=== PATIENT | male | born 1955 | race Caucasian/White ===

== ENCOUNTER 2022-09-04 09:29 | Outpatient (OUT) | payer MEDICARE, SELFPAY ==
--- NOTE | 2022-09-04 09:42 | CT_ITS ---
[address] [address] Patient Name: CARMINA MASON MRN: [id number] date: 1955 Sex: M Assigned Patient Location: CT Current Patient Location: CT Accession/Order Number: [id number] Exam Date: 09/04/2022 09:43 Report Date: 09/05/2022 09:13 At the request of: KIT DUNN Procedure: CT abdomen pelvis wo con EXAMINATION: CT abdomen pelvis wo con HISTORY: FLANK PAIN COMPARISON: No relevant comparison available. TECHNIQUE: Axial, Coronal, and Sagittal images were created without IV contrast. Dose reduction techniques were achieved by using automated exposure control and/or adjustment of mA and/or kV according to patient size and/or use of iterative reconstruction technique. FINDINGS: LUNG BASES: No visible pulmonary or pleural disease. 8 mm left pleural effusion LIVER: Multiple hypodensities the largest is subcapsular inferior right hepatic lobe measuring 2 cm in diameter with a density of 25 Hounsfield units, these are indeterminate BILIARY: No dilatation or calcification. PANCREAS: No lesion, fluid collection, ductal dilatation, or atrophy. SPLEEN: No enlargement or focal lesion. ADRENALS: No mass or enlargement. KIDNEYS: Normal right. Nonobstructing left nephrolithiasis. Left parapelvic cyst measuring 3.4 cm in diameter. 2 focal hypodensities posterior left renal cortex axial image 40 and 48 BOWEL/MESENTERY: Colonic diverticulosis without evidence of acute diverticulitis. Some mild wall thickening of the proximal sigmoid colon best seen on axial image 111 possibly related to nondistention. Normal appendix AORTA/VASCULAR: No aortic aneurysm. Mild atherosclerosis RETROPERITONEUM: No mass or adenopathy. LYMPH NODES: No adenopathy. URINARY BLADDER: No visible focal wall thickening, lesion, or calculus. PELVIC ORGANS: Enlarged prostate gland measuring 6.4 cm in diameter ABDOMINAL WALL: No mass or hernia. BONES: Moderate degenerative changes OTHER: Negative. IMPRESSION: Scattered hepatic hypodensities measuring up to 2 cm, nonspecific. Consider multiphase CT or MRI to evaluate enhancement characteristics Two focal hypodensities left posterior renal cortex, indeterminate, consider pre and postcontrast CT exam for further characterization No obstructive uropathy Moderate enlargement of the prostate gland measuring 6.4 cm in diameter Moderate colonic diverticulosis Electronically authenticated by: VENKATESH CHAPMAN Date: 09/05/2022 09:13
== END 2022-09-04 09:30 ==
LOC: CT 09:30
PROVIDERS: Visit Provider Urology
DX: N20.0 Calculus of kidney (principal); R10.9 Unspecified abdominal pain; N40.0 Benign prostatic hyperplasia without lower urinary tract symptoms; K57.30 Diverticulosis of large intestine without perforation or abscess without bleeding
CPT/HCPCS: 74176

== ENCOUNTER 2022-09-14 13:40 | Outpatient (OUT) | payer MEDICARE, SELFPAY ==
--- NOTE | 2022-09-14 13:46 | ECG_ITS ---
The [facility] Test Date: 2022-09-14 Pat Name: Zheng Montesinos Department: Room: - Gender: Male [employer]: : 1955 Requested By: JAHAIRA SWEET Order Number: [id number] Reading MD: MINDY COLLAZO Measurements Intervals S[place]ent Rate: 64 P: 53 AR: 178 QRS: 16 QRSD: 106 T: 64 QT: 389 QTc: 402 Interpretive Statements SINUS RHYTHM NONSPECIFIC T-WAVE ABNORMALITY No previous ECG available for comparison Electronically Signed On 09-15-2022 6:53:19 EDT by MINDY COLLAZO
[2022-09-14 14:45] LABS: Basophils Percent Auto 1.1 % (0.2-2.0); Eosinophils Absolute Auto 0.3 10^3/uL (0.0-0.7); Eosinophils Percent Auto 6.8 % (0.9-7.0); Hematocrit 40.6 % (42.0-54.0); Hemoglobin 13.6 g/dL (14.0-18.0); Immature Granulocytes Abs Auto 0.02 10^3/uL (0.00-0.03); Immature Granulocytes Pct Auto 0.5 % (0.0-0.5); Lymphocytes Absolute Auto 0.8 10^3/uL (1.2-3.8); Lymphocytes Percent Auto 22.6 % (20.5-60.0); Mean Corpuscular HGB Conc 33.5 g/dL (29.9-35.2); Mean Corpuscular Hemoglobin 28.4 pg (25.9-34.0); Mean Corpuscular Volume 84.8 fL (80.0-94.0); Mean Platelet Volume 9.4 fL (9.5-13.5); Monocytes Absolute Auto 0.3 10^3/uL (0.3-0.8); Monocytes Percent Auto 8.7 % (1.7-12.0); Neutrophils Absolute Auto 2.2 10^3/uL (1.4-6.5); Neutrophils Percent Auto 60.3 % (43.0-75.0); Platelet Count 162 10^3/uL (150-450); Red Blood Count 4.79 10^6/uL (4.70-6.10); Red Cell Distribution Width 13.8 % (11.0-15.0); White Blood Count 3.7 10^3/uL (4.0-11.0)
[2022-09-14 14:58] LABS: Partial Thromboplastin Time 27.7 sec (22.3-36.2); Prothrombin Time 10.6 sec (9.0-11.6)
[2022-09-14 16:23] LABS: Calcium 9.2 mg/dL (8.5-10.1); Carbon Dioxide 24.9 mmol/L (21.0-32.0); Chloride 109 mmol/L (98-107); Estimated GFR (African America 60 (>=60); Estimated GFR (Non-African Ame 49 (>=60); Glucose 98 mg/dL (74-106); Potassium 3.9 mmol/L (3.5-5.1); Sodium 143 mmol/L (136-145)
== END 2022-09-14 13:41 ==
LOC: PST 13:41
PROVIDERS: Urology
DX: Z01.810 Encounter for preprocedural cardiovascular examination (principal); Z01.812 Encounter for preprocedural laboratory examination; R10.9 Unspecified abdominal pain; R31.9 Hematuria, unspecified; N20.0 Calculus of kidney; E29.1 Testicular hypofunction; E78.5 Hyperlipidemia, unspecified; C85.90 Non-Hodgkin lymphoma, unspecified, unspecified site; Z79.899 Other long term (current) drug therapy; I10 Essential (primary) hypertension
CPT/HCPCS: 36415; 80048; 85025; 85610; 85730; 93005

== ENCOUNTER 2022-09-16 10:21 | Day surgery (SDC) | payer MEDICARE, SELFPAY ==
[2022-09-14 14:08] VITALS: BP 116/69; PULSE 62; RESP 20; TEMP 36.4; O2SAT 97; BMI 42.4
[2022-09-16] VITALS (10 sets, daily range): BP systolic 125–159; BP diastolic 70–87; PULSE 53–74; RESP 12–20; TEMP 36–36.2; O2SAT 95–99; BMI 42.0
[2022-09-16] MEDS: LACTATED RINGER'S SOLUTION 1,000 ML 50 ML IV ×2 (11:09→14:43)
[2022-09-16] MEDS: CEFAZOLIN SODIUM/DEXTROSE,ISO 1 GM/50 ML IV.SOLN IV (12:08)
[2022-09-16] MEDS: IOHEXOL 240 MG/ML - 50 ML VIAL INJ (12:31)
--- NOTE | 2022-09-16 13:28 | P.URON_ITS ---
Urology Surgery Operative Note Operative Note Procedure Date: 09/16/22 Time Out Performed: yes Pre-op Diagnosis: gross hematuria and left flank pain Post-op Diagnosis: same plus left nephrolithiasis Procedures performed: #1. Cystoscopy. #2. Left retrograde pyelogram. #3. Left rigid ureteral dilation. #4. Left ureteroscopy. #5. Left pyeloscopy. #6. Holmium laser lithotripsy of left renal calculi. #7. Stone basket extraction. #8. Placement of 6 Argentine variable length left ureteral stent Anesthesia: other (Gen. by LMA) Primary Surgeon: Daniel Hood Complications: none Estimated blood loss (mL): 5 Findings: left distal ureteral J-hooking. Left nephrolithiasis greater than 1 cm Specimens: left renal calculi fragments Drains: non- Indications for Procedures: The patient was brought to the operating room and placed on the operating room table in the supine position. SCDs were placed on the lower extremities and turned on and functioning during the entire case. Timeout was done by all parties in the room. We all agreed upon the patient's identification and the planned procedures for this patient. Genn. anesthesia was then administered. The patient was then repositioned into the modified dorsal lithotomy position. All pressure points were satisfactorily padded. Genitalia were sterilely prepped and draped in usual fashion. I started by passing a 22 Argentine Olympus cystoscope per urethra and into the bladder. There was minimal oozing of blood from the exterior prostatic urethra. I then passed the scope into the bladder. Careful panendoscopy revealed no evidence of any tumors or stones. I then passed an 8 Argentine cone-tipped catheter and did a left retrograde pyelogram. This showed J hooking of the distal left ureter but no other filling defects. I then passed a Glidewire through the scope and cannulated the left ureter. I was able to get the wire up the ureter and into the kidney. I then used an 8 and 10 Argentine rigid dilator to dilate the distal left ureter. The scope was then removed. I then passed a 11/13 Argentine navigator ureteral access sheath over the wire and up to the L5 level. The wire and stylette were then removed. I then passed a flexible ureteroscope through the access sheath and into the ureter. I went up the ureter and then into the renal pelvis. I then scoped in the calyceal system. I found some stones in the mid pole calyx. One of the stones was greater than 1 cm. There were a couple other smaller stones in this calyx. I then passed a 272 ? holmium laser fiber through the scope and made contact with the stone. Laser lithotripsy was done on the dusting mode at 10 W continuously and then increased to 12 W. I dust did all of these stones. I did leave a few pieces. I then passed a 0 tip nitinol basket and engaged the pieces and these were extracted down and sent for stone analysis. The scope was then removed. I then passed a Glidewire through the access sheath and into the kidney and removed the access sheath. I then backloaded the cystoscope over the wire and passed it into the bladder. The urethral oozing had stopped. I then slid a 6 Argentine variable length ureteral stent over the wire up into the kidney. The wire was removed and there were good curls in the kidney and in the bladder. The bladder was drained of its contents and the scope was then removed. He was then transferred [facility] and wheeled to PACU in stable condition. He'll be discharged to home later today with a prescription for Keflex 500 mg daily for 2 weeks and Vesicare 10 mg daily #30.
--- NOTE | 2022-09-16 13:43 | PC.NURSE ---
has urinal in place; has not voided
--- NOTE | 2022-09-16 14:50 | PC.NURSE ---
Added 1 liter fluids as patient is unable to urinate post procedure. patient denies any pain.
--- NOTE | 2022-09-16 15:22 | PC.NURSE ---
patient ambulating to try and urinate.
[2022-09-22 20:24] LABS: Calcium Oxalate Dihydrate 60 % (.); Calcium Oxalate Monohydrate 10 % (.); Calcium phosphate (hydroxyl) 30 % (.)
== END 2022-09-16 15:41 | disposition home or self-care (01) ==
PROVIDERS: Visit Provider Urology
PROC: (CPT 52356; principal; 2022-09-16 11:00)
DX: N20.0 Calculus of kidney (principal); R31.9 Hematuria, unspecified; R10.9 Unspecified abdominal pain; I10 Essential (primary) hypertension; N52.9 Male erectile dysfunction, unspecified; R97.20 Elevated prostate specific antigen [PSA]; N40.1 Benign prostatic hyperplasia with lower urinary tract symptoms; R39.15 Urgency of urination; R35.1 Nocturia; Z87.442 Personal history of urinary calculi; C85.10 Unspecified B-cell lymphoma, unspecified site; Z79.899 Other long term (current) drug therapy
CPT/HCPCS: 52356; 74420; 82365; 99999; C1874; J2704; Q9966

== ENCOUNTER 2022-11-10 11:06 | Outpatient (OUT) | payer MEDICARE, SELFPAY ==
--- NOTE | 2022-11-10 11:35 | XR_ITS ---
The [address] [address] Patient Name: CARMINA MASON MRN: [id number] date: 1955 Sex: M Assigned Patient Location: LAB Current Patient Location: LAB Accession/Order Number: [id number] Exam Date: 11/10/2022 11:40 Report Date: 11/10/2022 12:53 At the request of: JAHAIRA SWEET Procedure: XR abdomen 1V EXAM: XR abdomen 1V HISTORY: Kidney Stones N20.0 COMPARISON: None. TECHNIQUE: AP view of the abdomen. FINDINGS: Nonobstructive bowel gas pattern is noted. There is no suspicious calcification. The osseous structures are intact. XR/XR abdomen 1V IMPRESSION: Nonobstructive bowel gas pattern. No suspicious renal calcification. Electronically authenticated by: IRIS VINCENT Date: 11/10/2022 12:53
[2022-11-10 12:52] LABS: Prostate Specific Antigen Dx 11.77 ng/mL (<=4.00)
[2022-11-11 08:13] LABS: Testosterone 597 ng/dL (264-916)
== END 2022-11-10 11:07 | disposition home or self-care (01) ==
LOC: LAB 11:07
PROVIDERS: Visit Provider Urology
DX: N20.0 Calculus of kidney (principal); E29.1 Testicular hypofunction; R97.20 Elevated prostate specific antigen [PSA]
CPT/HCPCS: 36415; 74018; 84153; 84403

== ENCOUNTER 2023-04-06 11:56 | Outpatient (OUT) | payer MEDICARE, SELFPAY ==
[2023-04-06 12:48] LABS: Prostate Specific Antigen Dx 14.96 ng/mL (<=4.00)
[2023-04-06 15:06] LABS: Calcium 8.8 mg/dL (8.5-10.1); Carbon Dioxide 25.1 mmol/L (21.0-32.0); Chloride 109 mmol/L (98-107); Estimated GFR (African America >60 (>=60); Estimated GFR (Non-African Ame 51 (>=60); Sodium 139 mmol/L (136-145); Uric Acid 5.1 mg/dL (3.5-7.2)
[2023-04-06 15:34] LABS: Total Volume 24 Hour Urine 2575 mL/24hr
[2023-04-06 15:37] LABS: Calcium 24 Hour Urine 391.4 mg/24hr (100.0-300.0); Calcium Urine Random 15.2 mg/dL (5.1-21.0); Sodium 24 Hour Urine 180 mmol/24h (40-220); Sodium Urine Random 70 mmol/L (30-90)
[2023-04-07 08:11] LABS: Testosterone 586 ng/dL (264-916)
[2023-04-07 09:12] LABS: Magnesium, U 4.9 mg/dL (Not Estab.); Magnesium,Urine 24hr 126.2 mg/24 hr (12.0-293.0); Phosphorus, Urine 72.3 mg/dL (Not Estab.); Phosphorus,Urine 24h 1862 mg/24 hr (390-1425); Uric Acid, Urine 46.7 mg/dL (Not Estab.)
[2023-04-07 12:10] LABS: PTH, Intact 19 pg/mL (15-65)
[2023-04-08 13:11] LABS: Citric Acid, U, 24hr 245 mg/24 hr (320-1240); Citric Acid, Urine 95 mg/L (Undefined)
[2023-04-19 16:09] LABS: Oxalates, Urine 4 mg/L (Undefined); Oxalates, Urine 24hr 10 mg/24 hr (7-44)
== END 2023-04-06 11:57 | disposition home or self-care (01) ==
LOC: LAB 11:56
PROVIDERS: Visit Provider Urology
DX: E29.1 Testicular hypofunction (principal); N20.0 Calculus of kidney
CPT/HCPCS: 36415; 82310; 82340; 82374; 82435; 82507; 82565; 82570; 83735; 83945; 83970; 84100; 84105; 84153; 84295; 84300; 84403; 84520; 84550; 84560

== ENCOUNTER 2023-07-20 15:42 | Outpatient (OUT) | payer MEDICARE, SELFPAY ==
--- NOTE | 2023-07-20 15:51 | XR_ITS ---
The [address] [address] Patient Name: CARMINA MASON MRN: [id number] date: 1955 Sex: M Assigned Patient Location: LAB Current Patient Location: Accession/Order Number: [id number] Exam Date: 07/20/2023 16:05 Report Date: 07/22/2023 04:43 At the request of: JAHAIRA SWEET Procedure: XR abdomen 1V EXAMINATION: XR abdomen 1V HISTORY: kidney stone N20.0 COMPARISON: XR abdomen 11/10/2022 FINDINGS: KIDNEY/URETER - RIGHT: No visible renal or ureteral calcifications. KIDNEY/URETER - LEFT: 5 mm calcification projecting over inferior pole of left kidney. PELVIS: No appreciable ureteral stones. Stable pelvic calcifications favoring phleboliths. BOWEL: No abnormal dilation or deviation. BONES: No acute abnormality. OTHER: Multiple surgical soft tissue anchors overlying the lower abdomen. XR/XR abdomen 1V IMPRESSION: 1. Suspect left nephrolithiasis. Electronically authenticated by: MIKE VILLEDA Date: 07/22/2023 04:43
--- OUTSIDE RECORDS SUMMARY | 2023-07-20 16:08 | XMS_ITS | CCD ---
Author Organization [facility] Care Team Providers Care Library Information Technician Name Role Phone SHELIA HARDY Unavailable Unavailable SUYAPA DELGADO Unavailable Unavailable DIETZ, VERNA Unavailable Unavailable DIETZ, VERNA Unavailable Unavailable DIETZ, VERNA Unavailable Unavailable DIETZ, VERNA Unavailable Unavailable SHELIA HARDY Unavailable Unavailable Kenny Yu Unavailable VARSHA HARDY Primary Care Physician MD Juan Carlos Morgan Primary Care Provider MD Abbi Mcbride Attending Provider DO Julien Wilkerson Emergency Provider Al MD Can Sethi Admit Provider MD Abbi Mcbride Other Provider MD Jeffery Arthur Attending Provider DO Fam Duncan Attending Provider RUSTY Duron Attending Provider RUSTY Duron Attending Provider Dr. Abbi Mcbride Attending Unavailable MD Juan Carlos Morgan Primary Care Provider RUSTY Duron Attending Provider RUSTY Duron Attending Provider MD Juan Carlos Morgan Primary Care Provider RUSTY Duron Attending Provider DR JAHAIRA SWEET Attending Unavailable DR JAHAIRA SWEET Admitting Unavailable SWEET, DR CAMPO Consulting Unavailable MISC, DR BALDERAS Primary Care Unavailable SWEET, DR CAMPO Attending Unavailable SWEET, DR CAMPO Admitting Unavailable MISC, DR BALDERAS Primary Care Unavailable SWEET, DR CAMPO Consulting Unavailable WEST, DR VENKATESH Duncan Consulting Unavailable SWEET, DR CAMPO Consulting Unavailable SWEET, DR CAMPO Attending Unavailable SWEET, DR CAMPO Admitting Unavailable MISC, DR BALDERAS Primary Care Unavailable ZIEBER, DR MIKE Ya Consulting Unavailable SWEET, DR CAMPO Attending Unavailable SWEET, DR CAMPO Admitting Unavailable MISC, DR BALDERAS Primary Care Unavailable MD Cathy [place] Primary Care Provider RUSTY Duron Attending Provider Unavailable Primary Care Provider Unavailabl e JAHAIRA SWEET Referring Unavailable MD Cathy [place] Primary Care Provider RUSTY Duron Attending Provider MD Hunter Forrest Attending Provider [phone] MD Cathy [place] Primary Care Provider MD uHnter Forrest Attending Provider [phone] RUSTY Duron Attending Provider MD Cathy [facility] Care Provider RUSTY Duron Attending Provider MD Jahaira Sweet Attending Provider SWEET, Jahaira R Attending Unavailable SWEET, Jahaira R Attending Unavailable SWEET, Jahaira R Attending Unavailable SWEET, Jahaira R Attending Unavailable SWEET, Jahaira R Admitting Unavailable SWEET, Jahaira R Referring Unavailable SWEET, Jahaira R Attending Unavailable SWEET, Jahaira R Attending Unavailable SWEET, Jahaira R Attending Unavailable HAYLEY MACHADO, SHELIA Whitaker Primary Care Unavailable HAYLEY MACHADO, SHELIA Whitaker Attending Unavailable HAYLEY MACHADO, SHELIA Whitaker Attending Unavailable HAYLEY MACHADO, SHELIA Whitaker Primary Care Unavailable HAYLEY MACHADO, SHELIA Whitaker Attending Unavailable HAYLEY MACHADO, SHELIA Whitaker Primary Care Unavailable HAYLEY MACHADO, SHELIA Whitaker Primary Care Unavailable HAYLEY MACHADO, SHELIA Whitaker Attending Unavailable HAYLEY MACHADO, SHELIA Whitaker Primary Care Unavailable HAYLEY MACHADO, SHELIA Whitaker Admitting Unavailable HAYLEY MACHADO, SHELIA Whitaekr Attending Unavailable SHELIA HARDY MD Primary Care Unavailable Jahaira Sweet Admitting Unavailable Jahaira Sweet Attending Unavailable Valentin Almaraz Admitting Unavailable Valentin Almaraz Attending Unavailable HAYLEY MACHADO, SHELIA Whitaker Primary Care Unavailable Jahaira Sweet Admitting Unavailable Jahaira Sweet Attending Unavailable Juan Carlos Morgan Primary Care Unavailable Hunter Forrest Admitting Unavailable Hunter Forrest Attending Unavailable Juan Carlos Morgan Primary Care Unavailable Jane Duron Attending Unavail able Juan Carlos Morgan Primary Care Unavailable Starla Gautam Consulting Unavailab Jane Brunson Admitting Unavail able Allergies Allergy Classification Reported Allergen(s) Allergy Type Date of Onset Reaction(s) Facility (2 sources) Amino Acids Drug Allergy [facility] Repository (1 source) No Known Medication Allergies; Translations: [No Known Medication Allergies] Propensity to adverse reactions (disorder) [facility] Repository Medications Current Medications Medication Drug Class(es) Dates Sig (Normalized) Sig (Original) allopurinol 300 mg oral tablet (20 sources) Xanthine Oxidase Inhibitor Start: 06-29-2023 End: 06-23-2024 take 1 tablet by mouth once daily allopurinol 300 mg Tab 300 mg = 1 tab(s), Oral, Daily, X 30 day(s), # 30 tab(s), Refills(s) 11, Pharmacy: [facility] #[id number], 175.2, cm, 06/29/23 8:10:00 EDT, Height/Length Dosing, 132.6, kg, 06/29/23 8:06:00 EDT, Weight Dosing Start Date: 06/29/23 Stop Date: 06/23/24 Status: Ordered Start: 04-08-2021 End: 04-03-2022 take 300 mg by mouth once daily Allopurinol Discontinued 300 MG PO Daily September 23, 2021 11:00pm September 27, 2021 3:26pm amLODIPine 5 mg oral tablet (20 sources) Dihydropyridine Calcium Channel Rea Start: 05-10-2022 amLODIPine 5 mg Tab Refills(s) 0 Start Date: 05/10/22 Status: Ordered Start: 09-24-2021 End: 10-28-2021 take 5 mg by mouth once daily Amlodipine Active 5 MG P O Daily October 27, 2021 11:00pm atorvastatin 20 mg oral tablet (20 sources) HMG-CoA Reductase Inhibitor Start: 05-10-2022 atorvastatin 20 mg T ab Refills(s) 0 Start Date: 05/10/22 Status: Ordered Start: 09-24-2021 End: 10-28-2021 take 20 mg by mouth once daily Atorvastatin Discontinu ed 20 MG PO Daily September 23, 2021 11:00pm October 28, 2021 8:19am citalopram 20 mg oral tablet (1 source) Serotonin Reuptake Inhibitor take 1 tablet by mouth every twenty-four hours Citalopram Hydrobromide 20 MG 1 tablet Orally Once a day Active folic acid 1 mg oral tablet (20 sources) Start: End: take 3 mg by mouth once daily Folic Acid Active 3 MG PO Daily April 29, 2023 2:48pm Start: 04-16-2022 End: 10-06-2022 folic acid 1 mg Tab Refills( s) 0 Start Date: 05/10/22 Status: Ordered hydroCHLOROthiazide 12.5 mg oral capsule (20 sources) Thiazide Diuretic Start: 06-29-2023 End: 06-23-2024 take 1 capsule by mouth once daily hydrochlorothiazide 12.5 mg Cap 12.5 mg = 1 cap(s), Oral, Daily, X 30 day(s), # 30 cap(s), Refills(s) 11, Pharmacy: [facility] #[id number], 175.2, cm, 06/29/23 8:10:00 EDT, Height/Length Dosing, 132.6, kg, 06/29/23 8:06:00 EDT, Weight Dosing Start Date: 06/29/23 Stop Date: 06/23/24 Status: Ordered Start: 10-28-2021 End: 11-18-2021 take 12.5 mg by mouth once daily Hydrochlorothiazide Discontinued 12.5 MG PO Daily October 27, 2021 11:00pm November 18, 2021 2:21pm Start: 04-08-2021 End: 09-26-2021 take 12.5 mg by mouth once daily Hydrochlorothiazide Discontinued 12.5 MG PO Daily September 23, 2021 11:00pm September 26, 2021 1:06am ketorolac tromethamine 10 mg oral tablet (1 source) Nonsteroidal Anti-inflammatory Drug, Cyclooxygenase Inhibitor Start: 09-23-2022 take 1 tablet by mouth twice daily as needed for pain ketorolac 10 mg Tab 10 mg = 1 tab(s), Oral, BID, PRN for pain, # 10 tab(s), Refills(s) 0, Pharmacy: [facility] #[id number], 175.2, cm, 05/10/22 10:47:00 EST, Height/Length Dosing, 148, kg, 05/10/22 10:47:00 EST, Weight Dosing Start Date: 09/23/22 Status: Ordered losartan potassium 50 mg oral tablet (8 sources) Angiotensin 2 Receptor Rea Start: 09-26-2020 take 1 mg by mouth once daily losartan 50 mg Tab mg tab(s), Oral, Daily, Refills(s) 0 Start Date: 09/26/20 Status: Ordered tamsulosin hydrochloride 0.4 mg oral capsule (1 source) alpha-Adrenergic Rea Start: 10-12-2022 End: 10-19-2022 take 1 capsule by mouth once daily Flomax 0.4 mg Cap 0.4 mg = 1 cap(s), Oral, Daily, X 7 day(s), # 7 cap(s), Refills(s) 0, Pharmacy: [facility] #[id number], 175.2, cm, 10/12/22 14:31:00 EDT, Height/Length Dosing, 148, kg, 10/12/22 14:31:00 EDT, Weight Dosing Start Date: 10/12/22 Stop Date: 10/19/22 Status: Ordered 60 actuat testosterone 20.25 mg/actuat topical gel (20 sources) Androgen Start: 06-29-2023 AndroGel Pump 20.25 mg/1.25 g (1.62%) transdermal gel = 1 pump, Topical, MonWedFri, Apply one pump to clean, dry, intact skin three times per week. TUE-TUE-TUE. Wash hands thoroughly after application., # 75 gm, Refills(s) 3, Pharmacy: [facility] #[id number], 175.2, cm, 06/29/23 8:10:00 EDT, Height/Length Dosing, 132.6, kg, 06/29/23 8:06:00 EDT, Weight Dosing Start Date: 06/29/23 Status: Ordered Start: 10-12-2022 AndroGel Pump 20.25 mg/1.25 g (1.62%) transdermal gel = 1 pump, Topical, MonWedFri, Apply one pump to clean, dry, intact skin three times per week. . Wash hands thoroughly after application., # 75 gm, Refills(s) 3, Pharmacy: [id number] #[id number], 175.2, cm, 10/12/22 14:31:00 EDT, Height/Length Dosing, 148, kg, 10/12/22 14:31:00 EDT, Weight Dosing Start Date: 10/12/22 Status: Ordered Start: 02-11-2022 AndroGel Pump 20.25 mg/1.25 g (1.62%) transdermal gel = 1 pump, Topical, As Directed, Apply one pump 3x/ week. apply to clean, dry, intact skin wash hands thoroughly after application, # 75 gm, Refills(s) 3, Pharmacy: [facility] #[id number], 175.2, cm, 11/02/21 11:21:00 EDT, Height/Length Dosing... Start Date: 02/11/22 Status: Ordered Start: 10-28-2021 Testosterone ( Androgel) 1 % (25 mg/2.5gram) Gel In Packet Active 1 PACKET TRANSDERML Daily October 27, 2021 11:00pm Start: 10-09-2021 End: 10-28-2021 Testosterone Discontinued 4 PUMP TOPICAL Q48H October 08, 2021 11:00pm October 28, 2021 8:21am Start: 09-24-2021 End: 09-26-2021 Testosterone (Androgel) 20.2 5 mg/1.25 gram (1.62 %) Gel In Metered-Dose Pump Discontinued 2 PUMP TOPICAL Daily September 23, 2021 11:00pm September 26, 2021 1:06am Start: 05-04-2021 AndroGel Pump 20.25 mg/1.25 g (1.62%) transdermal gel = 1 pump, Topical, As Directed, Apply one pump 4x/ week. , # 75 gm, Refills(s) 3, Pharmacy: [facility], 175.2, cm, 05/04/21 11:06:00 EST, Height/Length Dosing, 149.3, kg, 05/04/21 11:06:00 EST, Weight Dosing Start Date: 05/04/21 Status: Ordered Testim 50 MG/5GM (1%) 1 application to affected area in the morning Transdermal Once a day Active topiramate 100 mg oral tablet (20 sources) Start: 09-24-2021 take 100 mg by mouth once daily Topiramate Active 100 MG PO Daily September 23, 2021 11:00pm Start: 11-13-2018 take 1 tablet by nena th once daily topiramate 100 mg Tab 100 mg = 1 tab(s), Oral, Daily, Refills(s) 0 Start Date: 11/13/18 Status: Ordered traZODone hydrochloride 100 mg oral tablet (20 sources) Serotonin Reuptake Inhibitor Start: 09-26-2021 End: 10-28-2021 take 100 mg by mouth once daily at bedtime Trazodone Active 100 MG PO Daily at bedtime October 27, 2021 11:00pm Completed/Discontinued Medications Medication Drug Class(es) Dates Sig (Normalized) Sig (Original) cephalexin 500 mg oral tablet (4 sources) Cephalosporin Antibacterial Start: 07-09-2022 End: 10-06-2022 take 500 mg by mouth four times daily Cephalexin Discontinued 500 MG PO Four times daily 14 08July 08, 2022 11:00pm October 06, 2022 8:59am ciprofloxacin 500 mg oral tablet (1 source) Quinolone Antimicrobial Start: 10-05-2022 take 1 tablet by mouth once daily Cipro 500 mg Tab 500 mg = 1 tab(s), Oral, Daily, Take 1 tablet the day before the procedure and 1 tablet after the procedure, # 2 tab(s), Refills(s) 0, Pharmacy: [facility] #[id number], 175.2, cm, 05/10/22 10:47:00 EST, Height/Length Dosing, 148, kg, 05/10/22 10:47:00 EST, W... Start Date: 10/05/22 Status: Ordered doxazosin 8 mg oral tablet (20 sources) alpha-Adrenergic Rea Start: 04-08-2021 End: 03-04-2023 take 8 mg by mouth once daily Doxazosin Discontinued 8 MG PO Daily September 23, 2021 11:00pm September 26, 2021 1:13pm fluconazole 100 mg oral tablet (20 sources) Azole Antifungal Start: 12-09-2021 End: 01-08-2022 take 1 tablet by mouth once daily Fluconazole (Diflucan) 100 mg Tablet Discontinued 100 MG PO Daily December 23, 2021 11:57am January 08, 2022 9:38am ibuprofen 600 mg oral tablet (12 sources) Nonsteroidal Anti-inflammatory Drug Start: 11-05-2021 End: 11-18-2021 Ibuprofen Discontinued 600 MG PO EVERY 4-6 HOURS 15 November 04, 2021 11:00pm November 18, 2021 2:00pm do not exceed 4 doses in a 24 hour period Magic Mouthwash (12 sources) Start: 11-18-2021 End: 01-08-2022 take 1 [tsp_us] by mouth three times daily Magic Mouthwash Discontinued 1 - 2 TSP PO Three times daily November 17, 2021 11:00pm January 08, 2022 9:38am Start: 11-18-2021 End: 01-08-2022 take 1 [tsp_us] by mouth three times daily Magic Mouthwash Discontinued 1 - 2 TSP PO Three times daily November 18, 2021 12:00am January 08, 2022 10:38am Start: 11-18-2021 take 1 [tsp_us] by m outh three times daily Magic Mouthwash Active 1 - 2 TSP PO Three times daily November 18, 2021 12:00am melatonin 10 mg oral tablet (20 sources) Start: 09-24-2021 End: 01-08-2022 take 10 mg by mouth at bedtime Melatonin Discontinued 10 MG PO Bedtime October 27, 2021 11:00pm January 08, 2022 9:38am nystatin [id number] unt/ml oral suspension (20 sources) Polyene Antifungal Start: 11-18-2021 End: 01-08-2022 take 1 mL by mouth once daily Nystatin Discontinued 4 - 6 ML PO Daily 480 December 23, 2021 11:57am January 08, 2022 9:39am swish and swallow Start: 11-18-2021 take 1 mL by mouth once daily Nystatin Active 4 - 6 ML PO Daily 480 November 18, 2021 12:00am swish and swallow Start: 11-18-2021 take 1 mL by mouth once daily Nystatin Active 4 - 6 ML PO Daily 480 November 18, 2021 12:00am swish and swallow omeprazole 40 mg delayed release oral capsule (12 sources) Proton Pump Inhibitor Start: 09-26-2021 End: 10-28-2021 take 40 mg by mouth once daily at bedtime Omeprazole Discontinued 40 MG PO Daily at bedtime September 25, 2021 11:00pm October 28, 2021 8:20am potassium bicarbonate 25 meq effervescent oral tablet (8 sources) Start: 10-12-2022 End: 10-07-2023 take 1 tablet by mouth twice daily Klor-Con/EF 25 mEq oral tablet, effervescent 25 mEq = 1 tab(s), Oral, BID, X 90 day(s), # 180 tab(s), Refills(s) 3, Pharmacy: [facility] #[id number], 175.2, cm, 10/12/22 14:31:00 EDT, Height/Length Dosing, 148, kg, 10/12/22 14:31:00 EDT, Weight Dosing Start Date: 10/12/22 Stop Date: 10/07/23 Status: Ordered Start: 02-11-2022 take 1 tablet by [facility] twice daily Klor-Con/EF 25 mEq oral tablet, effervescent 25 mEq = 1 tab(s), Oral, BID, # 180 tab(s), Refills(s) 3, Pharmacy: [facility] #[id number], 175.2, cm, 11/02/21 11:21:00 EDT, Height/Length Dosing, 149.3, kg, 11/02/21 11:21:00 EDT, Weight Dosing Start Date: 02/11/22 Status: Ordered Start: 05-13-2021 take 1 tablet by nena twice daily Klor-Con/EF 25 mEq oral tablet, effervescent 25 mEq = 1 tab(s), Oral, BID, # 180 tab(s), Refills(s) 3, Pharmacy: [facility], 175.2, cm, 05/04/21 11:06:00 EST, Height/Length Dosing, 149.3, kg, 05/04/21 11:06:00 EST, Weight Dosing Start Date: 05/13/21 Status: Ordered Start: 04-08-2021 End: 04-03-2022 take 1 tablet by mouth twice daily Effer-K 20 mEq oral tablet, effervescent 20 mEq = 1 tab(s), Oral, BID, X 90 day(s), # 180 tab(s), Refills(s) 3, Pharmacy: [facility], 175.2, cm, 09/26/20 12:25:00 EDT, Height/Length Dosing, 155, kg, 09/26/20 12:25:00 EDT, Weight Dosing Start Date: 04/08/21 Stop Date: 04/03/22 Status: Ordered potassium chloride 25 meq oral tablet (20 sources) Start: 10-09-2021 End: 10-06-2022 take 25 mEq by mouth once daily Potassium Chloride Discontinued 25 MEQ PO Daily October 08, 2021 11:00pm October 06, 2022 9:01am Start: 09-24-2021 End: 09-26-2021 take 50 mEq by mouth once daily Potassium Chloride (Klor-Con) 20 mEq Packet Discontinued 50 MEQ PO Daily September 23, 2021 11:00pm September 26, 2021 1:07am predniSONE 20 mg oral tablet (20 sources) Start: 11-05-2021 End: 04-16-2022 take 5 tablets by mouth once daily, then take 1 tablet by mouth at mealtime Prednisone Discontinued 100 MG PO Daily November 05, 2021 10:25am April 16, 2022 2:55pm Administor 5 tabs po dailly days one through five of each chemo cycle administer with food or milk Start: 11-05-2021 take 5 tablets by mo uth once daily, then take 1 tablet by mouth at mealtime Prednisone Active 100 MG PO Daily November 05, 2021 11:25am Administor 5 tabs po dailly days one through five of each chemo cycle administer with food or milk Start: 09-30-2021 End: 11-05-2021 take 100 mg by mouth once daily at mealtime Prednisone Discontinued 100 MG PO Daily October 08, 2021 11:00pm November 05, 2021 10:25am administer with food or milk promethazine hydrochloride 25 mg oral tablet (12 sources) Phenothiazine Start: 09-26-2021 End: 10-28-2021 take 25 mg by mouth every six hours Promethazine Discontinued 25 MG PO Q6H September 25, 2021 11:00pm October 28, 2021 8:19am sildenafil 100 mg oral tablet (7 sources) Phosphodiesterase 5 Inhibitor Start: 10-12-2022 take 1 tablet by mouth every hour, then take 1 tablet by mouth every twenty-four hours sildenafil 100 mg Tab 100 mg = 1 tab(s), Oral, As Directed, Take 1 tab by mouth one hour prior to sexual activity. Do NOT exceed 100 mg (1 tab) in 24 hours., # 30 tab(s), Refills(s) 5, Pharmacy: [facility] #[id number], 175.2, cm, 10/12/22 14:31:00 EDT, Height/Length Dosing, 148, kg, 10/12/22 14:31:00 EDT, Weight Dosing Start Date: 10/12/22 Status: Ordered Start: 04-03-2021 sildenafil 100 mg Tab 100 mg = 1 tab(s), Oral, As Directed, 1 hour before sexual activity, # 30 tab(s), Refills(s) 5, Pharmacy: [id number], 175.2, cm, 09/26/20 12:25:00 EDT, Height/Length Dosing, 155, kg, 09/26/20 12:25:00 EDT, Weight Dosing Start Date: 04/03/21 Status: Ordered 24 hr tolterodine tartrate 4 mg extended release oral capsule (12 sources) Cholinergic Muscarinic Antagonist Start: 09-24-2021 End: 09-26-2021 take 1 capsule by mouth every twenty-four hours Tolterodine (Detrol La) 4 mg Capsule,Extended Release 24hr Discontinued 4 MG PO Q24H September 23, 2021 11:00pm September 26, 2021 1:06am Triamcinolone (1 source) Corticosteroid Start: 10-04-2016 Kenalog -40 mg Sep, 24 hr venlafaxine 150 mg extended release oral tablet (20 sources) Serotonin and Norepinephrine Reuptake Inhibitor Start: 10-09-2021 End: 07-09-2022 take 150 mg by mouth once daily Venlafaxine Discontinued 150 MG PO Daily October 08, 2021 11:00pm July 09, 2022 12:07pm Start: 09-26-2021 End: 10-09-2021 take 225 mg by mouth once daily at bedtime Venlafaxine Discontinued 225 MG PO Daily at bedtime September 25, 2021 11:00pm October 09, 2021 11:21am Start: 09-24-2021 End: 09-26-2021 take 450 mg by mouth once daily Venlafaxine Discontinu ed 450 MG PO Daily September 23, 2021 11:00pm September 26, 2021 1:04am Start: 12-17-2019 venlafaxine 75 mg Cap-ER Refills(s) 0 Start Date: 12/17/19 Status: Ordered Problems Active Problems Problem Classification Problem Date Documented Date Episodic/Chronic Abdominal pain (12 sources) Unspecified abdominal pain; Translations: [Left flank pain] Onset: 08-08-2017 05-04-2021 Episodic Acute and unspecified renal failure (20 sources) Acute kidney failure, unspecified; Translations: [Injury of kidney] Onset: 08-08-2017 10-09-2021 Episodic Administrative/social admission (16 sources) Patient encounter status; Translations: [Other specified counseling] 10-09-2021 Episodic Calculus of urinary tract (15 sources) Calculus of kidney; Translations: [Calculus of ureter] Onset: 08-08-2017 Episodic Essential hypertension (19 sources) Hypertensive disorder; Translations: [Essential (primary) hypertension] 11-13-2018 Chronic Genitourinary symptoms and ill-defined conditions (20 sources) Nocturia; Translations: [Urgent desire to urinate] Onset: 10-12-2022 11-13-2018 Episodic Hyperplasia of prostate (13 sources) Benign prostatic hypertrophy with outflow obstruction; Translations: [Benign prostatic hyperplasia with lower urinary tract symptoms] Onset: 10-30-2021 Chronic Maintenance chemotherapy; radiotherapy (20 sources) Patient encounter status; Translations: [Encounter for antineoplastic chemotherapy] 10-09-2021 Chronic Mood disorders (10 sources) Recurrent major depression; Translations: [Major depressive disorder, recurrent, unspecified] 04-10-2022 Chronic Mycoses (16 sources) Candidiasis of mouth; Translations: [Candidal stomatitis] 12-09-2021 Episodic Non-Hodgkin`s lymphoma (20 sources) High grade B-cell lymphoma; Translations: [Unspecified B-cell lymphoma, unspecified site] Onset: 06-08-2023 10-09-2021 Chronic Nutritional deficiencies (6 sources) Folic acid deficiency; Translations: [Deficiency of other specified B group vitamins] 10-06-2022 Episodic Osteoarthritis (2 sources) Primary gonarthrosis, bilateral; Translations: [Bilateral primary osteoarthritis of knee] Onset: 05-26-2021 Resolved: 05-26-2021 Chronic Other diseases of kidney and ureters (1 source) Urinary tract obstruction; Translations: [Other obstructive and reflux uropathy] Onset: 10-30-2021 Episodic Other diseases of kidney and ureters (3 sources) Acquired renal cyst without neoplastic change; Translations: [Cyst of kidney, acquired] Onset: 10-12-2022 Episodic Other diseases of kidney and ureters (5 sources) Cyst of kidney 10-12-2022 Episodic Other endocrine disorders (5 sources) Testicular hypofunction; Translations: [Testicular hypofunction] Onset: 10-30-2021 Chronic Other endocrine disorders (7 sources) Male hypogonadism 06-23-2020 Chronic Other endocrine disorders (5 sources) Testicular hypofunction; Translations: [TESTICULAR HYPOFUNCTION] Onset: 10-03-2021 Chronic Other injuries and conditions due to external causes (6 sources) Foreign body in bladder; Translations: [Foreign body in bladder, initial encounter] Onset: 10-12-2022 Episodic Other male genital disorders (13 sources) Male erectile dysfunction, unspecified; Translations: [Erectile dysfunction] Onset: 10-30-2021 Chronic Other male genital disorders (7 sources) History of prostatitis 11-13-2018 Episodic Other nervous system disorders (12 sources) Peripheral neuropathy due to and following chemotherapy; Translations: [Drug-induced polyneuropathy] 10-28-2021 Chronic Other nervous system disorders (12 sources) Drug-induced polyneuropathy; Translations: [Polyneuropathy due to other toxic agents] 11-18-2021 Chronic Other nutritional; endocrine; and metabolic disorders (12 sources) Morbid obesity; Translations: [Morbid (severe) obesity due to excess calories] 10-02-2021 Chronic Other nutritional; endocrine; and metabolic disorders (20 sources) Hypercalcemia; Translations: [Hypercalcemia] 10-28-2021 Chronic Other nutritional; endocrine; and metabolic disorders (20 sources) Hypercalcemia; Translations: [Hypercalcemia] 10-01-2021 Chronic Other nutritional; endocrine; and metabolic disorders (1 source) Hyperuricuria 06-29-2023 Chronic Other screening for suspected conditions (not mental disorders or infectious disease) (20 sources) Raised prostate specific antigen; Translations: [Elevated prostate specific antigen [PSA]] Onset: 10-15-2019 Episodic Unclassified (5 sources) Urine finding 10-12-2022 Past or Other Problems Problem Classification Problem Date Documented Date Episodic/Chronic Malaise and fatigue (7 sources) Fatigue; Translations: [Other fatigue] Onset: 11-17-2022 10-06-2022 Episodic Other connective tissue disease (1 source) Bursitis of right shoulder; Translations: [Bursitis of right shoulder] Episodic Other connective tissue disease (1 source) Disorder of rotator cuff; Translations: [Unspecified rotator cuff tear or rupture of right shoulder, not specified as traumatic] Episodic Other non-traumatic joint disorders (1 source) Pain in right knee Onset: 05-26-2021 Resolved: 05-26-2021 Episodic Other non-traumatic joint disorders (1 source) Pain in left knee Onset: 05-26-2021 Resolved: 05-26-2021 Episodic Residual codes; unclassified (1 source) Postprocedural state finding; Translations: [Other specified postprocedural states] Episodic Results Test Name Value Interpretation Reference Range Facility Pre-Certification Formon Pre-Certification Form [id number] [facility] Lab Reportson 07-01-2023 Lab Reports [id number] [facility] Screenson 06-30-2023 Screens [id number]#[id number] [facility] Ambulatory Visit Summaryon 0 06-29-2023 Ambulatory Visit Summary ZHENG MONTESINOS :1955 Visit Date:06/29/2023 Ambulatory Visit Instructions Your Diagnosis Kidney stone Elevated PSA Hypogonadism male BPH with urinary obstruction ED (erectile dysfunction) Renal cyst Hypocitraturia Hypercalciuria Hyperuricuria Tests Performed XR Abdomen 1 View -- Results Pending -- Please visit your patient portal for your results or contact your primary care physician. Your Care Team Attending Physician - Jahaira SWEET MD Primary Care Physician - VARSHA HARDY md This Is Your Medications List allopurinol (allopurinol 300 mg Tab) hydrochlorothiazide (hydrochlorothiazide 12.5 mg Cap) potassium bicarbonate (Klor-Con/EF 25 mEq oral tablet, effervescent) sildenafil (sildenafil 100 mg Tab) testosterone (AndroGel Pump 20.25 mg/1.25 g (1.62%) transdermal gel) Contact prescribing physician if questions or concerns amlodipine (amLODIPine 5 mg Tab) atorvastatin (atorvastatin 20 mg Tab) folic acid (folic acid 1 mg Tab) losartan (losartan 50 mg Tab) topiramate (topiramate 100 mg Tab) venlafaxine (venlafaxine 75 mg Cap-ER) Procedures Performed Transrectal needle biopsy of prostate (06/14/2023), Cystoscopic removal of ureteric stent (10/12/2022), Cystoscope (09/16/2022), ESWL of kidney (07/10/2020), ESWL of kidney (11/16/2018), TURP - Transurethral resection of prostate (07/18/2014), Cystoscopy (03/01/2014), Urodynamics (02/28/2014), Transrectal biopsy of prostate using ultrasound (US) guidance (10/15/2013), Transrectal biopsy of prostate using ultrasound (US) guidance (07/16/2013), Cystoscopy (06/26/2006), Carpal tunnel release, Complete repair of rotator cuff, hernia repair umbilical, skin graft on finger, stone extraction. Discharge Vitals Temperature (Temporal Artery) 36.2 ?C Blood Pressure 144/88 Height 175.2 cm Height 69 in Weight 132.6 kg Weight 291.72 lb BMI 43.2 What to do next Scheduled Follow-Up Appointments Tuesday 9:30 AM EDT With: Jahaira SWEET MD Where: [facility] Patient Educationon 04-03-20 24 Patient Education Nephrology Dietary Guidelines to Help Prevent Kidney Stones Kidney stones are deposits of minerals and salts that form inside your kidneys. Your risk of developing kidney stones may be greater depending on your diet, your lifestyle, the medicines you take, and whether you have certain medical conditions. Most people can lower their risks of developing kidney stones by following these dietary guidelines. Your dietitian may give you more specific instructions depending on your overall health and the type of kidney stones you tend to develop. What are tips for following this plan? Reading food labels ? Choose foods with no salt added or low-salt labels. Limit your salt (sodium) intake to less than 1,500 mg a day. ? Choose foods with calcium for each meal and snack. Try to eat about 300 mg of calcium at each meal. Foods that contain 200?500 mg of calcium a serving include: ? 8 oz (237 mL) of milk, koxglxl-anltvjwaijrw-gnbwb milk, and calcium-fortifiedfruit juice. Calcium-fortified means that calcium has been added to these drinks. ? 8 oz (237 mL) of kefir, yogurt, and soy yogurt. ? 4 oz (114 g) of tofu. ? 1 oz (28 g) of cheese. ? 1 cup (150 g) of dried figs. ? 1 cup (91 g) of cooked broccoli. ? One 3 oz (85 g) can of sardines or mackerel. Most people need 1,000?1,500 mg of calcium a day. Talk to your dietitian about how much calcium is recommended for you. Shopping ? Buy plenty of fresh fruits and vegetables. Most people do not need to avoid fruits and vegetables, even if these foods contain nutrients that may contribute to kidney stones. ? When shopping for convenience foods, choose: ? Whole pieces of fruit. ? Pre-made salads with dressing on the side. ? Low-fat fruit and yogurt smoothies. ? Avoid buying frozen meals or prepared deli foods. These can be high in sodium. ? Look for foods with live cultures, such as yogurt and kefir. ? Choose high-fiber grains, such as whole-wheat breads, oat bran, and wheat cereals. Cooking ? Do not add salt to food when cooking. Place a salt shaker on the table and allow each person to add their own salt to taste. ? Use vegetable protein, such as beans, textured vegetable protein (TVP), or tofu, instead of meat in pasta, casseroles, and soups. Meal planning ? Eat less salt, if told by your dietitian. To do this: ? Avoid eating processed or pre-made food. ? Avoid eating fast food. ? Eat less animal protein, including cheese, meat, poultry, or fish, if told by your dietitian. To do this: ? Limit the number of times you have meat, poultry, fish, or cheese each week. Eat a diet free of meat at least 2 days a week. ? Eat only one serving each day of meat, poultry, fish, or seafood. ? When you prepare animal proteins, cut pieces into small portion sizes. For most meat and fish, one serving is about the size of the palm of your hand. ? Eat at least five servings of fresh fruits and vegetables each day. To do this: ? Keep fruits and vegetables on hand for snacks. ? Eat one piece of fruit or a handful of berries with breakfast. ? Have a salad and fruit at lunch. ? Have two kinds of vegetables at dinner. ? You may be told to limit foods that are high in a substance called oxalate. These include: ? Spinach (cooked), rhubarb, beets, sweet potatoes, and Belgian chard. ? Peanuts. ? Potato chips, irish fries, and baked potatoes with skin on. ? Nuts and nut products. ? Chocolate. ? If you regularly take a diuretic medicine, make sure to eat at least 1 or 2 servings of fruits or vegetables that are high in potassium each day. These include: ? Avocado. ? Banana. ? [place], prune, carrot, or tomato juice. ? Baked potato. ? Cabbage. ? Beans and split peas. Lifestyle ? Drink enough fluid to keep your urine pale yellow. This is the most important thing you can do. Spread your fluid intake throughout the day. ? If you drink alcohol: ? Limit how much you have to: ? 0?1 drink a day for women who are not . ? 0?2 drinks a day for men. ? Know how much alcohol is in your drink. In the [place] one drink equals one 12 oz bottle of beer (355 mL), one 5 oz glass of wine (148 mL), or one 1? oz glass of hard liquor (44 mL). ? Lose weight if told by your health care provider. Work with your dietitian to find an eating plan and weight loss strategies that work best for you. General information ? Talk to your health care provider and dietitian about taking daily supplements. Depending on your health and the cause of your kidney stones, you may be told: ? Do not take high-dose supplements of vitamin C (1,000 mg a day or more). ? To take a calcium supplement. ? To take a daily probiotic supplement. ? To take other supplements such as magnesium, fish oil, or vitamin B6. ? Take fpoc-ohb-dikwnpt and prescription medicines only as told by your health care provider. These include supplements. What foods sh (more content not included)... Normal [facility] Urology Office/Clinic Noteon 06-29-2023 Urology Office/Clinic Note Chief Complaint F/U with metobolic work up HPI Staff Zheng is a 68 y.o. male here for 8 month follow up w/ metabolic w/u. Previous Dx: BPH w/ urinary obstruction, ED, foreign body in bladder, history of prostatitis, hypocitraturia, hypogonadism, kidney stone, left flank pain, nocturia, renal cyst, urinary urgency. S/P TRUS/bx 06/14/23, done on cysto/stent removal done on 10/12/22, cysto/RG done on 09/16/22. Dysuria: _denies Incomplete bladder emptying: _denies Hematuria: _denies visible blood Frequency: _every 4-5 hours Urgency: _denies Nocturia: _denies Stream: _denies hesitation, normal stream Leaking: _denies Post void dripping: _sometimes Wearing pads/ Depends: _denies Urge incontinence: _denies Stress incontinence: _denies Incontinence without Sensory Awareness: _denies Abdominal pain: _denies Flank pain: _denies Sexual complaints: _denies History of Present Illness Tests reviewed: reviewed UA I have reviewed the previous health record information and history for this patient from Dr. Sweet. I have reviewed and verified the staff HPI to be accurate for this encounter. There have been no associated fever, chills, flank pain, or blood in the urine. Denies any urinary infections since last encounter. Review of Systems PHQ Score Initial Depression Screen Score: 0 SCORE ROS - Provider Constitutional: denies weight loss, denies hot flashes. Eyes: denies eye problems. Gastrointestinal: denies nausea, denies vomiting. Cardiovascular: denies chest pain or angina. Integumentary: no dryness Musculoskeletal: denies musculoskeletal symptoms. ENMT: denies otolaryngeal symptoms. Respiratory: no shortness of breath. Heme/Lymph: denies easy bleeding tendency, denies easy bruising tendency. Psychiatric: no confusion, no anxiety. Genitourinary: See HPI. Physical Exam Vitals & Measurements T: 36.2 ?C(Temporal Artery) BP: 144/88 HT: 69 in HT: 175.2 cm WT: 132.6 kg WT: 291.72 lb BMI: 43.2 General Appearance: alert, no distress, well nourished, well developed male. Genitourinary: normal scrotum, normal testes, normal urethra, normal epididymis, normal vas deferens/spermatic cord. Flank Pain: none. Bladder: nonpalpable. Assessment/Plan 1. Kidney stone (N20.0: Calculus of kidney) KUB 10/03/21 - 5 mm left renal nephrolithiasis. KUB 08/14/22 - Three L renal stones up to 0.6 cm. Largest stone similar in size, other stones likely enlarged compared to prior CT. No R sided stones, ureteral, or bladder stones. CT AP wo con 09/04/22 - Nonobstructing L nephrolithiasis. Normal R side. Cysto, L RGP, L UD, L URS, L pyelo, Holmium laser L renal stone, basket extraction, L stent placement 09/16/22. S/p cysto, L stent removal 10/12/22. Stent was severely encrusted, patient cannot have stent placed for extended period time in the future. Stone analysis - 60% Ca Ox di, 30% Ca Phos Hydroxyl, 10% Ca Ox mono. KUB 11/10/22 neg for stones. Follow up 3 mos with KUB or sooner if needed. Pt understands and agrees with plan. 2. Elevated PSA (R97.20: Elevated prostate specific antigen [PSA]) PSA: 04/28/21 - 11.66 10/03/21 - 12.0 04/30/22 - 9.38 11/10/22 - 11.77 04/06/23 - 14.96 MRI fusion bx 05/2019 - Negative. MRI of prostate 07/31/22 [facility] - Stable 0.4 cm lesion R mid/apex posteromedial peripheral zone. Although the lesion meets PI-RADS 4 criteria, its location near the surgical capsule favors an ectopic BPH nodule. No new lesions suspicious for clinical significant prostate cancer. No pelvic lymphadenopathy or suspicious pelvic osseous lesions. Prostate volume 122 cc. MRI of prostate 05/11/23 - Focal area involving the posterior aspect of the R peripheral zone just below the mid gland region measuring 4 x 3 mm. No extracapsular extension is seen. Prostate volume 145 cc. S/p TRUS/bx 06/14/23 - HGPIN x 1 core (L apex). Prostate volume 113 cc. UA shows large blood, neg for infection. Expected after bx, will cont to monitor for resolution with time and healing. The pathology report was reviewed with the patient in detail today. There is no evidence of malignancy and no further evaluation of the tissue removed is planned. All questions were answered and the report discussed in terms that the patient could understand. Likely will never do another bx, his PSA is just chronically elevated. 3. Hypogonadism male (E29.1: Testicular hypofunction) Testosterone: 04/28/21 - 253 10/03/21 - 693 04/30/22 - 385 11/10/22 - 597 Using Androgel 1 pump 3x/week (rx listed also as prn for refill purposes). -T level in 1 month. 4. BPH with urinary obstruction (N40.1: Benign prostatic hyperplasia with lower urinary tract symptoms) MRI of prostate 07/31/22 [facility] - Prostate volume [address] AP wo con 09/04/22 - Moderate enlargement of prostate gland. IPSS 3. Taking Doxazosin 8 mg QD for BP. Not taking any BPH or bladder meds. 5. ED (erectile dysfunction) (N52.9: Male erectile dysfunction, unspecified) Sildenafil 100 mg GA (more content not included)... Normal [facility] Comment on above: Result Comment: Elec tronically Signed By: MICKI MACHADO, Jahaira Maloney.br\Date and Time Signed: 06/29/23 08:55 EDT\.br\Electronically Co-Signed By: Rosy Pfeiffer\.br\Date and Time Co-Signed: 06/29/23 08:50 EDT Prostate Histology ([facility]) on 06-22-2023 Prostate Histology Diagnosis Info Invalid Interpretation Code [facility] Comment on above: Order Comment: extra biopsy for right mid Result Comment: A:Pr ostate,Left Lateral Base:Needle Biopsy Interpretation - - Benign prostatic tissue (see comment). MicroScopic Description - B:Prostate,Left Lateral Mid:Needle Biopsy Interpretation - - Benign prostatic tissue. MicroScopic Description - C:Prostate,Left Lateral [place]:Needle Biopsy Interpretation - - Benign prostatic tissue. MicroScopic Description - D:Prostate,Left Base:Needle Biopsy Interpretation - - Benign prostatic tissue. MicroScopic Description - E:Prostate,Left Mid:Needle Biopsy Interpretation - - Benign prostatic tissue (see comment). MicroScopic Description - F:Prostate,Left [place]:Needle Biopsy Interpretation - - High-grade prostatic intraepithelial neoplasia (HGPIN) (see comment). MicroScopic Description - G:Prostate,Right Base:Needle Biopsy Interpretation - - Benign prostatic tissue. MicroScopic Description - H:Prostate,Right Mid:Needle Biopsy Interpretation - - Benign prostatic tissue (see comment). MicroScopic Description - I:Prostate,Right [place]:Needle Biopsy Interpretation - - Benign prostatic tissue. MicroScopic Description - J:Prostate,Right Lateral Base:Needle Biopsy Interpretation - - Benign prostatic tissue. MicroScopic Description - K:Prostate,Right Lateral Mid:Needle Biopsy Interpretation - - Benign prostatic tissue. MicroScopic Description - L:Prostate,Right Lateral [place]:Needle Biopsy Interpretation - - Benign prostatic tissue (see comment). MicroScopic Description - Gross Description Site ID:A color barnes-white fixative Formalin cores 1 units cm Site ID:B color barnes-white fixative Formalin cores 1 units cm Site ID:C color barnes-white fixative Formalin cores 2 units cm fragmented Site ID:D color barnes-white fixative Formalin cores 1 units cm Site ID:E color barnes-white fixative Formalin cores 1 units cm Site ID:F color barnes-white fixative Formalin cores 1 units cm Site ID:G color barnes-white fixative Formalin cores 1 units cm Site ID:H color barnes-white fixative Formalin cores 2 units cm Site ID:I color barnes-white fixative Formalin cores 1 units cm fragmented Site ID:J color barnes-white fixative Formalin cores 1 units cm Site ID:K color barnes-white fixative Formalin cores 2 units cm fragmented, stringy Site ID:L color barnes-white fixative Formalin cores 1 units cm A, E, F, H and L: Immunostain HMW cytokeratins /p63/ P504S (PIN4) reviewed, supporting the rendered diagnosis. CPT code: 66730 x 12 [phone] x 5 Electronically signed by : on: 06/22/2023 11:36:21 Performed By: #### 1 [id number] ####[facility] [id number] [place] [address] IntraOperative Documentson 0 06-16-2023 IntraOperative Documents [id number] Normal [facility] Consent for Procedure/Surger yon 06-14-2023 Consent for Procedure/Surgery [id number] Normal [facility] Consent for Treatmenton 05-26 Consent for Treatment [id number] Normal [facility] IntraOperative Documentson 0 06-14-2023 IntraOperative Documents [id number] [facility] Main OR Intraoperative Recor don 06-14-2023 Main OR Intraoperative Record IntraOp Document Type FTURO Summary Primary Physician: Jahaira SWEET MD Finalized Date/Time: 06/14/23 11:35:11 Pt. Name: ZHENG MONTESINOS/Sex: 1955 Male Med Rec #: [id number] Physician: Jahaira SWEET MD Financial #: [id number] Pt. Type: O Room/Bed: / Admit/Disch: 06/14/23 10:55:03 - Institution: Case Times FTURO Entry 1 Patient Times In Room 06/14/23 11:17:00 Out Room 06/14/23 11:39:00 Procedure Times Start 06/14/23 11:18:00 Stop 06/14/23 11:34:00 Anesthesia Times Last Modified By: ROBI Guzman RN, Ana 06/14/23 11:34:53 Case Attendance FTURO Entry 1 Entry 2 Entry 3 Case Attendee MICKI MACHADO, Jahaira Guzman RN, CNOR, Susan MONAE, Keke Perez Role Performed Surgeon - Primary Puffer Tender - Primary Scrub - Primary Time In 06/14/23 11:17:00 06/14/23 11:17:00 06/14/23 11:17:00 Time Out 06/14/23 11:39:00 06/14/23 11:39:00 06/14/23 11:39:00 Procedure PROSTATE TRANSRECTAL PROSTATE TRANSRECTAL PROSTATE TRANSRECTAL ULTRASOUND WITH BIO(.) ULTRASOUND WITH BIO(.) ULTRASOUND WITH BIO(.) Comments Last Modified By: Megan MUSTAFA, EVEROR, Megan MUSTAFA, ROBI, ROBI Guzman RN, Ana 06/14/23 Ana 06/14/23 Ana 06/14/23 11:34:54 11:34:54 11:34:54 Surgical Procedures FTURO Entry 1 Procedure Description Procedure PROSTATE TRANSRECTAL Modifiers . ULTRASOUND WITH BIOPSY Surgeon Description TRUS BIOPSY Primary Procedure Yes Primary Surgeon MICKI MACHADO, Jahaira Gilbert 06/14/23 11:18:00 Stop 06/14/23 11:34:00 Anesthesia Type Local Surgical Service Urology Wound Class 2 - Clean-Contaminated Last Modified By: ROBI Guzman RN, Ruthann 06/14/23 11:34:56 General Case Data FTURO Pre-Care Text: Classifies surgical wound, implements aseptic technique, initiates traffic control Entry 1 Case Information OR URO 1 FT Case Level None Wound Class 2 - Clean-Contaminated Specialty Urology Preop Diagnosis ELEVATED PSA, PROSTATE Postop Same As Preop No LESION Postop Diagnosis ELEVATED PSA, PROSTATE Outcomes Met? Yes LESION Last Modified By: ROBI Guzman RN, Ana 06/14/23 11:14:18 Post-Care Text: The patient is free from signs and symptoms of infection EU IntraOp - FTURO Pre-Care Text: Implements protective measures prior to operative or invasive procedure, confirms identity before the operative or invasive procedure, verifies operative procedure, surgical site, and laterality Entry 1 EU Perioperative Protocols Procedure(s) PROSTATE TRANSRECTAL Patient Identity Birthday, ID Band ULTRASOUND WITH BIO(.) Verified (select at Check, Patient least 2): Participation Consents / H and P HandP, Surgery/Procedure Operative Site N/A Verified Consent Marking Verified Surgical Site Yes Laterality Verified n/a Verified Procedure Verified Yes Correct Patient Yes Position Verified Availability Equipment, Medication Time Out Jahaira SWEET MD, Verified (If Participants Megan MUSTAFA, EVEROR, Applicable) Susan Perez CST, Keke Whitaker Time Out Complete 06/14/23 11:17:00 Allergies Reviewed? Yes Allergies Reviewed Self/Patient With Body Position Lateral, right side up Prep Area none Prep Agents None Skin. Condition Unable to Visualize Additional Tissue Specimens Collected Vitals - EU Blood Pressure Pulse Respirations SPO2 EBL 0 IandO - EU Total Intake 0 mL Total Output 0 mL Outcomes Met? Yes Last Modified By: ROBI Guzman RN, Ruthann 06/14/23 11:23:59 Post-Care Text: The patient is free from signs and symptoms of injury caused by extraneous objects Sign Out FTURO Entry 1 Before Patient Leaves OR Nurse verbally Yes Nurse verbally n/a confirms with the confirms with the team the name of team that the procedure(s) instrument, sponge, recorded and needle counts are correct (or N/A) Nurse verbally Yes Nurse verbally n/a confirms with the confirms with the team how the team whether there specimen is labeled are any equipment (including patient problems to be name), if applicable addressed Sign Out Complete 06/14/23 11:38:00 Last Modified By: ROBI Guzman RN, Ruthann 06/14/23 11:35:09 Case Comments Finalized By: ROBI Guzman RN, Ruthann Document Signatures Signed By: ROBI Guzman RN, Ruthann 06/14/23 11:35 Normal [facility] Main OR Preoperative Recordo n 06-14-2023 Main OR Preoperative Record Holding Area Document Type FTURO Summary Primary Physician: Jahaira SWEET MD Finalized Date/Time: 06/14/23 11:17:47 Pt. Name: ZHENG MONTESINOS/Sex: 1955 Male Med Rec #: [id number] Physician: Jahaira SWEET MD Financial #: [id number] Pt. Type: O Room/Bed: / Admit/Disch: 06/14/23 10:55:03 - Institution: Case Times Holding FTURO Pre-Care Text: Verifies consent for planned procedure, identifies individual values and wishes concerning care, includes family members in perioperative teaching Secures patient's records' belongings, and valuables, maintains patient's dignity and privacy, and maintains patient confidentiality Entry 1 In Holding 06/14/23 11:07:00 Outcomes Met? Yes Last Modified By: Keke Stout RN 06/14/23 11:07:08 Post-Care Text: The patient participates in decisions affecting his or her perioperative plan of care The patient's right to privacy is maintained Surgery Checklist FTURO Entry 1 Patient Birthday, ID Band Procedure History and Physical, Identification: Check, Patient Verification: Surgical Consent, With Participation Patient NPO after Midnight: n/a Personal Items: Dentures, Glasses, Jewelry Personal Items UPPER DENTURES; WATCH X Limitations: UP AD DILSHAD Comment: 1; WEARS GLASSES Complaints of Pain: No Pain Comment: 0/10 Skin Integrity Dry, Warm Vitals - EU Blood Pressure 165/87 Pulse 65 bpm Respirations 16 br/min SPO2 93 % Additional None RN Reviewed Yes Specimens Collected Last Modified By: Keke Stout RN 06/14/23 11:09:43 Finalized By: Keke Stout RN Document Signatures Signed By: Keke Stout RN 06/14/23 11:12 Keke Stout RN 06/14/23 11:09 Keke Stout RN 06/14/23 11:17 Normal [facility] Operative Reporton Operative Report Patient: Mary MONTESINOS Age: 68 years Sex: Male : 1955 Associated Diagnoses: None Author: Jahaira SWEET MD Procedure Operative Information Details: Date/ Time: 06/14/2023 11:36:00. Pre-Op Dx: Elevated PSA - R97.20, PI-RADS 4 lesion by MRI. Post-Op Dx: Same. Anesthesia Type: Local, Periprostatic Nerve Block. Procedure: Transrectal Ultrasound and Transrectal Ultrasound-Guided Biopsy of the Prostate. Complications: None. Risks/Benefits/Informed Consent: Surgical risks, benefits, details of the procedure have been explained to the patient, Full informed consent has been obtained. Intraoperative Information Prepped: The patient was brought to the office suite, placed in the modified left lateral Simpson position, The patient was draped appropriately, 80 mg Gentamicin IM injection administered. Procedure: Then 2% Xylocaine jelly was used for intrarectal anesthesia, After waiting several minutes, a well lubricated ultrasound probe was introduced per rectum, The prostate was carefully evaluated in the AP and Sagittal views. Volume: 113 CC. Specimens Removed: A total of 12 biopsies were taken, 6 from each side, and sent to pathology, 2 extra biopsies were taken from the right mid aspect corresponding with the MRI PI-RADS 4 lesion. Devices Implanted: None. Postoperative Information Discharge: The patient tolerated the procedure well and was discharged home in satisfactory condition, The patient was instructed to (Finish antibiotics, Avoid strenuous activity, Go to the emergency room for gross bleeding, fever, or chills). Radiology Report Procedure: Transrectal Ultrasound of the Prostate, Transrectal US guided needle biopsy of the prostate. Narrative: Ultrasound probe is introduced and performed in the longitudinal and transverse plains, The gland measures (71 MM Length, 58 MM Width, 52 MM Depth, with a calculated volume of 113 CC), The prostatic capsule and seminal vesicles appear to be within normal limits, The peripheral zone demonstrates No abnormalities, Rest of the prostate demonstrates No abnormalities, Ultrasound guidance was then utilized to obtain 12 biopsies, These were sent to pathology for evaluation. Normal [facility] Comment on above: Result Comment: Elec tronically Signed By: MICKI MACHADO, Jahaira Maloney.indira\Date and Time Signed: 06/14/23 11:37 EDT Outpatient Surgery Discharge Instructionon 06-14-2023 Outpatient Surgery Discharge Instruction [id number] Normal [facility] Patient Educationon 06-14-19 Patient Education Custom Transrectal Ultrasound of the Prostate with US guided biopsy ? Even though there are no visible incisions, multiple prostate biopsies have been taken through the rectum and you need to follow some instructions to minimize the risks of bleeding. ? You may see some blood in your urine and stool for up to 1 week (and blood in the semen for several months) ? Diet -You may resume your normal diet, but you may want to avoid alcohol, carbonated drinks, caffeine, and spicy foods, which may increase the irritation from the surgery. -Drink plenty of water to keep the urine clear. ? Activity -You should limit any physical activity for about 48 hours -No heavy lifting or straining (10 pound limit) -No driving a car and limit long car rides for 2 days -No strenuous exercise -No sexual intercourse until this is discussed with your doctor ? Bowels -Try to keep your bowel movements soft to minimize straining to have a bowel movement. -You may use a stool softener or over the counter laxative if needed -Difficult bowel movement may lead to straining and bleeding from the prostate ? Medications -You may resume your home medications unless instructed otherwise -Hold aspirin, ibuprofen, Coumadin (warfarin) and other blood thinners for about two days or until there is no active bleeding unless otherwise instructed -Finish the antibiotic which you have already started ? Things to watch for which would require an Emergency Room visit or call 911: (this is not a complete list) -Persistent or heavy bleeding or blood clots from the rectum or in the urine -Inability to urinate -Fever over 101.5 degrees Fahrenheit, with or without chills -Severe drug reactions with itching, hives or rash -Tenderness or swelling of the calves, chest pain, or shortness of breath ? Please call the office to arrange for your post-operative appointment in 1-2 weeks [phone] or [phone] Normal [facility] Prostate Histology ([facility]) on 06-14-2023 PH Method of Extraction Needle Biopsy Normal [facility] Comment on above: Order Comment: extra biopsy for right mid Performed By: #### 1 [id number] ####[facility] [address] [place] [address] PH Number of Jars 2 Invalid Interpretation Code [facility] Comment on above: Order Comment: extra biopsy for right mid Performed By: #### 1 [id number] ####[facility] [address] [place] [address] PH Specimen 1 L Apx Prostate Normal [facility] Comment on above: Order Comment: extra biopsy for right mid Performed By: #### 1 [id number] ####[facility] [address] [place] [address] PH Specimen 10 R Lat Bse Prost Normal [facility] Comment on above: Order Comment: extra biopsy for right mid Performed By: #### 1 [id number] ####[facility] [address] [place] [address] PH Specimen 11 R Mid Prost 1 Normal [facility] Comment on above: Order Comment: extra biopsy for right mid Performed By: #### 1 [id number] ####[facility] [address] [place] [address] PH Specimen 12 R Lat Mid Pr 1 Normal [facility] Comment on above: Order Comment: extra biopsy for right mid Performed By: #### 1 [id number] ####[facility] [address] [place] [address] PH Specimen 2 L Base Prostate Normal [facility] Comment on above: Order Comment: extra biopsy for right mid Performed By: #### 1 [id number] ####[facility] [address] [place] [address] PH Specimen 3 L Lat Apx Prost Normal [facility] Comment on above: Order Comment: extra biopsy for right mid Performed By: #### 1 [id number] ####[facility] [address] [place] [address] PH Specimen 4 L Lat Bse Prost Normal [facility] Comment on above: Order Comment: extra biopsy for right mid Performed By: #### 1 [id number] ####[facility] [address] [place] [address] PH Specimen 5 L Lat Mid Pr 1 Normal [facility] Comment on above: Order Comment: extra biopsy for right mid Performed By: #### 1 [id number] ####[facility] [address] [place] [address] PH Specimen 6 L Mid Prost 1 Normal [facility] Comment on above: Order Comment: extra biopsy for right mid Performed By: #### 1 [id number] ####[facility] [address] [place] [address] PH Specimen 7 R Apx Prostate Normal [facility] Comment on above: Order Comment: extra biopsy for right mid Performed By: #### 1 [id number] ####[facility] [address] [place] [address] PH Specimen 8 R Base Prostate Normal [facility] Comment on above: Order Comment: extra biopsy for right mid Performed By: #### 1 [id number] ####[facility] [address] [place] [address] PH Specimen 9 R Lat Apx Prost Normal [facility] Comment on above: Order Comment: extra biopsy for right mid Performed By: #### 1 [id number] ####[facility] [address] [place] [address] PH Type of Service Technical Only Normal [facility] Comment on above: Order Comment: extra biopsy for right mid Performed By: #### 1 [id number] ####[facility] [address] [place] [address] CT abdomen pelvis w conon CT abdomen pelvis w con [facility] [place] [address] CT Scan Report Signed Patient: Zheng Montesinos MR#: [id number] : 1955 Acct:[id number] Age/Sex: 68 / M ADM Date: 05/30/23 [facility]: [facility]: [facility]: Jane Duron APRN Copies to: RUSTY Boggs APRN Ordering Provider: Starla Gautam APRN Date of Service: 05/30/23 CT/CT abdomen pelvis w 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 COMPARISON: CT chest 10/04/2022 TECHNIQUE: TECHNIQUE: Spiral images were obtained through the chest, abdomen and pelvis following the administration of IV contrast. This CT exam was performed using one or more following dose reduction techniques: Automated exposure control, adjustment of the mA and/or kV according to patient size, or use of iterative reconstruction technique. FINDINGS: CT chest: Mediastinum:Right-sided port is in place. Thoracic aorta appears normal in caliber. Pulmonary trunk appears nondilated. Calcified left hilar lymph nodes. No pathologically enlarged lymph nodes are seen. No pericardial effusion. The esophagus is grossly unremarkable. Small hiatal hernia. Lungs:Mild lung scarring. Mild left basilar atelectasis. No consolidation pneumothorax or pleural effusion. Calcified granuloma left upper lobe. Soft tissues/Bones: Soft tissues surrounding the chest wall demonstrate no acute findings. Osseous structures demonstrate degenerative change. CT abdomen and pelvis: Organs:Hypodense lesions involving the liver largest measuring 2.3 cm in greatest axial dimension within the right lobe of the liver. No enhancing liver lesion is seen. Gallbladder portal vein pancreas and adrenal glands appear unremarkable. Splenic granulomas without splenomegaly. Cystic changes involving the left kidney. Bilateral nephrolithiasis. Subcentimeter low attenuating lesion right kidney, too small for characterization. Abdominal aorta appears normal in caliber.[ GI: Distal stomach is grossly unremarkable. Small bowel appears nondilated. Appendix is normal. Left colon diverticulosis.[ Pelvis:[Prostatomegaly. Urinary bladder is minimally distended.] Peritoneum/Retroperitoneum: No free air or free fluid. No pathologically enlarged lymph nodes.[ Abd wall/Bones:Left-sided fat filled inguinal hernia. Central hernia repair changes. Osseous structures demonstrate degenerative change.[ CT/CT chest w con IMPRESSION: 1. No pathologically enlarged lymph nodes seen within the chest, abdomen or pelvis. 2. Hypodense liver lesions, largest measuring 2.3 cm involving the right lobe of the liver. Finding is nonspecific and lymphomatous involvement cannot BE excluded. CT follow-up is recommended to ensure resolution. 3. Bilateral nephrolithiasis. 4. Prostatomegaly. Impression dictated by: David Padilla Jr., D.O.05/30/2023 1:02 PM Dictation Location: [place] [address] Transcribed By: [facility] 05/30/23 1302 Dictated By: David Padilla Jr, DO 05/30/23 1255 Signed By: 05/30/23 1302 Normal [facility] Complete Blood Count Auto Di ffon 05-30-2023 Basophils (Bld) [#/Vol] 0.0 10*3/uL Normal 0.0-0.2 [facility] Comment on above: Result Comment: PERF ORMED BY: [address] [place] [address] PATHOLOGIST [employer] MECHANIC CLARA FARIAS M.D. Performed By: #### L DH, CBC, CMP ####[place] [id number] [facility] Basophils/100 WBC (Bld) 1.2 % Normal . [facility] Comment on above: Performed By: #### L DH, CBC, CMP ####[place] [id number] [facility] Eosinophils (Bld) [#/Vol] 0.2 10*3/uL Normal 0.0-0.45 [facility] Comment on above: Performed By: #### L DH, CBC, CMP ####[address] Eosinophils/100 WBC (Bld) 6.0 % Normal . [facility] Comment on above: Performed By: #### L DH, CBC, CMP ####[place] [id number] [facility] Erythrocyte distribution width (RBC) [Ratio] 13.4 % Normal 12.0-14.8 [facility] Comment on above: Performed By: #### L DH, CBC, CMP ####[place] [id number] [facility] Hematocrit (Bld) [Volume fraction] 44.3 % Normal 38.8-50.0 [facility] Comment on above: Performed By: #### L DH, CBC, CMP ####[place] [id number] [facility] Hemoglobin (Bld) [Mass/Vol] 15.1 g/dL Normal 13.0-17.0 [facility] Comment on above: Performed By: #### L DH, CBC, CMP ####[address] Lymphocytes (Bld) [#/Vol] 0.7 10*3/uL Low 1.00-4.8 [facility] Comment on above: Performed By: #### L DH, CBC, CMP ####[address] Lymphocytes/100 WBC (Bld) 19.9 % Normal . [facility] Comment on above: Performed By: #### L DH, CBC, CMP ####[address] MCH (RBC) [Entitic mass] 28.9 pg Normal 27.5-35.2 [facility] Comment on above: Performed By: #### L DH, CBC, CMP ####[address] MCV (RBC) [Entitic vol] 85.0 fL Normal 83.5-101 [facility] Comment on above: Performed By: #### L DH, CBC, CMP ####[address] Mean Corpuscular HGB Conc 34.0 g/dL Normal 32.5-35.6 [facility] Comment on above: Performed By: #### L DH, CBC, CMP ####[address] Monocytes (Bld) [#/Vol] 0.2 10*3/uL Normal 0.0-0.8 [facility] Comment on above: Performed By: #### L DH, CBC, CMP ####[address] Monocytes/100 WBC (Bld) 7.1 % Normal . [facility] Comment on above: Performed By: #### L DH, CBC, CMP ####[address] Neutrophils (Bld) [#/Vol] 2.2 10*3/uL Normal 1.8-7.7 [facility] Comment on above: Performed By: #### L DH, CBC, CMP ####[address] Neutrophils/100 WBC (Bld) 65.8 % Normal . [facility] Comment on above: Performed By: #### L DH, CBC, CMP ####[address] NRBC% 0.7 /100{WBC} High 0-0.5 [facility] Comment on above: Performed By: #### L DH, CBC, CMP ####[address] Platelet mean volume (Bld) [Entitic vol] 7.7 fL Normal 6.6-10.1 [facility] Comment on above: Performed By: #### L DH, CBC, CMP ####[address] Platelets (Bld) [#/Vol] 173 10*3/uL Normal 150-450 [facility] Comment on above: Performed By: #### L DH, CBC, CMP ####[address] RBC (Bld) [#/Vol] 5.22 10*6/uL Normal 3.90-5.60 [facility] Comment on above: Performed By: #### L DH, CBC, CMP ####[address] WBC (Bld) [#/Vol] 3.4 10*3/uL Low 4.1-10.5 [facility] Comment on above: Performed By: #### L DH, CBC, CMP ####[address] Comprehensive Metabolic Pane vish 05-30-2023 Albumin [Mass/Vol] 4.0 g/dL Normal 3.5-5.7 [facility] Comment on above: Performed By: #### L DH, CBC, CMP ####[place] [id number] [facility] Albumin/Globulin [Mass ratio] 1.8 {ratio} Normal [facility] Comment on above: Performed By: #### L GUSTABO, CBC, CMP ####[place] [id number] [facility] ALP [Catalytic activity/Vol] 77 U/L Normal 34-104 [facility] Comment on above: Performed By: #### L GUSTABO, CBC, CMP ####[place] [id number] [facility] ALT [Catalytic activity/Vol] 18 U/L Normal 7-52 [facility] Comment on above: Performed By: #### L GUSTABO, CBC, CMP ####[place] [id number] [facility] Anion gap [Moles/Vol] 8.0 mmol/L Normal 6.0-15.0 [facility] Comment on above: Performed By: #### L GUSTABO, CBC, CMP ####[place] [id number] [facility] AST [Catalytic activity/Vol] 15 U/L Normal 13-39 [facility] Comment on above: Performed By: #### L GUSTABO, CBC, CMP ####[place] [id number] [facility] Bilirubin [Mass/Vol] 0.6 mg/dL Normal 0.3-1.0 [facility] Comment on above: Performed By: #### L GUSTABO, CBC, CMP ####[place] [id number] [facility] Calcium [Mass/Vol] 9.1 mg/dL Normal 8.6-10.3 [facility] Comment on above: Performed By: #### L GUSTABO, CBC, CMP ####[place] [id number] [facility] Chloride [Moles/Vol] 112 mmol/L High 98-107 [facility] Comment on above: Performed By: #### L DH, CBC, CMP ####[place] [id number] [place] CO2 [Moles/Vol] 25.2 mmol/L Normal 21.0-31.0 [facility] Comment on above: Performed By: #### L GUSTABO CBC, CMP ####[address] Creatinine [Mass/Vol] 1.30 mg/dL Normal 0.70-1.30 [facility] Comment on above: Performed By: #### L GUSTABO, CBC, CMP ####[address] Creatinine Clr Calc Pharmacy 70.58 Normal [facility] Comment on above: Performed By: #### L GUSTABO CBC, CMP ####[address] GFR/1.73 sq M.predicted MDRD (S/P/Bld) [Vol rate/Area] 59.467 mL/min/{1.73_m2} Normal [facility] Comment on above: Performed By: #### L GUSTABO CBC, CMP ####[address] Globulin (S) [Mass/Vol] 2.2 g/dL Normal [facility] Comment on above: Performed By: #### L GUSTABO CBC, CMP ####[address] Glucose [Mass/Vol] 96 mg/dL Normal 70-100 [facility] Comment on above: Result Comment: [place] Glucose Reference Range is dependent on time and content of last meal. Glucose of more than 200 mg/dL in a nonstressed, ambulatory subject supports the diagnosis of Diabetes Mellitus. ADA recommended reference range Performed By: #### L GUSTABO, CBC, CMP ####[address] Potassium [Moles/Vol] 4.2 mmol/L Normal 3.5-5.1 [facility] Comment on above: Performed By: #### L GUSTABO, CBC, CMP ####[address] Protein [Mass/Vol] 6.2 g/dL Low 6.4-8.9 [facility] Comment on above: Performed By: #### L GUSTABO, CBC, CMP ####[place] [id number] [address] Sodium [Moles/Vol] 141 mmol/L Normal 136-145 [facility] Comment on above: Performed By: #### L DH, CBC, CMP ####[place] [address] [address] Urea nitrogen [Mass/Vol] 22 mg/dL Normal 7-25 [facility] Comment on above: Performed By: #### L GUSTABO, CBC, CMP ####[place] [address] [address] LDH Lactate Dehydrogenaseon 05-30-2023 LDH Lactate Dehydrogenase 156 U/L Normal 140-271 [facility] Comment on above: Result Comment: PERF ORMED BY: [place] [address] PATHOLOGIST COMPUTING SYSTEMS MECHANIC CLARA FARIAS M.D. Performed By: #### L GUSTABO, CBC, CMP ####[address] MR prostate wo/w conon 05-12 MR prostate wo/w con [facility] [place] [address] MRI Report Signed Patient: Zheng Montesinos MR#: [id number] : 1955 Acct:[id number] Age/Sex: 68 / M ADM Date: 05/11/23 Loc: MR Room: Type: [facility] Attending Dr: Jahaira Sweet MD Copies to: Jahaira Sweet MD Ordering Provider: Jahaira Sweet MD Date of Service: 05/11/23 MR/MR prostate wo/w con: ELEVATED PSA EXAMINATION: MR prostate wo/w con HISTORY: Elevated PSA COMPARISON: NONE TECHNIQUE: Multiparametric imaging of the prostate gland was performed with IV contrast. FINDINGS: Prostate Dimensions: 6.5 x 6.4 x 6.7 cm Prostate Volume: 145 mL Peripheral Zone: Heterogenous inT2 signal suggestive of prior prostatitis. Focal area of T2 hypointensity is seen involving the posterior aspect of the right peripheral zone just below the mid gland region measuring 4 x 3 mm with associated restricted diffusion and low ADC value. No gross extracapsular extension is seen. Please see series 4 image 13, series 650 image 13 and series 600 image 13. Central/Transitional Zone: BPH changes. Seminal Vesicles: Unremarkable Neurovascular bundles: Unremarkable. Lymphadenopathy: No evidence of lymphadenopathy. Bladder: Trabeculated without focal abnormality. Bowel: Diverticulosis. Peritoneal Cavity: No free fluid. Bones: No suspicious bony lesion. MR/MR prostate wo/w con IMPRESSION: Focal area of T2 hypointensity is seen involving the posterior aspect of the right peripheral zone just below the mid gland region measuring 4 x 3 mm with associated restricted diffusion and low ADC value. No gross extracapsular extension is seen. Please see series 4 image 13, series 650 image 13 and series 600 image 13. PI-RADS 4. Targeting of this area on biopsy is recommended. Impression dictated by: David Padilla Jr., D.O.05/12/2023 9:00 AM Dictation Location: [place] [address] Transcribed By: [facility] 05/12/23899 Dictated By: David Padilla Jr, DO 05/12/2352 Signed By: 05/12/23 09 Normal [facility] RAD - MRI Reporton RAD - MRI Report [id number] Normal [facility] Ambulatory Patient Summaryon 04-26-2023 Ambulatory Patient Summary [address], [address] - Visit Summary For ZHENG MONTESINOS Age: 68 years Sex: MALE : 1955 Address: [address] [place] [address], [id number] Home: Work: -- Primary Care Provider: SHELIA HARDY MD Race: White Ethnicity: Not or Language: Malian Health Plan: 1?MEDICARE ANTH Reason for Visit: four month check up for depression Prescription Information: If you have been given a prescription for narcotics, seek immediate medical attention if you have any difficulty breathing or any sudden status changes such as confusion and sleepiness. If you or anyone you know is experiencing suicidal thoughts, mental health, alcohol and/or drug addiction problems; contact the [facility] 18/10 Crisis Hotline -Text 4HOPE to 976828. Follow-Up Information With: Address: When: SHELIA HARDY MD [facility] [address] [place] [address]/[address] [place] [address] In 6 months Future Appointments [facility] Appt. Date: 10/25/2023 10:00 AM Scheduled Provider: Shelia Hardy MD [address] [place] [address] [place], [address] Future Orders No future orders Additional Goals and Instructions: Vitals and Measurements this Visit (last charted value for your 04/26/2023 visit) Vital Signs This Visit Peripheral Pulse Rate: 78 bpm Systolic Blood Pressure: 140 mmHg Diastolic Blood Pressure: 74 mmHg SpO2: 96 % Measurements This Visit Height/Length Measured: 176 cm Height/Length Measured (inches): 69.29 in Weight Measured: 130 kg Weight Measured (lbs): 286.601 lb Weight Dosin.000 kg Body Mass Index: 41.97 kg/m2 [place] Body Weight Calculated: 71.37 kg BSA Measured: 2.52 m2 Diagnoses This Visit Depression (F32.9) Laboratory or Other Results This Visit (last charted value for your 04/26/2023 visit) No Laboratory or Other Results This Visit Medications and Immunizations Administered During This Visit No medication administered during this visit All Known Current Prescriptions and Reported Medications New Prescriptions this Visit No new prescriptions for this visit Prescriptions amLODIPine 5 mg oral tablet (amLODIPine) Instructions: take 1 tablet by mouth once daily atorvastatin 20 mg oral tablet (atorvastatin) Take 1 tab(s)(20 Milligram) Oral (given by mouth) every day, 3 refills authorized meloxicam 15 mg oral tablet (meloxicam) Take 1 tab(s)(15 Milligram) Oral (given by mouth) every day, 3 refills authorized topiramate 100 mg oral tablet (topiramate) Instructions: take 1 tablet by mouth once daily venlafaxine 150 mg oral capsule, extended release (venlafaxine) Take 1 cap(s)(150 Milligram) Oral (given by mouth) every day, 3 refills authorized Home Medications AndroGel 40.5 mg (1.62%) transdermal gel (testosterone) Take 1 packet(s) Topical (on the skin) every other day doxazosin 8 mg oral tablet (doxazosin) Take 1 tab(s)(8 Milligram) Oral (given by mouth) every day folic acid 1 mg oral tablet (folic acid) Take 3 tab(s)(3 Milligram) Oral (given by mouth) every day Major Depressive Disorder, Adult Major depressive disorder (MDD) is a mental health condition. It may also be called clinical depression or unipolar depression. MDD causes symptoms of sadness, hopelessness, and loss of interest in things. These symptoms last most of the day, almost every day, for 2 weeks. MDD can also cause physical symptoms. It can interfere with relationships and with everyday activities, such as work, school, and activities that are usually pleasant. MDD may be mild, moderate, or severe. It may be single-episode MDD, which happens once, or recurrent MDD, which may occur multiple times. What are the causes? The exact cause of this condition is not known. MDD is most likely caused by a combination of things, which may include: ? Your personality traits. ? [place] or conditioned behaviors or thoughts or feelings that reinforce negativity. ? Any alcohol or substance misuse. ? Long-term (chronic) physical or mental health illness. ? Going through a traumatic experience or major life changes. What increases the risk? The following factors may make someone more likely to develop MDD: ? A family history of depression. ? Being a woman. ? Troubled family relationships. ? Abnormally low levels of certain brain chemicals. ? Traumatic or painful events in childhood, especially abuse or loss of a parent. ? A lot of stress from life experiences, such as poor living conditions or discrimination. ? Chronic physical illness or other mental health disorders. What are the signs or symptoms? The main symptoms of MDD usually include: ? Constant depressed or irritable mood. ? A loss of interest in (more content not included)... Normal [facility] Patient Handouton 04-26-2023 Patient Handout [facility] Major Depressive Disorder, Adult Major depressive disorder (MDD) is a mental health condition. It may also be called clinical depression or unipolar depression. MDD causes symptoms of sadness, hopelessness, and loss of interest in things. These symptoms last most of the day, almost every day, for 2 weeks. MDD can also cause physical symptoms. It can interfere with relationships and with everyday activities, such as work, school, and activities that are usually pleasant. MDD may be mild, moderate, or severe. It may be single-episode MDD, which happens once, or recurrent MDD, which may occur multiple times. What are the causes? The exact cause of this condition is not known. MDD is most likely caused by a combination of things, which may include: ? Your personality traits. ? [place] or conditioned behaviors or thoughts or feelings that reinforce negativity. ? Any alcohol or substance misuse. ? Long-term (chronic) physical or mental health illness. ? Going through a traumatic experience or major life changes. What increases the risk? The following factors may make someone more likely to develop MDD: ? A family history of depression. ? Being a woman. ? Troubled family relationships. ? Abnormally low levels of certain brain chemicals. ? Traumatic or painful events in childhood, especially abuse or loss of a parent. ? A lot of stress from life experiences, such as poor living conditions or discrimination. ? Chronic physical illness or other mental health disorders. What are the signs or symptoms? The main symptoms of MDD usually include: ? Constant depressed or irritable mood. ? A loss of interest in things and activities. Other symptoms include: ? Sleeping or eating too much or too little. ? Unexplained weight gain or weight loss. ? Tiredness or low energy. ? Being agitated, restless, or weak. ? Feeling hopeless, worthless, or guilty. ? Trouble thinking clearly or making decisions. ? Thoughts of suicide or thoughts of harming others. ? Isolating oneself or avoiding other people or activities. ? Trouble completing tasks, work, or any normal obligations. Severe symptoms of this condition may include: ? Psychotic depression.This may include false beliefs, or delusions. It may also include seeing, hearing, tasting, smelling, or feeling things that are not real (hallucinations). ? Chronic depression or persistent depressive disorder. This is low-level depression that lasts for at least 2 years. ? Melancholic depression, or feeling extremely sad and hopeless. ? Catatonic depression, which includes trouble speaking and trouble moving. How is this diagnosed? This condition may be diagnosed based on: ? Your symptoms. ? Your medical and mental health history. You may be asked questions about your lifestyle, including any drug and alcohol use. ? A physical exam. ? Blood tests to rule out other conditions. MDD is confirmed if you have the following symptoms most of the day, nearly every day, in a 2-week period: ? Either a depressed mood or loss of interest. ? At least four other MDD symptoms. How is this treated? This condition is usually treated by mental health professionals, such as psychologists, psychiatrists, and clinical social workers. You may need more than one type of treatment. Treatment may include: ? Psychotherapy, also called talk therapy or counseling. Types of psychotherapy include: ? Cognitive behavioral therapy (CBT). This teaches you to recognize unhealthy feelings, thoughts, and behaviors, and replace them with positive thoughts and actions. ? Interpersonal therapy (IPT). This helps you to improve the way you communicate with others or relate to them. ? Family therapy. This treatment includes members of your family. ? Medicines to treat anxiety and depression. These medicines help to balance the brain chemicals that affect your emotions. ? Lifestyle changes. You may be asked to: ? Limit alcohol use and avoid drug use. ? Get regular exercise. ? Get plenty of sleep. ? Make healthy eating choices. ? Spend more time outdoors. ? Brain stimulation. This may be done if symptoms are very severe and other treatments have not worked. Examples of this treatment are electroconvulsive therapy and transcranial magnetic stimulation. Follow these instructions at home: Activity ? Exercise regularly and spend time outdoors. ? Find activities that you enjoy doing, and make time to do them. ? Find healthy ways to manage stress, such as: ? Meditation or deep breathing. ? Spending time in nature. ? Journaling. ? Return to your normal activities as told by your health care provider. Ask your health care provider what activities are safe for you. Alcohol and drug use ? If you drink alcohol: ? Limit how much you use to: ? 0?1 drink a day for women who are not . ? 0?2 drinks a day for men. ? Be aware of how much alcohol is in your drink. In the (more content not included)... [facility] Pre-Certification Formon Pre-Certification Form [id number]#[id number] [facility] Physician Orderon 2023 Physician Order [id number]#[id number] [facility] Insurance Correspondenceon 0 04-21-2023 Insurance Correspondence [id number]#1.00TIFF [facility] Lab Reportson 04-20-2023 Lab Reports [id number]#1.00TIFF [facility] Lab Reportson 04-08-2023 Lab Reports [id number]#1.00TIFF [facility] Lab Reportson 04-07-2023 Lab Reports [id number]#1.00TIFF [facility] Lab Reports [id number]#[id number] [facility] Alanine aminotransferase [En zymatic activity/volume] in Serum or PlasmaOrdered By: Abbi Mcbride on 02-03-2023 ALT [Catalytic activity/Vol] 15 U/L 7-52 [facility] Albumin [Mass/volume] in Ser um or Plasma by Bromocresol green (BCG) dye binding methoOrdered By: Abbi Mcbride on 02-03-2023 Albumin BCG dye [Mass/Vol] 4.0 g/dL 3.5-5.7 [facility] Alkaline phosphatase [Enzyma tic activity/volume] in Serum or PlasmaOrdered By: Abbi Mcbride on 02-03-2023 ALP [Catalytic activity/Vol] 77 U/L 34-104 [facility] Aspartate aminotransferase [ Enzymatic activity/volume] in Serum or PlasmaOrdered By: Abbi Mcbride on 02-03-2023 AST [Catalytic activity/Vol] 15 U/L 13-39 [facility] Basophils Auto (Bld) [#/Vol] Ordered By: Abbi Mcbride on 02-03-2023 Basophils (Bld) [#/Vol] 0.0 10*3/uL 0.0-0.2 [facility] Basophils/100 WBC Auto (Bld) Ordered By: Abbi Mcbride on 02-03-2023 Basophils/100 WBC (Bld) 1.0 % . [facility] Bilirubin.total [Mass/volume ] in Serum or PlasmaOrdered By: Abbi Mcbride on 02-03-2023 Bilirubin [Mass/Vol] 0.7 mg/dL 0.3-1.0 [facility] Calcium [Mass/volume] in Ser um or PlasmaOrdered By: Abbi Mcbride on 02-03-2023 Calcium [Mass/Vol] 8.9 mg/dL 8.6-10.3 [facility] Carbon dioxide, total [Moles /volume] in Serum or PlasmaOrdered By: Abbi Mcbride on 02-03-2023 CO2 [Moles/Vol] 24.9 mmol/L 21.0-31.0 [facility] Chloride [Moles/volume] in S priyank or PlasmaOrdered By: Abbi Mcbride on 02-03-2023 Chloride [Moles/Vol] 112 mmol/L 98-107 [facility] Complete Blood Count Auto Di ffon 02-03-2023 Basophils (Bld) [#/Vol] 0.0 10*3/uL Normal 0.0-0.2 [facility] Comment on above: Result Comment: PERF ORMED BY: [facility] [address] [place] [id number] PATHOLOGIST [employer] MECHANIC CLARA FARIAS M.D. Performed By: #### C BC, LDH, CMP ####[place] [address] [place] [id number] [facility] Basophils/100 WBC (Bld) 1.0 % Normal . [facility] Comment on above: Performed By: #### C BC, LDH, CMP ####[place] [id number] [place] [address] Eosinophils (Bld) [#/Vol] 0.1 10*3/uL Normal 0.0-0.45 [facility] Comment on above: Performed By: #### C BC, LDH, CMP ####[address] Eosinophils/100 WBC (Bld) 4.2 % Normal . [facility] Comment on above: Performed By: #### C BC, LDH, CMP ####[address] Erythrocyte distribution width (RBC) [Ratio] 13.5 % Normal 12.0-14.8 [facility] Comment on above: Performed By: #### C BC, LDH, CMP ####[address] Hematocrit (Bld) [Volume fraction] 39.4 % Normal 38.8-50.0 [facility] Comment on above: Performed By: #### C BC, LDH, CMP ####[address] Hemoglobin (Bld) [Mass/Vol] 13.8 g/dL Normal 13.0-17.0 [facility] Comment on above: Performed By: #### C BC, LDH, CMP ####[address] Lymphocytes (Bld) [#/Vol] 0.6 10*3/uL Low 1.00-4.8 [facility] Comment on above: Performed By: #### C BC, LDH, CMP ####[address] Lymphocytes/100 WBC (Bld) 15.8 % Normal . [facility] Comment on above: Performed By: #### C BC, LDH, CMP ####[address] MCH (RBC) [Entitic mass] 29.2 pg Normal 27.5-35.2 [facility] Comment on above: Performed By: #### C BC, LDH, CMP ####[address] MCV (RBC) [Entitic vol] 83.5 fL Normal 83.5-101 [facility] Comment on above: Performed By: #### C BC, LDH, CMP ####[address] Mean Corpuscular HGB Conc 35.0 g/dL Normal 32.5-35.6 [facility] Comment on above: Performed By: #### C BC, LDH, CMP ####[address] Monocytes (Bld) [#/Vol] 0.3 10*3/uL Normal 0.0-0.8 [facility] Comment on above: Performed By: #### C BC, LDH, CMP ####[address] Monocytes/100 WBC (Bld) 8.4 % Normal . [facility] Comment on above: Performed By: #### C BC, LDH, CMP ####[address] Neutrophils (Bld) [#/Vol] 2.5 10*3/uL Normal 1.8-7.7 [facility] Comment on above: Performed By: #### C BC, LDH, CMP ####[address] Neutrophils/100 WBC (Bld) 70.6 % Normal . [facility] Comment on above: Performed By: #### C BC, LDH, CMP ####[address] NRBC% 0.2 /100{WBC} Normal 0-0.5 [facility] Comment on above: Performed By: #### C BC, LDH, CMP ####[address] Platelet mean volume (Bld) [Entitic vol] 7.8 fL Normal 6.6-10.1 [facility] Comment on above: Performed By: #### C BC, LDH, CMP ####[address] Platelets (Bld) [#/Vol] 140 10*3/uL Low 150-450 [facility] Comment on above: Performed By: #### C BC, LDH, CMP ####[address] RBC (Bld) [#/Vol] 4.71 10*6/uL Normal 3.90-5.60 [facility] Comment on above: Performed By: #### C BC, LDH, CMP ####[address] WBC (Bld) [#/Vol] 3.5 10*3/uL Low 4.1-10.5 [facility] Comment on above: Performed By: #### C BC, LDH, CMP ####[address] Comprehensive Metabolic Pane vish 02-03-2023 Albumin [Mass/Vol] 4.0 g/dL Normal 3.5-5.7 [facility] Comment on above: Performed By: #### C BC, LDH, CMP ####[address] Albumin/Globulin [Mass ratio] 1.9 {ratio} Normal [facility] Comment on above: Performed By: #### C BC, LDH, CMP ####[address] ALP [Catalytic activity/Vol] 77 U/L Normal 34-104 [facility] Comment on above: Performed By: #### C BC, LDH, CMP ####[address] ALT [Catalytic activity/Vol] 15 U/L Normal 7-52 [facility] Comment on above: Performed By: #### C BC, LDH, CMP ####[address] Anion gap [Moles/Vol] 7.4 mmol/L Normal 6.0-15.0 [facility] Comment on above: Performed By: #### C BC, LDH, CMP ####[address] AST [Catalytic activity/Vol] 15 U/L Normal 13-39 [facility] Comment on above: Performed By: #### C BC, LDH, CMP ####[address] Bilirubin [Mass/Vol] 0.7 mg/dL Normal 0.3-1.0 [facility] Comment on above: Performed By: #### C BC, LDH, CMP ####[address] Calcium [Mass/Vol] 8.9 mg/dL Normal 8.6-10.3 [facility] Comment on above: Performed By: #### C BC, LDH, CMP ####[address] Chloride [Moles/Vol] 112 mmol/L High 98-107 [facility] Comment on above: Performed By: #### C BC, LDH, CMP ####[address] CO2 [Moles/Vol] 24.9 mmol/L Normal 21.0-31.0 [facility] Comment on above: Performed By: #### C BC, LDH, CMP ####[address] Creatinine [Mass/Vol] 1.46 mg/dL High 0.70-1.30 [facility] Comment on above: Performed By: #### C BC, LDH, CMP ####[address] Creatinine Clr Calc Pharmacy 63.73 Normal [facility] Comment on above: Performed By: #### C BC, LDH, CMP ####[address] GFR/1.73 sq M.predicted MDRD (S/P/Bld) [Vol rate/Area] 52.059 mL/min/{1.73_m2} Normal [facility] Comment on above: Performed By: #### C BC, LDH, CMP ####[address] Globulin (S) [Mass/Vol] 2.1 g/dL Normal [facility] Comment on above: Performed By: #### C BC, LDH, CMP ####[address] Glucose [Mass/Vol] 79 mg/dL Normal 70-100 [facility] Comment on above: Result Comment: [facility] Glucose Reference Range is dependent on time and content of last meal. Glucose of more than 200 mg/dL in a nonstressed, ambulatory subject supports the diagnosis of Diabetes Mellitus. ADA recommended reference range Performed By: #### C BC, LDH, CMP ####[address] Potassium [Moles/Vol] 4.3 mmol/L Normal 3.5-5.1 [facility] Comment on above: Performed By: #### C BC, LDH, CMP ####[address] Protein [Mass/Vol] 6.1 g/dL Low 6.4-8.9 [facility] Comment on above: Performed By: #### C BC, LDH, CMP ####[address] Sodium [Moles/Vol] 140 mmol/L Normal 136-145 [facility] Comment on above: Performed By: #### C BC, LDH, CMP ####[place] [id number] [facility] Urea nitrogen [Mass/Vol] 19 mg/dL Normal 7-25 [facility] Comment on above: Performed By: #### C BC, LDH, CMP ####[address] Creatinine [Mass/volume] in Serum or PlasmaOrdered By: Abbi Mcbride on 02-03-2023 Creatinine [Mass/Vol] 1.46 mg/dL 0.70-1.30 [facility] Eosinophils Auto (Bld) [#/Vo l]Ordered By: Abbi Mcbride on 02-03-2023 Eosinophils (Bld) [#/Vol] 0.1 10*3/uL 0.0-0.45 [facility] Eosinophils/100 WBC Auto (Bl d)Ordered By: Abbi Mcbride on 02-03-2023 Eosinophils/100 WBC (Bld) 4.2 % . [facility] Erythrocyte distribution wid th Auto (RBC) [Ratio]Ordered By: Abbi Mcbride on 02-03-2023 Erythrocyte distribution width (RBC) [Ratio] 13.5 % 12.0-14.8 [facility] Globulin Calc (S) [Mass/Vol] Ordered By: Abbi Mcbride on 02-03-2023 Globulin (S) [Mass/Vol] 2.1 g/dL [facility] Glucose [Mass/volume] in Ser um or PlasmaOrdered By: Abbi Mcbride on 02-03-2023 Glucose [Mass/Vol] 79 mg/dL 70-100 [facility] Comment on above: ADA recommended refe rence rangeRandom Glucose Reference Range is dependent on time and content of last meal. Glucose of more than 200 mg/dL in a nonstressed, ambulatory subject supports the diagnosis of Diabetes Mellitus. Hematocrit Auto (Bld) [Volum e fraction]Ordered By: Abbi Mcbride on 02-03-2023 Hematocrit (Bld) [Volume fraction] 39.4 % 38.8-50.0 [facility] Hemoglobin [Mass/volume] in BloodOrdered By: Abbi Mcbride on 02-03-2023 Hemoglobin (Bld) [Mass/Vol] 13.8 g/dL 13.0-17.0 [facility] LDH Lactate Dehydrogenaseon 02-03-2023 LDH Lactate Dehydrogenase 173 U/L Normal 140-271 [facility] Comment on above: Result Comment: PERF ORMED BY: [facility] [address] [place] [address] PATHOLOGIST [employer] MECHANIC CLARA FARIAS M.D. Performed By: #### C BC, LDH, CMP ####[facility] [address] [place] [address] [facility] Lactate dehydrogenase [Enzym atic activity/volume] in Serum or Plasma by Lactate to pyOrdered By: Abbi Mcbride on 02-03-2023 LDH Lactate to pyruvate reaction [Catalytic activity/Vol] 173 U/L 140-271 [facility] Leukocytes [#/volume] correc jaguar for nucleated erythrocytes in Blood by Automated counOrdered By: Abbi Mcbride on 02-03-2023 WBC corrected for nucl RBC Auto (Bld) [#/Vol] 3.5 10*3/uL 4.1-10.5 [facility] Lymphocytes Auto (Bld) [#/Vo l]Ordered By: Abbi Mcbride on 02-03-2023 Lymphocytes (Bld) [#/Vol] 0.6 10*3/uL 1.00-4.8 [facility] Lymphocytes/100 WBC Auto (Bl d)Ordered By: Abbi Mcbride on 02-03-2023 Lymphocytes/100 WBC (Bld) 15.8 % . [facility] MCH Auto (RBC) [Entitic mass ]Ordered By: Abbi Mcbride on 02-03-2023 MCH (RBC) [Entitic mass] 29.2 pg 27.5-35.2 [facility] MCHC Auto (RBC) [Mass/Vol]Or dered By: Abbi Mcbride on 02-03-2023 MCHC (RBC) [Mass/Vol] 35.0 g/dL 32.5-35.6 [facility] MCV Auto (RBC) [Entitic vol] Ordered By: Abbi Mcbride on 02-03-2023 MCV (RBC) [Entitic vol] 83.5 fL 83.5-101 [facility] Monocytes Auto (Bld) [#/Vol] Ordered By: Abbi Mcbride on 02-03-2023 Monocytes (Bld) [#/Vol] 0.3 10*3/uL 0.0-0.8 [facility] Monocytes/100 WBC Auto (Bld) Ordered By: Abbi Mcbride on 02-03-2023 Monocytes/100 WBC (Bld) 8.4 % . [facility] Neutrophils Auto (Bld) [#/Vo l]Ordered By: Abbi Mcbride on 02-03-2023 Neutrophils (Bld) [#/Vol] 2.5 10*3/uL 1.8-7.7 [facility] Neutrophils/100 WBC Auto (Bl d)Ordered By: Abbi Mcbride on 02-03-2023 Neutrophils/100 WBC (Bld) 70.6 % . [facility] No Panel InformationOrdered By: Abbi Mcbride on 02-03-2023 Estimated GFR (CKD-EPI) 52.059 mL/Min [facility] Creatinine Clearance (Chem 63.73 [facility] Nucleated erythrocytes [Pres ence] in Blood by Automated countOrdered By: Abbi Mcbride on 02-03-2023 Nucleated RBC Auto Ql (Bld) 0.2 /100{WBC} 0-0.5 [facility] Platelet mean volume Auto (B ld) [Entitic vol]Ordered By: Abbi Mcbride on 02-03-2023 Platelet mean volume (Bld) [Entitic vol] 7.8 fL 6.6-10.1 [facility] Platelets Auto (Bld) [#/Vol] Ordered By: Abbi Mcbride on 02-03-2023 Platelets (Bld) [#/Vol] 140 10*3/uL 150-450 [facility] Potassium [Moles/volume] in Serum or PlasmaOrdered By: Abbi Mcbride on 02-03-2023 Potassium [Moles/Vol] 4.3 mmol/L 3.5-5.1 [facility] Protein [Mass/volume] in Ser um or PlasmaOrdered By: Abbi Mcbride on 02-03-2023 Protein [Mass/Vol] 6.1 g/dL 6.4-8.9 [facility] RBC Auto (Bld) [#/Vol]Ordere d By: Abbi Mcbride on 02-03-2023 RBC (Bld) [#/Vol] 4.71 10*6/uL 3.90-5.60 [facility] Serum or plasma albumin/glob ulin mass ratioOrdered By: Abbi Mcbride on 02-03-2023 Albumin/Globulin [Mass ratio] 1.9 {ratio} [facility] Serum or plasma anion gap de terminationOrdered By: Abbi Mcbride on 02-03-2023 Anion gap [Moles/Vol] 7.4 mmol/L 6.0-15.0 [facility] Sodium [Moles/volume] in Ser um or PlasmaOrdered By: Abbi Mcbride on 02-03-2023 Sodium [Moles/Vol] 140 mmol/L 136-145 [facility] Urea nitrogen [Mass/volume] in Serum or PlasmaOrdered By: Abbi Mcbride on 02-03-2023 Urea nitrogen [Mass/Vol] 19 mg/dL 10-19 [facility] WBC Auto (Bld) [#/Vol]Ordere d By: Abbi Reed on 02-03-2023 WBC (Bld) [#/Vol] 3.5 10*3/uL 4.1-10.5 [facility] Outside Recordson 01-19-2023 Outside Records [id number] Normal [facility] ED Clinical Summaryon 2022 ED Clinical Summary [facility] ? Urgent Care [address] [place] [address] Clinical Summary PERSON INFORMATION Name: ZHENG MONTESINOS Age: 67 Years Sex: MALE : 1955 MRN: Acct#: Visit Reason: Medical screening exam; DOT PHYSICAL Arrival: 01/18/2023 13:00:00 Discharge: 01/18/2023 14:57:00 LOS: 000 01:57 Check In: 01/18/2023 13:00:00 Checkout: 01/18/2023 14:57:00 Address: [address] [place], [place] [id number] PCP: HAYLEY MACHADO, SHELIA Whitaker PROVIDER INFORMATION Provider Role Assigned Unassigned Jessica Musa ED Nurse 01/18/2023 13:01:48 Valentin Almaraz PA-C ED PA 01/18/2023 13:07:10 VITALS INFORMATION Vital Sign Triage Latest Temperature Tympanic Temperature Temporal Artery Pulse Rate O2 Sat Respiratory Rate Blood Pressure /60 mmHg /60 mmHg MEDICAL INFORMATION Medications Given: Allergy Information: No known allergies PHYSICIAN DOCUMENTATION DISCHARGE INFORMATION: Discharge Disposition: Home Discharge Location: Home PATIENT EDUCATION INFORMATION Instructions: Follow-Up: DIAGNOSIS: Patient Understands: Yes - Patient/family/caregiver verbalizes understanding of instructions given Comment: Normal [facility] ED Patient Summaryon 023 ED Patient Summary [facility] ? Urgent Care [address] [place] [address] PATIENT DISCHARGE INSTRUCTIONS Patient Information Name: ZHENG MONTESINOS Age: 67 Years Date of : 1955 [facility]: [id number] Reason For Visit: Medical screening exam; DOT PHYSICAL Arrival Time: 01/18/2023 13:00:00 Primary Care Physician: SHELIA HARYD MD Attending Physician: Valentin Almaraz PA-C Comment: Patient Education Medication Information: The exam and treatment you received today in the [facility] Emergency Department were for an urgent problem and are not intended as complete care. It is important for you to follow up with a doctor, nurse practitioner, or physician?s family service assistant for ongoing care. If your symptoms become worse or you do not improve as expected and you are unable to reach your usual health care provider, you should return to the Emergency Department, we are available 24 hours a day. For those patients who have received Radiology results, the interpretation of your X-ray as given to you by our Emergency Department physician is only a preliminary report. The Radiologist will review your films and if there is a change in the diagnosis you will be notified by phone. Please make sure you have provided a working phone number so we can reach you if necessary. In the event that you had a lab culture while you were a patient in the Emergency Department, you will be notified by phone if there is a need to change your antibiotic. Please make sure you have provided a working phone number so we can reach you if necessary. [facility] Emergency Department has provided you with a complete list of medications post discharge. Please inform your director work/provider of your visit and for further instruction on these medications. Any specific questions regarding your chronic medications and dosages should be discussed with your primary care physician(s) and/or pharmacist. Medications to Continue That Have Not Changed Other Medications amLODIPine (amLODIPine 5 mg oral tablet) 1 tab(s) Oral every day. Refills: 3. atorvastatin (atorvastatin 20 mg oral tablet) 1 tab(s) Oral every day. Refills: 3. doxazosin (doxazosin 8 mg oral tablet) 1 tab(s) Oral every day. folic acid (folic acid 1 mg oral tablet) 3 tab(s) Oral every day. meloxicam (meloxicam 15 mg oral tablet) 1 tab(s) Oral every day. Refills: 3. testosterone (AndroGel 40.5 mg (1.62%) transdermal gel) 1 packet(s) Topical every other day. topiramate (topiramate 100 mg oral tablet) 1 tab(s) Oral every day. Refills: 3. venlafaxine (venlafaxine 150 mg oral capsule, extended release) 1 cap(s) Oral every day. Refills: 3. Visit Information Visit Diagnosis: Diagnoses This Visit Medical screening exam ([id number]) If you received any narcotics, sedation, or any other medication that causes drowsiness for the next 24 hours, unless otherwise directed: ? Do not drive a car. ? Do not operate machinery such as power tools, Zelgorn mowers, drills, sewing machines, or stoves ? Avoid alcoholic beverages and drugs for allergies, nerves, or sleep ? Do not make important personal or business decisions or sign any legal documents Reason for Visit: here for DOT physical Allergies: Substance Reaction Symptoms Type Comments No known allergies Drug Vital Signs: Vitals and Measurements this Visit (last charted value for your 01/18/2023 visit) Vital Signs This Visit Temperature Temporal: 36.9 DegC Peripheral Pulse Rate: 72 bpm Respiratory Rate: 16 br/min Systolic Blood Pressure: 110 mmHg Diastolic Blood Pressure: 60 mmHg Blood Pressure Method: Manual Measurements This Visit Height/Length Measured: 176 cm Weight Measured: 128.9 kg Body Mass Index: 41.61 kg/m2 BSA Measured: 2.51 m2 Problems List: Problem Onset Comments Depression Erectile dysfunction Hypertension Morbid obesity Major Tests and Procedures: The following procedures and tests were performed during your ED visit. Laboratory Urinalysis Standard Urine, Collected, RT collect, 01/18/23 13:27:00 EDT, by CHITO, Stop date 01/18/23 13:27:00 EDT, Lab Collect, Urine Radiology Cardiology Viruses or Bacteria What?s got you sick? Antibiotics only treat bacterial infections. Viral illnesses cannot be treated with antibiotics. When an antibiotic is not prescribed, ask your healthcare professional for tips on how to relieve symptoms and feel better. Usual Cause Illness Viruses Bacteria Antibiotic Needed Cold/Runny Nose NO Bronchitis/Chest Cold (in otherwise healthy children and adults) NO Whooping Cough Yes Flu NO Strep Throat Yes Sore Throat (except strep) NO Fluid in the middle ear (otitis media with effusion) NO Urinary Tract Infection Yes Antibiotics Aren?t Always the Answer www.cdc.gov/getsmart GET SMART Know When Antibiotics Work U.S. Department of Health and Human Services Centers for Disease Contro (more content not included)... Normal [facility] UA Standardon 01-18-2023 Breakpoint UA [facility] Comment on above: Performed By: #### 1 [id number] ####[facility] (DEFAULT)[address] [place] [address] [id number] Color (U) Yellow [facility] Comment on above: Performed By: #### 1 [id number] ####[facility] (DEFAULT)[address] [place] [address] 80042 Glucose (U) [Mass/Vol] Negative [facility] Comment on above: Performed By: #### 1 [id number] ####[facility] (DEFAULT)[address] [place] [address] 93347 Ketones Ql (U) Negative [facility] Comment on above: Performed By: #### 1 [id number] ####[facility] (DEFAULT)[address] [place] [address] 19698 UA Bilirubin Negative Normal [facility] Comment on above: Performed By: #### 1 [id number] ####[facility] (DEFAULT)[address] [place] [address] 85999 UA Blood TRACE Abnormal NEGATIVE [facility] Comment on above: Performed By: #### 1 [id number] ####[facility] (DEFAULT)[address] [place] [address] 37747 UA Clarity CLEAR Normal [facility] Comment on above: Performed By: #### 1 [id number] ####[facility] (DEFAULT)[address] [place] [address] 46844 UA Leuk Est Negative Normal NEGATIVE [facility] Comment on above: Performed By: #### 1 [id number] ####[facility] (DEFAULT)[address] [place] [address] 79775 UA Nitrite Negative Normal NEGATIVE [facility] Comment on above: Performed By: #### 1 [id number] ####[facility] (DEFAULT)[address] [place] [address] 03661 UA pH 6.5 Normal 5-8 [facility] Comment on above: Performed By: #### 1 [id number] ####[facility] (DEFAULT)[address] [place] [address] 47689 UA Protein TRACE Abnormal NEGATIVE [facility] Comment on above: Performed By: #### 1 [id number] ####[facility] (DEFAULT)[address] [place] [address] UA Spec Grav 1.020 Normal 1.001-1.[address] [place] [address] Comment on above: Performed By: #### 1 [id number] ####[facility] (DEFAULT)[address] [place] [address] 72272 UA Urobilinogen 1.0 mg/dL Normal 0.2-1.0 [facility] Comment on above: Performed By: #### 1 [id number] ####[facility] (DEFAULT)[address] [place] [address] Urine Source Clean Catch Normal [facility] Comment on above: Performed By: #### 1 [id number] ####[facility] (DEFAULT)[address] [place] [address] Urgent Care Note- Provideron 01-18-2023 Urgent Care Note- Provider Patient: ZHENG MONTESINOS Age: 67 years Sex: MALE : 1955 Associated Diagnoses: None Author: Valentin Almaraz PA-C Basic Information Additional information: Chief Complaint from Nursing Triage Note : Chief Complaint 01/18/2023 13:25 EDT Chief Complaint here for DOT physical . 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 He is evaluated and certified for 1 year. Please see scanned documents. STOP Bang score 4 which is moderate risk for LEILA, but with no snoring, daytime somnolence and mallampati score of 1, will hold on sleep study referral. Letter is provided RE: trace protein and blood in urine today. He is recovering from a 3 day GI bug, and will f/u with PCP RE: findings. Health Status Allergies: Allergic Reactions (Selected) No known allergies. Medications: (Selected) Prescriptions Prescribed amLODIPine 5 mg oral tablet: 5 mg = 1 tab(s), PO, Daily, 90 tab(s), 3 Refill(s) atorvastatin 20 mg oral tablet: 20 mg = 1 tab(s), PO, Daily, 90 tab(s), 3 Refill(s) meloxicam 15 mg oral tablet: 15 mg = 1 tab(s), PO, Daily, 30 tab(s), 3 Refill(s) topiramate 100 mg oral tablet: 100 mg = 1 tab(s), PO, Daily, 90 tab(s), 3 Refill(s) venlafaxine 150 mg oral capsule, extended release: 150 mg = 1 cap(s), PO, Daily, 90 cap(s), 3 Refill(s) Documented Medications Documented AndroGel 40.5 mg (1.62%) transdermal gel: 1 packet(s), TOP, Every other day, 0 Refill(s) doxazosin 8 mg oral tablet: 8 mg = 1 tab(s), PO, Daily, 0 Refill(s) folic acid 1 mg oral tablet: 3 mg = 3 tab(s), PO, Daily. Past Medical/ Family/ Social History Medical history: Resolved Disease caused by 2019 novel coronavirus ([id number]): Onset on 02/06/2021 at 65 years. Resolved. 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 Surgical history: Port ([id number]) on 10/26/2021 at 66 Years. Lymphoma ([id number]) on 08/26/2021 at 66 Years. Colonoscopy ([id number]) on 04/27/2021 at 66 Years. Rotator cuff repair ([id number]) in 2010 at 54 Years. Carpal tunnel release ([id number]) in 2003 at 48 Years. Comments: 10/24/2016 14:07 EDT - Sandra Huang Bilateral Tonsillectomy and adenoidectomy ([id number]). Vasectomy ([id number]). Skin grafting ([id number]). 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 TURP - Transurethral resection of prostate ([id number]). Lithotripsy ([id number]).. Family history: Diabetes mellitus type II Mother . 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 Problem list: Active Problems (4) Depression Erectile dysfunction Hypertension Morbid obesity . Physical Examination Vital Signs Vital Signs 01/18/2023 13:25 EDT Temperature Temporal 36.9 DegC Peripheral Pulse Rate 72 bpm Respiratory Rate 16 br/min Systolic Blood Pressure 110 mmHg Diastolic Blood Pressure 60 mmHg BP Method Manual . Measurements 01/18/2023 13:25 EDT Height 176 cm Weight 128.9 kg Body Mass Index Measured 41.61 kg/m2 BSA Measured 2.51 m2 . [Electronically Signed on: 01/18/2023 14:44 EDT] Valentin Almaraz PA-C [Verified on: 01/18/2023 14:44 EDT] Valentin Almaraz PA-C [facility] [address] 023 Urgent Care Record [facility] ? Urgent Care [address] [place] [address] PATIENT DISCHARGE INSTRUCTIONS Patient Information Name: ZHENG MONTESINOS Age: 67 Years Date of : 1955 Reason For Visit: Medical screening exam; DOT PHYSICAL Arrival Time: 01/18/2023 13:00:00 Primary Care Physician: SHELIA HARDY MD Attending Physician: Valentin Almaraz PA-C Comment: Visit Diagnosis: Diagnoses This Visit Medical screening exam ([id number]) If you received any narcotics, sedation, or any other medication that causes drowsiness for the next 24 hours, unless otherwise directed: ? Do not drive a car. ? Do not operate machinery such as power tools, lawn mowers, drills, sewing machines, or stoves ? Avoid alcoholic beverages and drugs for allergies, nerves, or sleep ? Do not make important personal or business decisions or sign any legal documents Medication Information: The exam and treatment you received today in the [facility] were for an urgent problem and are not intended as complete care. It is important for you to follow up with a doctor, nurse practitioner, or physician?s family service assistant for ongoing care. If your symptoms become worse or you do not improve as expected and you are unable to reach your usual health care provider, you should return to the Emergency Department, we are available 24 hours a day. For those patients who have received Radiology results, the interpretation of your X-ray as given to you by our Urgent Care physician is only a preliminary report. The Radiologist will review your films and if there is a change in the diagnosis you will be notified by phone. Please make sure you have provided a working phone number so we can reach you if necessary. In the event that you had a lab culture while you were a patient in the Urgent Care, you will be notified by phone if there is a need to change your antibiotic. Please make sure you have provided a working phone number so we can reach you if necessary. [facility] has provided you with a complete list of medications post discharge. Please inform your director work/provider of your visit and for further instruction on these medications. Any specific questions regarding your chronic medications and dosages should be discussed with your primary care physician(s) and/or pharmacist. Medications to Continue That Have Not Changed Other Medications amLODIPine (amLODIPine 5 mg oral tablet) 1 tab(s) Oral every day. Refills: 3. atorvastatin (atorvastatin 20 mg oral tablet) 1 tab(s) Oral every day. Refills: 3. doxazosin (doxazosin 8 mg oral tablet) 1 tab(s) Oral every day. folic acid (folic acid 1 mg oral tablet) 3 tab(s) Oral every day. meloxicam (meloxicam 15 mg oral tablet) 1 tab(s) Oral every day. Refills: 3. testosterone (AndroGel 40.5 mg (1.62%) transdermal gel) 1 packet(s) Topical every other day. topiramate (topiramate 100 mg oral tablet) 1 tab(s) Oral every day. Refills: 3. venlafaxine (venlafaxine 150 mg oral capsule, extended release) 1 cap(s) Oral every day. Refills: 3. Visit Information Allergies: Substance Reaction Symptoms Type Comments No known allergies Drug Vital Signs: Vitals and Measurements this Visit (last charted value for your 01/18/2023 visit) Vital Signs This Visit Temperature Temporal: 36.9 DegC Peripheral Pulse Rate: 72 bpm Respiratory Rate: 16 br/min Systolic Blood Pressure: 110 mmHg Diastolic Blood Pressure: 60 mmHg Blood Pressure Method: Manual Measurements This Visit Height/Length Measured: 176 cm Weight Measured: 128.9 kg Body Mass Index: 41.61 kg/m2 BSA Measured: 2.51 m2 Problems List: Problem Onset Comments Depression Erectile dysfunction Hypertension Morbid obesity Patient Education Viruses or Bacteria What?s got you sick? Antibiotics only treat bacterial infections. Viral illnesses cannot be treated with antibiotics. When an antibiotic is not prescribed, ask your healthcare professional for tips on how to relieve symptoms and feel better. Usual Cause Illness Viruses Bacteria Antibiotic Needed Cold/Runny Nose NO Bronchitis/Chest Cold (in otherwise healthy children and adults) NO Whooping Cough Yes Flu NO Strep Throat Yes Sore Throat (except strep) NO Fluid in the middle ear (otitis media with effusion) NO Urinary Tract Infection Yes Antibiotics Aren?t Always the Answer www.cdc.gov/getsmart GET SMART Know When Antibiotics Work U.S. Department of Health and Human Services Centers for Disease Control and Prevention November 2013 Normal [facility] Ambulatory Patient Summaryon 12-21-2022 Ambulatory Patient Summary [address], [address] - Visit Summary For ZHENG MONTESINOS Age: 67 years Sex: MALE : 1955 Address: [address] [place] [address], [address] Home: Work: -- Primary Care Provider: SHELIA HARDY MD Race: White Ethnicity: Not or Language: Malian Health Plan: 1?MEDICARE ANTH6fusion Reason for Visit: one month follow up for depression Prescription Information: If you have been given a prescription for narcotics, seek immediate medical attention if you have any difficulty breathing or any sudden status changes such as confusion and sleepiness. If you or anyone you know is experiencing suicidal thoughts, mental health, alcohol and/or drug addiction problems; contact the [facility] 18/10 Crisis Hotline -text 4hope to 741741. Follow-Up Information Future Appointments No Future Appointments Scheduled Future Orders No future orders Additional Goals and Instructions: Vitals and Measurements this Visit (last charted value for your 12/21/2022 visit) Vital Signs This Visit Peripheral Pulse Rate: 78 bpm Systolic Blood Pressure: 124 mmHg Diastolic Blood Pressure: 74 mmHg SpO2: 97 % Measurements This Visit Height/Length Measured: 172 cm Height/Length Measured (inches): 67.72 in Weight Measured: 131 kg Weight Measured (lbs): 288.805 lb BSA: 2.5 m2 Body Mass Index: 44.28 kg/m2 [place] Body Weight Calculated: 67.748 kg BSA Measured: 2.5 m2 Diagnoses This Visit Depression (F32.9) Laboratory or Other Results This Visit (last charted value for your 12/21/2022 visit) No Laboratory or Other Results This Visit Medications and Immunizations Administered During This Visit No medication administered during this visit All Known Current Prescriptions and Reported Medications New Prescriptions this Visit venlafaxine 150 mg oral capsule, extended release (venlafaxine) Take 1 cap(s)(150 Milligram) Oral every day, 3 refills authorized Prescriptions amLODIPine 5 mg oral tablet (amLODIPine) Take 1 tab(s)(5 Milligram) Oral every day, 3 refills authorized atorvastatin 20 mg oral tablet (atorvastatin) Take 1 tab(s)(20 Milligram) Oral every day, 3 refills authorized meloxicam 15 mg oral tablet (meloxicam) Take 1 tab(s)(15 Milligram) Oral every day, 3 refills authorized topiramate 100 mg oral tablet (topiramate) Take 1 tab(s)(100 Milligram) Oral every day, 3 refills authorized traZODone 150 mg oral tablet (traZODone) Take 1 tab(s)(150 Milligram) Oral once a day (at bedtime), 3 refills authorized Home Medications AndroGel 40.5 mg (1.62%) transdermal gel (testosterone) Take 1 packet(s) Topical every other day doxazosin 8 mg oral tablet (doxazosin) Take 1 tab(s)(8 Milligram) Oral every day folic acid 1 mg oral tablet (folic acid) Take 3 tab(s)(3 Milligram) Oral every day Normal [facility] Patient Handouton 12-21-2022 Patient Handout [facility] Major Depressive Disorder, Adult Major depressive disorder (MDD) is a mental health condition. It may also be called clinical depression or unipolar depression. MDD causes symptoms of sadness, hopelessness, and loss of interest in things. These symptoms last most of the day, almost every day, for 2 weeks. MDD can also cause physical symptoms. It can interfere with relationships and with everyday activities, such as work, school, and activities that are usually pleasant. MDD may be mild, moderate, or severe. It may be single-episode MDD, which happens once, or recurrent MDD, which may occur multiple times. What are the causes? The exact cause of this condition is not known. MDD is most likely caused by a combination of things, which may include: ? Your personality traits. ? [place] or conditioned behaviors or thoughts or feelings that reinforce negativity. ? Any alcohol or substance misuse. ? Long-term (chronic) physical or mental health illness. ? Going through a traumatic experience or major life changes. What increases the risk? The following factors may make someone more likely to develop MDD: ? A family history of depression. ? Being a woman. ? Troubled family relationships. ? Abnormally low levels of certain brain chemicals. ? Traumatic or painful events in childhood, especially abuse or loss of a parent. ? A lot of stress from life experiences, such as poor living conditions or discrimination. ? Chronic physical illness or other mental health disorders. What are the signs or symptoms? The main symptoms of MDD usually include: ? Constant depressed or irritable mood. ? A loss of interest in things and activities. Other symptoms include: ? Sleeping or eating too much or too little. ? Unexplained weight gain or weight loss. ? Tiredness or low energy. ? Being agitated, restless, or weak. ? Feeling hopeless, worthless, or guilty. ? Trouble thinking clearly or making decisions. ? Thoughts of suicide or thoughts of harming others. ? Isolating oneself or avoiding other people or activities. ? Trouble completing tasks, work, or any normal obligations. Severe symptoms of this condition may include: ? Psychotic depression.This may include false beliefs, or delusions. It may also include seeing, hearing, tasting, smelling, or feeling things that are not real (hallucinations). ? Chronic depression or persistent depressive disorder. This is low-level depression that lasts for at least 2 years. ? Melancholic depression, or feeling extremely sad and hopeless. ? Catatonic depression, which includes trouble speaking and trouble moving. How is this diagnosed? This condition may be diagnosed based on: ? Your symptoms. ? Your medical and mental health history. You may be asked questions about your lifestyle, including any drug and alcohol use. ? A physical exam. ? Blood tests to rule out other conditions. MDD is confirmed if you have the following symptoms most of the day, nearly every day, in a 2-week period: ? Either a depressed mood or loss of interest. ? At least four other MDD symptoms. How is this treated? This condition is usually treated by mental health professionals, such as psychologists, psychiatrists, and clinical social workers. You may need more than one type of treatment. Treatment may include: ? Psychotherapy, also called talk therapy or counseling. Types of psychotherapy include: ? Cognitive behavioral therapy (CBT). This teaches you to recognize unhealthy feelings, thoughts, and behaviors, and replace them with positive thoughts and actions. ? Interpersonal therapy (IPT). This helps you to improve the way you communicate with others or relate to them. ? Family therapy. This treatment includes members of your family. ? Medicines to treat anxiety and depression. These medicines help to balance the brain chemicals that affect your emotions. ? Lifestyle changes. You may be asked to: ? Limit alcohol use and avoid drug use. ? Get regular exercise. ? Get plenty of sleep. ? Make healthy eating choices. ? Spend more time outdoors. ? Brain stimulation. This may be done if symptoms are very severe and other treatments have not worked. Examples of this treatment are electroconvulsive therapy and transcranial magnetic stimulation. Follow these instructions at home: Activity ? Exercise regularly and spend time outdoors. ? Find activities that you enjoy doing, and make time to do them. ? Find healthy ways to manage stress, such as: ? Meditation or deep breathing. ? Spending time in nature. ? Journaling. ? Return to your normal activities as told by your health care provider. Ask your health care provider what activities are safe for you. Alcohol and drug use ? If you drink alcohol: ? Limit how much you use to: ? 0?1 drink a day for women who are not . ? 0?2 drinks a day for men. ? Be aware of how much alcohol is in your drink. In the (more content not included)... Normal [facility] 11-19-2022 [facility] [id number] Normal [facility] Cortisol, ACTH Stimulationon 11-17-2022 Cortisol, ACTH Stimulation Normal [facility] Comment on above: Result Comment: [employer] 6.8 Col: 11/17/22 0851 Phillip 30Min 23.4 Col: 11/17/22 0942 Phillip 60Min 25.8 Col: 11/17/22 1015 PERFORMED BY: [facility] [address] [place] [address] PATHOLOGIST [employer] MECHANIC CLARA FARIAS M.D. Performed By: #### C ORT STIMULAT ####[facility] [id number] [place] [address] [facility] No Panel InformationOrdered By: Hunter Forrest on 11-17-2022 Cortisol Response to Stimulation See comment [facility] Comment on above: [employer] 6.8 Col: 0 11/17/22 0851 Phillip 30Min 23.4 Col: 11/17/22 0942 Phillip 60Min 25.8 Col: 11/17/22 1015 Ambulatory Patient Summaryon 11-16-2022 Ambulatory Patient Summary [address], [address] - Visit Summary For ZHENG MONTESINOS Age: 67 years Sex: MALE : 1955 Address: [address] [place] [address], [address] Home: Work: -- Primary Care Provider: SHELIA HARDY MD Race: White Ethnicity: Not or Language: Malian Health Plan: 1?MEDICARE ANTHEM Reason for Visit: Patient is here to discuss medication for depression. He would also like his lower right leg looked at. Prescription Information: If you have been given a prescription for narcotics, seek immediate medical attention if you have any difficulty breathing or any sudden status changes such as confusion and sleepiness. If you or anyone you know is experiencing suicidal thoughts, mental health, alcohol and/or drug addiction problems; contact the [facility] 18/10 Crisis Hotline -Text 4HOPE to 468301. Follow-Up Information With: Address: When: SHELIA HARDY MD [facility] [address] [place] [address]/ [address] [place] [address] In 1 month Future Appointments [facility] Appt. Date: 12/21/2022 1:30 PM Scheduled Provider: Shelia Hardy MD [address] [place] [address] [place], [address] Future Orders No future orders Additional Goals and Instructions: Vitals and Measurements this Visit (last charted value for your 11/16/2022 visit) Vital Signs This Visit Peripheral Pulse Rate: 85 bpm Systolic Blood Pressure: 120 mmHg Diastolic Blood Pressure: 74 mmHg SpO2: 97 % Measurements This Visit Height/Length Measured: 172 cm Height/Length Measured (inches): 67.72 in Weight Measured: 132.22 kg Weight Measured (lbs): 291.495 lb Body Mass Index: 44.69 kg/m2 [place] Body Weight Calculated: 67.748 kg BSA Measured: 2.51 m2 Diagnoses This Visit Depression (F32.9) Laboratory or Other Results This Visit (last charted value for your 11/16/2022 visit) No Laboratory or Other Results This Visit Medications and Immunizations Administered During This Visit No medication administered during this visit All Known Current Prescriptions and Reported Medications New Prescriptions this Visit meloxicam 15 mg oral tablet (meloxicam) Take 1 tab(s)(15 Milligram) Oral every day, 3 refills authorized venlafaxine 75 mg oral capsule, extended release (venlafaxine) 1 refills authorized Instructions: Take one capsule once daily for two weeks, then increase to two capsules a day. Prescriptions amLODIPine 5 mg oral tablet (amLODIPine) Take 1 tab(s)(5 Milligram) Oral every day, 3 refills authorized atorvastatin 20 mg oral tablet (atorvastatin) Take 1 tab(s)(20 Milligram) Oral every day, 3 refills authorized topiramate 100 mg oral tablet (topiramate) Take 1 tab(s)(100 Milligram) Oral every day, 3 refills authorized traZODone 150 mg oral tablet (traZODone) Take 1 tab(s)(150 Milligram) Oral once a day (at bedtime), 3 refills authorized Home Medications AndroGel 40.5 mg (1.62%) transdermal gel (testosterone) Take 1 packet(s) Topical every other day doxazosin 8 mg oral tablet (doxazosin) Take 1 tab(s)(8 Milligram) Oral every day folic acid 1 mg oral tablet (folic acid) Take 3 tab(s)(3 Milligram) Oral every day [facility] Patient Handouton 11-16-2022 Patient Handout [facility] Ambulatory Visit Summaryon 0 11-12-2022 Ambulatory Visit Summary ZHENG MONTESINOS :1955 Visit Date:11/12/2022 Ambulatory Visit Instructions Your Diagnosis Kidney stone Elevated PSA Hypogonadism male BPH with urinary obstruction ED (erectile dysfunction) Renal cyst Hypocitraturia Tests Performed Urnls Dip Stick Auto w/o Microscopy POC [id number] Your Care Team Attending Physician - Jahaira SWEET MD Primary Care Physician - VARSHA HARDY md This Is Your Medications List doxazosin (doxazosin 8 mg oral tablet) potassium bicarbonate (Klor-Con/EF 25 mEq oral tablet, effervescent) sildenafil (sildenafil 100 mg Tab) testosterone (AndroGel Pump 20.25 mg/1.25 g (1.62%) transdermal gel) Contact prescribing physician if questions or concerns amlodipine (amLODIPine 5 mg Tab) atorvastatin (atorvastatin 20 mg Tab) folic acid (folic acid 1 mg Tab) losartan (losartan 50 mg Tab) topiramate (topiramate 100 mg Tab) venlafaxine (venlafaxine 75 mg Cap-ER) Procedures Performed Cystoscopic removal of ureteric stent (10/12/2022), Cystoscope (09/16/2022), ESWL of kidney (07/10/2020), ESWL of kidney (11/16/2018), TURP - Transurethral resection of prostate (07/18/2014), Cystoscopy (03/01/2014), Urodynamics (02/28/2014), Transrectal biopsy of prostate using ultrasound (US) guidance (10/15/2013), Transrectal biopsy of prostate using ultrasound (US) guidance (07/16/2013), Cystoscopy (06/26/2006), Carpal tunnel release, Complete repair of rotator cuff, hernia repair umbilical, skin graft on finger, stone extraction. Discharge Vitals Heart Rate (Peripheral) 79 Respiratory Rate 16 Blood Pressure 130/75 Height 175.2 cm Height 69 in Weight 148.3 kg Weight 326.26 lb BMI 48.31 What to do next Scheduled Follow-Up Appointments Tuesday 10:15 AM EST With: Jahaira SWEET MD Where: [facility] Patient Educationon 11-13-19 23 Patient Education Oncology Prostate Cancer Screening Prostate cancer screening is testing that is done to check for the presence of prostate cancer in men. The prostate gland is a walnut-sized gland that is located below the bladder and in front of the rectum in males. The function of the prostate is to add fluid to semen during ejaculation. Prostate cancer is one of the most common types of cancer in men. Who should have prostate cancer screening? Screening recommendations vary based on age and other risk factors, as well as between the professional organizations who make the recommendations. In general, screening is recommended if: ? You are age 50 to 70 and have an average risk for prostate cancer. You should talk with your health care provider about your need for screening and how often screening should be done. Because most prostate cancers are slow growing and will not cause , screening in this age group is generally reserved for men who have a 10- to 15-year life expectancy. ? You are younger than age 50, and you have these risk factors: ? Having a father, brother, or uncle who has been diagnosed with prostate cancer. The risk is higher if your family member's cancer occurred at an early age or if you have multiple family members with prostate cancer at an early age. ? Being a male who is Black or is of [place] or sub-Saharan descent. In general, screening is not recommended if: ? You are younger than age 40. ? You are between the ages of 40 and 49 and you have no risk factors. ? You are 70 years of age or older. At this age, the risks that screening can cause are greater than the benefits that it may provide. If you are at high risk for prostate cancer, your health care provider may recommend that you have screenings more often or that you start screening at a younger age. How is screening for prostate cancer done? The recommended prostate cancer screening test is a blood test called the prostate-specific antigen (PSA) test. PSA is a protein that is made in the prostate. As you age, your prostate naturally produces more PSA. Abnormally high PSA levels may be caused by: ? Prostate cancer. ? An enlarged prostate that is not caused by cancer (benign prostatic hyperplasia, or BPH). This condition is very common in older men. ? A prostate gland infection (prostatitis) or urinary tract infection. ? Certain medicines such as male hormones (like testosterone) or other medicines that raise testosterone levels. A rectal exam may be done as part of prostate cancer screening to help provide information about the size of your prostate gland. When a rectal exam is performed, it should be done after the PSA level is drawn to avoid any effect on the results. Depending on the PSA results, you may need more tests, such as: ? A physical exam to check the size of your prostate gland, if not done as part of screening. ? Blood and imaging tests. ? A procedure to remove tissue samples from your prostate gland for testing (biopsy). This is the only way to know for certain if you have prostate cancer. What are the benefits of prostate cancer screening? ? Screening can help to identify cancer at an early stage, before symptoms start and when the cancer can be treated more easily. ? There is a small chance that screening may lower your risk of dying from prostate cancer. The chance is small because prostate cancer is a slow-growing cancer, and most men with prostate cancer from a different cause. What are the risks of prostate cancer screening? The main risk of prostate cancer screening is diagnosing and treating prostate cancer that would never have caused any symptoms or problems. This is called overdiagnosisand overtreatment. PSA screening cannot tell you if your PSA is high due to cancer or a different cause. A prostate biopsy is the only procedure to diagnose prostate cancer. Even the results of a biopsy may not tell you if your cancer needs to be treated. Slow-growing prostate cancer may not need any treatment other than monitoring, so diagnosing and treating it may cause unnecessary stress or other side effects. Questions to ask your health care provider ? When should I start prostate cancer screening? ? What is my risk for prostate cancer? ? How often do I need screening? ? What type of screening tests do I need? ? How do I get my test results? ? What do my results mean? ? Do I need treatment? Where to find more information ? The [place] [employer]: www.cancer.org ? [place] [employer]: www.auanet.org Contact a health care provider if: ? You have difficulty urinating. ? You have pain when you urinate or ejaculate. ? You have blood in your urine or semen. ? You have pain in your back or in the area of your prostate. Summary ? Prostate cancer is a common type of cancer in men. The prostate gland is located below the bladder and in front of the rectum. This gland adds flu (more content not included)... Normal [facility] Urology Office/Clinic Noteon 11-12-2022 Urology Office/Clinic Note Chief Complaint f/u with PSA HPI Staff 6 month f/u with PSA. Previous dx of kidney stone, elevated PSA, hypogonadism, BPH with urinary obstruction, ED, renal cyst left and hypocitraturia. Current PSA done 11/10/22 is 11.77 and previous done 04/30/22 was 9.38. Uses Androgel 1 pump 3x weekly, Sildenafil 100mg PRN and Klor-Con/EF 25 mEq 1 tab BID. Dysuria: no Incomplete bladder emptying: no Hematuria: no Frequency: no Urgency: no Nocturia: does not get up Stream: good steady Leaking: no Post void dripping: no Wearing pads/ Depends: no Urge incontinence: no Stress incontinence: no Incontinence without Sensory Awareness: no Abdominal pain: pt states that every now and then he has a little discomfort on the left side but believes it is from his spleen Flank pain: no Sexual complaints: no History of Present Illness Tests reviewed: Reviewed UA, KUB, T level and PSA. I have reviewed the previous health record information and history for this patient from Dr. Sweet. I have reviewed and verified the staff HPI to be accurate for this encounter. There have been no associated fever, chills, flank pain, or blood in the urine. Denies any urinary infections since last encounter. Review of Systems PHQ Score Initial Depression Screen Score: 0 ROS - Provider Constitutional: denies weight loss, denies hot flashes. Eyes: denies eye problems. Gastrointestinal: denies nausea, denies vomiting. Cardiovascular: denies chest pain or angina. Integumentary: no dryness Musculoskeletal: denies musculoskeletal symptoms. ENMT: denies otolaryngeal symptoms. Respiratory: no shortness of breath. Heme/Lymph: denies easy bleeding tendency, denies easy bruising tendency. Psychiatric: no confusion, no anxiety. Genitourinary: denies dysuria, denies hematuria, denies discharge, denies urinary frequency, denies urinary hesitancy, denies nocturia, denies incontinence, denies genital sores, denies decreased libido, and denies erectile dysfunction. Physical Exam Vitals & Measurements HR: 79(Peripheral) RR: 16 BP: 130/75 HT: 69 in HT: 175.2 cm WT: 148.3 kg WT: 326.26 lb BMI: 48.31 General Appearance: alert, no distress, well nourished, well developed male. Genitourinary: normal scrotum, normal testes, normal urethra, normal epididymis, normal vas deferens/spermatic cord. Flank Pain: none. Bladder: nonpalpable. Assessment/Plan 1. Kidney stone (N20.0: Calculus of kidney) KUB 10/03/21 - 5 mm left renal nephrolithiasis. KUB 08/14/22 - Three L renal stones up to 0.6 cm. Largest stone similar in size, other stones likely enlarged compared to prior CT. No R sided stones, ureteral, or bladder stones. CT AP wo con 09/04/22 - Nonobstructing L nephrolithiasis. Normal R side. Cysto, L RGP, L UD, L URS, L pyelo, Holmium laser L renal stone, basket extraction, L stent placement 09/16/22. S/p cysto, L stent removal 10/12/22. Stent was severely encrusted, patient cannot have stent placed for extended period time in the future. Stone analysis - 60% Ca Ox di, 30% Ca Phos Hydroxyl, 10% Ca Ox mono. KUB 11/10/22 neg for stones. States he had a CT recently due to lymphoma, will retrieve [place] [facility] Latest metabolic workup done 08/2020, will repeat prior to 6 month appointment. -Follow up in 6 months w/ metabolic workup 2. Elevated PSA (R97.20: Elevated prostate specific antigen [PSA]) PSA: 04/28/21 - 11.66 10/03/21 - 12.0 04/30/22 - 9.38 11/10/22 - 11.77 MRI fusion bx 05/2019 - Negative. MRI of prostate 07/31/22 [facility] - Stable 0.4 cm lesion R mid/apex posteromedial peripheral zone. Although the lesion meets PI-RADS 4 criteria, its location near the surgical capsule favors an ectopic BPH nodule. No new lesions suspicious for clinical significant prostate cancer. No pelvic lymphadenopathy or suspicious pelvic osseous lesions. Prostate volume 122 cc. -PSA in 6 month 3. Hypogonadism male (E29.1: Testicular hypofunction) Testosterone: 04/28/21 - 253 10/03/21 - 693 04/30/22 - 385 11/10/22 - 597 Using Androgel 1 pump 3x/week, patient to continue. -T level in 6 months 4. BPH with urinary obstruction (N40.1: Benign prostatic hyperplasia with lower urinary tract symptoms) MRI of prostate 07/31/22 [facility] - Prostate volume [address] AP wo con 09/04/22 - Moderate enlargement of prostate gland. No urinary complaints at this time. Taking Doxazosin 8 mg QD for BP. 5. ED (erectile dysfunction) (N52.9: Male erectile dysfunction, unspecified) Sildenafil 100 mg PRN therapy. No dosage change indicated at this time. 6. Renal cyst (N28.1: Cyst of kidney, acquired) CT AP wo con 09/04/22 - L parapelvic cyst 3.4 cm. 2 focal hypodensities posterior L renal cortex, indeterminates, consider pre/post con CT. 7. 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 U24 uric acid 1023 H. U24 citric acid 264 L. Blood uric acid wnl. U24 Ca 246 wnl. Had not been taking Klor-Con for 7-8 mos, refill was sent 0 (more content not included)... Normal [facility] Comment on above: Result Comment: Elec tronically Signed By: Jahaira SWEET MD\.br\Date and Time Signed: 11/12/22 11:02 EDT\.br\Electronically Co-Signed By: Chloe Camara.br\Date and Time Co-Signed: 11/12/22 10:59 EDT Lab Reportson 11-11-2022 Lab Reports [id number]:127 [facility] Outside Recordson 10-28-2022 Outside Records [id number] [facility] Consent for Procedure/Surger yon 10-13-2022 Consent for Procedure/Surgery [id number]:127 [facility] Ambulatory Visit Summaryon 0 10-12-2022 Ambulatory Visit Summary ZHENG MONTESINOS :1955 Visit Date:10/12/2022 Ambulatory Visit Instructions Your Diagnosis Foreign body in bladder Kidney stone Elevated PSA Hypogonadism male BPH with urinary obstruction ED (erectile dysfunction) Renal cyst Hypocitraturia Tests Performed XR Abdomen 1 View -- Results Pending -- Please visit your patient portal for your results or contact your primary care physician. Your Care Team Attending Physician - Jahaira SWEET MD Primary Care Physician - VARSHA HARDY md This Is Your Medications List ciprofloxacin (Cipro 500 mg Tab) potassium bicarbonate (Klor-Con/EF 25 mEq oral tablet, effervescent) sildenafil (sildenafil 100 mg Tab) testosterone (AndroGel Pump 20.25 mg/1.25 g (1.62%) transdermal gel) Contact prescribing physician if questions or concerns amlodipine (amLODIPine 5 mg Tab) atorvastatin (atorvastatin 20 mg Tab) doxazosin (doxazosin 8 mg oral tablet) folic acid (folic acid 1 mg Tab) ketorolac (ketorolac 10 mg Tab) losartan (losartan 50 mg Tab) topiramate (topiramate 100 mg Tab) venlafaxine (venlafaxine 75 mg Cap-ER) Procedures Performed Cystoscopic removal of ureteric stent (10/12/2022), Cystoscope (09/16/2022), ESWL of kidney (07/10/2020), ESWL of kidney (11/16/2018), TURP - Transurethral resection of prostate (07/18/2014), Cystoscopy (03/01/2014), Urodynamics (02/28/2014), Transrectal biopsy of prostate using ultrasound (US) guidance (10/15/2013), Transrectal biopsy of prostate using ultrasound (US) guidance (07/16/2013), Cystoscopy (06/26/2006), Carpal tunnel release, Complete repair of rotator cuff, hernia repair umbilical, skin graft on finger, stone extraction. Discharge Vitals Height 175.2 cm Height 69 in Weight 148 kg Weight 325.6 lb BMI 48.22 What to do next Scheduled Follow-Up Appointments Tuesday 9:30 AM EDT With: Jahaira SWEET MD Where: [facility] Patient Educationon 10-13-19 23 Patient Education Nephrology Dietary Guidelines to Help Prevent Kidney Stones Kidney stones are deposits of minerals and salts that form inside your kidneys. Your risk of developing kidney stones may be greater depending on your diet, your lifestyle, the medicines you take, and whether you have certain medical conditions. Most people can lower their chances of developing kidney stones by following the instructions below. Your dietitian may give you more specific instructions depending on your overall health and the type of kidney stones you tend to develop. What are tips for following this plan? Reading food labels ? Choose foods with no salt added or low-salt labels. Limit your salt (sodium) intake to less than 1,500 mg a day. ? Choose foods with calcium for each meal and snack. Try to eat about 300 mg of calcium at each meal. Foods that contain 200?500 mg of calcium a serving include: ? 8 oz (237 mL) of milk, myoumfh-atcwzfovxkvl-uwotl milk, and calcium-fortifiedfruit juice. Calcium-fortified means that calcium has been added to these drinks. ? 8 oz (237 mL) of kefir, yogurt, and soy yogurt. ? 4 oz (114 g) of tofu. ? 1 oz (28 g) of cheese. ? 1 cup (150 g) of dried figs. ? 1 cup (91 g) of cooked broccoli. ? One 3 oz (85 g) can of sardines or mackerel. Most people need 1,000?1,500 mg of calcium a day. Talk to your dietitian about how much calcium is recommended for you. Shopping ? Buy plenty of fresh fruits and vegetables. Most people do not need to avoid fruits and vegetables, even if these foods contain nutrients that may contribute to kidney stones. ? When shopping for convenience foods, choose: ? Whole pieces of fruit. ? Pre-made salads with dressing on the side. ? Low-fat fruit and yogurt smoothies. ? Avoid buying frozen meals or prepared deli foods. These can be high in sodium. ? Look for foods with live cultures, such as yogurt and kefir. ? Choose high-fiber grains, such as whole-wheat breads, oat bran, and wheat cereals. Cooking ? Do not add salt to food when cooking. Place a salt shaker on the table and allow each person to add his or her own salt to taste. ? Use vegetable protein, such as beans, textured vegetable protein (TVP), or tofu, instead of meat in pasta, casseroles, and soups. Meal planning ? Eat less salt, if told by your dietitian. To do this: ? Avoid eating processed or pre-made food. ? Avoid eating fast food. ? Eat less animal protein, including cheese, meat, poultry, or fish, if told by your dietitian. To do this: ? Limit the number of times you have meat, poultry, fish, or cheese each week. Eat a diet free of meat at least 2 days a week. ? Eat only one serving each day of meat, poultry, fish, or seafood. ? When you prepare animal protein, cut pieces into small portion sizes. For most meat and fish, one serving is about the size of the palm of your hand. ? Eat at least five servings of fresh fruits and vegetables each day. To do this: ? Keep fruits and vegetables on hand for snacks. ? Eat one piece of fruit or a handful of berries with breakfast. ? Have a salad and fruit at lunch. ? Have two kinds of vegetables at dinner. ? Limit foods that are high in a substance called oxalate. These include: ? Spinach (cooked), rhubarb, beets, sweet potatoes, and Belgian chard. ? Peanuts. ? Potato chips, irish fries, and baked potatoes with skin on. ? Nuts and nut products. ? Chocolate. ? If you regularly take a diuretic medicine, make sure to eat at least 1 or 2 servings of fruits or vegetables that are high in potassium each day. These include: ? Avocado. ? Banana. ? [place], prune, carrot, or tomato juice. ? Baked potato. ? Cabbage. ? Beans and split peas. Lifestyle ? Drink enough fluid to keep your urine pale yellow. This is the most important thing you can do. Spread your fluid intake throughout the day. ? If you drink alcohol: ? Limit how much you use to: ? 0?1 drink a day for women who are not . ? 0?2 drinks a day for men. ? Be aware of how much alcohol is in your drink. In the [place] one drink equals one 12 oz bottle of beer (355 mL), one 5 oz glass of wine (148 mL), or one 1? oz glass of hard liquor (44 mL). ? Lose weight if told by your health care provider. Work with your dietitian to find an eating plan and weight loss strategies that work best for you. General information ? Talk to your health care provider and dietitian about taking daily supplements. You may be told the following depending on your health and the cause of your kidney stones: ? Not to take supplements with vitamin C. ? To take a calcium supplement. ? To take a daily probiotic supplement. ? To take other supplements such as magnesium, fish oil, or vitamin B6. ? Take gnzj-nfc-wtludgc and prescription medicines only as told by your health care provider. These include supplements. What foods should I limit? Limit your in (more content not included)... Normal [facility] Urology Office/Clinic Noteon 10-12-2022 Urology Office/Clinic Note Chief Complaint Cysto/stent removal HPI Staff This is a 67 year old male here for Cysto/Lt. stent removal. S/P Cysto/Lt. RG/Lt. rigid ureteral dilation/Lt. ureteroscopy/Lt. pyeloscopy/ holmium laser lithotripsy of Lt. renal calculi/stone basket extraction/Lt. stent placement done 09/16/22. History of Present Illness Tests reviewed: reviewed MRI, CT, op note, labs, stone analysis. I have reviewed the previous health record information and history for this patient from Dr. Sweet. I have reviewed and verified the staff HPI to be accurate for this encounter. There have been no associated fever, chills, flank pain, or blood in the urine. Denies any urinary infections since last encounter. Review of Systems PHQ Score Initial Depression Screen Score: 0 ROS - Provider Constitutional: denies weight loss, denies hot flashes. Eyes: denies eye problems. Gastrointestinal: denies nausea, denies vomiting. Cardiovascular: denies chest pain or angina. Integumentary: no dryness Musculoskeletal: denies musculoskeletal symptoms. ENMT: denies otolaryngeal symptoms. Respiratory: no shortness of breath. Heme/Lymph: denies easy bleeding tendency, denies easy bruising tendency. Psychiatric: no confusion, no anxiety. Genitourinary: See HPI. Physical Exam Vitals & Measurements HT: 69 in HT: 175.2 cm WT: 148 kg WT: 325.6 lb BMI: 48.22 General Appearance: alert, no distress, well nourished, well developed male. Genitourinary: normal scrotum, normal testes, normal urethra, normal epididymis, normal vas deferens/spermatic cord. Flank Pain: none. Bladder: nonpalpable. Procedure Operative Information Anesthesia Type: Local Procedure: Local Cystoscopy with Stent Removal Complications: None Surgical risks, benefits, details of the procedure have been explained to the patient. Full informed consent has been obtained. Intraoperative Information Prepped: Patient is placed in supine position. The patient was prepped with the Betadine solution. Anesthesia: 2% Xylocaine Jelly per urethra. Procedure: Cystoscopy and left stent removal. The flexible Cystoscope was passed in retrograde fashion into the bladder without difficulty. The bladder was viewed in entirety and found to be without tumors or stones. Mild inflammation was seen surrounding the orifice with the stent seen protruding from it. The stent was then grasped and removed in its entirety. Stent was severely encrusted and very difficult to remove. Specimens Removed: None Postoperative Information The patient tolerated the procedure well and was subsequently discharged home. Assessment/Plan 1. Foreign body in bladder (T19.1XXA: Foreign body in bladder, initial encounter) Pt had IO cysto/L stent removal today. Stent was severely encrusted and very difficult to remove. Pt already has 6 mos f/u scheduled for 11/12/22 with KUB, PSA, T level, or sooner if needed. Pt understands and agrees with plan. 2. Kidney stone (N20.0: Calculus of kidney) KUB 10/03/21 - 5 mm left renal nephrolith. KUB 08/14/22 - Three L renal stones up to 0.6 cm. Largest stone similar in size, other stones likely enlarged compared to prior CT. No R sided stones, ureteral, or bladder stones. CT AP wo con 09/04/22 - Nonobstructing L nephrolithiasis. Normal R side. Cysto, L RGP, L UD, L URS, L pyelo, Holmium laser L renal stone, basket extraction, L stent placement 09/16/22. Stone analysis - 60% Ca Ox di, 30% Ca Phos Hydroxyl, 10% Ca Ox mono. See #1. -Start Flomax 0.4 mg qd x 1 week. SEs discussed. Rx sent to [facility] . 3. Elevated PSA (R97.20: Elevated prostate specific antigen [PSA]) PSA: 04/28/21 - 11.66 10/03/21 - 12.0 04/30/22 - 9.38 MRI fusion bx 05/2019 - Negative. MRI of prostate 07/31/22 [facility] - Stable 0.4 cm lesion R mid/apex posteromedial peripheral zone. Although the lesion meets PI-RADS 4 criteria, its location near the surgical capsule favors an ectopic BPH nodule. No new lesions suspicious for clinical significant prostate cancer. No pelvic lymphadenopathy or suspicious pelvic osseous lesions. Prostate volume 122 cc. -PSA in 1 month. 4. Hypogonadism male (E29.1: Testicular hypofunction) Testosterone: 04/28/21 - 253 10/03/21 - 693 04/30/22 - 385 Using Androgel 1 pump 3x/week. Refill sent to [facility] . -T level in 1 month. 5. BPH with urinary obstruction (N40.1: Benign prostatic hyperplasia with lower urinary tract symptoms) MRI of prostate 07/31/22 [facility] - Prostate volume [address] AP wo con 09/04/22 - Moderate enlargement of prostate gland. Taking Doxazosin 8 mg QD for BP. 6. ED (erectile dysfunction) (N52.9: Male erectile dysfunction, unspecified) Sildenafil 100 mg PRN. Refill sent to [facility]. 7. Renal cyst (N28.1: Cyst of kidney, acquired) CT AP wo con 09/04/22 - L parapelvic cyst 3.4 cm. 2 focal hypodensities posterior L renal cortex, indeterminates, consider pre/post con CT. 8. 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 U24 u (more content not included)... Normal [facility] Comment on above: Result Comment: Elec tronically Signed By: Jahaira SWEET MD\.br\Date and Time Signed: 10/12/22 15:19 EDT\.br\Electronically Co-Signed By: Rosy Pfeiffer\.br\Date and Time Co-Signed: 10/12/22 15:07 EDT\.br\Electronically Co-Signed By: Rosy Pfeiffer\.br\Date and Time Co-Signed: 10/12/22 15:08 EDT Adrenocorticotropic Hormone PLon 10-06-[address] 14.4 pg/mL Normal 7.2-63.3 [facility] Comment on above: Result Comment: ACTH reference interval for samples collected between 7 and 10 AM. Performed at: [facility] via[address] [id number] Sales Director: Sampson Richmond PhD, Phone: [phone] PERFORMED BY: [place] [address] PATHOLOGIST COMPUTING SYSTEMS MECHANIC CLARA FARIAS M.D. Performed By: #### T 4F, PHILLIP, TSH3 #### [address] #### METH, HOMOCYS PL, ACTH #### [facility] , Cortisolon 10-06-2022 Cortisol 3.3 ug/dL Normal [facility] Comment on above: Result Comment: Refe rence range: AM 6 - 24 ug/dl PM <10 ug/dl PERFORMED BY: [place] [address] PATHOLOGIST COMPUTING SYSTEMS MECHANIC CLARA FARIAS M.D. Performed By: #### T 4F, PHILLIP, TSH3 #### [address] #### METH, HOMOCYS PL, ACTH #### [facility] , Homocysteine, Plasma/Serumon 10-06-2022 Homocysteine, Plasma/Serum 8.4 umol/L Normal 0.0-17.2 [facility] Comment on above: Result Comment: Perf ormed at: [address] [id number] Sales Director: Sampson Richmond PhD, Phone: [phone] PERFORMED BY: [place] [address] PATHOLOGIST COMPUTING SYSTEMS MECHANIC CLARA FARIAS M.D. Performed By: #### T 4F, PHILLIP, TSH3 #### [facility] [address] [place] [address] [place] #### METH, HOMOCYS PL, ACTH #### [facility] , Methylmalonic Acidon 023 Methylmalonic Acid 156 Normal 0-378 [facility] Comment on above: Result Comment: This test was developed and its performance characteristics determined by [facility]. It has not been cleared or approved by the Food and Drug Administration. Performed at: [address] [id number] Sales Director: Connie Reich MD, Phone: [phone] Performed By: #### T 4F, PHILLIP, TSH3 #### [place] [address] [place] #### METH, HOMOCYS PL, ACTH #### [facility] , No Panel InformationOrdered By: Abbi Mcbride on 10-06-2022 Adrenocorticotropic Hormone 14.4 pg/mL 7.2-63.3 [facility] Comment on above: ACTH reference inter gerald for samples collected between 7 and10 AM.Performed at: [address] [id number] Director: Sampson Richmond PhD, Phone: [phone] Random cortisol measurementO rdered By: Abbi Mcbride on 10-06-2022 Cortisol [Mass/Vol] 3.3 ug/dL [facility] Comment on above: Reference range: AM 6 - 24 ug/dl PM <10 ug/dl Serum or plasma homocysteine measurement (moles/volume)Ordered By: Abbi Mcbride on 10-06-2022 Homocysteine [Moles/Vol] 8.4 umol/L 0.0-17.2 [facility] Comment on above: Performed at: [facility] [address] [id number] Director: Sampson Richmond PhD, Phone: [phone] Serum or plasma methylmalona te measurement (moles/volume)Ordered By: Abbi Mcbride on 10-06-2022 Methylmalonate [Moles/Vol] 156 nmol/L 0-378 [facility] Comment on above: This test was develo ped and its performance characteristicsdetermined by [facility]. It has not been cleared orapproved by the Food and Drug Administration.Performed at: [address] [id number] Director: Connie Reich MD, Phone: [phone] Thyrotropin [Units/volume] i n Serum or PlasmaOrdered By: Abbi Mcbride on 10-06-2022 TSH Qn 2.56 m[IU]/L Normal 0.45-5.33 [facility] Comment on above: Performed By: #### T 4F, PHILLIP, TSH3 #### [facility] [address] #### METH, HOMOCYS [address], ACTH #### [facility] , Thyroxine (T4) free [Mass/vo lume] in Serum or PlasmaOrdered By: Abbi Mcbride on 10-06-2022 Free T4 [Mass/Vol] 0.72 ng/dL Normal 0.61-1.12 [facility] Comment on above: Performed By: #### T 4F, PHILLIP, TSH3 #### [facility] [address] #### METH, HOMOCYS [address], ACTH #### [facility] , Pre-Certification Formon Pre-Certification Form [id number]:127 Normal [facility] Alanine aminotransferase [En zymatic activity/volume] in Serum or PlasmaOrdered By: Jane Duron on 10-04-2022 ALT [Catalytic activity/Vol] 18 U/L 7-52 [facility] Albumin [Mass/volume] in Ser um or Plasma by Bromocresol green (BCG) dye binding methoOrdered By: Jane Duron on 10-04-2022 Albumin BCG dye [Mass/Vol] 3.9 g/dL 3.5-5.7 [facility] Alkaline phosphatase [Enzyma tic activity/volume] in Serum or PlasmaOrdered By: Jane Duron on 10-04-2022 ALP [Catalytic activity/Vol] 69 U/L 34-104 [facility] Aspartate aminotransferase [ Enzymatic activity/volume] in Serum or PlasmaOrdered By: Jane Duron on 10-04-2022 AST [Catalytic activity/Vol] 16 U/L 13-39 [facility] Basophils Auto (Bld) [#/Vol] Ordered By: Jane Duron on 10-04-2022 Basophils (Bld) [#/Vol] 0.0 10*3/uL 0.0-0.2 [facility] Basophils/100 WBC Auto (Bld) Ordered By: Jane Duron on 10-04-2022 Basophils/100 WBC (Bld) 1.1 % . [facility] Bilirubin.total [Mass/volume ] in Serum or PlasmaOrdered By: Jane Duron on 10-04-2022 Bilirubin [Mass/Vol] 0.6 mg/dL 0.3-1.[address] [facility] [address] chest w conon 10-04-2022 CT chest w con [facility] [place] [address] CT Scan Report Signed Patient: Zheng Montesinos MR#: [id number] : 1955 Acct:[id number] Age/Sex: 67 / M ADM Date: 10/04/22 Loc: Room: Type: [facility] Attending Dr: Jane Duron APRN Copies to: Jane Duron APRN Ordering Provider: Jane Duron APRN Date of Service: 10/04/22 CT/CT chest w con: surveillance CT Chest with contrast TECHNIQUE: Axial imaging with 2-D reconstruction. 90 cc of Isovue-300The CT exam was performed using one or more the following dose reduction techniques: Automated exposure control, adjustment of the MA and/or Kv according to patient size, or use of the iterative reconstruction technique. History: Restage B-cell lymphoma. COMPARISON: 09/19/2021 THYROID: Unremarkable TRACHEA AND BRONCHI: Patent ESOPHAGUS: Unremarkable. HEART: Within normal limits PERICARDIAL EFFUSION: None CORONARY ARTERY CALCIFICATION: None MEDIASTINUM: No adenopathy. No pneumoperitoneum. No mediastinal hematoma. Anterior mediastinal lymph node no longer seen. PULMONARY EARLE: No hilar mass or adenopathy is seen. THORACIC AORTA Unremarkable LUNG NODULE small left lung apex calcified granuloma redemonstrated. LUNGS: Lungs are clear PLEURAL EFFUSION: Trace pleural effusion seen bilaterally. Minor compressive atelectasis. PNEUMOTHORAX: No pneumothorax seen. CHEST WALL: No abnormality AXILLA:Unremarkable BONY STRUCTURES Intact UPPER ABDOMEN: Diminished hepatic lobe lesions identified. Diminished splenic lesions identified. Right Psehxq-[id number] present. CT/CT chest w con IMPRESSION: Anterior mediastinal lymph node no longer present. Trace pleural effusions redemonstrated. Interval decrease of size and number of hepatic and splenic lesions. Periportal region not imaged. Impression dictated by: Logan Ventura M.D.10/04/2022 3:31 PM Dictation Location: [facility]- Transcribed By: [facility] 10/04/22 1531 Dictated By: Logan Ventura DO 10/04/22 1522 Signed By: 10/04/22 1531 Normal [facility] Calcium [Mass/volume] in Ser um or PlasmaOrdered By: Jane Duron on 10-04-2022 Calcium [Mass/Vol] 9.1 mg/dL 8.6-10.3 [facility] Carbon dioxide, total [Moles /volume] in Serum or PlasmaOrdered By: Jane Duron on 10-04-2022 CO2 [Moles/Vol] 24.0 mmol/L 21.0-31.0 [facility] Chloride [Moles/volume] in S priyank or PlasmaOrdered By: Jane Duron on 10-04-2022 Chloride [Moles/Vol] 113 mmol/L 98-107 [facility] Complete Blood Count Auto Di ffon 10-04-2022 Basophils (Bld) [#/Vol] 0.0 10*3/uL Normal 0.0-0.2 [facility] Comment on above: Result Comment: PERF ORMED BY: [facility] [address] [place] [address] PATHOLOGIST COMPUTING [employer] MECHANIC CLARA FARIAS M.D. Performed By: #### C BC #### [place] [address] [place] Basophils/100 WBC (Bld) 1.1 % Normal . [facility] Comment on above: Performed By: #### C BC #### [address] Eosinophils (Bld) [#/Vol] 0.3 10*3/uL Normal 0.0-0.45 [facility] Comment on above: Performed By: #### C BC #### [address] Eosinophils/100 WBC (Bld) 8.2 % Normal . [facility] Comment on above: Performed By: #### C BC #### [address] Erythrocyte distribution width (RBC) [Ratio] 14.4 % Normal 12.0-14.8 [facility] Comment on above: Performed By: #### C BC #### [address] Hematocrit (Bld) [Volume fraction] 38.7 % Low 38.8-50.0 [facility] Comment on above: Performed By: #### C BC #### [address] Hemoglobin (Bld) [Mass/Vol] 13.4 g/dL Normal 13.0-17.0 [facility] Comment on above: Performed By: #### C BC #### [address] Lymphocytes (Bld) [#/Vol] 0.7 10*3/uL Low 1.00-4.8 [facility] Comment on above: Performed By: #### C BC #### [address] Lymphocytes/100 WBC (Bld) 22.5 % Normal . [facility] Comment on above: Performed By: #### C BC #### [address] MCH (RBC) [Entitic mass] 28.7 pg Normal 27.5-35.2 [facility] Comment on above: Performed By: #### C BC #### [address] MCV (RBC) [Entitic vol] 83.1 fL Low 83.5-101 [facility] Comment on above: Performed By: #### C BC #### [address] Mean Corpuscular HGB Conc 34.6 g/dL Normal 32.5-35.6 [facility] Comment on above: Performed By: #### C BC #### [address] Monocytes (Bld) [#/Vol] 0.3 10*3/uL Normal 0.0-0.8 [facility] Comment on above: Performed By: #### C BC #### [address] Monocytes/100 WBC (Bld) 8.6 % Normal . [facility] Comment on above: Performed By: #### C BC #### [address] Neutrophils (Bld) [#/Vol] 1.9 10*3/uL Normal 1.8-7.7 [facility] Comment on above: Performed By: #### C BC #### [address] Neutrophils/100 WBC (Bld) 59.6 % Normal . [facility] Comment on above: Performed By: #### C BC #### [address] NRBC% 0.1 /100{WBC} Normal 0-0.5 [facility] Comment on above: Performed By: #### C BC #### [address] Platelet mean volume (Bld) [Entitic vol] 7.4 fL Normal 6.6-10.1 [facility] Comment on above: Performed By: #### C BC #### [facility] [address] Platelets (Bld) [#/Vol] 161 10*3/uL Normal 150-450 [facility] Comment on above: Performed By: #### C BC #### [facility] [address] RBC (Bld) [#/Vol] 4.65 10*6/uL Normal 3.90-5.60 [facility] Comment on above: Performed By: #### C BC #### [facility] [address] WBC (Bld) [#/Vol] 3.1 10*3/uL Low 4.1-10.5 [facility] Comment on above: Performed By: #### C BC #### [facility] [address] Comprehensive Metabolic Pane vish 10-04-2022 Albumin [Mass/Vol] 3.9 g/dL Normal 3.5-5.7 [facility] Comment on above: Order Comment: STAT FOR CT Performed By: #### C MP, LDH ####[address] Albumin/Globulin [Mass ratio] 2.1 {ratio} Normal [facility] Comment on above: Order Comment: STAT FOR CT Performed By: #### C MP, LDH ####[address] ALP [Catalytic activity/Vol] 69 U/L Normal 34-104 [facility] Comment on above: Order Comment: STAT FOR CT Performed By: #### C MP, LDH ####[address] ALT [Catalytic activity/Vol] 18 U/L Normal 7-52 [facility] Comment on above: Order Comment: STAT FOR CT Performed By: #### C MP, LDH ####[address] Anion gap [Moles/Vol] 8.3 mmol/L Normal 6.0-15.0 [facility] Comment on above: Order Comment: STAT FOR CT Performed By: #### C MP, LDH ####[place] [id number] [facility] AST [Catalytic activity/Vol] 16 U/L Normal 13-39 [facility] Comment on above: Order Comment: STAT FOR CT Performed By: #### C MP, LDH ####[place] [id number] [facility] Bilirubin [Mass/Vol] 0.6 mg/dL Normal 0.3-1.0 [facility] Comment on above: Order Comment: STAT FOR CT Performed By: #### C MP, LDH ####[place] [id number] [facility] Calcium [Mass/Vol] 9.1 mg/dL Normal 8.6-10.3 [facility] Comment on above: Order Comment: STAT FOR CT Performed By: #### C MP, LDH ####[place] [id number] [facility] Chloride [Moles/Vol] 113 mmol/L High 98-107 [facility] Comment on above: Order Comment: STAT FOR CT Performed By: #### C MP, LDH ####[place] [id number] [facility] CO2 [Moles/Vol] 24.0 mmol/L Normal 21.0-31.0 [facility] Comment on above: Order Comment: STAT FOR CT Performed By: #### C MP, LDH ####[place] [id number] [facility] Creatinine [Mass/Vol] 1.34 mg/dL High 0.70-1.30 [facility] Comment on above: Order Comment: STAT FOR CT Performed By: #### C MP, LDH ####[place] [id number] [facility] Creatinine Clr Calc Pharmacy 71.11 Normal [facility] Comment on above: Order Comment: STAT FOR CT Performed By: #### C MP, LDH ####[place] [address] [place] [address] [facility] GFR/1.73 sq M.predicted MDRD (S/P/Bld) [Vol rate/Area] 57.702 mL/min/{1.73_m2} Normal [facility] Comment on above: Order Comment: STAT FOR CT Performed By: #### C MP, LDH ####[place] [id number] [facility] Globulin (S) [Mass/Vol] 1.9 g/dL Normal [facility] Comment on above: Order Comment: STAT FOR CT Performed By: #### C MP, LDH ####[place] [id number] [facility] Glucose [Mass/Vol] 97 mg/dL Normal 70-100 [facility] Comment on above: Order Comment: STAT FOR CT Result Comment: [place] Glucose Reference Range is dependent on time and content of last meal. Glucose of more than 200 mg/dL in a nonstressed, ambulatory subject supports the diagnosis of Diabetes Mellitus. ADA recommended reference range Performed By: #### C MP, LDH ####[address] [address] [facility] Potassium [Moles/Vol] 4.3 mmol/L Normal 3.5-5.1 [facility] Comment on above: Order Comment: STAT FOR CT Performed By: #### C MP, LDH ####[place] [id number] [facility] Protein [Mass/Vol] 5.8 g/dL Low 6.4-8.9 [facility] Comment on above: Order Comment: STAT FOR CT Performed By: #### C MP, LDH ####[place] [id number] [facility] Sodium [Moles/Vol] 141 mmol/L Normal 136-145 [facility] Comment on above: Order Comment: STAT FOR CT Performed By: #### C MP, LDH ####[place] [id number] [facility] Urea nitrogen [Mass/Vol] 20 mg/dL Normal 7-25 [facility] Comment on above: Order Comment: STAT FOR CT Performed By: #### C MP, LDH ####[facility] [id number] [place] [address] [facility] Creatinine [Mass/volume] in Serum or PlasmaOrdered By: Jane Duron on 10-04-2022 Creatinine [Mass/Vol] 1.34 mg/dL 0.70-1.30 [facility] Eosinophils Auto (Bld) [#/Vo l]Ordered By: Jane Duron on 10-04-2022 Eosinophils (Bld) [#/Vol] 0.3 10*3/uL 0.0-0.45 [facility] Eosinophils/100 WBC Auto (Bl d)Ordered By: Jane Duron on 10-04-2022 Eosinophils/100 WBC (Bld) 8.2 % . [facility] Erythrocyte distribution wid th Auto (RBC) [Ratio]Ordered By: Jane Duron on 10-04-2022 Erythrocyte distribution width (RBC) [Ratio] 14.4 % 12.0-14.8 [facility] Globulin Calc (S) [Mass/Vol] Ordered By: Jane Duron on 10-04-2022 Globulin (S) [Mass/Vol] 1.9 g/dL [facility] Glucose [Mass/volume] in Ser um or PlasmaOrdered By: Jane Duron on 10-04-2022 Glucose [Mass/Vol] 97 mg/dL 70-100 [facility] Comment on above: ADA recommended refe rence rangeRandom Glucose Reference Range is dependent on time and content of last meal. Glucose of more than 200 mg/dL in a nonstressed, ambulatory subject supports the diagnosis of Diabetes Mellitus. Hematocrit Auto (Bld) [Volum e fraction]Ordered By: Jane Duron on 10-04-2022 Hematocrit (Bld) [Volume fraction] 38.7 % 38.8-50.0 [facility] Hemoglobin [Mass/volume] in BloodOrdered By: Jane Duron on 10-04-2022 Hemoglobin (Bld) [Mass/Vol] 13.4 g/dL 13.0-17.0 [facility] LDH Lactate Dehydrogenaseon 10-04-2022 LDH Lactate Dehydrogenase 145 U/L Normal 140-271 [facility] Comment on above: Order Comment: STAT FOR CT Result Comment: PERF ORMED BY: [facility] [address] [place] [place] [id number] PATHOLOGIST COMPUT[employer] MECHANIC CLARA FARIAS M.D. Performed By: #### C MP, LDH ####[facility] [id number] [place] [address] [facility] Lactate dehydrogenase [Enzym atic activity/volume] in Serum or Plasma by Lactate to pyOrdered By: Jane Duron on 10-04-2022 LDH Lactate to pyruvate reaction [Catalytic activity/Vol] 145 U/L 140-271 [facility] Leukocytes [#/volume] correc jaguar for nucleated erythrocytes in Blood by Automated counOrdered By: Jane Duron on 10-04-2022 WBC corrected for nucl RBC Auto (Bld) [#/Vol] 3.1 10*3/uL 4.1-10.5 [facility] Lymphocytes Auto (Bld) [#/Vo l]Ordered By: Jane Duron on 10-04-2022 Lymphocytes (Bld) [#/Vol] 0.7 10*3/uL 1.00-4.8 [facility] Lymphocytes/100 WBC Auto (Bl d)Ordered By: Jane Duron on 10-04-2022 Lymphocytes/100 WBC (Bld) 22.5 % . [facility] MCH Auto (RBC) [Entitic mass ]Ordered By: Jane Duron on 10-04-2022 MCH (RBC) [Entitic mass] 28.7 pg 27.5-35.2 [facility] MCHC Auto (RBC) [Mass/Vol]Or dered By: Jane Duron on 10-04-2022 MCHC (RBC) [Mass/Vol] 34.6 g/dL 32.5-35.6 [facility] MCV Auto (RBC) [Entitic vol] Ordered By: Jane Duron on 10-04-2022 MCV (RBC) [Entitic vol] 83.1 fL 83.5-101 [facility] Monocytes Auto (Bld) [#/Vol] Ordered By: Jane Duron on 10-04-2022 Monocytes (Bld) [#/Vol] 0.3 10*3/uL 0.0-0.8 [facility] Monocytes/100 WBC Auto (Bld) Ordered By: Jane Duron on 10-04-2022 Monocytes/100 WBC (Bld) 8.6 % . [facility] Neutrophils Auto (Bld) [#/Vo l]Ordered By: Jane Duron on 10-04-2022 Neutrophils (Bld) [#/Vol] 1.9 10*3/uL 1.8-7.7 [facility] Neutrophils/100 WBC Auto (Bl d)Ordered By: Jane Duron on 10-04-2022 Neutrophils/100 WBC (Bld) 59.6 % . [facility] No Panel InformationOrdered By: Jane Duron on 10-04-2022 Estimated GFR (CKD-EPI) 57.702 mL/Min [facility] Creatinine Clearance (Chem 71.11 [facility] Nucleated erythrocytes [Pres ence] in Blood by Automated countOrdered By: Jane Duron on 10-04-2022 Nucleated RBC Auto Ql (Bld) 0.1 /100{WBC} 0-0.5 [facility] Platelet mean volume Auto (B ld) [Entitic vol]Ordered By: Jane Duron on 10-04-2022 Platelet mean volume (Bld) [Entitic vol] 7.4 fL 6.6-10.1 [facility] Platelets Auto (Bld) [#/Vol] Ordered By: Jane Duron on 10-04-2022 Platelets (Bld) [#/Vol] 161 10*3/uL 150-450 [facility] Potassium [Moles/volume] in Serum or PlasmaOrdered By: Jane Duron on 10-04-2022 Potassium [Moles/Vol] 4.3 mmol/L 3.5-5.1 [facility] Protein [Mass/volume] in Ser um or PlasmaOrdered By: Jane Duron on 10-04-2022 Protein [Mass/Vol] 5.8 g/dL 6.4-8.9 [facility] RBC Auto (Bld) [#/Vol]Ordere d By: Jane Duron on 10-04-2022 RBC (Bld) [#/Vol] 4.65 10*6/uL 3.90-5.60 [facility] Serum or plasma albumin/glob ulin mass ratioOrdered By: Jane Oliverio on 10-04-2022 Albumin/Globulin [Mass ratio] 2.1 {ratio} [facility] Serum or plasma anion gap de terminationOrdered By: Jane Oliverio on 10-04-2022 Anion gap [Moles/Vol] 8.3 mmol/L 6.0-15.0 [facility] Sodium [Moles/volume] in Ser um or PlasmaOrdered By: Jane Oliverio on 10-04-2022 Sodium [Moles/Vol] 141 mmol/L 136-145 [facility] Urea nitrogen [Mass/volume] in Serum or PlasmaOrdered By: Jane Oliverio on 10-04-2022 Urea nitrogen [Mass/Vol] 20 mg/dL 7-25 [facility] WBC Auto (Bld) [#/Vol]Ordere d By: Jane Oliverio on 10-04-2022 WBC (Bld) [#/Vol] 3.1 10*3/uL 4.1-10.5 [facility] Lab Reportson 09-23-2022 Lab Reports [id number]#[id number]:127 Normal [facility] ECG 12-Leadon 09-17-2022 ECG 12-Lead [id number]#[id number]:127 Normal [facility] Lab Reportson 09-17-2022 Lab Reports [id number]#1.00CD:127 Normal [facility] Lab Reports [id number]#[id number]:127 [facility] Operative Reporton Operative Report [id number]#1.00CD:127 Normal [facility] Consent for Procedure/Surger yon 09-13-2022 Consent for Procedure/Surgery [id number]#1.00CD:127 [facility] Pre-Certification Formon Pre-Certification Form [id number]#1.00CD:127 [facility] RAD - CT Reporton 09-07-[address] - CT Report [id number]#1.00CD:127 [facility] Pre-Certification Formon Pre-Certification Form [id number]#1.00CD:127 [facility] Coding Summaryon 08-21-2022 Coding Summary HTMLBase 64 ZyhcalnfTDp1eOk+PGhlYWQ+PE1 CYZTqT99jsFUfuJ1mN1VOKGkSUf ihKSHRPGfJXkWvxwOtQT6iqUPfR XJu IC8+VT0lFUIjSyvmxRHye4Y9kQN 6T94fwh5pUFcrgTX1UMTeVjSqty fwf1qmzNp4CMeePexqRbUo NOQyfH03JWU3qN81Gs10kQFngZB fy5xozIt5PlGyXABeZWY1xAxiQV abn1IeFQYvH43spTJds4K2 TSVmoGvfqTRxGbGrlTB4hB4sVSg ilsmbv6debssjRth1iw86bJJnu3 T7yEQ7F6HrlhY9KNHubQKt TerxsYJQsV1disiyi5mhcuwxYeL wQEDlJCa3EQr6FGGkmAtiIhOuRI 17KZH3WLParcSkK3KzGLHr hWyaRsY8k9K7Pr3DR5GTNkbxY4Q NTUFSWTwvdGQ+FG15oe68P6PjMm qtQdw2SPNhEPC8lJV5eA6c ZFBvEVsro2O8qAK2Q1XcxuYvte7 jh7ouHSUvNXliD46cpVHqp3W5SF DuuFK6HVBmuMtjLuIafJ04 Oyc+PRHoyZpzc9JpFnezd1how1e fsYt0BvctDVIxmvZnwRagHFO6l6 BlCt3rGQSbbQW5wBK4kI8o RrCnDlU2HJqwB658CuFhtSFjMdg iH65nN0HamYS+ULHpAjc4GMLabV clXE6iG3AyEABkjeiegNUr uJxsZZ7rLWEbtrarQMOerZ7wUVP jG0q8CgBbOiG4YTnuE3GuRBSiyk jhEb79vA7wMqUgIgD0FUku M5FbljE5PQDyuJSgCGlaTQC3N17 hq4S3RTMaXGRlZXZ5nOL3gN6tmX lnbjogbGVmdDsgdmVydGlj CEwlNAwoV746GDOrkPimExQyFFj uZyBEYXRlOiAgMDUvMjcvMjAyMz wvdGQ+UUXmAZX2fBjhWRWb aHRhEByqVx9fmVvccPudAS5kPCQ egfefRXVeaG2vDYQowGLprFugEG 6bFRQmmzbkz725QpAiZPC5 LWDtsXAeQ9OwgH7gKcUnXQXuBQN gJ8GowESiIHqkJ685YXwdSuV3BD UvzqYuO2KtJDVggJkcFxC0 v0D3Jm3Cp4VmisviM6KmoQDfZaN sSdvsFZj0T7BeTxxqbYS+PC90YW OvOQ43BKr6TBK9iYtyHOvg JWGsM7UokS3eYvVqKTVeJLTyFmv +PHRhYmxlIHdpZHRoPScxMDAlJy BaoDauCR9yKz6kYRHuKLDc vQyikADjTeExy8eaTZRkSUawGZ2 saKysZ3SthLR7MTRqf2m2Ox91X3 2rD5JmuJD+AYOvbMS3aTK8 aR1dMnJcTuY4WWglN353GcUvrSH pIyteq0vcq2pslNk6NmX6KMBmcw GpoTryVDC4s6LiRm69I79h IHdpZHRoPSIxNSUiIHZhbGlnbj0 ndP8sPr7+XJQfbXE1aGQ9lO0kLf KoQpQ9OSasP791HaGicEZp Dftmb8bun5nyuPt9YrFqGOOxacL oiRwnQEG8k9YiHa40Z2GizDvcu4 GyJfe0bu93sJBjt2P7uWF1 U5XxBYNplrvdaHIaxXxzSZ4cYET ahyclQUXonF3nADGzY2z8WuLlCi H2QYwzT0XzsyX5PRFvqEEk SKNffNHLbK5oenpoi0xoqyzwUsC aOSQkTTw5DMk6TKTmcPtjKcDqLS B1MdZ7CXN2fISwbJ7vdVlf vmhcbC1eZzt+JMH3bOTalFDOLH1 lOjwvdGQ+VEEmUOF2pDtmJNasAZ QwkH5tNGLnU3r5EsRbViC1 DGxgN5VtabP3UXPvnDPsXDHphMO CpE1iogjsj4bigmtkEwHbWOCpKH s6TQd2EROrbBhpLpWtWXD8 OgK6VUZ0jSHprV8txKnkdxmzlS0 wOyc+VzosuCpnKNB7ZDv2T6WsCp v4FRWogHwgCZ6gcEJiIUnw Gn4yoCcveYuhPW9rJLOfrozme23 4UfAra5usVYFodBKwBNwjHDG6Y2 9am9R9RYYcBWSnXAQ1eUY4 bT1cuBpcbhctiFJtuKzfezBnaIk yULbpRPnwY642TUPukDznCwKhDS i7V1VtZqs2OFNstGntWW4u bYJzIDzyYk4vmDtnvIccXM8cTDG hdnbmj327VqTgc9afJKKkgUYrBZ ptXQV7Q64oo7P0XFVeAOIn EEU6zRU8nG7zkPxoczacqZHegKi uvvBtfKcmAEshWIvsQ907YQDqaZ rqErXeyAj8Z7GsMvi4TLFw rHykEZ9vdOKmREviEg0zdQyqzZw nNT1gBCFyzgoqa712CnIyc4xsOC YdkXUfSTwqYSU0Y01kk3X8 LHQzOTQxVXV3bCA6oQ7ffYvwiei gbGVmdDsgdmVydGljYWwtYWxpZ2 46IHRvcDsnPlBhdGllbnQg ZOfwKRx0O3MuLclqiWD+VB31CSS xLV26kYFbrBLvs2cknKt0GkEcVJ NoGDV3wVzqYRfpg1BtHISh U02moBSme9G9YJZudYttwDTaDgT xhGM3nT6jNLnmkmzgm4aaaluvTv axc5umiq72iG38N61tUItu NKKcFKDnWIQpKWHjnHemkp2pcQ3 wIi8+DZXtxIY3nPS7xR9qCMAbXi P7KPtnI002ObFrhFCgKdup b7oqh5ltpUt1WwQ5QFPamtXczMh hCFZ7l1JqPh74L43uKCybWIKxTA QdHNUpILNcaSfnty1scB4t Ii8+KTFtxMJ4hMI9fF5wKzUtTmN 9QDwlK602HlIjnDYgDaxsE53iE3 JvdXA+VNFkOyp7PGAemTcv RJ4fgMDrUYaiPm8oNVP6GmKuLcV dJMfcK2FqEBBjregapjrysQU3NS QmUBRdpN72Wr5zrDfnTQRf sRUGvI1klywgt5uwbfbhAzIoRHI fHCc9RIc2RMMztChvHyPqJOU7Vj H1TVY5jAXjyG9bnOsqlzub vK2rU2AvAAYgwbrkRc90rT2rDpC yXwK4KOihIys+QUxCUkVDSFQsIF TAN1TITK23IC34hIHiv6X7 kXW6Z6YqZUWrcvptrdpxoFB0KAW qEGOshY45mOYtOXeiGn3ph8A8q1 55KDTqVWBvoU59Xa8unQjp UUDuqAJFiO0srlprr3unwucxEwJ mFYVeJJd6WJt5JXFfrVpnCbOrEU S1OxC9DFZ0sOAknW9twBso dptghR5tFws+EGUoLuXaOAz7UYh vdGQ+ICSbFDT0kEmmONzjCGNmhC 2yMKHtA0i1YdZhRoI0OUcu S0IpRPDiprqsDh01cK0fObCnXcJ 2NFbqG2BozoJ5PYHjbDEzXLaaVY Y5W76if7P0JTXqUVWgBKS5 vES4yQ8vuKuznwmssVPgaVoeirA qwTkiQAboXIxpK812JPPqrFpkFj Q6ICbyAUGlQQ95GB63iQTx a0C0oAG5V0QqUILnuxlmhrbigEZ 9UKMeWLLacI98lINeJAsyVr1sc4 A6g058SNAmIMYyrT23Ta0j nSedDDSiuNYWuS9tmjxel4dvaeb yYrSkTFAaENj9JSu0CZIreHrlSz VvHLK5YbD7ZUC2zBUxuC2i lZmfjtzldA7iCmg+TUFMRTwvdGQ +AIAmNKG3yLhcGPbgKULfmR3yRD DoW9n5JsDtTvN1VCzhU9Yr AQFuwhalWr30nE7pCwJgLyO0EIk kE1HbobN9KZIemPXxBZsiSMB3H5 4uc9O5CCOjQDOyEKO3kVJ0 pJ0uiVtnvxzoiEOpkBjfmnZqkFm pOGdjPCgpM158MJIakQbiVq6SEC 01TP63G5KjPfggjMCvxLW+ PHRhYmxlIHdpZHRoPScxMDAlJyB uzOboRZ2uJn7zZBYjBHQoiOzinD EpIxKuj0wbQWNmZMioBI3l wMjuZ8TveXH0ZKWxd6j2Py51Z07 aF5WsjUG+KVFiwZI7xOS8kI8mQf WrNqZ3NOarD003EfOchIYz Gqdvt4jvo3afiMk6PrLbQQLpbzC pvZhoQUR8d0LxUh80O70nZVzrXV KmAELdYZGtLXNtpFauqp0g cX4eQx6+TCWbzKQ4zXC1tD9yIpX jMrZ9LHykI810AsPijTLlSrcqK2 1kE8WirOX+MLIgMxh0GRVv yCdmOZ6fkVJpFEwtVi0jGKI8PsI zEcFcARwhF0EgRRFvqcqizjrkkV K2BOMvLDJdpD59Vz8zbVzd Rs6fMTUcBZF8YUUikKZoH9EqnU7 bJxPdWOFxSHHoI8PgtLFpQFhbT1 71PMjhVwY9ZANfbqPmQ8Nw GFXwdPkbTxX1f1K9Bx6EdPyagJD xSO4fGdLcVVx2L6XnJzg6ZJDscC msWN1zsDAzSKseXc3hsBrm cZlxOB0kWMHvpkymb993IhGqr5i eGTYafHKbQUpzYMM7L17tm5V1CB UbISIgBEO6hMD9uZ2kpDtr bjogbGVmdDsgdmVydGljYWwtYWx pD988CNJhkArtHoILJgb8B2CgFc m4OKXvzTnbSB1shVOtIJzc Ug6cmFaglYlzTW7gRHKljybdr99 3BjIro5ilCFYeqVVlYHwcZUY4F2 8bn3A2YGRaFMXsZNM0kVB4 tC4ctEqbqaxxaDZneRltxfElqJn cGMbsJMajO960VGJduYvjGb6ULg q6X1ZiSmw9DJXqvBhtQS2y pPZjYTdwOm9luSszxXmnOG4sJDV bstrhj097HpNiq7qsPATatYYfKJ ovZOE8O73as3O2VSQoXRBf XHH2hSF4zO6esNfiuvhalNVfwRe tsmMftOffSPrgAZckY296CVKvsP snPlBheWVyOjwvdGQ+PC90 zi98N4IkXdrhNvs7VBXbLLU6jDN 7eT8hORWnOJonm8V8tNG6M2Wbon Tvxb3nw4veFFWqHOklU10m bGF (more content not included)... [facility] XR Chest 2 Viewson 3 XR Chest 2 Views COMPARISON: [none] TECHNIQUE: [Upright PA and lateral views of the chest were obtained.] FINDINGS: There is a single-lumen chest port on the right. [Heart is normal in size.] [Lungs are clear and well expanded.] [No pleural effusion or pneumothorax.] [The bony thorax is unremarkable.] IMPRESSION: [NO ACUTE CARDIOPULMONARY ABNORMALITY.] Final Signed (Electronic Signature): Leonardo Haile MD 08/21/22 7:55 am Technologist: [facility] Coding Summaryon 08-17-2022 Coding Summary HTMLBase 64 SjekjgksNXk1vCn+PGhlYWQ+PE1 IBKQhV08egCTaiG2wG0GWYHmOAk qdGZEFKWcJFwJuouByLH9pdHRsN XJu IC8+NQ9mFNRtFtefhGIeq1A2yIX 2X29tkk6nYBcdqAF3NVJvVdQwwk rva8eipYo2MErlPixuGzJs TFQksZ94ZZO4bD87Ja66xIZhjSU oh1lwqLy6HlDqPTHcGKD8vTfoNE wge6FnKILiZ36vkMOop0W1 GHWyxFmejDZsYxIatQV5wO4qWYi amwrbx7ofdoyfRks0fl03wGKrp9 E1hHZ7P7QmxfO6VJHeqPZl SjnbfJRSfJ1kwdqtw6vejyryKrJ tXYFaEOh5RCn3LCQrtUuwPqIjAW 96HJU8IORrmoQkS9HsEXXg zOgvFoB9e2C9Vd2CE1DNXbhoD0S NTUFSWTwvdGQ+DD60tc59G8OrRj ovIsu4ZCHwLKM9qIT7xN9l WWDuBHqcb1V8bPC8U5BvarMnyr5 tv4swNEGyZBjaP77koKVid0S4BL SucGS5RPAyaPlfFjZarY26 Oyc+OIDmeXqmt8TnAomat7azt2n sgGo7GunqZWBwxtTbnAyyKEL8v8 LvVy1nBBVkxEH6xRG3kG8s BgOuRwK0QHliD115BnSzmIXtVuo aD63cD4RumKT+FCUrClu2SAIsfE ynOU5oB8SsJZQicccwlUSv bKcoJQ8rDKRqdpcaGVAjpD7lBPQ kN0u3ZgXvPeK3FJiuW1OiBPExuv cyFs12xG3mRbJkBdV2IYjp U8AbmgN2WMJzwQSnMBtaIZC2Z94 rk5G5SONxPUAmGGT8zLT9lP1exG lnbjogbGVmdDsgdmVydGlj JJvqNHvmV287GUHdeSywUcFtKKf uZyBEYXRlOiAgMDUvMjMvMjAyMz wvdGQ+NWEkDPA9fNjtKMFc iFHfFFfrSy2bjNtvwPksIF5eQTE mjwrbAMGndJ3zXHDcsQPmgSyqGO 1zUGWycyzzw499XgJdPFU5 BBVjcAFuJ4PknD2oXjVeSHWoGDS yH8TscCYkOPxlR973IFyxDzC9EW RfszXoP0AuPGEyaOdoFdB6 a4S9Zk9Tu9YmjudqG3QbrILyVcW rZrcqIQj3M3NtIsyixNQ+PC90YW McCB93HTx2DQD5hBxyBEox BXNiE3EebI4dZnQsAIUgHCKxJpy +PHRhYmxlIHdpZHRoPScxMDAlJy NcfQqxEJ5dRd8hUKGmTYKh kJympPRfNwNfy9ymEOWwEGmpXI5 ezEssJ4TfqKJ4BSJld6w5Ck72Q6 4eK6YfhTQ+MXGueNM6gVK0 qN8qVaTsNdS7OCbrC775RwLxkRW jWxmzn8rmm9nyfNe6IrM4FOVpuq RguGpeMIE7q0GiNm33Y93f IHdpZHRoPSIxNSUiIHZhbGlnbj0 lqK8iXm3+QXCyhZN6iBF4hA1mVz IhCtR7GKkgS121IuZrmAWf Urrwn3suh2vebPy2BgUqEUUtmeX ukQijKIL9l6WdPs15S5FqqOkze8 DaLoh3bf44iBGmy3F5xME6 T5SgBEClhrpbfCAryNfqCC8zXQU vgnurMWMjrQ2eDMFgD2p9IhBgQx F1COykX0WfrwT9XXLonALe UZOnzBSJfN7iqtcil1hwpjpeMhK kJYZkMBw2LJm2AQNhqDpeQmQmTP H1IlD9FVS3cOWjmV8htCfi xbyfbI8fJzu+GVI6oOJmwAGAMD9 lOjwvdGQ+DYNlLCT5bZfzHZpwZU AguO5mSQVrK8t8MyHfQjU1 MAaeM9HassL1WNNsdTQpEKHqnFH RqD2qqwpoa2jduuqpWaIdVPFhWH z2SZj8HXSvlCxaTqGlKBJ0 KeI2BWK0hDWjxD3imVhfrcfhiA7 wOyc+VyuwaJgxNAR1KTu0L1JnBk d8IZStsZxbPZ2qiNVwXOmk Kl1txUzcbMtcBZ2cQFRjurfsk76 3HvJur5qePWHsbWGbFDfdGCH4Y0 9nf4J2OBZgPFLwJAB4zJM6 nX9skQldpiarpCIcwJxzqmZneAl lXHmuBLuoH126BFOsbZfeFgNxQH i6P5MfAmg0AQOijWtfTH9w lNWpQLriFa2puOdbqWztFG5aTXM ydmmcv115QgEdl5wzRAZnrZIuOG peTKV1U11cl4X6NAJtCWRe BOP4cBP7hL5qmViajgoamKQhuDr lzkHqdKeuBTjjKVbwF631RTRhhX hgVpUviVp1Z6AaNfo3KDRv iDlxKG5syQWvYNgvPl7iuPmyvCn kQR3vXTCfciccn343JwXuh3lrUI JmfSAwMPfeFXG4P41ro2R6 KYHsLZJsCRZ0dHV8mP8wuJpqgmc gbGVmdDsgdmVydGljYWwtYWxpZ2 46IHRvcDsnPlBhdGllbnQg CZirLFa1A0ZwRsiykPS+PX84ULZ oJL53lQBbiCNgl8lhqKm4GoIkSF PnWQP0hUglAVign4UdYKMw S07xwOKyo5W0EHMbdGcckXKwKiA ecDP1kN5jYEjtyhvzd6zqxbieXu ycl2hmmj76aS26A31hIBuw HFVuISUaPJUfZOJyeUihcb5olN8 wIi8+HXCjrCJ6tYW5pL5gQYXyRh N4HDfnL913MaNzlYVzFwxq p6vmg5coxYr1OjM6GADlumTpeMn iLGM1y6VmVq97Q80hNCbdSIQoWZ WaGAMyIUTrfRyhaa8cwQ4g Ii8+LJXiqNY1fKU0cO2fPzEhHfW 7XHguE470OiWehZHvJpukB83pO1 JvdXA+FFDdLgv1IWLgbGkg XD8fiWKfBEfrTt1iNKP0CgMyPnJ uJTypD8VzIFNcvgdpxogfkWA1XX DvTDQskX63Ej1oqIqgOLTv pNINzF3lbzkpc1llupucEwGiAEC rTVi5VJb8OIAdpWmoKyOyGLO4Hf X8BQD9aLOkjQ5pfPbdumsj lO2tW5RzTRCmwwxiVu45vG0jFfN rEzP0DDyyGmt+QUxCUkVDSFQsIF KGR7RSRU39TB58eEVne4Y2 dCG3O4NiJQPaetziwifnyMT5BVA wNNBvuN56bHLgDWesBt2hu0N9p3 74VRVnNSRphB90Ae4osUxk KTOseKIRgI1dllrek1wwwgscQpI rNMNgESg4CLg0YWKhiFdkWsMfLE R3TxE3VTO4fLMieI0ryAkj jwsmhP6pOpj+DGCxBlAbFKg2EJg vdGQ+MAHyYJA3bOpjKLshUNBaaW 7yCIGwA5m6JfJmQcB1WZyt W0MgLCNkeuiiVa58eE1qMjYsImK 9EJleV7OwbbJ0VUGphNZmNVxcYI I4O14mr7A0CSLtCKDuQIZ7 eUP4jY0poXqxpvponJDiqDyrinL xhVnuGUxcYEzyR916SCMgkHrsSf O5DAheAPFqDO39TB88zRNo b3B8jIV8D2HtBEZgnvslvkwaiCK 1QUTkUFEzsA47eHFuLDteIc8yd8 F0l453SGBbZKKptU08Ge9r hMquMYNcxTPRjT9ynkxff6lyebm iUvTyNGWaSNe9JIc1FWYvfJutOt MsGPI3PuR4NBL9fGDrtL5e iLpprwmhpS2rClb+TUFMRTwvdGQ +CZAgZWU7pLezMQbdSSHlqT3iGC BvO1h0ZhReVgT2SWjnX7Xo BVNzgfmsLv18eL8zMcYqQmP7NEz wN0AtwwT3DHWvnYOhQNpfGGY9L6 5ez3H7GDXrTCFjYZG3qXR5 vF4gtLbekgrzsMXwgJbspdJfqLq aZOasSNlpG395IEVnsRxxIf7LXC 69WM64X4VoDniyzHVtxDX+ PHRhYmxlIHdpZHRoPScxMDAlJyB wqWxyYN0lLw7kLTHiHISdpTgnpA WpZzNmf8wbOPMhUMkwFF2g eDieZ6LldAD2AYKhi1t4Yx38K49 kU1AvqXI+THXjhZI3hPL9tM6hZv UxBkN2HRzqX297VkZbfYKc Henrb7ckl7xnnLt6VhAuGNOblfU snBkyBPC0b1ZjOy30J36lKEspOA LjRKFyYBTjYCYesTbocr4v lK9vQb7+LAFzaIR5xDN1aW8eLcI dCmM0CWbtK965BjCaeBEvAzzcW3 0hT1BfzUC+KFWiAau1BDId yHbhKG0ukNErUYzvXw5xQUA1NrM hUuJlFUswV0LdVGPgdelmekqyqS P0WGHsDCVkeV32Jp2wqZkc Sm6bDGIiXTV1CHRioINjA3HujU9 vEcVuYCQgSLYvU3MhnLMbZMpyH6 40POliEhW4KTDjjhSpV7Hu NESmdXmcJtG3x4T7Uk2WwVaprJK gNL8wWnIqVIn3R2YqSmv8PWJlyJ lvZD3udKCxCJydPk8bySuk jOkhWB9bNZXcbslpd684KjAhd6p oDVTowGJnZQbhXQX4P38dp8T1BN NlXHWuYST1tQN4gS0hvLmg bjogbGVmdDsgdmVydGljYWwtYWx oU778GZIbnYgaBgHAQhu3B7FvDu b0EAEouQraHD2xlGEyDFhx Vz7unAoomBmjCF9bCYIisrylm51 7XwKud1nmYNKgaSYjVFrzIKQ1U1 2fi5A1ROGfBPLmISU7tIJ7 jX5dfYgvjfsawQIceHpgbrAbwCh eFPdfGBtsV128RHGuoDciBk8HFr z2D2FbNhf9FZEldKdkKB8h dBDwWWfaEv8ecMhkhCfdLN8zAHP hnuxym959IpCko5ynAEQtnOUeMG oeONG0S53av5T5SMCyANJw WKS2eOL9hK7lzNwrtfbtwWUvmVf rhnCvvUjgTVxgITwjH988MCWmdD snPlBheWVyOjwvdGQ+PC90 fb21O7TzLvglQuj3UMKiVEL8cQM 5iU0zRJDtJMaze2M9rDR9H6Uoqe Kkmh2hl0ttGCHdBHaaA95f bGF (more content not included)... [facility] Provider Orderson 08-16-2022 Provider Orders [id number] [facility] RAD - MISCon 08-16-2022 RAD - MISC [id number]:127 [facility] XR Abdomen Single View (KUB) on 08-14-2022 XR Abdomen Single View (KUB) EXAM: XR Abdomen Single View (KUB) HISTORY: KIDNEY STONES, FLANK PAIN COMPARISON: CT abdomen study dated 09/20/2021, KUB study dated 10/03/2021. TECHNIQUE: Single AP view of the abdomen was obtained. FINDINGS: There are approximately 3 calcific densities overlying the left kidney measuring up to 0.6 cm compatible with left renal calculi. The largest calculus likely similar in size, other calculi are likely enlarged compared to the prior CT exam. No obvious calcified right renal calculus. Correlate clinically. No obvious opaque ureteral or bladder calculus. Calcification overlying the pelvis on the left similar to the prior KUB study likely representing phlebolith. Bowel gas pattern is grossly nonspecific. Postoperative clips are present. Tdnz-ov-lhctvsrf degenerative changes in the visualized lower dorsal spine and lumbar spine. Mild degenerative changes about the hip joints. IMPRESSION: Findings compatible with calcified left renal calculi as noted. No obvious ureteral or bladder calculus. Likely a phlebolith in the pelvis on the left as noted. Final Dictated by: Brian Grullon MD Dictated DT/TM: 08/14/22 11:05 Signed (Electronic Signature): Brian Grullon MD 08/14/22 11:54 a Technologist: MICK [facility] RAD - MRI Reporton RAD - MRI Report [id number]:127 [facility] RAD - MRI Report [id number]:127 [facility] MRI PROSTATE WO/W IVCONon MRI PROSTATE WO/W IVCON * * *Final Report* * * DATE OF EXAM: Jul 31 2022 3:40PM [facility] [id number] - MRI PROSTATE WO/W IVCON / PROCEDURE REASON: [id number] * * * * Physician Interpretation * * * * EXAMINATION: MRI PELVIS WITHOUT AND WITH IV CONTRAST (MULTIPARAMETRIC PROSTATE MRI) CLINICAL HISTORY: 67 years old being evaluated for prostate cancer with prior negative biopsy Previous biopsy: Negative, 06/15/2019 PSA: No recent PSA available. Prior therapy: None. TECHNIQUE: Multiparametric MRI of the prostate and pelvis performed on a 3T scanner utilizing phase pelvic coil. Sequences obtained: multiplanar T2-WI with small FOV; Axial DWI with multiple B-values and creation of ADC-maps; DCE T1-weighted images through the prostate obtained before, during and after the administration of intravenous gadolinium; prostate dimensions and volume were obtained using a semi-automated software ([employer]). CONTRAST: IV: 20 cc of Dotarem. COMPARISON: 05/14/2019 RESULT: Prostate: Dimensions: 6.2 x 6.1 x 6.8 cm corresponding to a volume of approximately 122.2 cc. Post biopsy hemorrhage: Absent Peripheral zone: Lesion #1: Location: right apex/mid posteromedial peripheral zone abutting the surgical capsule. Greatest dimension: 0.4-cm (series:4; image:18) T2-WI: Circumscribed, homogenous moderate hypointense focus/mass (score 4) DWI/ADC: Focal markedly hypointense on ADC and markedly hyperintense on high b-value DWI (score 4) DCE: Positive Extra-prostatic extension: Absent (no capsule contact) PI-RADS assessment category: 4 Transition zone: There is transition zone hypertrophy, without focal abnormalities suspicious for clinically significant disease (PI-RADS 1). There is a defect in the transition zone at the base suggestive of prior BPH treatment. Neurovascular bundle: Unremarkable. Seminal vesicles: Unremarkable. Adjacent Organ Involvement: Not applicable. Lymph nodes: No enlarged pelvic lymph nodes. Bladder: Unremarkable. Pelvic bones: No suspicious pelvic osseous lesions. Other Findings: None. IMPRESSION: Stable 0.4 cm lesion in the RIGHT mid/apex posteromedial peripheral zone. Although the lesion meets PI-RADS 4 criteria, its location near the surgical capsule favors an ectopic BPH nodule. No new lesions suspicious for clinical significant prostate cancer. No pelvic lymphadenopathy or suspicious pelvic osseous lesions. Number of targets created for MR/US fusion biopsy: Peripheral zone: 1 Transition zone: 0 If present, targets were numbered in order of level of suspicion for clinically significant prostate cancer (Hartford score 3 + 4 or higher). PI-RADS v2.1 Assessment Categories: PI-RADS 1: Clinically significant cancer is highly unlikely PI-RADS 2: Clinically significant cancer is unlikely PI-RADS 3: Clinically significant cancer is equivocal PI-RADS 4: Clinically significant cancer is likely PI-RADS 5: Clinically significant cancer is highly likely (V.) Animal Eviscerator: QUINN Transcribe Date/Time: Aug 01 2022 10:26A Dictated by : MARYJANE ALMANZA MD This examination was interpreted and the report reviewed and electronically signed by: MARYJANE ALMANZA MD on Aug 01 2022 10:44AM EST [id number] Normal [facility] Ambulatory Patient Summaryon 07-29-2022 Ambulatory Patient Summary [address], [address] - Visit Summary For ZHENG MONTESINOS Age: 67 years Sex: MALE : 1955 Address: [address] [place] [address], Formerly [facility] Home: Work: -- Primary Care Provider: SHELIA HARDY MD Race: White Ethnicity: Not or Language: Malian Health Plan: 1?MEDICARE ANTHEM Reason for Visit: post ED follow up, C/O a cough and edema in his right lower leg Prescription Information: If you have been given a prescription for narcotics, seek immediate medical attention if you have any difficulty breathing or any sudden status changes such as confusion and sleepiness. If you or anyone you know is experiencing suicidal thoughts, mental health, alcohol and/or drug addiction problems; contact the [facility] 18/10 Crisis Hotline -Text 4HOPE to 459161. Follow-Up Information Future Appointments No Future Appointments Scheduled Future Orders No future orders Additional Goals and Instructions: Vitals and Measurements this Visit (last charted value for your 07/29/2022 visit) Vital Signs This Visit Peripheral Pulse Rate: 78 bpm Pulse Site: Pulse Oximetry Systolic Blood Pressure: 136 mmHg Diastolic Blood Pressure: 70 mmHg Cuff Location: Left arm SpO2: 98 % Measurements This Visit Height/Length Measured: 172 cm Height/Length Measured (inches): 67.72 in Weight Measured: 134.8 kg Weight Measured (lbs): 297.183 lb BSA: 2.54 m2 Body Mass Index: 45.57 kg/m2 [place] Body Weight Calculated: 67.748 kg BSA Measured: 2.54 m2 Diagnoses This Visit Cellulitis, leg (L03.119) Laboratory or Other Results This Visit (last charted value for your 07/29/2022 visit) No Laboratory or Other Results This Visit Medications and Immunizations Administered During This Visit No medication administered during this visit All Known Current Prescriptions and Reported Medications New Prescriptions this Visit Bactrim DS 800 mg-160 mg oral tablet (sulfamethoxazole-trimethop rim) Take 1 tab(s) Oral 2 times a day for 10 Days, 0 refills authorized predniSONE 20 mg oral tablet (predniSONE) Take 1 tab(s)(20 Milligram) Oral 2 times a day for 7 Days, 0 refills authorized Instructions: with food or milk Prescriptions amLODIPine 5 mg oral tablet (amLODIPine) Take 1 tab(s)(5 Milligram) Oral every day, 3 refills authorized atorvastatin 20 mg oral tablet (atorvastatin) Take 1 tab(s)(20 Milligram) Oral every day, 3 refills authorized meloxicam 15 mg oral tablet (meloxicam) Take 1 tab(s)(15 Milligram) Oral every day, 3 refills authorized topiramate 100 mg oral tablet (topiramate) Take 1 tab(s)(100 Milligram) Oral every day, 3 refills authorized traZODone 150 mg oral tablet (traZODone) Take 1 tab(s)(150 Milligram) Oral once a day (at bedtime), 3 refills authorized Home Medications AndroGel 40.5 mg (1.62%) transdermal gel (testosterone) Take 1 packet(s) Topical every other day Detrol LA 4 mg oral capsule, extended release (tolterodine) Take 1 cap(s)(4 Milligram) Oral every day doxazosin 8 mg oral tablet (doxazosin) Take 1 tab(s)(8 Milligram) Oral every day Normal [facility] Patient Handouton 07-29-2022 Patient Handout ENT Cough, Adult Coughing is a reflex that clears your throat and your airways (respiratory system). Coughing helps to heal and protect your lungs. It is normal to cough occasionally, but a cough that happens with other symptoms or lasts a long time may be a sign of a condition that needs treatment. An acute cough may only last 2?3 weeks, while a chronic cough may last 8 or more weeks. Coughing is commonly caused by: ? Infection of the respiratory systemby viruses or bacteria. ? Breathing in substances that irritate your lungs. ? Allergies. ? Asthma. ? Mucus that runs down the back of your throat (postnasal drip). ? Smoking. ? Acid backing up from the stomach into the esophagus (gastroesophageal reflux). ? Certain medicines. ? Chronic lung problems. ? Other medical conditions such as heart failure or a blood clot in the lung (pulmonary embolism). Follow these instructions at home: Medicines ? Take nvvc-slx-gpltiai and prescription medicines only as told by your health care provider. ? Talk with your health care provider before you take a cough suppressant medicine. Lifestyle ? Avoid cigarette smoke. Do not use any products that contain nicotine or tobacco, such as cigarettes, e-cigarettes, and chewing tobacco. If you need help quitting, ask your health care provider. ? Drink enough fluid to keep your urine pale yellow. ? Avoid caffeine. ? Do not drink alcohol if your health care provider tells you not to drink. General instructions ? Pay close attention to changes in your cough. Tell your health care provider about them. ? Always cover your mouth when you cough. ? Avoid things that make you cough, such as perfume, candles, cleaning products, or campfire or tobacco smoke. ? If the air is dry, use a cool mist vaporizer or humidifier in your bedroom or your home to help loosen secretions. ? If your cough is worse at night, try to sleep in a semi-upright position. ? Rest as needed. ? Keep all follow-up visits as told by your health care provider. This is important. Contact a health care provider if you: ? Have new symptoms. ? Cough up pus. ? Have a cough that does not get better after 2?3 weeks or gets worse. ? Cannot control your cough with cough suppressant medicines and you are losing sleep. ? Have pain that gets worse or pain that is not helped with medicine. ? Have a fever. ? Have unexplained weight loss. ? Have night sweats. Get help right away if: ? You cough up blood. ? You have difficulty breathing. ? Your heartbeat is very fast. These symptoms may represent a serious problem that is an emergency. Do not wait to see if the symptoms will go away. Get medical help right away. Call your local emergency services (911 in the [place] Do not drive yourself to the hospital. Summary ? Coughing is a reflex that clears your throat and your airways. It is normal to cough occasionally, but a cough that happens with other symptoms or lasts a long time may be a sign of a condition that needs treatment. ? Take vpai-rwq-neknmqg and prescription medicines only as told by your health care provider. ? Always cover your mouth when you cough. ? Contact a health care provider if you have new symptoms or a cough that does not get better after 2?3 weeks or gets worse. This information is not intended to replace advice given to you by your health care provider. Make sure you discuss any questions you have with your health care provider. Document Revised: 04/02/2019 Document Reviewed: 04/02/2019 [employer] Patient Education ? 2021 [employer]. [facility] Pre-Certification Formon Pre-Certification Form [id number]:127 [facility] Coding Summaryon 07-16-2022 Coding Summary [facility] CagwvjvrPRd1cJd+PGhlYWQ+PE1 GHAOzI15orJUhuQ3KP7kOPH3HUN CCMQDNMH2UTP0idFC7RYicG6Orh iAv CqcxsTQmQM81UGl3MCC2lUcqLXx cyB3ovWFaF3a1RcQuYF90yG67EK kiLDZgQoW1CjFwucaraNRr P5fbAtUrhZOqYgn+PHRhYmxlIHd nFEFqOKaxLDHrTyYbiOnyQQ6cFf 9yZGVyLWNvbGxhcHNlOiBj o6tbEVCfAWlpKG7feVamL9GqpFS 7XGKsi4y1Dn42vOR+YMErSQY3gW rsBHqpf534RwTaj9eeJCE6 eSGlJXnvMGK8W47df7F2VNKeVBF wGNM2dUX1aE0rtQyfrboeT8ZknE RmIaX5TUF9uBMihC2xqJnz rxygbA8eVor+B82ANE6CIWMQDX0 THpi5U4VhPokchAH+WS06HMSrQO 52fOCizGAzv4artLh4LpTf INDxPQQ2bQedOAjkt1ThEFLgW62 gnWCqm2T3PYBpyHyscATeIiNmvS C1eY1nCSarlofrt9guayxf Expnt5faqu21aM85J10yCMplTGP zPDO9FPCkEQKlbCckno2owQ5zIc 8+KQakr9gop4ugcQw9MxTc VGVbsnJjwIetNWE8l6CnWw49K0I bgNzgc7GaKfg4qy82kBFma4M2cT Z0FQzvGXKhdB6rVGxbPfI9 KYMmEfBqhB16uPWqKDqgKd2koDx yyDvoTJ2gYFUpplwdSOErsU2bWW JipABzkYoqCJ7cGSHhsjbi s842LdSmLWB5XDDxwNLfD2WoqH9 vXkEhCSIpVOYuZ2JhpHDlIPgfJ9 53ILgfGdV4OJErfoNbP5Ji KWRzqCtoCwV9l3M0Rq1Sf6Cttix sBOO0ZEnuLZF0HbLfWmAoFsB9X0 JaUcl5MCHxpPjeOA9mW3Yy RRUegropkgwrmVJ9DYHiCRYkxZ6 9gIHmOWraKm7qj5T8y509CCKeGC SxjR12Zi2wfQjeLDWhgLJY vG1jbtxme2uuozbiZrIiCOZrSRl 0FRg2WCNkvKlvFcDyQVK3ZrK5AO B7iXUtnB5ndEpznbjgaN0y Oyc+P22pgI4pKWB2TXS8ngtuFVP bcwFpIE10FY97N4SlAekkjUWkuH U+CIGvvrDdzHamSA7kQmNe s1lmn2AiQLfgG9ZyUALxQPjpJdm 7HYKkYER4oSS1cQ2fKIUmOBvbb6 T0wPZ8S8OpbjWmnq6ja5na TEZrHLujQ08jqJEhw6J5TVQtyEV 9IABduZccDgLxxF46Ozd+PGNvbG rom6MmLrlby3mkp1cnlZi5 XtStCPYjxtXriNfzERR6o3AxYx8 3U04xHOeoYRFoXKWrFINrFGBzrD mwqv9cnU0iBw9+PGNvbCB3 fEC0zF8lLVIfWkL8UQvwC091VhY kkOJbSrleu9pbm5lxvXy2YiPzLR DuqbNamJqoOWF6u3YiDl89 X79kHQisJRBdIVAvYIBsIYGpsIz eqf7ufB8nMx2+QK2nv8wgng54uJ 48dHI+PNDmMEQ7lFbgHTsz TBIajG8dYHwzWaX0OBGnWbXdmC2 1eXLyWKyiNw7vfKpyuXrqAE0yJE Kxthxok979YkEgs7ioHEEu kQTrGZgcVHX9K54eq8O0LINqQSJ kPCH4rHL6fY6imGiolszhiKJzlR saaoNylBwrULjmNXqnE146 IHRvcDsnPlBhdGllbnQgTmFtZTo 3Z2MfIkn4UIKvqXbfSM4wpOOrSZ tqUw8zuZxvfRkkNX8fZKSo mxlay656UcCzc2xxXVOkmQOmQVr iPJW9T75oe0Y6XQGpMIMfREI3sZ Z6oO3afNvncwcujIQvjAjk iqWjnRfzJAwdRBczM123UUWxsHz jMlHldiXnETTisIL8SO25GL02kB Tfa6R0vBC2U6PxMEIdaczi ubmskLQ1QYEdIMRbfX37Tf3pnZd zRh6pOTWgBYQ2TXErhXIzT5BscG 5xXpSkLASpPPVkV2KrnEWq PAdhX625ATukZoA6BLWhzdVxL1J tBYIxdTzxGwK2n8D9Ib3SW3M8YS 15SP59aSCnv8B1dUZ9X6Cn GDGirhjbkhrpxTD2VXWxTUQdrC9 7Vp3yxLegHk6vAKKmXGR9INZqkY CaK0JtaA7vRhWzCZAaBYUq N6JwyCPnWUxaG933IEyoVdL6FRN tonChP1QbGWOjuZnnGmN4g2Z9Ks 4WBQv3WL98IG03zRYln4Z4 iMG5P9MkBEOrwsodsfqouGA5HDP tIIUaqG95Zf8gpOruDs7iSWXyTF U0HDXurCJgI2GuaD2dTnLx BXSnKJJjK2YtdBBbLRpsO199XZx wLxW9OKTamrHvV7VfYVUtuZenOp W3c7J7Te9VNWAcGS05FRJ1 yDJ5GI56JY91D3TmLkbyeEXzcGW +PHRhYmxlIHdpZHRoPScxMDAlJy OfwGmmLB5nXp8kLIGiFFLz tLxgaQIvFiTna8beJWDjRFloKB4 pyIdrM2MgkZV4STZtp4g6Mu93X7 8oU7WulAX+NEFuvIX7fGC1 oG6aBtDkUgH8OOwaM163JmSurBY qYgpxo5mqz9nnjVi7OwK8OOVcbd IxiIrgPNV7o8ReJn28F56s IHdpZHRoPSIxNSUiIHZhbGlnbj0 dhX8eRh7+GUWueSO8pPL1pF5pTx FmIgJ1IBcgQ005FxAfaQPq Amize9fqc6ieeAd0PxUcBPTtsxT hmRkwTCM5r4AeXa85D5RtlKazk1 NkEsr6mi94vHIrw8I3sLF9 D7ThZUDqnsscxWQywImyXY3gRWC jppinKUZlgM3vFXZuG3n9ReXbYd B3YRgyV2VdiqW7SWUfcGRz VRorDRD4R22xe2Q2DMOtTENrSTI 8sJL5dK0ilQegpnoamBPxmTeaof DdqNxoNVkaCNdhM493MIJj eNfdQKDxvN2bYENzbJLbsGcmIM0 fESPffwqsDcLJQmNQB3zDAMAZU4 9UVDwvdGQ+YOOjQZC0iMrp ONijOSCxxJ6kREKuK1r7EkKdBgU 1MVjaA5VfLPQgpogoHb22cK4sZf UwTiR5NKuwD6CcnaI3CISp wAHaLHqrCIX8S83en6M9ARKtGWL pKIQ3qFM0pW6tfGblntpctOIppS fgtdZyhXdmITeyZOdvJ284 SVFxfYonTnFcYhU2LxK9PDI6T1O uUhi3PSByrNjhRQ9toYCsKCbvPn 8yfVmfvMskFI1lOTXdrlnv XMRydD0nVOIkdXZgzErxML4eUGL kytzpr705YmDkCBR8WYIclXIyD8 AuwU7xWdHwPKIjXTIcN6Vn aVJfCUktP615HLquLeR0HPIuewE gG1StVVZhpLvrXhW0a9V6Ru97NG BZZWFyczwvdGQ+PHRkIHN0 nIcrVRtcJVUquJ7qFMYaZ2m0TcX rAmW0JRmaW0DdWRLdcitsSk66rI 7nRqZuGrO3OCfpB4FakhZ2 XRGbvAHkPSszMGG6H53xw1F6PFS zFYZiBQO6fWU4uS1ubLyqhikopD VmdDsgdmVydGljYWwtYWxp I527SRRhrAylJk8NFHX7N7BuGej 3NACptFhmMZ6txZCcAZijRb7gkL itbLzmDK4zWYRurvzkCAMm aO4uBWGcsBImhJomPJ4iLKXctfr js685EaBmLKJ4SRMuiIIoP2GfaX 6dLdSrPVFfPMHvS1ZfbASx RSclL705SCgmYpQ5WNFqbaFhA9C hXRYfvRqiWtI8z6I8Ld4DtEZiB8 EwK4c9R3VuJwozaCG+PC90 MGGfBE98rUIkeYQog3xfeVd6MxB sUORgMHF3yFstXMgjq5KjZMWcX4 5xvCLsu6I3MJNuxTrdwPHf QeMjqWH1jC9qIDxxqhyuo3tftxp vQhasy4rght61tK47M05iVFycBB GyPJGzGUOtIXKqsEdwns8k fE4pEe3+VOAphZV8eFG3nS2kRaR sOzT8GHwgN418YzFatPPaYadqj1 lre2zvxMx2FpNaJMNkunBt pHkoDMU4b3SnHv17A40uPKjuDBR zLNDvCRJzUAEkkSegvj0seJ6iZc 8+HA1oy6evlz25wN08fJO+ ASUdZBN2hVqkFEzwNBMyhJ1nJEh jYiV0NPMjOqSvyH49oXHfELuaGc 8vuTwmmQgxVM2wMWOxtfgz d953AhNro8ptBJNbnGZiSImtHLZ 2E34md7Y3FETxCDBhXCL2qCZ1tP 1hbGlnbjogbGVmdDsgdmVy wNkcOJtlKQgkN984AUDabTlyYjU qgBCaJ3lcncIRAI2jUnznvRS+PH YnTFG6lJryJXjjQSIkvJ9n HOWfV2a3NnEfBmT0KTkeE1VgauS 3KWPunHFzLJErxEZGoY8nbmhnw8 epjnnvJqIzEBUvVQs1HSr2 BKVmjQknQvGuYBS1WtH3RVF6qZI vsI0egUaoyhrbfB5wZlr+RklOOj wvdGQ+DQXwTJR0jDtjFGwj ETFjaC9vQQGiJ5k3CvTtVvC9DVt bR7LslsR4DDAnrMVjTMDjnOMAbI 5vgdafi2gwxedgJyXiRQLh OBd7EVx3IWVybAiyJlKsHUC2SyM 9HNR3rWMsyR0ekDcwvnlkmO6iHr c+TVJOOjwvdGQ+PHRkIHN0 wShhKOonMAEtuI2wCJTxX9o7CuB sXeQ6JSnxN9BjpvS3YLHbzSGqNS QkkNECoA6gyqwjg3lfesca GcDwVQCxZPi3CRz2RVYqlVrrSyH fNZD1YvG1PIE3yFNltR5ruBipmf onzQ9rFfw+VKQ6UMR9DO30 XD85N4NaQhtrkODxwPW+PHRhYmx lIHdpZHRoPScxMDAlJyBzdHlsZT 4sEv6yNRIsZHPcbWqknFWz OiB (more content not included)... Normal [facility] Alanine aminotransferase [En zymatic activity/volume] in Serum or PlasmaOrdered By: Abbi Mcbride on 07-08-2022 ALT [Catalytic activity/Vol] 18 U/L 7-52 [facility] Albumin [Mass/volume] in Ser um or Plasma by Bromocresol green (BCG) dye binding methoOrdered By: Abbi Mcbride on 07-08-2022 Albumin BCG dye [Mass/Vol] 3.8 g/dL 3.5-5.7 [facility] Alkaline phosphatase [Enzyma tic activity/volume] in Serum or PlasmaOrdered By: Abbi Mcbride on 07-08-2022 ALP [Catalytic activity/Vol] 62 U/L 34-104 [facility] Aspartate aminotransferase [ Enzymatic activity/volume] in Serum or PlasmaOrdered By: Abbi Mcbride on 07-08-2022 AST [Catalytic activity/Vol] 14 U/L 13-39 [facility] Basophils Auto (Bld) [#/Vol] Ordered By: Abbi Mcbride on 07-08-2022 Basophils (Bld) [#/Vol] 0.0 10*3/uL 0.0-0.2 [facility] Basophils/100 WBC Auto (Bld) Ordered By: Abbi Mcbride on 07-08-2022 Basophils/100 WBC (Bld) 0.3 % . [facility] Bilirubin.total [Mass/volume ] in Serum or PlasmaOrdered By: Abbi Mcbride on 07-08-2022 Bilirubin [Mass/Vol] 1.2 mg/dL 0.3-1.0 [facility] Calcium [Mass/volume] in Ser um or PlasmaOrdered By: Abbi Mcbride on 07-08-2022 Calcium [Mass/Vol] 8.3 mg/dL 8.6-10.3 [facility] Carbon dioxide, total [Moles /volume] in Serum or PlasmaOrdered By: Abbi Mcbride on 07-08-2022 CO2 [Moles/Vol] 22.8 mmol/L 21.0-31.0 [facility] Chloride [Moles/volume] in S priyank or PlasmaOrdered By: Abbi Mcbride on 07-08-2022 Chloride [Moles/Vol] 108 mmol/L 98-107 [facility] Creatinine [Mass/volume] in Serum or PlasmaOrdered By: Abbi Mcbride on 07-08-2022 Creatinine [Mass/Vol] 1.36 mg/dL 0.70-1.30 [facility] Eosinophils Auto (Bld) [#/Vo l]Ordered By: Abbi Mcbride on 07-08-2022 Eosinophils (Bld) [#/Vol] 0.0 10*3/uL 0.0-0.45 [facility] Eosinophils/100 WBC Auto (Bl d)Ordered By: Abbi Mcbride on 07-08-2022 Eosinophils/100 WBC (Bld) 0.9 % . [facility] Erythrocyte distribution wid th Auto (RBC) [Ratio]Ordered By: Abbi Mcbride on 07-08-2022 Erythrocyte distribution width (RBC) [Ratio] 14.9 % 12.0-14.8 [facility] Globulin Calc (S) [Mass/Vol] Ordered By: Abbi Mcbride on 07-08-2022 Globulin (S) [Mass/Vol] 2.1 g/dL [facility] Glucose [Mass/volume] in Ser um or PlasmaOrdered By: Abbi Mcbride on 07-08-2022 Glucose [Mass/Vol] 97 mg/dL 70-100 [facility] Comment on above: ADA recommended refe rence rangeRandom Glucose Reference Range is dependent on time and content of last meal. Glucose of more than 200 mg/dL in a nonstressed, ambulatory subject supports the diagnosis of Diabetes Mellitus. Hematocrit Auto (Bld) [Volum e fraction]Ordered By: Abbi Mcbride on 07-08-2022 Hematocrit (Bld) [Volume fraction] 36.8 % 38.8-50.0 [facility] Hemoglobin [Mass/volume] in BloodOrdered By: Abbi Mcbride on 07-08-2022 Hemoglobin (Bld) [Mass/Vol] 12.8 g/dL 13.0-17.0 [facility] Lactate dehydrogenase [Enzym atic activity/volume] in Serum or Plasma by Lactate to pyOrdered By: Abbi Mcbride on 07-08-2022 LDH Lactate to pyruvate reaction [Catalytic activity/Vol] 159 U/L 140-271 [facility] Leukocytes [#/volume] correc jaguar for nucleated erythrocytes in Blood by Automated counOrdered By: Abbi Mcbride on 07-08-2022 WBC corrected for nucl RBC Auto (Bld) [#/Vol] 4.5 10*3/uL 4.1-10.5 [facility] Lymphocytes Auto (Bld) [#/Vo l]Ordered By: Abbi Mcbride on 07-08-2022 Lymphocytes (Bld) [#/Vol] 0.4 10*3/uL 1.00-4.8 [facility] Lymphocytes/100 WBC Auto (Bl d)Ordered By: Abbi Mcbride on 07-08-2022 Lymphocytes/100 WBC (Bld) 7.7 % . [facility] MCH Auto (RBC) [Entitic mass ]Ordered By: Abbi Mcbride on 07-08-2022 MCH (RBC) [Entitic mass] 28.3 pg 27.5-35.2 [facility] MCHC Auto (RBC) [Mass/Vol]Or dered By: Abbi Mcbride on 07-08-2022 MCHC (RBC) [Mass/Vol] 34.9 g/dL 32.5-35.6 [facility] MCV Auto (RBC) [Entitic vol] Ordered By: Abbi Mcbride on 07-08-2022 MCV (RBC) [Entitic vol] 81.0 fL 83.5-101 [facility] Monocytes Auto (Bld) [#/Vol] Ordered By: Abbi Mcbride on 07-08-2022 Monocytes (Bld) [#/Vol] 0.4 10*3/uL 0.0-0.8 [facility] Monocytes/100 WBC Auto (Bld) Ordered By: Abbi Mcbride on 07-08-2022 Monocytes/100 WBC (Bld) 8.0 % . [facility] Neutrophils Auto (Bld) [#/Vo l]Ordered By: Abbi Mcbride on 07-08-2022 Neutrophils (Bld) [#/Vol] 3.8 10*3/uL 1.8-7.7 [facility] Neutrophils/100 WBC Auto (Bl d)Ordered By: Abbi Mcbride on 07-08-2022 Neutrophils/100 WBC (Bld) 83.1 % . [facility] No Panel InformationOrdered By: Abbi Mcbride on 07-08-2022 Estimated GFR (CKD-EPI) 56.685 mL/Min [facility] Creatinine Clearance (Chem 72.94 [facility] Nucleated erythrocytes [Pres ence] in Blood by Automated countOrdered By: Abbi Mcbride on 07-08-2022 Nucleated RBC Auto Ql (Bld) 0.0 /100{WBC} 0-0.5 [facility] Platelet mean volume Auto (B ld) [Entitic vol]Ordered By: Abbi Mcbride on 07-08-2022 Platelet mean volume (Bld) [Entitic vol] 7.5 fL 6.6-10.1 [facility] Platelets Auto (Bld) [#/Vol] Ordered By: Abbi Mcbride on 07-08-2022 Platelets (Bld) [#/Vol] 116 10*3/uL 150-450 [facility] Potassium [Moles/volume] in Serum or PlasmaOrdered By: Abbi Mcbride on 07-08-2022 Potassium [Moles/Vol] 3.8 mmol/L 3.5-5.1 [facility] Protein [Mass/volume] in Ser um or PlasmaOrdered By: Abbi Mcbride on 07-08-2022 Protein [Mass/Vol] 5.9 g/dL 6.4-8.9 [facility] RBC Auto (Bld) [#/Vol]Ordere d By: Abbi Mcbride on 07-08-2022 RBC (Bld) [#/Vol] 4.55 10*6/uL 3.90-5.60 [facility] Serum or plasma albumin/glob ulin mass ratioOrdered By: Abbi Mcbride on 07-08-2022 Albumin/Globulin [Mass ratio] 1.8 {ratio} [facility] Serum or plasma anion gap de terminationOrdered By: Abbi Mcbride on 07-08-2022 Anion gap [Moles/Vol] 9.0 mmol/L 6.0-15.0 [facility] Sodium [Moles/volume] in Ser um or PlasmaOrdered By: Abbi Mcbride on 07-08-2022 Sodium [Moles/Vol] 136 mmol/L 136-145 [facility] Urea nitrogen [Mass/volume] in Serum or PlasmaOrdered By: Abbi Mcbride on 07-08-2022 Urea nitrogen [Mass/Vol] 20 mg/dL 7-25 [facility] WBC Auto (Bld) [#/Vol]Ordere d By: Abbi Mcbride on 07-08-2022 WBC (Bld) [#/Vol] 4.5 10*3/uL 4.1-10.5 [facility] TESTOSTERONE, TOTALon 2022 Testosterone [Mass/Vol] 385 ng/dL Normal 264-916 [facility] Comment on above: Result Comment: Adul t male reference interval is based on a population of healthy nonobese males (BMI <30) between 19 and 39 years old. Mansoor et.al. JCEM 2017,102;0710-5079. PMID: [id number]. Performed By: #### T ESTTOT #### [facility] [address] biopsyOrdered By: Abbi Ohara se on 04-09-2022 Transferrin [Mass/Vol] 208 mg/dL 180-380 [facility] Ferritin [Mass/volume] in Se rum or PlasmaOrdered By: Abbi Mcbride on 04-09-2022 Ferritin [Mass/Vol] 143.7 ng/mL 23.9-336.2 [facility] Folate [Mass/volume] in Seru m or PlasmaOrdered By: Abbi Mcbride on 04-09-2022 Folate [Mass/Vol] 5.8 ng/mL >5.9 [facility] Comment on above: Folate reference ran ge: >5.9 ng/mlThe WHO technical consultation on folate and vitamin [id number] has determined that folate concentrations lessthan 4 ng/ml are considered deficient. Iron [Mass/volume] in Serum or PlasmaOrdered By: Abbi Mcbride on 04-09-2022 Iron [Mass/Vol] 51 ug/dL 40-160 [facility] Iron binding capacity [Mass/ volume] in Serum or PlasmaOrdered By: Abbi Mcbride on 04-09-2022 Iron binding capacity [Mass/Vol] 291 ug/dL 255-450 [facility] Iron saturation [Mass Fracti on] in Serum or PlasmaOrdered By: Abbi Mcbride on 04-09-2022 Iron saturation [Mass fraction] 17.5 % 20-50 [facility] - Chemistry and C hemistry - challengeOrdered By: Abbi Mcbride on 04-09-2022 Cobalamin (Vitamin B12) [Mass/Vol] 359 pg/mL 180-914 [facility] Albumin [Mass/volume] in Ser um or PlasmaOrdered By: Lillie Candelaria on 04-07-2022 Albumin [Mass/Vol] 3.7 g/dL 3.2-5.5 [facility] Basophils Auto (Bld) [#/Vol] Ordered By: Lillie Candelaria on 04-07-2022 Basophils (Bld) [#/Vol] 0.0 10*3/uL 0.0-0.2 [facility] Basophils/100 WBC Auto (Bld) Ordered By: Lillie Candelaria on 04-07-2022 Basophils/100 WBC (Bld) 1.2 % . [facility] Creatinine and Glomerular fi ltration rate.predicted panel (S/P/Bld)Ordered By: Lillie Candelaria on 04-07-2022 Creatinine [Mass/Vol] 1.19 mg/dL 0.64-1.27 [facility] Eosinophils Auto (Bld) [#/Vo l]Ordered By: Lillie Candelaria on 04-07-2022 Eosinophils (Bld) [#/Vol] 0.1 10*3/uL 0.0-0.45 [facility] Eosinophils/100 WBC Auto (Bl d)Ordered By: Lillie Candelaria on 04-07-2022 Eosinophils/100 WBC (Bld) 5.3 % . [facility] Erythrocyte distribution wid th Auto (RBC) [Ratio]Ordered By: Lillie Candelaria on 04-07-2022 Erythrocyte distribution width (RBC) [Ratio] 13.8 % 12.0-14.8 [facility] Erythrocyte sedimentation ra te by Photometric methodOrdered By: Lillie Candelaria on 04-07-2022 ESR Photometric method (Bld) [Velocity] 5 mm/hr 0-19 [facility] Estimated glomerular filtrat ion rate (GFR) non- AmericanOrdered By: Lillie Candelaria on 04-07-2022 GFR/1.73 sq M.predicted among non-blacks MDRD (S/P/Bld) [Vol rate/Area] > 60 mL/Min [facility] Globulin Calc (S) [Mass/Vol] Ordered By: Lillie Candelaria on 04-07-2022 Globulin (S) [Mass/Vol] 2.1 g/dL [facility] Glucose Glucometer (BldC) [M ass/Vol]Ordered By: Jane Oliverio on 04-07-2022 Glucose [Mass/Vol] 99 mg/dL [facility] Comment on above: Random Glucose Refer ence Range is dependent on time and content of last meal. Glucose of more than 200 mg/dL in a nonstressed, ambulatory subject supports the diagnosis of Diabetes Mellitus. Hematocrit Auto (Bld) [Volum e fraction]Ordered By: Lillie Candelaria on 04-07-2022 Hematocrit (Bld) [Volume fraction] 40.9 % 38.8-50.0 [facility] Hemoglobin [Mass/volume] in BloodOrdered By: Lillie Candelaria on 04-07-2022 Hemoglobin (Bld) [Mass/Vol] 13.7 g/dL 13.0-17.0 [facility] Lactate dehydrogenase measur ement (enzymatic activity/volume)Ordered By: Lillie Candelaria on 04-07-2022 LDH (Unsp spec) [Catalytic activity/Vol] 241 U/L 45-190 [facility] Leukocytes [#/volume] correc jaguar for nucleated erythrocytes in Blood by Automated counOrdered By: Lillie Candelaria on 04-07-2022 WBC corrected for nucl RBC Auto (Bld) [#/Vol] 2.6 10*3/uL 4.1-10.5 [facility] Lymphocytes Auto (Bld) [#/Vo l]Ordered By: Lillie Candelaria on 04-07-2022 Lymphocytes (Bld) [#/Vol] 0.7 10*3/uL 1.00-4.8 [facility] Lymphocytes/100 WBC Auto (Bl d)Ordered By: Lillie Candelaria on 04-07-2022 Lymphocytes/100 WBC (Bld) 25.5 % . [facility] MCH Auto (RBC) [Entitic mass ]Ordered By: Lillie Candelaria on 04-07-2022 MCH (RBC) [Entitic mass] 27.8 pg 27.5-35.2 [facility] MCHC Auto (RBC) [Mass/Vol]Or dered By: Lillie Candelaria on 04-07-2022 MCHC (RBC) [Mass/Vol] 33.6 g/dL 32.5-35.6 [facility] MCV Auto (RBC) [Entitic vol] Ordered By: Lillie Candelaria on 04-07-2022 MCV (RBC) [Entitic vol] 82.5 fL 83.5-101 [facility] Monocytes Auto (Bld) [#/Vol] Ordered By: Lillie Candelaria on 04-07-2022 Monocytes (Bld) [#/Vol] 0.2 10*3/uL 0.0-0.8 [facility] Monocytes/100 WBC Auto (Bld) Ordered By: Lillie Candelaria on 04-07-2022 Monocytes/100 WBC (Bld) 8.7 % . [facility] Neutrophils Auto (Bld) [#/Vo l]Ordered By: Lillie Candelaria on 04-07-2022 Neutrophils (Bld) [#/Vol] 1.5 10*3/uL 1.8-7.7 [facility] Neutrophils/100 WBC Auto (Bl d)Ordered By: Lillie Candelaria on 04-07-2022 Neutrophils/100 WBC (Bld) 59.3 % . [facility] No Panel InformationOrdered By: Lillie Candelaria on 04-07-2022 Estimated GFR () > 60 mL/Min [facility] Comment on above: GFR estimated refere nce range: According to KDOQI guidelines, <60 ml/min/1.73m2 is sufficient to diagnose a patient with chronic kidney disease. Pharmacy Creatinine Clearance (Chem 83.92 [facility] Nucleated erythrocytes [Pres ence] in Blood by Automated countOrdered By: Lillie Candelaria on 04-07-2022 Nucleated RBC Auto Ql (Bld) 0.2 /100{WBC} 0-0.5 [facility] Platelet mean volume Auto (B ld) [Entitic vol]Ordered By: Lillie Candelaria on 04-07-2022 Platelet mean volume (Bld) [Entitic vol] 7.2 fL 6.6-10.1 [facility] Platelets Auto (Bld) [#/Vol] Ordered By: Lillie Candelaria on 04-07-2022 Platelets (Bld) [#/Vol] 178 10*3/uL 150-450 [facility] Protein [Mass/volume] in Ser um or PlasmaOrdered By: Lillie Candelaria on 04-07-2022 Protein [Mass/Vol] 5.8 g/dL 6.1-7.9 [facility] RBC Auto (Bld) [#/Vol]Ordere d By: Lillie Candelaria on 04-07-2022 RBC (Bld) [#/Vol] 4.95 10*6/uL 3.90-5.60 [facility] Serum or plasma alanine hameed otransferase measurement without P-5'-P (enzymatic activiOrdered By: Lillie Candelaria on 04-07-2022 ALT No additional P-5'-P [Catalytic activity/Vol] 23 U/L 10-60 [facility] Serum or plasma albumin/glob ulin mass ratioOrdered By: Lillie Candelaria on 04-07-2022 Albumin/Globulin [Mass ratio] 1.8 {ratio} [facility] Serum or plasma alkaline mayela sphatase measurement (enzymatic activity/volume)Ordered By: Lillie Candelaria on 04-07-2022 ALP [Catalytic activity/Vol] 69 U/L 32-92 [facility] Serum or plasma anion gap de terminationOrdered By: Lillie Candelaria on 04-07-2022 Anion gap [Moles/Vol] 11.9 mmol/L 6.0-15.0 [facility] Serum or plasma aspartate am inotransferase measurement (enzymatic activity/volume)Ordered By: Lillie Candelaria on 04-07-2022 AST [Catalytic activity/Vol] 23 U/L 10-42 [facility] Serum or plasma calcium manish urement (mass/volume)Ordered By: Lillie Candelaria on 04-07-2022 Calcium [Mass/Vol] 8.9 mg/dL 8.2-10.2 [facility] Serum or plasma chloride gifty surement (moles/volume)Ordered By: Lillie Candelaria on 04-07-2022 Chloride [Moles/Vol] 108 mmol/L 95-114 [facility] Serum or plasma glucose manish urement (mass/volume)Ordered By: iLllie Candelaria on 04-07-2022 Glucose [Mass/Vol] 97 mg/dL 70-100 [facility] Comment on above: ADA recommended refe rence rangeRandom Glucose Reference Range is dependent on time and content of last meal. Glucose of more than 200 mg/dL in a nonstressed, ambulatory subject supports the diagnosis of Diabetes Mellitus. Serum or plasma potassium me asurement (moles/volume)Ordered By: Lillie Candelaria on 04-07-2022 Potassium [Moles/Vol] 4.6 mmol/L 3.5-5.1 [facility] Serum or plasma sodium measu rement (moles/volume)Ordered By: Lillie Candelaria on 04-07-2022 Sodium [Moles/Vol] 135 mmol/L 136-146 [facility] Serum or plasma total biliru bin measurement (mass/volume)Ordered By: Lillie Candelaria on 04-07-2022 Bilirubin [Mass/Vol] 1.1 mg/dL 0.3-1.2 [facility] Serum or plasma total carbon dioxide measurement (moles/volume)Ordered By: Lillie Candelaria on 04-07-2022 CO2 [Moles/Vol] 19.7 mmol/L 22.0-30.0 [facility] Serum or plasma urea nitroge n measurement (mass/volume)Ordered By: Lillie Candelaria on 04-07-2022 Urea nitrogen [Mass/Vol] 15 mg/dL 12-18 [facility] WBC Auto (Bld) [#/Vol]Ordere d By: Lillie Candelaria on 04-07-2022 WBC (Bld) [#/Vol] 2.6 10*3/uL 4.1-10.5 [facility] Anisocytosis LM Ql (Bld)Orde red By: Jane Duron on 01-20-2022 Anisocytosis Ql (Bld) Slight [facility] Laboratory - Hematology and Cell countsOrdered By: Jane Chaudharyboske on 01-20-2022 Nucleated RBC/100 WBC (Bld) [Ratio] 0.1 % 0-0.5 [facility] Ovalocyte detectionOrdered B y: Jane Chaudharysukumar on 01-20-2022 Ovalocytes LM Ql (Bld) Slight [facility] Platelet adequacy [Presence] in Blood by Light microscopyOrdered By: Jane Oliverio on 01-20-2022 Platelets LM Ql (Bld) Normal Normal [facility] Platelet morphology finding [Identifier] in BloodOrdered By: Jane Oliverio on 01-20-2022 Platelet morphology finding Nom (Bld) Normal Normal [facility] Poikilocytosis [Presence] in Blood by Light microscopyOrdered By: Jane Oliverio on 01-20-2022 Poikilocytosis LM Ql (Bld) Slight [facility] RBC morphologyOrdered By: Char Duron on 01-20-2022 RBC morphology finding Nom (Bld) N/A [facility] Teardrop cell detectionOrder ed By: Jane Oliverio on 01-20-2022 Dacrocytes LM Ql (Bld) Slight [facility] Albumin [Mass/volume] in Ser um or PlasmaOrdered By: Abbi Mcbride on 01-12-2022 Albumin [Mass/Vol] 3.5 g/dL 3.2-5.5 [facility] Anisocytosis LM Ql (Bld)Orde red By: Abbi Mcbride on 01-12-2022 Anisocytosis Ql (Bld) S [facility] Band form neutrophils/100 WB C Manual cnt (Bld)Ordered By: Abbi Mcrbide on 01-12-2022 Band form neutrophils/100 WBC (Bld) 11 % 0-5 [facility] Basophils Auto (Bld) [#/Vol] Ordered By: Abbi Mcbride on 01-12-2022 Basophils (Bld) [#/Vol] N/A [facility] Basophils/100 WBC Auto (Bld) Ordered By: Abbi Mcbride on 01-12-2022 Basophils/100 WBC (Bld) N/A [facility] Basophils/100 WBC Manual cnt (Bld)Ordered By: Abbi Mcbride on 01-12-2022 Basophils/100 WBC (Bld) 1 % 0-2 [facility] Creatinine and Glomerular fi ltration rate.predicted panel (S/P/Bld)Ordered By: Abbi Mcbride on 01-12-2022 Creatinine [Mass/Vol] 1.19 mg/dL 0.64-1.27 [facility] Eosinophils Auto (Bld) [#/Vo l]Ordered By: Abbi Mcbride on 01-12-2022 Eosinophils (Bld) [#/Vol] N/A [facility] Eosinophils/100 WBC Auto (Bl d)Ordered By: Abbi Mcbride on 01-12-2022 Eosinophils/100 WBC (Bld) N/A [facility] Eosinophils/100 WBC Manual c nt (Bld)Ordered By: Abbi Mcbride on 01-12-2022 Eosinophils/100 WBC (Bld) 2 % 1-3 [facility] Erythrocyte distribution wid th Auto (RBC) [Ratio]Ordered By: Abbi Mcbride on 01-12-2022 Erythrocyte distribution width (RBC) [Ratio] 16.5 % 12.0-14.8 [facility] Estimated glomerular filtrat ion rate (GFR) non- AmericanOrdered By: Abbi Mcbride on 01-12-2022 GFR/1.73 sq M.predicted among non-blacks MDRD (S/P/Bld) [Vol rate/Area] > 60 mL/Min [facility] Globulin Calc (S) [Mass/Vol] Ordered By: Abbi Mcbride on 01-12-2022 Globulin (S) [Mass/Vol] 2.2 g/dL [facility] Hematocrit Auto (Bld) [Volum e fraction]Ordered By: Abbi Mcbride on 01-12-2022 Hematocrit (Bld) [Volume fraction] 37.6 % 38.8-50.0 [facility] Hemoglobin [Mass/volume] in BloodOrdered By: Abbi Mcbride on 01-12-2022 Hemoglobin (Bld) [Mass/Vol] 12.6 g/dL 13.0-17.0 [facility] Laboratory - Hematology and Cell countsOrdered By: Abbi Mcbride on 01-12-2022 Nucleated RBC/100 WBC (Bld) [Ratio] 0.3 % 0-0.5 [facility] Leukocytes [#/volume] in Blo od by Automated countOrdered By: Abbi Mcbride on 01-12-2022 WBC (Bld) [#/Vol] 7.1 10*3/uL 4.5-11.0 [facility] Lymphocytes Auto (Bld) [#/Vo l]Ordered By: Abbi Mcbride on 01-12-2022 Lymphocytes (Bld) [#/Vol] N/A [facility] Lymphocytes/100 WBC Auto (Bl d)Ordered By: Abbi Mcbride on 01-12-2022 Lymphocytes/100 WBC (Bld) N/A [facility] Lymphocytes/100 WBC Manual c nt (Bld)Ordered By: Abbi Mcbride on 01-12-2022 Lymphocytes/100 WBC (Bld) 11 % 18-42 [facility] MCH Auto (RBC) [Entitic mass ]Ordered By: Abbi Mcbride on 01-12-2022 MCH (RBC) [Entitic mass] 29.5 pg 27.5-35.2 [facility] MCHC Auto (RBC) [Mass/Vol]Or dered By: Abbi Mcbride on 01-12-2022 MCHC (RBC) [Mass/Vol] 33.6 g/dL 32.5-35.6 [facility] MCV Auto (RBC) [Entitic vol] Ordered By: Abbi Mcbride on 01-12-2022 MCV (RBC) [Entitic vol] 87.8 fL 83.5-101 [facility] Monocytes Auto (Bld) [#/Vol] Ordered By: Abbi Mcbride on 01-12-2022 Monocytes (Bld) [#/Vol] N/A [facility] Monocytes/100 WBC Auto (Bld) Ordered By: Abbi Mcbride on 01-12-2022 Monocytes/100 WBC (Bld) N/A [facility] Monocytes/100 WBC Manual cnt (Bld)Ordered By: Abbi Mcbride on 01-12-2022 Monocytes/100 WBC (Bld) 3 % 2-11 [facility] Myelocytes/100 WBC Manual cn t (Bld)Ordered By: Abbi Mcbride on 01-12-2022 Myelocytes/100 WBC (Bld) 3 % 0-0 [facility] Neutrophils Auto (Bld) [#/Vo l]Ordered By: Abbi Mcbride on 01-12-2022 Neutrophils (Bld) [#/Vol] N/A [facility] Neutrophils/100 WBC Auto (Bl d)Ordered By: Abbi Mcbride on 01-12-2022 Neutrophils/100 WBC (Bld) N/A [facility] No Panel InformationOrdered By: Abbi Mcbride on 01-12-2022 Estimated GFR () > 60 mL/Min [facility] Comment on above: GFR estimated refere nce range: According to KDOQI guidelines, <60 ml/min/1.73m2 is sufficient to diagnose a patient with chronic kidney disease. Pharmacy Creatinine Clearance (Chem 83.66 [facility] Platelet adequacy [Presence] in Blood by Light microscopyOrdered By: Abbi Mcbride on 01-12-2022 Platelets LM Ql (Bld) Normal Normal [facility] Platelet mean volume Auto (B ld) [Entitic vol]Ordered By: Abbi Mcbride on 01-12-2022 Platelet mean volume (Bld) [Entitic vol] 7.2 fL 6.6-10.1 [facility] Platelet morphology finding [Identifier] in BloodOrdered By: Abbi Mcbride on 01-12-2022 Platelet morphology finding Nom (Bld) Normal Normal [facility] Platelets Auto (Bld) [#/Vol] Ordered By: Abbi Mcbride on 01-12-2022 Platelets (Bld) [#/Vol] 196 10*3/uL 150-450 [facility] Promyelocytes/100 WBC Manual cnt (Bld)Ordered By: Abbi Mcbride on 01-12-2022 Promyelocytes/100 WBC (Bld) 5 % 0-0 [facility] Protein [Mass/volume] in Ser um or PlasmaOrdered By: Abbi Mcbride on 01-12-2022 Protein [Mass/Vol] 5.7 g/dL 6.1-7.9 [facility] RBC Auto (Bld) [#/Vol]Ordere d By: Abbi Mcbride on 01-12-2022 RBC (Bld) [#/Vol] 4.28 10*6/uL 3.90-5.60 [facility] RBC morphologyOrdered By: Arron Mcbride on 01-12-2022 RBC morphology finding Nom (Bld) N/A [facility] Segmented neutrophils/100 WB C Manual cnt (Bld)Ordered By: Abbi Mcbride on 01-12-2022 Segmented neutrophils/100 WBC (Bld) 63 % 50-70 [facility] Serum or plasma alanine hameed otransferase measurement without P-5'-P (enzymatic activiOrdered By: Abbi Mcbride on 01-12-2022 ALT No additional P-5'-P [Catalytic activity/Vol] 25 U/L 10-60 [facility] Serum or plasma albumin/glob ulin mass ratioOrdered By: Abbi Mcbride on 01-12-2022 Albumin/Globulin [Mass ratio] 1.6 {ratio} [facility] Serum or plasma alkaline mayela sphatase measurement (enzymatic activity/volume)Ordered By: Abbi Mcbride on 01-12-2022 ALP [Catalytic activity/Vol] 68 U/L 32-92 [facility] Serum or plasma anion gap de terminationOrdered By: Abbi Mcbride on 01-12-2022 Anion gap [Moles/Vol] 9.9 mmol/L 6.0-15.0 [facility] Serum or plasma aspartate am inotransferase measurement (enzymatic activity/volume)Ordered By: Abbi Mcbride on 01-12-2022 AST [Catalytic activity/Vol] 19 U/L 10-42 [facility] Serum or plasma calcium manish urement (mass/volume)Ordered By: Abbi Mcbride on 01-12-2022 Calcium [Mass/Vol] 8.9 mg/dL 8.2-10.2 [facility] Serum or plasma chloride gifty surement (moles/volume)Ordered By: Abbi Mcbride on 01-12-2022 Chloride [Moles/Vol] 108 mmol/L 95-114 [facility] Serum or plasma glucose manish urement (mass/volume)Ordered By: Abbi Mcbride on 01-12-2022 Glucose [Mass/Vol] 79 mg/dL 70-100 [facility] Comment on above: ADA recommended refe rence rangeRandom Glucose Reference Range is dependent on time and content of last meal. Glucose of more than 200 mg/dL in a nonstressed, ambulatory subject supports the diagnosis of Diabetes Mellitus. Serum or plasma potassium me asurement (moles/volume)Ordered By: Abbi Mcbride on 01-12-2022 Potassium [Moles/Vol] 4.0 mmol/L 3.5-5.1 [facility] Serum or plasma sodium measu rement (moles/volume)Ordered By: Abbi Mcbride on 01-12-2022 Sodium [Moles/Vol] 138 mmol/L 136-146 [facility] Serum or plasma total biliru bin measurement (mass/volume)Ordered By: Abbi Mcbride on 01-12-2022 Bilirubin [Mass/Vol] 1.0 mg/dL 0.3-1.2 [facility] Serum or plasma total carbon dioxide measurement (moles/volume)Ordered By: Abbi Mcbride on 01-12-2022 CO2 [Moles/Vol] 24.1 mmol/L 22.0-30.0 [facility] Serum or plasma urea nitroge n measurement (mass/volume)Ordered By: Abbi Mcbride on 01-12-2022 Urea nitrogen [Mass/Vol] 18 mg/dL 9-23 [facility] Variant lymphocytes/100 WBC Manual cnt (Bld)Ordered By: Abbi Mcbride on 01-12-2022 Variant lymphocytes/100 WBC (Bld) 1 % 0-12 [facility] Glucose Glucometer (BldC) [M ass/Vol]Ordered By: Jane Duron on 01-01-2022 Glucose [Mass/Vol] 101 mg/dL [facility] Comment on above: Random Glucose Refer ence Range is dependent on time and content of last meal. Glucose of more than 200 mg/dL in a nonstressed, ambulatory subject supports the diagnosis of Diabetes Mellitus. CT biopsyOrdered By: Abbi Ohara se on 12-23-2021 Transferrin [Mass/Vol] 198 mg/dL 180-380 [facility] Ferritin [Mass/volume] in Se rum or PlasmaOrdered By: Abbi Mcbride on 12-23-2021 Ferritin [Mass/Vol] 260.0 ng/mL 23.9-336.2 [facility] Iron [Mass/volume] in Serum or PlasmaOrdered By: Abbi Mcbride on 12-23-2021 Iron [Mass/Vol] 50 ug/dL 40-160 [facility] Iron binding capacity [Mass/ volume] in Serum or PlasmaOrdered By: Abbi Mcbride on 12-23-2021 Iron binding capacity [Mass/Vol] 277 ug/dL 255-450 [facility] Iron saturation [Mass Fracti on] in Serum or PlasmaOrdered By: Abbi Mcbride on 12-23-2021 Iron saturation [Mass fraction] 18.0 % 20-50 [facility] Albumin [Mass/volume] in Ser um or PlasmaOrdered By: Abbi Mcbride on 12-22-2021 Albumin [Mass/Vol] 3.1 g/dL 3.2-5.5 [facility] Basophils Auto (Bld) [#/Vol] Ordered By: Abbi Mcbride on 12-22-2021 Basophils (Bld) [#/Vol] N/A [facility] Basophils/100 WBC Auto (Bld) Ordered By: Abbi Mcbride on 12-22-2021 Basophils/100 WBC (Bld) N/A [facility] Basophils/100 WBC (Bld) 1 % 0-2 [facility] Blood anisocytosis detection Ordered By: Abbi Mcbride on 12-22-2021 Anisocytosis Ql (Bld) Slight [facility] Creatinine and Glomerular fi ltration rate.predicted panel (S/P/Bld)Ordered By: Abbi Mcbride on 12-22-2021 Creatinine [Mass/Vol] 1.16 mg/dL 0.64-1.27 [facility] Eosinophils Auto (Bld) [#/Vo l]Ordered By: Abbi Mcbride on 12-22-2021 Eosinophils (Bld) [#/Vol] N/A [facility] Eosinophils/100 WBC Auto (Bl d)Ordered By: Abbi Mcbride on 12-22-2021 Eosinophils/100 WBC (Bld) N/A [facility] Erythrocyte distribution wid th Auto (RBC) [Ratio]Ordered By: Abbi Mcbride on 12-22-2021 Erythrocyte distribution width (RBC) [Ratio] 16.9 % 12.0-14.8 [facility] Estimated glomerular filtrat ion rate (GFR) non- AmericanOrdered By: Abbi Mcbride on 12-22-2021 GFR/1.73 sq M.predicted among non-blacks MDRD (S/P/Bld) [Vol rate/Area] > 60 mL/Min [facility] Globulin Calc (S) [Mass/Vol] Ordered By: Abbi Mcbride on 12-22-2021 Globulin (S) [Mass/Vol] 2.3 g/dL [facility] Hematocrit Auto (Bld) [Volum e fraction]Ordered By: Abbi Mcbride on 12-22-2021 Hematocrit (Bld) [Volume fraction] 36.9 % 38.8-50.0 [facility] Hemoglobin [Mass/volume] in BloodOrdered By: Abbi Mcbride on 12-22-2021 Hemoglobin (Bld) [Mass/Vol] 12.3 g/dL 13.0-17.0 [facility] Laboratory - Hematology and Cell countsOrdered By: Abbi Mcbride on 12-22-2021 Band form neutrophils/100 WBC (Bld) 8 % 0-5 [facility] Nucleated RBC/100 WBC (Bld) [Ratio] 0.2 % 0-0.5 [facility] Leukocytes [#/volume] in Blo od by Automated countOrdered By: Abbi Mcbride on 12-22-2021 WBC (Bld) [#/Vol] 9.9 10*3/uL 4.5-11.0 [facility] Lymphocytes Auto (Bld) [#/Vo l]Ordered By: Abbi Mcbride on 12-22-2021 Lymphocytes (Bld) [#/Vol] N/A [facility] Lymphocytes/100 WBC Auto (Bl d)Ordered By: Abbi Mcbride on 12-22-2021 Lymphocytes/100 WBC (Bld) N/A [facility] Lymphocytes/100 WBC (Bld) 5 % 18-42 [facility] Lymphocytes/100 WBC Manual c nt (Bld)Ordered By: Abbi Mcbride on 12-22-2021 Lymphocytes/100 WBC (Bld) 1 % 0-12 [facility] MCH Auto (RBC) [Entitic mass ]Ordered By: Abbi Mcbride on 12-22-2021 MCH (RBC) [Entitic mass] 29.4 pg 27.5-35.2 [facility] MCHC Auto (RBC) [Mass/Vol]Or dered By: Abbi Mcbride on 12-22-2021 MCHC (RBC) [Mass/Vol] 33.4 g/dL 32.5-35.6 [facility] MCV Auto (RBC) [Entitic vol] Ordered By: Abbi Mcbride on 12-22-2021 MCV (RBC) [Entitic vol] 88.1 fL 83.5-101 [facility] Metamyelocytes/100 WBC Manua l cnt (Bld)Ordered By: Abbi Mcbride on 12-22-2021 Metamyelocytes/100 WBC (Bld) 2 % 0-0 [facility] Monocyte %Ordered By: Abbi norwood on 12-22-2021 Monocytes/100 WBC (Bld) 1 % 1-3 [facility] Monocytes Auto (Bld) [#/Vol] Ordered By: Abbi Mcbride on 12-22-2021 Monocytes (Bld) [#/Vol] N/A [facility] Monocytes/100 WBC Auto (Bld) Ordered By: Abbi Mcbride on 12-22-2021 Monocytes/100 WBC (Bld) N/A [facility] Monocytes/100 WBC Manual cnt (Bld)Ordered By: Abbi Mcbride on 12-22-2021 Monocytes/100 WBC (Bld) 2 % 2-11 [facility] Myelocytes/100 WBC Manual cn t (Bld)Ordered By: Abbi Mcbride on 12-22-2021 Myelocytes/100 WBC (Bld) 5 % 0-0 [facility] Neutrophils Auto (Bld) [#/Vo l]Ordered By: Abbi Mcbride on 12-22-2021 Neutrophils (Bld) [#/Vol] N/A [facility] Neutrophils/100 WBC Auto (Bl d)Ordered By: Abbi Mcbride on 12-22-2021 Neutrophils/100 WBC (Bld) N/A [facility] No Panel InformationOrdered By: Abbi Mcbride on 12-22-2021 Estimated GFR () > 60 mL/Min [facility] Comment on above: GFR estimated refere nce range: According to KDOQI guidelines, <60 ml/min/1.73m2 is sufficient to diagnose a patient with chronic kidney disease. Large Platelets Slight [facility] Microcytosis Slight [facility] Pharmacy Creatinine Clearance (Chem 84.56 [facility] Platelet Estimate Normal Normal [facility] Platelet Morphology Comment N/A [facility] Platelet mean volume Auto (B ld) [Entitic vol]Ordered By: Abbi Mcbride on 12-22-2021 Platelet mean volume (Bld) [Entitic vol] 6.9 fL 6.6-10.1 [facility] Platelets Auto (Bld) [#/Vol] Ordered By: Abbi Mcbride on 12-22-2021 Platelets (Bld) [#/Vol] 187 10*3/uL 150-450 [facility] Promyelocytes/100 WBC Manual cnt (Bld)Ordered By: Abbi Mcbride on 12-22-2021 Promyelocytes/100 WBC (Bld) 1 % 0-0 [facility] Protein [Mass/volume] in Ser um or PlasmaOrdered By: Abbi Mcbride on 12-22-2021 Protein [Mass/Vol] 5.4 g/dL 6.1-7.9 [facility] RBC Auto (Bld) [#/Vol]Ordere d By: Abbi Mcbride on 12-22-2021 RBC (Bld) [#/Vol] 4.19 10*6/uL 3.90-5.60 [facility] RBC morphologyOrdered By: Arron Mcbride on 12-22-2021 RBC morphology finding Nom (Bld) N/A [facility] Segmented neutrophils/100 WB C Manual cnt (Bld)Ordered By: Abbi Mcbride on 12-22-2021 Segmented neutrophils/100 WBC (Bld) 74 % 50-70 [facility] Serum or plasma alanine hameed otransferase measurement without P-5'-P (enzymatic activiOrdered By: Abbi Mcbride on 12-22-2021 ALT No additional P-5'-P [Catalytic activity/Vol] 27 U/L 10-60 [facility] Serum or plasma albumin/glob ulin mass ratioOrdered By: Abbi Mcbride on 12-22-2021 Albumin/Globulin [Mass ratio] 1.3 {ratio} [facility] Serum or plasma alkaline mayela sphatase measurement (enzymatic activity/volume)Ordered By: Abbi Mcbride on 12-22-2021 ALP [Catalytic activity/Vol] 74 U/L 32-92 [facility] Serum or plasma anion gap de terminationOrdered By: Abbi Mcbride on 12-22-2021 Anion gap [Moles/Vol] 11.9 mmol/L 6.0-15.0 [facility] Serum or plasma aspartate am inotransferase measurement (enzymatic activity/volume)Ordered By: Abbi Mcbride on 12-22-2021 AST [Catalytic activity/Vol] 18 U/L 10-42 [facility] Serum or plasma calcium manish urement (mass/volume)Ordered By: Abbi Mcbride on 12-22-2021 Calcium [Mass/Vol] 8.8 mg/dL 8.2-10.2 [facility] Serum or plasma chloride gifty surement (moles/volume)Ordered By: Abbi Mcbride on 12-22-2021 Chloride [Moles/Vol] 107 mmol/L 95-114 [facility] Serum or plasma glucose manish urement (mass/volume)Ordered By: Abbi Mcbride on 12-22-2021 Glucose [Mass/Vol] 127 mg/dL 70-100 [facility] Comment on above: ADA recommended refe rence rangeRandom Glucose Reference Range is dependent on time and content of last meal. Glucose of more than 200 mg/dL in a nonstressed, ambulatory subject supports the diagnosis of Diabetes Mellitus. Serum or plasma potassium me asurement (moles/volume)Ordered By: Abbi Mcbride on 12-22-2021 Potassium [Moles/Vol] 3.9 mmol/L 3.5-5.1 [facility] Serum or plasma sodium measu rement (moles/volume)Ordered By: Abbi Mcbride on 12-22-2021 Sodium [Moles/Vol] 139 mmol/L 136-146 [facility] Serum or plasma total biliru bin measurement (mass/volume)Ordered By: Abbi Mcbride on 12-22-2021 Bilirubin [Mass/Vol] 0.7 mg/dL 0.3-1.2 [facility] Serum or plasma total carbon dioxide measurement (moles/volume)Ordered By: Abbi Mcbride on 12-22-2021 CO2 [Moles/Vol] 24.0 mmol/L 22.0-30.0 [facility] Serum or plasma urea nitroge n measurement (mass/volume)Ordered By: Abbi Mcbride on 12-22-2021 Urea nitrogen [Mass/Vol] 17 mg/dL 12-18 [facility] Albumin [Mass/volume] in Ser um or PlasmaOrdered By: Jane Oliverio on 12-08-2021 Albumin [Mass/Vol] 3.1 g/dL 3.2-5.5 [facility] Basophils Auto (Bld) [#/Vol] Ordered By: Jane Duron on 12-08-2021 Basophils (Bld) [#/Vol] 0.0 10*3/uL 0.0-0.2 [facility] Basophils/100 WBC Auto (Bld) Ordered By: Jane Duron on 12-08-2021 Basophils/100 WBC (Bld) 0.2 % . [facility] Blood anisocytosis detection Ordered By: Jane Duron on 12-08-2021 Anisocytosis Ql (Bld) Slight [facility] Blood hemoglobin measurement (mass/volume)Ordered By: Jane Duron on 12-08-2021 Hemoglobin (Bld) [Mass/Vol] 12.2 g/dL 13.0-17.0 [facility] Blood leukocytes automated c ount (number/volume)Ordered By: Jane Duron on 12-08-2021 WBC (Bld) [#/Vol] 12.9 10*3/uL 4.5-11.0 [facility] Creatinine and Glomerular fi ltration rate.predicted panel (S/P/Bld)Ordered By: Jane Duron on 12-08-2021 Creatinine [Mass/Vol] 1.00 mg/dL 0.64-1.27 [facility] Eosinophils Auto (Bld) [#/Vo l]Ordered By: Jane Duron on 12-08-2021 Eosinophils (Bld) [#/Vol] 0.1 10*3/uL 0.0-0.45 [facility] Eosinophils/100 WBC Auto (Bl d)Ordered By: Jane Duron on 12-08-2021 Eosinophils/100 WBC (Bld) 0.6 % . [facility] Erythrocyte distribution wid th Auto (RBC) [Ratio]Ordered By: Jane Duron on 12-08-2021 Erythrocyte distribution width (RBC) [Ratio] 17.2 % 12.0-14.8 [facility] Estimated glomerular filtrat ion rate (GFR) non- AmericanOrdered By: Jane Duron on 12-08-2021 GFR/1.73 sq M.predicted among non-blacks MDRD (S/P/Bld) [Vol rate/Area] > 60 mL/Min [facility] Globulin Calc (S) [Mass/Vol] Ordered By: Jane Duron on 12-08-2021 Globulin (S) [Mass/Vol] 2.4 g/dL [facility] Hematocrit Auto (Bld) [Volum e fraction]Ordered By: Jane Duron on 12-08-2021 Hematocrit (Bld) [Volume fraction] 37.0 % 38.8-50.0 [facility] Laboratory - Hematology and Cell countsOrdered By: Jane Duron on 12-08-2021 Nucleated RBC/100 WBC (Bld) [Ratio] 0.1 % 0-0.5 [facility] Lymphocytes Auto (Bld) [#/Vo l]Ordered By: Jane Duron on 12-08-2021 Lymphocytes (Bld) [#/Vol] 0.6 10*3/uL 1.00-4.8 [facility] Lymphocytes/100 WBC Auto (Bl d)Ordered By: Jane Duron on 12-08-2021 Lymphocytes/100 WBC (Bld) 4.7 % . [facility] MCH Auto (RBC) [Entitic mass ]Ordered By: Jane Duron on 12-08-2021 MCH (RBC) [Entitic mass] 28.9 pg 27.5-35.2 [facility] MCHC Auto (RBC) [Mass/Vol]Or dered By: Jane Duron on 12-08-2021 MCHC (RBC) [Mass/Vol] 33.1 g/dL 32.5-35.6 [facility] MCV Auto (RBC) [Entitic vol] Ordered By: Jane Duron on 12-08-2021 MCV (RBC) [Entitic vol] 87.3 fL 83.5-101 [facility] Monocytes Auto (Bld) [#/Vol] Ordered By: Jane Duron on 12-08-2021 Monocytes (Bld) [#/Vol] 0.3 10*3/uL 0.0-0.8 [facility] Monocytes/100 WBC Auto (Bld) Ordered By: Jane Duron on 12-08-2021 Monocytes/100 WBC (Bld) 2.2 % . [facility] Neutrophils Auto (Bld) [#/Vo l]Ordered By: Jane Duron on 12-08-2021 Neutrophils (Bld) [#/Vol] 11.9 10*3/uL 1.8-7.7 [facility] Neutrophils/100 WBC Auto (Bl d)Ordered By: Jane Duron on 12-08-2021 Neutrophils/100 WBC (Bld) 92.3 % . [facility] No Panel InformationOrdered By: Jane Duron on 12-08-2021 Dohle Bodies Slight [facility] Estimated GFR () > 60 mL/Min [facility] Comment on above: GFR estimated refere nce range: According to KDOQI guidelines, <60 ml/min/1.73m2 is sufficient to diagnose a patient with chronic kidney disease. Pharmacy Creatinine Clearance (Chem 98.18 [facility] Platelet Estimate Normal Normal [facility] Platelet Morphology Comment Normal Normal [facility] Platelet mean volume Auto (B ld) [Entitic vol]Ordered By: Jane Duron on 12-08-2021 Platelet mean volume (Bld) [Entitic vol] 7.0 fL 6.6-10.1 [facility] Platelets Auto (Bld) [#/Vol] Ordered By: Jane Duron on 12-08-2021 Platelets (Bld) [#/Vol] 191 10*3/uL 150-450 [facility] Protein [Mass/volume] in Ser um or PlasmaOrdered By: Jane Duron on 12-08-2021 Protein [Mass/Vol] 5.5 g/dL 6.1-7.9 [facility] RBC Auto (Bld) [#/Vol]Ordere d By: Jane Duron on 12-08-2021 RBC (Bld) [#/Vol] 4.23 10*6/uL 3.90-5.60 [facility] RBC morphologyOrdered By: Char bazzi Oliverio on 12-08-2021 RBC morphology finding Nom (Bld) N/A [facility] Serum or plasma alanine hameed otransferase measurement without P-5'-P (enzymatic activiOrdered By: Jane Oliverio on 12-08-2021 ALT No additional P-5'-P [Catalytic activity/Vol] 20 U/L 10-60 [facility] Serum or plasma albumin/glob ulin mass ratioOrdered By: Jane Duron on 12-08-2021 Albumin/Globulin [Mass ratio] 1.3 {ratio} [facility] Serum or plasma alkaline mayela sphatase measurement (enzymatic activity/volume)Ordered By: Jane Duron on 12-08-2021 ALP [Catalytic activity/Vol] 127 U/L 32-92 [facility] Serum or plasma anion gap de terminationOrdered By: Jane Duron on 12-08-2021 Anion gap [Moles/Vol] 11.8 mmol/L 6.0-15.0 [facility] Serum or plasma aspartate am inotransferase measurement (enzymatic activity/volume)Ordered By: Jane Duron on 12-08-2021 AST [Catalytic activity/Vol] 15 U/L 10-42 [facility] Serum or plasma calcium manish urement (mass/volume)Ordered By: Jane Duron on 12-08-2021 Calcium [Mass/Vol] 8.9 mg/dL 8.2-10.2 [facility] Serum or plasma chloride gifty surement (moles/volume)Ordered By: Jane Duron on 12-08-2021 Chloride [Moles/Vol] 106 mmol/L 95-114 [facility] Serum or plasma glucose manish urement (mass/volume)Ordered By: Jane Duron on 12-08-2021 Glucose [Mass/Vol] 118 mg/dL 70-100 [facility] Comment on above: ADA recommended refe rence range Random Glucose Reference Range is dependent on time and content of last meal. Glucose of more than 200 mg/dL in a nonstressed, ambulatory subject supports the diagnosis of Diabetes Mellitus. Serum or plasma potassium me asurement (moles/volume)Ordered By: Jane Duron on 12-08-2021 Potassium [Moles/Vol] 3.8 mmol/L 3.5-5.1 [facility] Serum or plasma sodium measu rement (moles/volume)Ordered By: Jane Duron on 12-08-2021 Sodium [Moles/Vol] 138 mmol/L 136-146 [facility] Serum or plasma total biliru bin measurement (mass/volume)Ordered By: Jane Duron on 12-08-2021 Bilirubin [Mass/Vol] 0.7 mg/dL 0.3-1.2 [facility] Serum or plasma total carbon dioxide measurement (moles/volume)Ordered By: Jane Duron on 12-08-2021 CO2 [Moles/Vol] 24.0 mmol/L 22.0-30.0 [facility] Serum or plasma urea nitroge n measurement (mass/volume)Ordered By: Jane Duron on 12-08-2021 Urea nitrogen [Mass/Vol] 17 mg/dL 12-18 [facility] Albumin [Mass/volume] in Ser um or PlasmaOrdered By: Abbi Mcbride on 11-17-2021 Albumin [Mass/Vol] 3.3 g/dL 3.2-5.5 [facility] Basophils Auto (Bld) [#/Vol] Ordered By: Abbi Mcbride on 11-17-2021 Basophils (Bld) [#/Vol] 0.1 10*3/uL 0.0-0.2 [facility] Basophils/100 WBC Auto (Bld) Ordered By: Abbi Mcbride on 11-17-2021 Basophils/100 WBC (Bld) 0.6 % . [facility] Blood anisocytosis detection Ordered By: Abbi Mcbride on 11-17-2021 Anisocytosis Ql (Bld) Slight [facility] Blood hemoglobin measurement (mass/volume)Ordered By: Abbi Mcbride on 11-17-2021 Hemoglobin (Bld) [Mass/Vol] 11.8 g/dL 13.0-17.0 [facility] Blood leukocytes automated c ount (number/volume)Ordered By: Abbi Mcbride on 11-17-2021 WBC (Bld) [#/Vol] 11.0 10*3/uL 4.5-11.0 [facility] Creatinine and Glomerular fi ltration rate.predicted panel (S/P/Bld)Ordered By: Abbi Mcbride on 11-17-2021 Creatinine [Mass/Vol] 1.01 mg/dL 0.64-1.27 [facility] Eosinophils Auto (Bld) [#/Vo l]Ordered By: Abbi Mcbride on 11-17-2021 Eosinophils (Bld) [#/Vol] 0.1 10*3/uL 0.0-0.45 [facility] Eosinophils/100 WBC Auto (Bl d)Ordered By: Abbi Mcbride on 11-17-2021 Eosinophils/100 WBC (Bld) 0.9 % . [facility] Erythrocyte distribution wid th Auto (RBC) [Ratio]Ordered By: Abbi Mcbride on 11-17-2021 Erythrocyte distribution width (RBC) [Ratio] 17.1 % 12.0-14.8 [facility] Estimated glomerular filtrat ion rate (GFR) non- AmericanOrdered By: Abbi Mcbride on 11-17-2021 GFR/1.73 sq M.predicted among non-blacks MDRD (S/P/Bld) [Vol rate/Area] > 60 mL/Min [facility] Globulin Calc (S) [Mass/Vol] Ordered By: Abbi Mcbride on 11-17-2021 Globulin (S) [Mass/Vol] 2.0 g/dL [facility] Hematocrit Auto (Bld) [Volum e fraction]Ordered By: Abbi Mcbride on 11-17-2021 Hematocrit (Bld) [Volume fraction] 35.6 % 38.8-50.0 [facility] Laboratory - Hematology and Cell countsOrdered By: Abbi Mcbride on 11-17-2021 Nucleated RBC/100 WBC (Bld) [Ratio] 0.1 % 0-0.5 [facility] Lymphocytes Auto (Bld) [#/Vo l]Ordered By: Abbi Mcbride on 11-17-2021 Lymphocytes (Bld) [#/Vol] 0.8 10*3/uL 1.00-4.8 [facility] Lymphocytes/100 WBC Auto (Bl d)Ordered By: Abbi Mcbride on 11-17-2021 Lymphocytes/100 WBC (Bld) 7.2 % . [facility] MCH Auto (RBC) [Entitic mass ]Ordered By: Abbi Mcbride on 11-17-2021 MCH (RBC) [Entitic mass] 28.3 pg 27.5-35.2 [facility] MCHC Auto (RBC) [Mass/Vol]Or dered By: Abbi Mcbride on 11-17-2021 MCHC (RBC) [Mass/Vol] 33.1 g/dL 32.5-35.6 [facility] MCV Auto (RBC) [Entitic vol] Ordered By: Abbi Mcbride on 11-17-2021 MCV (RBC) [Entitic vol] 85.6 fL 83.5-101 [facility] Monocytes Auto (Bld) [#/Vol] Ordered By: Abbi Mcbride on 11-17-2021 Monocytes (Bld) [#/Vol] 0.4 10*3/uL 0.0-0.8 [facility] Monocytes/100 WBC Auto (Bld) Ordered By: Abbi Mcbride on 11-17-2021 Monocytes/100 WBC (Bld) 3.2 % . [facility] Neutrophils Auto (Bld) [#/Vo l]Ordered By: Abbi Mcbride on 11-17-2021 Neutrophils (Bld) [#/Vol] 9.7 10*3/uL 1.8-7.7 [facility] Neutrophils/100 WBC Auto (Bl d)Ordered By: Abbi Mcbride on 11-17-2021 Neutrophils/100 WBC (Bld) 88.1 % . [facility] No Panel InformationOrdered By: Abbi Mcbride on 11-17-2021 Estimated GFR () > 60 mL/Min [facility] Comment on above: GFR estimated refere nce range: According to KDOQI guidelines, <60 ml/min/1.73m2 is sufficient to diagnose a patient with chronic kidney disease. Large Platelets Moderate [facility] Pharmacy Creatinine Clearance (Chem 97.04 [facility] Platelet Estimate Normal Normal [facility] Platelet Morphology Comment N/A [facility] Poikilocytosis Slight [facility] Platelet mean volume Auto (B ld) [Entitic vol]Ordered By: Abbi Mcbride on 11-17-2021 Platelet mean volume (Bld) [Entitic vol] 6.8 fL 6.6-10.1 [facility] Platelets Auto (Bld) [#/Vol] Ordered By: Abbi Mcbride on 11-17-2021 Platelets (Bld) [#/Vol] 245 10*3/uL 150-450 [facility] Protein [Mass/volume] in Ser um or PlasmaOrdered By: Abbi Mcbride on 11-17-2021 Protein [Mass/Vol] 5.3 g/dL 6.1-7.9 [facility] RBC Auto (Bld) [#/Vol]Ordere d By: Abbi Mcbride on 11-17-2021 RBC (Bld) [#/Vol] 4.16 10*6/uL 3.90-5.60 [facility] RBC morphologyOrdered By: Arron Mcbride on 11-17-2021 RBC morphology finding Nom (Bld) N/A [facility] Serum or plasma alanine hameed otransferase measurement without P-5'-P (enzymatic activiOrdered By: Abbi Mcbride on 11-17-2021 ALT No additional P-5'-P [Catalytic activity/Vol] 18 U/L 10-60 [facility] Serum or plasma albumin/glob ulin mass ratioOrdered By: Abbi Mcbride on 11-17-2021 Albumin/Globulin [Mass ratio] 1.7 {ratio} [facility] Serum or plasma alkaline mayela sphatase measurement (enzymatic activity/volume)Ordered By: Abbi Mcbride on 11-17-2021 ALP [Catalytic activity/Vol] 121 U/L 32-92 [facility] Serum or plasma aspartate am inotransferase measurement (enzymatic activity/volume)Ordered By: Abbi Mcbride on 11-17-2021 AST [Catalytic activity/Vol] 16 U/L 10-42 [facility] Serum or plasma calcium manish urement (mass/volume)Ordered By: Abbi Mcbride on 11-17-2021 Calcium [Mass/Vol] 8.6 mg/dL 8.2-10.2 [facility] Serum or plasma chloride gifty surement (moles/volume)Ordered By: Abbi Mcbride on 11-17-2021 Chloride [Moles/Vol] 108 mmol/L 95-114 [facility] Serum or plasma glucose manish urement (mass/volume)Ordered By: Abbi Mcbride on 11-17-2021 Glucose [Mass/Vol] 112 mg/dL 70-100 [facility] Comment on above: ADA recommended refe rence range Random Glucose Reference Range is dependent on time and content of last meal. Glucose of more than 200 mg/dL in a nonstressed, ambulatory subject supports the diagnosis of Diabetes Mellitus. Serum or plasma potassium me asurement (moles/volume)Ordered By: Abbi Mcbride on 11-17-2021 Potassium [Moles/Vol] 3.6 mmol/L 3.5-5.1 [facility] Serum or plasma sodium measu rement (moles/volume)Ordered By: Abbi Mcbride on 11-17-2021 Sodium [Moles/Vol] 139 mmol/L 136-146 [facility] Serum or plasma total biliru bin measurement (mass/volume)Ordered By: Abbi Mcbride on 11-17-2021 Bilirubin [Mass/Vol] 0.6 mg/dL 0.3-1.2 [facility] Serum or plasma total carbon dioxide measurement (moles/volume)Ordered By: Abbi Mcbride on 11-17-2021 CO2 [Moles/Vol] 25.6 mmol/L 22.0-30.0 [facility] Serum or plasma urea nitroge n measurement (mass/volume)Ordered By: Abbi Mcbride on 11-17-2021 Urea nitrogen [Mass/Vol] 14 mg/dL - [facility] Lymphocytes/100 WBC Auto (Bl d)Ordered By: Abbi Mcbride on 11-10-2021 Lymphocytes/100 WBC (Bld) 16 % 18-42 [facility] Metamyelocytes/100 WBC Manua l cnt (Bld)Ordered By: Abbi Mcbride on 11-10-2021 Metamyelocytes/100 WBC (Bld) 2 % 0-0 [facility] Monocytes/100 WBC Manual cnt (Bld)Ordered By: Abbi Mcbride on 11-10-2021 Monocytes/100 WBC (Bld) 4 % 2-11 [facility] Myelocytes/100 WBC Manual cn t (Bld)Ordered By: Abbi Reed on 11-10-2021 Myelocytes/100 WBC (Bld) 4 % 0-0 [facility] No Panel InformationOrdered By: Abbi Mcbride on 11-10-2021 Rouleau Slight [facility] Segmented neutrophils/100 WB C Manual cnt (Bld)Ordered By: Abbi Mcbride on 11-10-2021 Segmented neutrophils/100 WBC (Bld) 74 % 50-70 [facility] COVID-19 Positive/NegativeOr dered By: Fam Duncan on 11-03-2021 SARS-CoV-2 (COVID-19) N gene TETE+probe Ql (Resp) Negative Negative [facility] Comment on above: Testing for SARS-CoV -2 by RT-PCR This test was developed and its performance characteristics determined by [employer] and validated at the [facility]. This test has not been FDA cleared or approved. This test has been authorized by FDA under an Emergency Use Authorization (EUA). This test has been validated in accordance with the FDA's Guidance Document (Policy for Diagnostics Testing in Laboratories Certified to Perform High Complexity Testing under CLIA prior to Emergency Use Authorization for Coronavirus Disease-2019 during the Public Health Emergency) issued on June 28, 2019. This test is only authorized for the duration of time the declaration that circumstances exist justifying the authorization of the emergency use of in vitro diagnostic tests for detection of SARS-CoV-2 virus and/or diagnosis of COVID-19 infection under section 564(b)(1) of the Act, 21 U.S.C. 360bbb-3(b)(1), unless the authorization is terminated or revoked sooner. Testing for SARS-CoV -2 by RT-PCRThis test was developed and its performance characteristics determined by [employer] and validated at the [facility]. This test has not been FDA cleared or approved. This test has been authorized by FDA under an Emergency Use Authorization (EUA). This test has been validated in accordance with the FDA's Guidance Document (Policy for Diagnostics Testing in Laboratories Certified to Perform High Complexity Testing under CLIA prior to Emergency Use Authorization for Coronavirus Disease-2019 during the Public Health Emergency) issued on June 28, 2019. This test is only authorized for the duration of time the declaration that circumstances exist justifying the authorization of the emergency use of in vitro diagnostic tests for detection of SARS-CoV-2 virus and/or diagnosis of COVID-19 infection under section 564(b)(1) of the Act, 21 U.S.C. 360bbb-3(b)(1), unless the authorization is terminated or revoked sooner. Blood polychromasia detectio n by light microscopyOrdered By: Abbi Mcbride on 10-28-2021 Polychromasia LM Ql (Bld) Slight [facility] Toxic leukocyte granulation detectionOrdered By: bAbi Mcbride on 10-28-2021 Toxic granules LM Ql (Bld) Moderate [facility] Laboratory - Hematology and Cell countsOrdered By: Abbi Mcbride on 10-21-2021 Band form neutrophils/100 WBC (Bld) 5 % 0-5 [facility] Lymphocytes/100 WBC Manual c nt (Bld)Ordered By: Abbi Mcbride on 10-21-2021 Lymphocytes/100 WBC (Bld) 3 % 0-12 [facility] Glucose Glucometer (dC) [M ass/Vol]Ordered By: Jane Duron on 10-14-2021 Glucose [Mass/Vol] 78 mg/dL [facility] Comment on above: Random Glucose Refer ence Range is dependent on time and content of last meal. Glucose of more than 200 mg/dL in a nonstressed, ambulatory subject supports the diagnosis of Diabetes Mellitus. Lactate dehydrogenase measur ement (enzymatic activity/volume)Ordered By: Jane Duron on 10-09-2021 LDH (Unsp spec) [Catalytic activity/Vol] 547 U/L 45-190 [facility] Phosphate [Mass/volume] in S priyank or PlasmaOrdered By: Jane Duron on 10-09-2021 Phosphate [Mass/Vol] 3.0 mg/dL 2.5-4.6 [facility] Serum or plasma uric acid me asurement (mass/volume)Ordered By: Jane Duron on 10-09-2021 Urate [Mass/Vol] 3.9 mg/dL 2.6-7.2 [facility] TESTOSTERONE, TOTALon 2021 Testosterone [Mass/Vol] 693 ng/dL Normal 264-916 [facility] Comment on above: Result Comment: Adul t male reference interval is based on a population of healthy nonobese males (BMI <30) between 19 and 39 years old. Mansoor, et.al. JCEM 2017,102;2145-6047. PMID: [id number]. Performed By: #### T ESTTOT #### [facility] [address] [address] [address] Sylvia Antunez XR KUB 1 VIEWon 10-05-2021 XR KUB 1 VIEW EXAMINATION: XR KUB 1 VIEW HISTORY: Kidney stone COMPARISON: 09/17/2021 FINDINGS: KIDNEY/URETER - RIGHT: No visible renal or ureteral calcifications. KIDNEY/URETER - LEFT: 5 mm nephrolith PELVIS: No visible ureteral calcifications. Any visible calcifications favor phleboliths. BOWEL: No abnormal dilation or deviation. BONES: Mild spondylosis of the spine. Bilateral hip osteoarthropathy. OTHER: Surgical anchors from prior hernia repair IMPRESSION: Left nephrolith Electronically authenticated by: VENKATESH CHAPMAN Date: 2021-10-05 07:05 Normal [facility] Albumin [Mass/volume] in Ser um or PlasmaOrdered By: Jeffery Arthur on 10-01-2021 Albumin [Mass/Vol] 2.8 g/dL 3.2-5.5 [facility] Creatinine and Glomerular fi ltration rate.predicted panel (S/P/Bld)Ordered By: Jeffery Arthur on 10-01-2021 Creatinine [Mass/Vol] 1.07 mg/dL 0.64-1.27 [facility] Estimated glomerular filtrat ion rate (GFR) non- AmericanOrdered By: Jeffery Arthur on 10-01-2021 GFR/1.73 sq M.predicted among non-blacks MDRD (S/P/Bld) [Vol rate/Area] > 60 mL/Min [facility] Globulin Calc (S) [Mass/Vol] Ordered By: Jeffery Arthur on 10-01-2021 Globulin (S) [Mass/Vol] 2.9 g/dL [facility] Glucose Glucometer (BldC) [M ass/Vol]Ordered By: Jeffery Arthur on 10-01-2021 Glucose [Mass/Vol] 79 mg/dL [facility] Comment on above: Random Glucose Refer ence Range is dependent on time and content of last meal. Glucose of more than 200 mg/dL in a nonstressed, ambulatory subject supports the diagnosis of Diabetes Mellitus. Lactate dehydrogenase measur ement (enzymatic activity/volume)Ordered By: Jane Duron on 10-01-2021 LDH (Unsp spec) [Catalytic activity/Vol] 3672 U/L 45-190 [facility] No Panel InformationOrdered By: Jeffery Arthur on 10-01-2021 Estimated GFR () > 60 mL/Min [facility] Comment on above: GFR estimated refere nce range: According to KDOQI guidelines, <60 ml/min/1.73m2 is sufficient to diagnose a patient with chronic kidney disease. Pharmacy Creatinine Clearance (Chem 91.04 [facility] Phosphate [Mass/volume] in S priyank or PlasmaOrdered By: Jane Duron on 10-01-2021 Phosphate [Mass/Vol] 3.2 mg/dL 2.5-4.6 [facility] Protein [Mass/volume] in Ser um or PlasmaOrdered By: Jeffery Arthur on 10-01-2021 Protein [Mass/Vol] 5.7 g/dL 6.1-7.9 [facility] Serum or plasma alanine hameed otransferase measurement without P-5'-P (enzymatic activiOrdered By: Jeffery Arthur on 10-01-2021 ALT No additional P-5'-P [Catalytic activity/Vol] 62 U/L 10-60 [facility] Serum or plasma albumin/glob ulin mass ratioOrdered By: Jeffery Arthur on 10-01-2021 Albumin/Globulin [Mass ratio] 1.0 {ratio} [facility] Serum or plasma alkaline mayela sphatase measurement (enzymatic activity/volume)Ordered By: Jeffery Arthur on 10-01-2021 ALP [Catalytic activity/Vol] 229 U/L 32-92 [facility] Serum or plasma aspartate am inotransferase measurement (enzymatic activity/volume)Ordered By: Jeffery Arthur on 10-01-2021 AST [Catalytic activity/Vol] 56 U/L 10-42 [facility] Serum or plasma calcium manish urement (mass/volume)Ordered By: Jeffery Arthur on 10-01-2021 Calcium [Mass/Vol] 9.7 mg/dL 8.2-10.2 [facility] Serum or plasma chloride gifty surement (moles/volume)Ordered By: Jeffery Arthur on 10-01-2021 Chloride [Moles/Vol] 105 mmol/L 95-114 [facility] Serum or plasma glucose manish urement (mass/volume)Ordered By: Jeffery Arthur on 10-01-2021 Glucose [Mass/Vol] 86 mg/dL 70-100 [facility] Comment on above: ADA recommended refe rence range Random Glucose Reference Range is dependent on time and content of last meal. Glucose of more than 200 mg/dL in a nonstressed, ambulatory subject supports the diagnosis of Diabetes Mellitus. Serum or plasma potassium me asurement (moles/volume)Ordered By: Jeffery Arthur on 10-01-2021 Potassium [Moles/Vol] 4.2 mmol/L 3.5-5.1 [facility] Serum or plasma sodium measu rement (moles/volume)Ordered By: Jeffery Arthur 10-01-2021 Sodium [Moles/Vol] 137 mmol/L 136-146 [facility] Serum or plasma total biliru bin measurement (mass/volume)Ordered By: Jeffery Arthur 10-01-2021 Bilirubin [Mass/Vol] 0.8 mg/dL 0.3-1.2 [facility] Serum or plasma total carbon dioxide measurement (moles/volume)Ordered By: Jeffery Arthur 10-01-2021 CO2 [Moles/Vol] 23.7 mmol/L 22.0-30.0 [facility] Serum or plasma urea nitroge n measurement (mass/volume)Ordered By: Jeffery Arthur 10-01-2021 Urea nitrogen [Mass/Vol] 23 mg/dL 9-23 [facility] Serum or plasma uric acid me asurement (mass/volume)Ordered By: Jane Duron on 10-01-2021 Urate [Mass/Vol] 1.9 mg/dL 2.6-7.2 [facility] Basophils Auto (Bld) [#/Vol] Ordered By: Jane Duron on 09-30-2021 Basophils (Bld) [#/Vol] 0.0 10*3/uL 0.0-0.2 [facility] Basophils/100 WBC Auto (Bld) Ordered By: Jnae Duron on 09-30-2021 Basophils/100 WBC (Bld) 0.3 % . [facility] Blood hemoglobin measurement (mass/volume)Ordered By: Jane Duron on 09-30-2021 Hemoglobin (Bld) [Mass/Vol] 13.9 g/dL 13.0-17.0 [facility] Blood leukocytes automated c ount (number/volume)Ordered By: Jane Duron on 09-30-2021 WBC (Bld) [#/Vol] 9.0 10*3/uL 4.5-11.0 [facility] Eosinophils Auto (Bld) [#/Vo l]Ordered By: Jane Duron on 09-30-2021 Eosinophils (Bld) [#/Vol] 0.1 10*3/uL 0.0-0.45 [facility] Eosinophils/100 WBC Auto (Bl d)Ordered By: Jane Duron on 09-30-2021 Eosinophils/100 WBC (Bld) 0.8 % . [facility] Erythrocyte distribution wid th Auto (RBC) [Ratio]Ordered By: Jane Duron on 09-30-2021 Erythrocyte distribution width (RBC) [Ratio] 15.3 % 12.0-14.8 [facility] Hematocrit Auto (Bld) [Volum e fraction]Ordered By: Jane Duron on 09-30-2021 Hematocrit (Bld) [Volume fraction] 41.9 % 38.8-50.0 [facility] Laboratory - Hematology and Cell countsOrdered By: Jane Duron on 09-30-2021 Nucleated RBC/100 WBC (Bld) [Ratio] 0.2 % 0-0.5 [facility] Lymphocytes Auto (Bld) [#/Vo l]Ordered By: Jane Duron on 09-30-2021 Lymphocytes (Bld) [#/Vol] 0.6 10*3/uL 1.00-4.8 [facility] Lymphocytes/100 WBC Auto (Bl d)Ordered By: Jane Duron on 09-30-2021 Lymphocytes/100 WBC (Bld) 6.3 % . [facility] MCH Auto (RBC) [Entitic mass ]Ordered By: Jane Duron on 09-30-2021 MCH (RBC) [Entitic mass] 28.5 pg 27.5-35.2 [facility] MCHC Auto (RBC) [Mass/Vol]Or dered By: Jane Duron on 09-30-2021 MCHC (RBC) [Mass/Vol] 33.2 g/dL 32.5-35.6 [facility] MCV Auto (RBC) [Entitic vol] Ordered By: Jane Duron on 09-30-2021 MCV (RBC) [Entitic vol] 86.1 fL 83.5-101 [facility] Monocytes Auto (Bld) [#/Vol] Ordered By: Jane Duron on 09-30-2021 Monocytes (Bld) [#/Vol] 0.4 10*3/uL 0.0-0.8 [facility] Monocytes/100 WBC Auto (Bld) Ordered By: Jane Duron on 09-30-2021 Monocytes/100 WBC (Bld) 4.0 % . [facility] Neutrophils Auto (Bld) [#/Vo l]Ordered By: Jane Duron on 09-30-2021 Neutrophils (Bld) [#/Vol] 7.9 10*3/uL 1.8-7.7 [facility] Neutrophils/100 WBC Auto (Bl d)Ordered By: Jane Duron on 09-30-2021 Neutrophils/100 WBC (Bld) 88.6 % . [facility] No Panel InformationOrdered By: Jeffery Arthur on 09-30-2021 C-Peptide 10.2 ng/mL 1.1-4.4 [facility] Comment on above: C-Peptide reference interval is for fasting patients. Performed at: - [facility] [address] [id number] Sales Director: Sampson Richmond PhD, Phone: [phone] Proinsulin 13.9 pmol/L 0.0-10.0 [facility] Comment on above: Performed at: [facility] - [address] [id number] Sales Director: Connie Reich MD, Phone: [phone] Platelet mean volume Auto (B ld) [Entitic vol]Ordered By: Jane Duron on 09-30-2021 Platelet mean volume (Bld) [Entitic vol] 7.8 fL 6.6-10.1 [facility] Platelets Auto (Bld) [#/Vol] Ordered By: Jane Duron on 09-30-2021 Platelets (Bld) [#/Vol] 269 10*3/uL 150-450 [facility] RBC Auto (Bld) [#/Vol]Ordere d By: Jane Duron on 09-30-2021 RBC (Bld) [#/Vol] 4.87 10*6/uL 3.90-5.60 [facility] Activated partial thrombopla stin time (aPTT) in platelet poor plasma by coagulation aOrdered By: Basim Hammer on 09-26-2021 aPTT Coag (PPP) [Time] 28.5 s 25.1-36.5 [facility] COVID-19 Positive/NegativeOr dered By: Julien Wilkerson on 09-26-2021 SARS-CoV-2 (COVID-19) N gene TETE+probe Ql (Resp) Negative Negative [facility] Comment on above: Testing for SARS-CoV -2 by RT-PCR This test was developed and its performance characteristics determined by [employer] ([employer]) and validated at the [facility]. This test has not been FDA cleared or approved. This test has been authorized by FDA under an Emergency Use Authorization (EUA). This test has been validated in accordance with the FDA's Guidance Document (Policy for Diagnostics Testing in Laboratories Certified to Perform High Complexity Testing under CLIA prior to Emergency Use Authorization for Coronavirus Disease-2019 during the Public Health Emergency) issued on June 28, 2019. This test is only authorized for the duration of time the declaration that circumstances exist justifying the authorization of the emergency use of in vitro diagnostic tests for detection of SARS-CoV-2 virus and/or diagnosis of COVID-19 infection under section 564(b)(1) of the Act, 21 U.S.C. 360bbb-3(b)(1), unless the authorization is terminated or revoked sooner. COVID-19 SOFIAOrdered By: Renzo Wilkerson on 09-26-2021 SARS-CoV+SARS-CoV-2 (COVID-19) Ag IA.rapid Ql (Resp) Negative Negative [facility] Comment on above: This is a duplicate Missy SARS Antigen (ALISON) result to be used for statistical tracking purpose only. Laboratory - Chemistry and C hemistry - challengeOrdered By: Julien Wilkerson on 09-26-2021 Lactate [Moles/Vol] 3.5 mmol/L 0.5-2.2 [facility] Comment on above: Results called at 0708 on 09/26/21 Natriuretic peptide B (Bld) [Mass/Vol] 29.0 pg/mL 5-100 [facility] Laboratory - Chemistry and C hemistry - challengeOrdered By: Basim Hammer on 09-26-2021 Magnesium [Mass/Vol] 1.7 mg/dL 1.6-2.6 [facility] Laboratory - CoagulationOrde red By: Basim Hammer on 09-26-2021 PT Coag (PPP) [Time] 13.1 s 9.0-12.9 [facility] No Panel InformationOrdered By: Basim Hammer on 09-26-2021 25-Hydroxy Vitamin D Total 21.1 ng/mL 30-100 [facility] Comment on above: VITAMIN D STATUS 25( [place])VITAMIN D RANGE (ng/mL) Deficient <20 Insufficient 20 to <30 Sufficient 30 to 100 Reference: Yamilet ESPINAL,Brit LEBRON, Hazel SALAS, et al. Evaluation,treatment, and prevention of vitamin D deficiency; an Endocrine Society clinical practice guideline. JCEM. 2010; 96(7):1911-30. No Panel InformationOrdered By: Julien Wilkerson on 09-26-2021 SARS Antigen (LFIA) [facility] Platelet poor plasma interna tional normalized ratio (INR) by coagulation assay (relatOrdered By: Basim Hammer on 09-26-2021 INR Coag (PPP) [Relative time] 1.2 {INR} [facility] Comment on above: INR Therapeutic Rang e A) Pre- and Peroperative OAT started two weeks before surgery. NOT HIP SURGERY: 1.5 - 2.5 HIP SURGERY: 2 - 3 B) Primary and secondary prevention of venous THROMBOSIS: 2 - 3 C) Active venous thrombosis, pulmonary embolism and prevention of recurrent venous thrombosis: 2 - 3 D) Prevention of arterial thromboembolism including patients with mechanical heart valves: 3 - 4.5 Serum ionized calcium measur ement using ion specific electrode (mass/volume)Ordered By: Julien Wilkerson on 09-26-2021 Calcium.ionized ISE [Mass/Vol] 9.3 mg/dL 4.5-5.6 [facility] Comment on above: Verified by repeat analysis Performed at: [facility] [address] [id number] Sales Director: Sampson Richmond PhD, Phone: [phone] Serum or plasma calcitriol m easurement (mass/volume)Ordered By: Basim Hammer on 09-26-2021 1,25-dihydroxyvitamin D3 [Mass/Vol] 216.0 pg/mL 24.8-81.5 [facility] Comment on above: Results verified b y repeat testing Please note reference interval change Performed at: [facility] [address] [id number] Sales Director: Connie Reich MD, Phone: [phone] Serum or plasma intact parat hyroid hormone measurement (mass/volume)Ordered By: Julien Wilkerson on 09-26-2021 Parathyrin.intact [Mass/Vol] 6.7 pg/mL 12 [facility] Serum or plasma parathyroid hormone related peptide (PTHrP) measurement (moles/volumeOrdered By: Basim Hammer on 09-26-2021 Parathyrin related protein [Moles/Vol] 2.7 pmol/L . [facility] Comment on above: This test was develo ped and its performance characteristics determined by [employer]. It has not been cleared or approved by the Food and Drug Administration. Reference Range: All Ages: <2.0 The PTHrP assay should not be used to exclude cancer or screen tumor patients for humoral hypercalcemia of malignancy (HHM). The results should always be assessed in conjunction with the patient's medical history, clinical examination, and other findings. If test results are clinically discordant, please contact the laboratory. Performed at: [facility] [address] [place] [id number] Sales Director: Brian Meehan MD, Phone: [phone] TSH DL <= 0.005 mIU/L QnOrde red By: Julien Wilkerson on 09-26-2021 TSH Qn 4.58 m[IU]/L 0.45-5.33 [facility] Thyroxine (T4) free [Mass/vo lume] in Serum or PlasmaOrdered By: Julien Wilkerson on 09-26-2021 Free T4 [Mass/Vol] 0.75 ng/dL 0.61-1.12 [facility] Triiodothyronine (T3) Free [ Mass/volume] in Serum or PlasmaOrdered By: Julien Wilkerson on 09-26-2021 Free T3 [Mass/Vol] 3.27 pg/mL 2.50-3.90 [facility] Troponin I.cardiac [Mass/vol ume] in Serum or Plasma by High sensitivity methodOrdered By: Julien Wilkerson on 09-26-2021 Troponin I.cardiac High sensitivity method [Mass/Vol] 10 pg/mL 0-20 [facility] Automated epithelial cells c ount in urine sediment (number/area)Ordered By: PROVIDER TEMP on 09-25-2021 Epithelial cells Auto (Urine sed) [#/Area] None seen [HPF] 0-2 [facility] Automated erythrocytes count in urine sediment (number/area)Ordered By: PROVIDER TEMP on 09-25-2021 RBC Auto (Urine sed) [#/Area] None seen [HPF] 0-4 [facility] Automated leukocytes count i n urine sediment (number/area)Ordered By: PROVIDER TEMP on 09-25-2021 WBC Auto (Urine sed) [#/Area] None seen [HPF] 0-4 [facility] Automated urine hyaline cast s count (number/volume)Ordered By: PROVIDER TEMP on 09-25-2021 Hyaline casts Auto (U) [#/Vol] None seen [LPF] 0-1 [facility] Bilirubin Test strip Ql (U)O rdered By: PROVIDER TEMP on 09-25-2021 Bilirubin Ql (U) Negative Negative [facility] Color Auto (U)Ordered By: DEVORAH GREENER TEMP on 09-25-2021 Color (U) Yellow Yellow [facility] Direct bilirubin measurement Ordered By: PROVIDER TEMP on 09-25-2021 Bilirubin.direct [Mass/Vol] 0.5 mg/dL 0.0-0.4 [facility] Ketones Auto test strip (U) [Mass/Vol]Ordered By: PROVIDER TEMP on 09-25-2021 Ketones (U) [Mass/Vol] Negative Negative [facility] Nitrite Test strip Ql (U)Ord ered By: PROVIDER TEMP on 09-25-2021 Nitrite Ql (U) Negative Negative [facility] Protein Auto test strip (U) [Mass/Vol]Ordered By: PROVIDER TEMP on 09-25-2021 Protein (U) [Mass/Vol] Negative Negative [facility] Serum or plasma non-glucuron idated bilirubin measurement (mass/volume)Ordered By: PROVIDER TEMP on 09-25-2021 Bilirubin.indirect [Mass/Vol] 0.8 mg/dL [facility] Specific gravity Auto test s trip (U) [Rel density]Ordered By: PROVIDER TEMP on 09-25-2021 Specific gravity (U) [Rel density] 1.008 1.001-1.03 0 [facility] Urine bacteria detection by automated methodOrdered By: PROVIDER TEMP on 09-25-2021 Bacteria Auto Ql (U) None seen None Seen [facility] Urine clarity by refractomet ry automatedOrdered By: PROVIDER TEMP on 09-25-2021 Clarity Refractometry automated (U) Cloudy Clear [facility] Urine glucose measurement by automated test strip (mass/volume)Ordered By: PROVIDER TEMP on 09-25-2021 Glucose Auto test strip (U) [Mass/Vol] Normal mg/dL Normal [facility] Urine hemoglobin detection b y automated test stripOrdered By: PROVIDER TEMP on 09-25-2021 Hemoglobin Auto test strip Ql (U) Negative Negative [facility] Urine leukocyte esterase det ection by automated test stripOrdered By: PROVIDER TEMP on 09-25-2021 Leukocyte esterase Auto test strip Ql (U) Negative Negative [facility] Urobilinogen Auto test strip (U) [Mass/Vol]Ordered By: PROVIDER TEMP on 09-25-2021 Urobilinogen (U) [Mass/Vol] Normal mg/dL Normal [facility] pH Auto test strip (U)Ordere d By: PROVIDER TEMP on 09-25-2021 pH (U) 6.5 [pH] 5.0-9.0 [facility] BUNon 05-20-2021 Urea nitrogen [Mass/Vol] 19.0 mg/dL Normal 9.0-20.0 [facility] Comment on above: Performed By: #### B UN, CREA #### [facility] [address] [place] [address] Dr. Sylvia Antunez CREATININEon 05-20-2021 Creatinine [Mass/Vol] 1.18 mg/dL Normal 0.66-1.25 [facility] Comment on above: Performed By: #### B UN, CREA #### [facility] [address] [place] [address] Dr. Sylvia Antunez EGFR-AF GIBRALTARIAN >60 Normal >=60 [facility] Comment on above: Performed By: #### B UN, CREA #### [facility] [address] [place] [address] Dr. Sylvia Antunez EGFR-NON AF GIBRALTARIAN >60 Normal >=60 [facility] Comment on above: Performed By: #### B UN, CREA #### [facility] [address] [place] [address] ABD/PELV W CONon 05-20-19 CT ABD/PELV W CON EXAMINATION: CT ABD/ PELV W CON HISTORY: Left flank pain , chronic; history of kidney stones COMPARISON: CT abdomen pelvis 04/07/2019 TECHNIQUE: Axial, Coronal, and Sagittal images were created with IV contrast. Dose reduction techniques were achieved by using automated exposure control and/or adjustment of mA and/or kV according to patient size and/or use of iterative reconstruction technique. FINDINGS: LUNG BASES: Trace amount of discoid atelectasis within lung bases. Trace amount of left pleural fluid. LIVER: No enlargement, atrophy, abnormal density, or significant focal lesion. BILIARY: No dilatation or calcification. PANCREAS: No lesion, fluid collection, ductal dilatation, or atrophy. SPLEEN: Several hypodensities within spleen, largest is 2.6 cm, nonspecific but may represent hemangiomas. ADRENALS: No mass or enlargement. KIDNEYS: Chronic left parapelvic cyst and small nonobstructing stone. No mass, obstruction, or calcification. BOWEL/MESENTERY: Mild diverticulosis of sigmoid colon without acute inflammatory changes. No visible mass, obstruction, or bowel wall thickening. Normal appendix. AORTA/VASCULAR: No aneurysm or dissection. RETROPERITONEUM: No mass or adenopathy. LYMPH NODES: No adenopathy. URINARY BLADDER: No visible focal wall thickening, lesion, or calculus. PELVIC ORGANS: Prominent slightly heterogeneous prostate. ABDOMINAL WALL: Prior paraumbilical hernia repair. No current hernia. BONES: No bony lesion or fracture. OTHER: Negative. IMPRESSION: 1. Stable nonobstructing left nephrolithiasis. 2. Tiny left pleural effusion and trace amount of atelectasis; nonspecific. 3. Nonspecific splenic lesions, possibly representing hemangiomas. If there is clinical concern consider multiphase CT abdomen without and with IV contrast. Electronically authenticated by: MIKE VILLEDA Date: 2021-05-20 16:50 Normal [facility] History and Physicalon 08-25 HIM IP Note OR Leasing Manager Normal [facility] Op Noteon 08-25-2017 HIM IP Note OR Leasing Manager Normal [facility] Progress Noteon 08-25-2017 HIM IP Note OR Leasing Manager Normal [facility] XR ABDOMEN (KUB) (SINGLE AP VIEW)on 08-25-2017 XR ABDOMEN (KUB) (SINGLE AP VIEW) EXAMINATION:SUPINE VIEW(S) OF THE ABDOMEN08/25/2017 6:17 pmCOMPARISON:08/09/2017HIST ORY:ORDERING SYSTEM PROVIDED HISTORY: ureteroscopyTECHNOLOGIST PROVIDED HISTORY:Reason for exam:->ureteroscopyFINDINGS :For intraoperative C-arm images of the abdomen demonstrates placement of aleft ureteral stent. Cystoscope is noted in the pelvis/urinary bladder.IMPRESSION: Intraoperative C-arm images.Interpreted by:FREDIS Sawyerigned by:Annette Castellanos MD08/25/18Final result Normal [facility] Progress Noteon 08-19-2017 HIM IP Note OR Leasing Manager Normal [facility] Basic Metabolic Profon 08-10 (cont.) Normal [facility] Comment on above: Result Comment: Aver age GFR for 60-69 years old: 85 mL/min/1.73sq mChronic Kidney Disease: <60 mL/min/1.73sq mKidney failure: <15 mL/min/1.73sq meGFR calculated using average adult body mass. Additional eGFR calculator available at:http://www.[employer]/multiple_crcl_2012.htmProvidence Hospital [facility] [address] [place] [address] Performed By: #### C BC, BMP ####[facility] Compute SystemsOmsvzdhbbbpl[address] [place] [address] Anion gap 10 mmol/L Normal 9-17 [facility] Comment on above: Performed By: #### C BC, BMP ####[facility] Compute SystemsSqmvejrrrtyr[address] [place] [address] Calcium 7.9 mg/dL Low 8.6-10.4 [facility] Comment on above: Performed By: #### C BC, BMP ####[facility] [place] [address] Chloride 106 mmol/L Normal 98-107 [facility] Comment on above: Performed By: #### C BC, BMP ####[employer] [facility] [place] [address] CO2 19 mmol/L Low 20-31 [facility] Comment on above: Performed By: #### C BC, BMP ####[facility] [address]pf[address] [place] [address] Creatinine 1.89 mg/dL High 0.70-1.20 [facility] Comment on above: Performed By: #### C BC, BMP ####[facility] [address]zpe[address] [place] [address] eGFR (non-black) 44 mL/min/{1.73_m2} Low >60 [facility] Comment on above: Performed By: #### C BC, BMP ####[facility] H[address]rph[address] [place] [address] eGFR (non-black) 36 mL/min/{1.73_m2} Low >60 [facility] Comment on above: Performed By: #### C BC, BMP ####[facility] [address]ims[address] [place] [address] Glucose mass conc 114 mg/dL High 70-99 [facility] Comment on above: Performed By: #### C BC, BMP ####[facility] [address] [place] [address] Potassium molar conc 4.8 mmol/L Normal 3.7-5.3 [facility] Comment on above: Performed By: #### C BC, BMP ####[facility] [address]ntv[address] [place] [address] Sodium 135 mmol/L Normal 135-144 [facility] Comment on above: Performed By: #### C BC, BMP ####[facility] [address] [place] [address] Urea nitrogen 21 mg/dL Normal 8-23 [facility] Comment on above: Performed By: #### C BC, BMP ####[facility]2Zlog[facility] [address]ieiv[address] [place] [address] BUN/CRE Ratio NOT REPORTED Normal 9-20 [facility] Comment on above: Performed By: #### C BC, BMP ####[facility] [address]aln[address] [place] [address] Staging: NOT REPORTED Normal [facility] Comment on above: Performed By: #### C BC, BMP ####[facility] [address]if[address] [place] [address] CBCon 08-10-2017 Erythrocyte distribution width Auto Ratio (RBC) 13.7 % Normal 11.8-14.4 [facility] Comment on above: Performed By: #### C BC, BMP ####[facility] [address]row[address] [place] [address] Erythrocytes (RBC) 0.0 per 100 WBC Normal 0.0 [facility] Comment on above: Result Comment: [id number] [place] [address] Performed By: #### C BC, BMP ####[facility] [address]me[address] [place] [address] Erythrocytes (RBC) 4.23 10*6/uL Normal 4.21-5.77 [facility] Comment on above: Performed By: #### C BC, BMP ####[facility] LiuOljroxgyrkon42[address] [place] [address] Hematocrit (HCT) 38.6 % Low 40.7-50.3 [facility] Comment on above: Performed By: #### C BC, BMP ####[facility] LiuMcwtwgzzzoim[address] [place] [address] Hemoglobin mass conc (Bld) 12.1 g/dL Low 13.0-17.0 [facility] Comment on above: Performed By: #### C BC, BMP ####[facility] Gxlmmnfnmtjx[address] [place] [address] MCH 28.6 pg Normal 25.2-33.5 [facility] Comment on above: Performed By: #### C BC, BMP ####[facility] LiuYnvnkzawwiqi[address] [place] [address] MCHC mass conc (RBC) 31.3 g/dL Normal 28.4-34.8 [facility] Comment on above: Performed By: #### C BC, BMP ####[facility] LiuAtgeuehbwdpp[address] [place] [address] MCV 91.3 fL Normal 82.6-102.9 [facility] Comment on above: Performed By: #### C BC, BMP ####[facility] [place] [address] Platelet mean volume (PMV) 9.4 fL Normal 8.1-13.5 [facility] Comment on above: Performed By: #### C BC, BMP ####[address] [address] Platelets 164 10*3/uL Normal 138-453 [facility] Comment on above: Performed By: #### C BC, BMP ####[facility] [place] [address] WBC (Leukocytes) 4.4 10*3/uL Normal 3.5-11.3 [facility] Comment on above: Performed By: #### C BC, BMP ####[address] [address] Discharge Summaryon 08-11-19 18 HIM IP Note OR Leasing Manager Normal [facility] Plan of Careon 08-10-2017 HIM IP Note OR Leasing Manager Normal [facility] Progress Noteon 08-10-2017 HIM IP Note OR Leasing Manager Normal [facility] Basic Metab w/rfx MGon 08-09 (cont.) Normal [facility] Comment on above: Result Comment: Aver age GFR for 60-69 years old: 85 mL/min/1.73sq mChronic Kidney Disease: <60 mL/min/1.73sq mKidney failure: <15 mL/min/1.73sq meGFR calculated using average adult body mass. Additional eGFR calculator available at:http://www.[employer]/multiple_crcl_2012.htmRady Children'S Hospital [address] [place] [address] Performed By: #### C BC, BMPX ####[address] [address] Anion gap 12 mmol/L Normal 9-17 [facility] Comment on above: Performed By: #### C BC, BMPX ####[address] [address] Calcium 7.9 mg/dL Low 8.6-10.4 [facility] Comment on above: Performed By: #### Dustin BC, BMPX ####[address] [address] Chloride 109 mmol/L High 98-107 [facility] Comment on above: Performed By: #### C BC, BMPX ####[facility] [address] [place] [address] CO2 20 mmol/L Normal 20-31 [facility] Comment on above: Performed By: #### C BC, BMPX ####[address] [address] Creatinine 2.14 mg/dL High 0.70-1.20 [facility] Comment on above: Performed By: #### C BC, BMPX ####[address] [address] eGFR (non-black) 31 mL/min/{1.73_m2} Low >60 [facility] Comment on above: Performed By: #### C BC, BMPX ####[address] [address] eGFR (non-black) 38 mL/min/{1.73_m2} Low >60 [facility] Comment on above: Performed By: #### C BC, BMPX ####[facility] [address]Dowfplgaihoh[address] [place] [address] Glucose mass conc 88 mg/dL Normal 70-99 [facility] Comment on above: Performed By: #### C BC, BMPX ####[facility] LiuFhqbghpwygxt3835 [place] [address] Potassium molar conc 4.6 mmol/L Normal 3.7-5.3 [facility] Comment on above: Performed By: #### C NASRIN, BMPX ####[facility] [address]qum[address] [place] [address] Sodium 141 mmol/L Normal 135-144 [facility] Comment on above: Performed By: #### C NASRIN, BMPX ####[facility] LiuVnlkjnqmvuli3684 [place] [address] Urea nitrogen 24 mg/dL High 8-23 [facility] Comment on above: Performed By: #### C NASRIN, BMPX ####[facility] Zh[address]yktxaup[address] [place] [address] BUN/CRE Ratio NOT REPORTED Normal 9-20 [facility] Comment on above: Performed By: #### C BC, BMPX ####[facility] Bgxvbenkayxm[address] [place] [address] Staging: NOT REPORTED Normal [facility] Comment on above: Performed By: #### C BC, BMPX ####[facility] [address] [address] CBCon 08-09-2017 Erythrocyte distribution width Auto Ratio (RBC) 13.6 % Normal 11.8-14.4 [facility] Comment on above: Performed By: #### C BC, BMPX ####[address] [address] Erythrocytes (RBC) 0.0 per 100 WBC Normal 0.0 [facility] Comment on above: Result Comment: [id number] [place] [address] Performed By: #### C BC, BMPX ####[address] [address] Erythrocytes (RBC) 4.55 10*6/uL Normal 4.21-5.77 [facility] Comment on above: Performed By: #### C BC, BMPX ####[address] [address] Hematocrit (HCT) 40.1 % Low 40.7-50.3 [facility] Comment on above: Performed By: #### C BC, BMPX ####[address] [address] Hemoglobin mass conc (Bld) 12.7 g/dL Low 13.0-17.0 [facility] Comment on above: Performed By: #### C BC, BMPX ####[address] [address] MCH 27.9 pg Normal 25.2-33.5 [facility] Comment on above: Performed By: #### C BC, BMPX ####[address] [address] MCHC mass conc (RBC) 31.7 g/dL Normal 28.4-34.8 [facility] Comment on above: Performed By: #### C BC, BMPX ####[address] [address] MCV 88.1 fL Normal 82.6-102.9 [facility] Comment on above: Performed By: #### C BC, BMPX ####[facility] [address] [place] [address] Platelet mean volume (PMV) 9.6 fL Normal 8.1-13.5 [facility] Comment on above: Performed By: #### C BC, BMPX ####[facility] [address]fzju[address]xlshn[address] [place] [address] Platelets 160 10*3/uL Normal 138-453 [facility] Comment on above: Performed By: #### C BC, BMPX ####[facility] Gcqfjjjvvorl[address] [place] [address] WBC (Leukocytes) 4.0 10*3/uL Normal 3.5-11.3 [facility] Comment on above: Performed By: #### C BC, BMPX ####[facility] [place] [address] Cult,Urineon 08-09-2017 Cult,Urine Specimen Description .CLEAN CATCH URINE Special Requests NOT REPORTED Culture NO GROWTH Report Status FINAL 08/09/2017 Normal [facility] Comment on above: Performed By: #### U RC ####[facility] [place] [address] Op Noteon 08-09-2017 HIM IP Note OR Leasing Manager Normal [facility] Plan of Careon 08-09-2017 HIM IP Note OR Leasing Manager Normal [facility] HIM IP Note OR Leasing Manager Normal [facility] HIM IP Note OR Leasing Manager Normal [facility] Progress Noteon 08-09-2017 HIM IP Note OR Leasing Manager Normal [facility] XR ABDOMEN (KUB) (SINGLE AP VIEW)on 08-09-2017 XR ABDOMEN (KUB) (SINGLE AP VIEW) EXAMINATION:SUPINE VIEW(S) OF THE ABDOMEN08/09/2017 11:49 amCOMPARISON:None.HISTORY:O RDERING SYSTEM PROVIDED HISTORY: intra opTECHNOLOGIST PROVIDED HISTORY:Reason for exam:->intra opFINDINGS:28.2 seconds of fluoroscopy time utilized in surgery. D AP 903.8. 2 spotviews of the abdomen obtained in surgery show a left ureteral stent in place.There is a cystoscope in the bladder. Proximal loop of the stent isincompletely formed on this projection. There appears to be a calculusadjacent to the proximal portion of stent.Please correlate with intraoperative procedure report for additional details.IMPRESSION: Intraoperative fluoroscopy with left ureteral stent placement.Interpreted by:FREDIS Porterigned by:Abdi Love MD08/09/18Final result Normal [facility] Basic Metabolic Profon 08-08 (cont.) Normal [facility] Comment on above: Result Comment: Aver age GFR for 60-69 years old: 85 mL/min/1.73sq mChronic Kidney Disease: <60 mL/min/1.73sq mKidney failure: <15 mL/min/1.73sq meGFR calculated using average adult body mass. Additional eGFR calculator available at:http://www.Exo/multiple_crcl_2012.htmProvidence Hospital [facility] [address] [place] [address] Performed By: #### B MP ####[facility] [place] [address] Anion gap 9 mmol/L Normal 9-17 [facility] Comment on above: Performed By: #### B MP ####[facility] [place] [address] Calcium 8.1 mg/dL Low 8.6-10.4 [facility] Comment on above: Performed By: #### B MP ####[facility] [place] [address] Chloride 106 mmol/L Normal 98-107 [facility] Comment on above: Performed By: #### B MP ####[facility] [place] [address] CO2 22 mmol/L Normal 20-31 [facility] Comment on above: Performed By: #### B MP ####[facility] [address] [place] [address] Creatinine 2.37 mg/dL High 0.70-1.20 [facility] Comment on above: Performed By: #### B MP ####[facility] LiuHcklnkfzeiya[address] [place] [address] eGFR (non-black) 28 mL/min/{1.73_m2} Low >60 [facility] Comment on above: Performed By: #### B MP ####[facility] [address] [place] [address] eGFR (non-black) 34 mL/min/{1.73_m2} Low >60 [facility] Comment on above: Performed By: #### B MP ####[facility] [address]tid[address] [place] [address] Glucose mass conc 130 mg/dL High 70-99 [facility] Comment on above: Performed By: #### B MP ####[facility] [place] [address] Potassium molar conc 4.1 mmol/L Normal 3.7-5.3 [facility] Comment on above: Performed By: #### B MP ####[facility] [address] [place] [address] Sodium 137 mmol/L Normal 135-144 [facility] Comment on above: Performed By: #### B MP ####[facility] R[address] [place] [address] Urea nitrogen 27 mg/dL High 8-23 [facility] Comment on above: Performed By: #### B MP ####[facility] [address] [place] [address] BUN/CRE Ratio NOT REPORTED Normal 9-20 [facility] Comment on above: Performed By: #### B MP ####[address] [address] Staging: NOT REPORTED Normal [facility] Comment on above: Performed By: #### B MP ####[address] [address] CBC with Diffon 08-08-2017 Abs. Basophil 0.00 k/uL Normal 0.00-0.20 [facility] Comment on above: Performed By: #### C DP ####[address] [address] Abs.Neutrophil (Seg) 4.75 k/uL Normal 1.50-8.10 [facility] Comment on above: Performed By: #### C DP ####[address] [address] Basophils/100 WBC Auto (Bld) 0 % Normal 0-2 [facility] Comment on above: Performed By: #### C DP ####[address] [address] Blood morphology Normal Normal [facility] Comment on above: Result Comment: [address] [address] Performed By: #### C DP ####[address] [address] Eosinophils 0.06 10*3/uL Normal 0.00-0.44 [facility] Comment on above: Performed By: #### C DP ####[address] [address] Eosinophils/100 leukocytes 1 % Normal 1-4 [facility] Comment on above: Performed By: #### C DP ####[address] [address] Granulocytes/100 WBC (Bld) 0.06 k/uL Normal 0.00-0.30 [facility] Comment on above: Performed By: #### C DP ####[address] [address] [address] Immature granulocytes #/vol (Bld) 1 % High 0 [facility] Comment on above: Performed By: #### C DP ####[address] [address] Lymphocytes 0.64 10*3/uL Low 1.10-3.70 [facility] Comment on above: Performed By: #### C DP ####[address] [address] Lymphocytes/100 leukocytes 11 % Low 24-43 [facility] Comment on above: Performed By: #### C DP ####[address] [address] Monocytes 0.29 10*3/uL Normal 0.10-1.20 [facility] Comment on above: Performed By: #### C DP ####[address] [address] Monocytes/100 leukocytes 5 % Normal 3-12 [facility] Comment on above: Performed By: #### C DP ####[address] [address] Neutrophil (Seg) 82 % High 36-65 [facility] Comment on above: Performed By: #### C DP ####[facility] [place] [address] Erythrocyte distribution width Auto Ratio (RBC) 13.2 % Normal 11.8-14.4 [facility] Comment on above: Performed By: #### C DP ####[address] [address] Erythrocytes (RBC) 4.71 10*6/uL Normal 4.21-5.77 [facility] Comment on above: Performed By: #### C DP ####[address] [address] Erythrocytes (RBC) 0.0 per 100 WBC Normal 0.0 [facility] Comment on above: Performed By: #### C DP ####[address] [address] Hematocrit (HCT) 40.2 % Low 40.7-50.3 [facility] Comment on above: Performed By: #### C DP ####[address] [address] Hemoglobin mass conc (Bld) 13.2 g/dL Normal 13.0-17.0 [facility] Comment on above: Performed By: #### C DP ####[address] [address] MCH 28.0 pg Normal 25.2-33.5 [facility] Comment on above: Performed By: #### C DP ####[address] [address] MCHC mass conc (RBC) 32.8 g/dL Normal 28.4-34.8 [facility] Comment on above: Performed By: #### C DP ####[address] [address] MCV 85.4 fL Normal 82.6-102.9 [facility] Comment on above: Performed By: #### C DP ####[address] [address] Platelet mean volume (PMV) 9.6 fL Normal 8.1-13.5 [facility] Comment on above: Performed By: #### C DP ####[address] [place] [address] Platelets 165 10*3/uL Normal 138-453 [facility] Comment on above: Performed By: #### C DP ####[address] [address] WBC (Leukocytes) 5.8 10*3/uL Normal 3.5-11.3 [facility] Comment on above: Performed By: #### C DP ####[address] [address] Auto Diff Performed NOT REPORTED Normal [facility] Comment on above: Performed By: #### C DP ####[address] [address] Erythrocyte morphology NOT REPORTED Normal [facility] Comment on above: Performed By: #### C DP ####[address] [address] Platelets NOT REPORTED Normal [facility] Comment on above: Performed By: #### C DP ####[address] [address] WBC Morphology NOT REPORTED Normal [facility] Comment on above: Performed By: #### C DP ####[address] [address] ED Noteon 08-08-2017 HIM IP Note OR Leasing Manager Normal [facility] HIM IP Note OR Leasing Manager Normal [facility] HIM IP Note OR Leasing Manager Normal [facility] HIM IP Note OR Leasing Manager Normal [facility] HIM IP Note OR Leasing Manager Normal [facility] HIM IP Note OR Leasing Manager Normal [facility] HIM IP Note OR Leasing Manager Normal [facility] HIM IP Note OR Leasing Manager Normal [facility] HIM IP Note OR Leasing Manager Normal [facility] HIM IP Note OR Leasing Manager Normal [facility] ED Provider Noteon 8 HIM IP Note OR Leasing Manager Normal [facility] History and Physicalon 08-08 HIM IP Note OR Leasing Manager Normal [facility] Plan of Careon 08-08-2017 HIM IP Note OR Leasing Manager Normal [facility] Progress Noteon 08-08-2017 HIM IP Note OR Leasing Manager Normal [facility] Urinalysis w/ Microon 2017 ----- Normal [facility] Comment on above: Performed By: #### U AMIC ####[address] [address] Acetaminophen mass conc Negative Normal NEG [facility] Comment on above: Performed By: #### U AMIC ####[address] [address] Bilirubin (direct) Negative Normal NEG [facility] Comment on above: Performed By: #### U AMIC ####[address] [address] Hemoglobin mass conc (Bld) MODERATE Abnormal NEG [facility] Comment on above: Performed By: #### U AMIC ####[address] [address] Nitrite,Ur Negative Normal NEG [facility] Comment on above: Performed By: #### U AMIC ####[address] [address] Turbidity CLEAR Normal CLEAR [facility] Comment on above: Performed By: #### U AMIC ####[address] [address] Urine WBC's 2 TO 5 Normal 0-5 [facility] Comment on above: Performed By: #### U AMIC ####[address] [address] Urine, casts in sediment 0 TO 2 HYALINE Normal 0-8 [facility] Comment on above: Result Comment: Refe rence range defined for non-centrifuged specimen. Performed By: #### U AMIC ####[address] [address] Urine, color YELLOW Normal YEL [facility] Comment on above: Performed By: #### U AMIC ####[address] [address] Urine, epithelial cells in sediment 0 TO 2 Normal 0-5 [facility] Comment on above: Result Comment: [address] [address] Performed By: #### U AMIC ####[address] [address] Urine, erythrocytes 50 TO 100 Normal 0-4 [facility] Comment on above: Result Comment: Refe rence range defined for non-centrifuged specimen. Performed By: #### U AMIC ####[address] [address] Urine, glucose presence Negative Normal NEG [facility] Comment on above: Performed By: #### U AMIC ####[address] [address] Urine, leukocyte esterase presence Negative Normal NEG [facility] Comment on above: Performed By: #### U AMIC ####[address] [address] Urine, pH 5.0 [pH] Normal 5.0-8.0 [facility] Comment on above: Performed By: #### U AMIC ####[address] [address] Urine, protein presence TRACE Abnormal NEG [facility] Comment on above: Performed By: #### U AMIC ####[address] [place] [address] Urine, specific gravity 1.032 High 1.005-1.03 0 [facility] Comment on above: Performed By: #### U AMIC ####[address] [address] Urobilinogen,Ur Normal Normal NORM [facility] Comment on above: Performed By: #### U AMIC ####[address] [address] Epithelial, Renal NOT REPORTED Normal 0 [facility] Comment on above: Performed By: #### U AMIC ####[address] [address] Mucus Strands NOT REPORTED Normal NONE [facility] Comment on above: Performed By: #### U AMIC ####[address] [address] Other Observations NOT REPORTED Normal NREQ [facility] Comment on above: Performed By: #### U AMIC ####[address] [address] Trichomonas NOT REPORTED Normal NONE [facility] Comment on above: Performed By: #### U AMIC ####[address] [address] Urine, amorphous sediment presence in sediment NOT REPORTED Normal NONE [facility] Comment on above: Performed By: #### U AMIC ####[address] [address] Urine, bacteria in sediment NOT REPORTED Normal NONE [facility] Comment on above: Performed By: #### U AMIC ####[address] [address] Urine, crystals in sediment NOT REPORTED Normal NONE [facility] Comment on above: Performed By: #### U AMIC ####[facility] [id number] [place], [place] [id number] Urine, yeast presence in sediment NOT REPORTED Normal NONE [facility] Comment on above: Performed By: #### U AMIC ####[facility] [id number] [place], [place] [id number] Vital Signs Date Time Vital Sign Value Performing Clinician Facility 06-29-2023 08:01-0400 Blood Pressure Location Jahairayumiko SWEET [facility] 06-29-2023 08:01-0400 Body temperature 97.16 [degF] Jahaira SWEET [facility] 06-29-2023 08:01-0400 Diastolic blood pressure 88 mm[Hg] Jahaira SWEET [facility] 06-29-2023 08:01-0400 Systolic blood pressure 144 mm[Hg] Jahaira SWEET [facility] 06-27-2023 12:29-0400 Blood Pressure Location Jahaira SWEET [facility] 06-27-2023 12:29-0400 Body temperature 98.42 [degF] Jahaira SWEET [facility] 06-27-2023 12:29-0400 Diastolic blood pressure 86 mm[Hg] Jahaira SWEET [facility] 06-27-2023 12:29-0400 Heart rate 79 /min Jahaira SWEET [facility] 06-27-2023 12:29-0400 Respiratory rate 16 /min Jahaira SWEET [facility] 06-27-2023 12:29-0400 Systolic blood pressure 136 mm[Hg] Jahaira SWEET [facility] 05-11-2023 09:53-0500 Body height 172.72 cm MD Juan Carlos Morgan Work Phone: [facility] 05-11-2023 09:53-0500 Body weight 122.01 kg MD Juan Carlos Morgan Work Phone: [facility] 02-03-2023 11:00-0500 Body height 172.72 cm MD Juan Carlos Morgan Work Phone: [facility] 02-03-2023 11:00-0500 Body temperature 97.8 [degF] MD Juan Carlos Morgan Work Phone: [facility] 02-03-2023 11:00-0500 Body weight 129.99 kg MD Juan Carlos Morgan Work Phone: [facility] 02-03-2023 11:00-0500 Diastolic blood pressure 66 mm[Hg] MD Juan Carlos Morgan Work Phone: [facility] 02-03-2023 11:00-0500 Heart rate 79 /min MD Juan Carlos Morgan Work Phone: [facility] 02-03-2023 11:00-0500 Respiratory rate 20 /min MD Juan Carlos Morgan Work Phone: [facility] 02-03-2023 11:00-0500 SaO2% (BldA) [Mass fraction] 100 % MD Juan Carlos Morgan Work Phone: [facility] 02-03-2023 11:00-0500 Systolic blood pressure 124 mm[Hg] MD Juan Carlos Morgan Work Phone: [facility] 11-12-2022 09:58-0400 Blood Pressure Location Jahaira SWEET [facility] 11-12-2022 09:58-0400 Diastolic blood pressure 75 mm[Hg] Jahaira SWEET [facility] 11-12-2022 09:58-0400 Heart rate 79 /min Jahaira SWEET [facility] 11-12-2022 09:58-0400 Respiratory rate 16 /min Jahaira SWEET [facility] 11-12-2022 09:58-0400 Systolic blood pressure 130 mm[Hg] Jahaira SWEET [facility] 10-06-2022 10:03-0400 Body temperature 97.8 [degF] MD Juan Carlos Morgan Work Phone: [facility] 10-06-2022 10:03-0400 Body weight 134.26 kg MD Juan Carlos Morgan Work Phone: [facility] 10-06-2022 10:03-0400 Diastolic blood pressure 74 mm[Hg] MD Juan Carlos Morgan Work Phone: [facility] 10-06-2022 10:03-0400 Heart rate 56 /min MD Juan Carlos Morgan Work Phone: [facility] 10-06-2022 10:03-0400 Respiratory rate 16 /min MD Juan Carlos Morgan Work Phone: [facility] 10-06-2022 10:03-0400 SaO2% (BldA) [Mass fraction] 98 % MD Juan Carlos Morgan Work Phone: [facility] 10-06-2022 10:03-0400 Systolic blood pressure 115 mm[Hg] MD Juan Carlos Morgan Work Phone: [facility] 07-09-2022 13:07-0400 Body temperature 97.8 [degF] MD Juan Carlos Morgan Work Phone: [facility] 07-09-2022 13:07-0400 Body weight 135.62 kg MD Juan Carlos Morgan Work Phone: [facility] 07-09-2022 13:07-0400 Diastolic blood pressure 76 mm[Hg] MD Juan Carlos Morgan Work Phone: [facility] 07-09-2022 13:07-0400 Heart rate 78 /min MD Juan Carlos Morgan Work Phone: [facility] 07-09-2022 13:07-0400 Respiratory rate 16 /min MD Juan Carlos Morgan Work Phone: [facility] 07-09-2022 13:07-0400 SaO2% (BldA) [Mass fraction] 98 % MD Juan Carlos Morgan Work Phone: [facility] 07-09-2022 13:07-0400 Systolic blood pressure 127 mm[Hg] MD Juan Carlos Morgan Work Phone: [facility] 05-10-2022 10:34-0500 Blood Pressure Location Jahaira SWEET [facility] 05-10-2022 10:34-0500 Diastolic blood pressure 88 mm[Hg] Jahaira SWEET [facility] 05-10-2022 10:34-0500 Heart rate 80 /min Jahaira SWEET [facility] 05-10-2022 10:34-0500 Respiratory rate 16 /min Jahaira SWEET [facility] 05-10-2022 10:34-0500 Systolic blood pressure 137 mm[Hg] Jahaira SWEET [facility] 04-09-2022 11:09-0500 Body temperature 97.8 [degF] MD Jua nCarlos Morgan Work Phone: [facility] 04-09-2022 11:09-0500 Body weight 145.4 kg MD Juan Carlos Morgan Work Phone: [facility] 04-09-2022 11:09-0500 Diastolic blood pressure 65 mm[Hg] MD Juan Carlos Morgan Work Phone: [facility] 04-09-2022 11:09-0500 Heart rate 98 /min MD Juan Carlos Morgan Work Phone: [facility] 04-09-2022 11:09-0500 Respiratory rate 16 /min MD Juan Carlos Morgan Work Phone: [facility] 04-09-2022 11:09-0500 SaO2% (BldA) [Mass fraction] 98 % MD Juan Carlos Morgan Work Phone: [facility] 04-09-2022 11:09-0500 Systolic blood pressure 141 mm[Hg] MD Juan Carlos Morgan Work Phone: [facility] 01-13-2022 08:32-0400 Body temperature 98 [degF] MD Juan Carlos Morgan Work Phone: [facility] 01-13-2022 08:32-0400 Body weight 141.97 kg MD Juan Carlos Morgan Work Phone: [facility] 01-13-2022 08:32-0400 Diastolic blood pressure 69 mm[Hg] MD Juan Carlos Morgan Work Phone: [facility] 01-13-2022 08:32-0400 Heart rate 85 /min MD Juan Carlos Morgan Work Phone: [facility] 01-13-2022 08:32-0400 Respiratory rate 18 /min MD Juan Carlos Morgan Work Phone: [facility] 01-13-2022 08:32-0400 SaO2% (BldA) [Mass fraction] 96 % MD Juan Carlos Morgan Work Phone: [facility] 01-13-2022 08:32-0400 Systolic blood pressure 173 mm[Hg] MD Juan Carlos Morgan Work Phone: [facility] 01-08-2022 10:40-0400 Body temperature 97.5 [degF] MD Juan Carlos Morgan Work Phone: [facility] 01-08-2022 10:40-0400 Body weight 142.88 kg MD Juan Carlos Morgan Work Phone: [facility] 01-08-2022 10:40-0400 Diastolic blood pressure 71 mm[Hg] MD Juan Carlos Morgan Work Phone: [facility] 01-08-2022 10:40-0400 Heart rate 83 /min MD Juan Carlos Morgan Work Phone: [facility] 01-08-2022 10:40-0400 Respiratory rate 16 /min MD Juan Carlos Morgan Work Phone: [facility] 01-08-2022 10:40-0400 SaO2% (BldA) [Mass fraction] 93 % MD Juan Carlos Morgan Work Phone: [facility] 01-08-2022 10:40-0400 Systolic blood pressure 134 mm[Hg] MD Juan Carlos Morgan Work Phone: [facility] 12-09-2021 13:52-0400 Body temperature 97.9 [degF] MD Juan Carlos Morgan Work Phone: [facility] 12-09-2021 13:52-0400 Body weight 139.25 kg MD Juan Carlos Morgan Work Phone: [facility] 12-09-2021 13:52-0400 Diastolic blood pressure 75 mm[Hg] MD Juan Carlos Morgan Work Phone: [facility] 12-09-2021 13:52-0400 Heart rate 79 /min MD Juan Carlos Morgan Work Phone: [facility] 12-09-2021 13:52-0400 Respiratory rate 16 /min MD Juan Carlos Morgan Work Phone: [facility] 12-09-2021 13:52-0400 SaO2% (BldA) [Mass fraction] 98 % MD Juan Carlos Morgan Work Phone: [facility] 12-09-2021 13:52-0400 Systolic blood pressure 160 mm[Hg] MD Juan Carlos Morgan Work Phone: [facility] 11-18-2021 15:02-0400 Body temperature 97.9 [degF] MD Juan Carlos Morgan Work Phone: [facility] 11-18-2021 15:02-0400 Body weight 136.53 kg MD Juan Carlos Morgan Work Phone: [facility] 11-18-2021 15:02-0400 Diastolic blood pressure 71 mm[Hg] MD Juan Carlos Morgan Work Phone: [facility] 11-18-2021 15:02-0400 Heart rate 96 /min MD Juan Carlos Morgan Work Phone: [facility] 11-18-2021 15:02-0400 Respiratory rate 16 /min MD Juan Carlos Morgan Work Phone: [facility] 11-18-2021 15:02-0400 SaO2% (BldA) [Mass fraction] 96 % MD Juan Carlos Morgan Work Phone: [facility] 11-18-2021 15:02-0400 Systolic blood pressure 117 mm[Hg] MD Juan Carlos Morgan Work Phone: [facility] 11-05-2021 13:40-0400 Diastolic blood pressure 83 mm[Hg] MD Juan Carlos Morgan Work Phone: [facility] 11-05-2021 13:40-0400 Heart rate 73 /min MD Juan Carlos Morgan Work Phone: [facility] 11-05-2021 13:40-0400 Respiratory rate 20 /min MD Juan Carlos Morgan Work Phone: [facility] 11-05-2021 13:40-0400 SaO2% (BldA) [Mass fraction] 95 % MD Juan Carlos Morgan Work Phone: [facility] 11-05-2021 13:40-0400 Systolic blood pressure 146 mm[Hg] MD Juan Carlos Morgan Work Phone: [facility] 11-05-2021 12:06-0400 Body height 175.26 cm MD Juan Carlos Morgan Work Phone: [facility] 11-05-2021 12:06-0400 Body mass index (BMI) [Ratio] 42.5 kg/m2 MD Juan Carlos Morgan Work Phone: [facility] 11-05-2021 12:06-0400 Body weight 130.63 kg MD Juan Carlos Morgan Work Phone: [facility] 11-05-2021 11:53-0400 Body temperature 97.9 [degF] MD Juan Carlos Morgan Work Phone: [facility] 10-09-2021 11:08-0400 Body height 172.72 cm MD Juan Carlos Morgan Work Phone: [facility] 10-01-2021 12:20-0400 Diastolic blood pressure 84 mm[Hg] MD Juan Carlos Morgan Work Phone: [facility] 10-01-2021 12:20-0400 Heart rate 75 /min MD Juan Carlos Morgan Work Phone: [facility] 10-01-2021 12:20-0400 Respiratory rate 18 /min MD Juan Carlos Morgan Work Phone: [facility] 10-01-2021 12:20-0400 SaO2% (BldA) [Mass fraction] 96 % MD Juan Carlos Morgan Work Phone: [facility] 10-01-2021 12:20-0400 Systolic blood pressure 175 mm[Hg] MD Juan Carlos Morgan Work Phone: [facility] 10-01-2021 07:58-0400 Body temperature 97.4 [degF] MD Juan Carlos Morgan Work Phone: [facility] 10-01-2021 06:30-0400 Body weight 137.6 kg MD Juan Carlos Morgan Work Phone: [facility] 09-30-2021 12:17-0400 Body height 172.72 cm MD Juan Carlos Morgan Work Phone: [facility] 09-26-2021 03:47-0400 Body mass index (BMI) [Ratio] 43.5 kg/m2 MD Juan Carlos Morgan Work Phone: [facility] 09-24-2021 11:15-0400 Diastolic blood pressure 100 mm[Hg] MD Juan Carlos Morgan Work Phone: [facility] 09-24-2021 11:15-0400 Heart rate 80 /min MD Juan Carlos Morgan Work Phone: [facility] 09-24-2021 11:15-0400 Respiratory rate 16 /min MD Juan Carlos Morgan Work Phone: [facility] 09-24-2021 11:15-0400 SaO2% (BldA) [Mass fraction] 96 % MD Juan Carlos Morgan Work Phone: [facility] 09-24-2021 11:15-0400 Systolic blood pressure 192 mm[Hg] MD Juan Carlos Morgan Work Phone: [facility] 09-24-2021 09:12-0400 Body height 170.18 cm MD Juan Carlos Morgan Work Phone: [facility] 09-24-2021 09:12-0400 Body mass index (BMI) [Ratio] 44.9 kg/m2 MD Juan Carlos Morgan Work Phone: [facility] 09-24-2021 09:12-0400 Body weight 130.18 kg MD Juan Carlos Morgan Work Phone: [facility] 05-26-2021 11:30-0500 Body height 177.8 cm Kenny Aimee Other [employer] Other 05-26-2021 11:30-0500 Body mass index (BMI) [Ratio] 44.33 kg/m2 Kenny Olexa Other [employer] Other 05-26-2021 11:30-0500 Body weight 140.16 kg Kenny Olexa Other [employer] Other Encounters Encounter Date Encounter Type Care Provider Facility Start: 10-07-2023 ambulatory Jahaira Franklini ty:TETO Stephens Start: 06-29-2023 End: 06-30-2023 ambulatory Jahaira SWEET Facility: [place] Start: 06-29-2023 End: 06-29-2023 Patient encounter procedure Jahaira SWEET [facility] Start: 06-27-2023 End: 06-28-2023 ambulatory Jahaira SWEET Facility: [facility] Start: 06-27-2023 End: 06-27-2023 Patient encounter procedure Jahaira SWEET [facility] [place] Start: 06-14-2023 End: 06-15-2023 ambulatory Jahaira SWEET Facility:[facility] Start: 06-14-2023 End: 06-14-2023 Patient encounter procedure Jahaira SWEET [facility] Start: 06-08-2023 ambulatory Jane Duron Facility:[facility] Start: 05-11-2023 End: 05-11-2023 ambulatory Jahaira Sweet Facility:[facility] Start: 05-11-2023 End: 05-11-2023 ambulatory MD Juan Carlos Morgan Work Phone: [facility] Work Phone: Start: 05-11-2023 End: 05-11-2023 Patient encounter procedure MD Juan Carlos Morgan Work Phone: [facility] [place] Work Phone: Start: 04-27-2023 Registered Recurring MD Juan Carlos Morgan Work Phone: [facility] Work Phone: Start: 04-26-2023 End: 04-27-2023 ambulatory SHELIA HARDY MD Facility: [facility] Start: 02-03-2023 End: 02-03-2023 ambulatory MD Juan Carlos Morgan Work Phone: [facility] Work Phone: Start: 02-03-2023 End: 02-03-2023 Registered Recurring MD Juan Carlos Morgan Work Phone: [facility] Work Phone: Start: 01-18-2023 End: 01-18-2023 ambulatory Valentin Almaraz Facility:[facility] Start: 12-21-2022 End: 12-22-2022 ambulatory SHELIA HARDY MD Facility: [facility] Start: 11-17-2022 End: 11-17-2022 ambulatory Hunter Forrest Facility:[facility] Start: 11-17-2022 End: 11-17-2022 ambulatory MD Juan Carlos Morgan Work Phone: [facility] Work Phone: Start: 11-17-2022 End: 11-17-2022 Discharged Recurring MD Juan Carlos Morgan Work Phone: [facility] Work Phone: Start: 11-16-2022 End: 11-17-2022 ambulatory SHELIA HARDY MD Facility:[facility] Start: 11-12-2022 End: 11-13-2022 ambulatory Jahairayumiko SWEET Facility:[facility] Start: 11-12-2022 End: 11-12-2022 Patient encounter procedure Jahaira SWEET [facility] Start: 10-12-2022 End: 10-13-2022 ambulatory Jahaira SWEET Facility:[facility] Start: 10-12-2022 End: 10-12-2022 Patient encounter procedure Jahaira SWEET [facility] Start: 10-06-2022 End: 10-06-2022 ambulatory MD Juan Carlos Morgan Work Phone: [facility] Work Phone: Start: 10-06-2022 End: 10-06-2022 Registered Recurring MD Juan Carlos Morgan Work Phone: [facility] Work Phone: Start: 09-16-2022 End: 09-17-2022 ambulatory Jahaira SWEET Facility:[id number] Start: 08-20-2022 End: 08-21-2022 ambulatory SHELIA HARDY MD [facility] [facility] Start: 08-14-2022 End: 08-15-2022 ambulatory SHELIA HARDY MD Facility:[facility] Start: 07-31-2022 End: 07-31-2022 ambulatory JAHAIRA SWEET Facility:[facility] Start: 07-31-2022 End: 07-31-2022 Subsequent hospital visit by physician Mri 6 Radio Main Q (I-Stat/1.5t/3t) Work Phone: MRI Q Start: 07-29-2022 End: 07-30-2022 ambulatory SHELIA HARDY MD Facility: [facility] Start: 07-09-2022 End: 07-09-2022 ambulatory MD Juan Carlos Morgan Work Phone: [facility] Work Phone: Start: 07-09-2022 End: 07-09-2022 Registered Recurring MD Juan Carlos Morgan Work Phone: [facility] Work Phone: Start: 05-10-2022 End: 05-10-2022 Patient encounter procedure Jahaira SWEET [facility] Start: 04-30-2022 End: 05-01-[address] JAHAIRA SWEET Facility:H1 Start: 04-09-2022 End: 04-09-2022 ambulatory MD Juan Carlos Morgan Work Phone: [facility] Work Phone: Start: 04-09-2022 End: 04-09-2022 Registered Recurring MD Juan Carlos Morgan Work Phone: [facility] Work Phone: Start: 02-02-[address] JAHAIRA SWEET [facility] ity:H1 Start: 01-13-2022 End: 01-13-2022 ambulatory MD Juan Carlos Morgan Work Phone: [facility] Work Phone: Start: 01-13-2022 End: 01-13-2022 Registered Recurring MD Juan Carlos Morgan Work Phone: [facility] Start: 01-08-2022 End: 01-08-2022 ambulatory MD Juan Carlos Morgan Work Phone: [facility] Work Phone: Start: 01-08-2022 End: 01-08-2022 Registered Recurring MD Juan Carlos Morgan Work Phone: [facility] Start: 01-01-[address] Abbi Mcbride Facility: [id number] Start: 12-09-2021 End: 12-09-2021 Registered Recurring MD Juan Carlos Morgan Work Phone: [facility] Start: 11-18-2021 End: 11-18-2021 Registered Recurring MD Juan Carlos Morgan Work Phone: [facility] Start: 11-05-2021 End: 11-05-2021 Admission to same day surgery center MD Juan Carlos Morgan Work Phone: [facility] [place] Start: 11-03-2021 End: 11-03-2021 Patient encounter procedure MD Juan Carlos Morgan Work Phone: [facility] Start: 11-02-2021 End: 11-02-2021 Patient encounter procedure Jahaira SWEET [facility] Start: 10-03-2021 End: 10-04-[address] JAHAIRA SWEET Facility:H1 Start: 09-26-[address] Abbi Mcbride Facility: [id number] Start: 09-26-2021 End: 10-01-2021 Evaluation and management of inpatient MD Juan Carlos Morgan Work Phone: [facility] [place] [facility] Start: 09-24-2021 End: 09-24-2021 Admission to same day surgery center MD Juan Carlos Morgan Work Phone: [facility] [place] Start: 09-21-[address] Abbi Mcbride Fac ility:[id number] Start: 05-26-2021 End: 05-26-2021 ambulatory Kenny Yu Other [employer] Other Start: 05-26-2021 Office outpatient visit 15 minutes Kenny Yu [facility] Start: 05-20-2021 End: 05-21-[address] JAHAIRA SWEET Facility:H1 Start: 08-25-2017 End: 08-25-2017 Ambulatory [facility] Start: 08-08-2017 End: 08-10-2017 Evaluation and management of inpatient [facility] Procedures Date Procedure Procedure Detail Performing Clinician Start: 06-14-2023 Transrectal needle b iopsy of prostate Jahaira SWEET Start: 10-12-2022 Cystoscopic removal of ureteric stent Jahaira SWEET Start: 10-04-2022 CT of thorax with contrast MD Juan Carlos Morgan Work Phone: Start: 09-16-2022 Cystoscope, device (physical object) Jahaira MICKI Start: 07-09-2022 Duplex scan of lower limb veins MD Juan Carlos Morgan Work Phone: Start: 04-30-[address] JANE SWEET Comment on above: Performed By: #### P SAD #### [place] [address] Dr. Sylvia Antunez Start: 04-07-2022 Positron emission tomography with computed tomography MD Juan Carlos Morgan Work Phone: Start: 01-01-2022 Positron emission tomography with computed tomography MD Juan Carlos Mrogan Work Phone: Start: 11-05-2021 Plain chest X-ray MD Amanda Morgan Work Phone: Start: 11-05-2021 OR Infusaport Insertion/Removal (Not Applicable) MD Juan Carlos Morgan Work Phone: Start: 10-14-2021 Positron emission tomography with computed tomography MD Juan Carlos Morgan Work Phone: Start: 10-03-[address] JANE SWEET Comment on above: Performed By: #### P SAD #### [place] [address] Dr. Sylvia Antunez Start: 09-26-2021 Duplex scan of lower limb veins MD Juan Carlos Morgan Work Phone: Start: 09-25-2021 Plain chest X-ray MD Amanda Morgan Work Phone: Start: 09-24-2021 Needle biopsy MD Juan Carlos Morgan Work Phone: Start: 07-10-2020 Extracorporeal shock wave lithotripsy of calculus of kidney Jahaira SWEET Start: 11-16-2018 Extracorporeal shock wave lithotripsy of calculus of kidney Jahaira SWEET Start: 08-25-2017 DISCHARGE PATIENT SHELIA HARDY Start: 08-25-2017 Radiologic exam abdo men 1 view SHELIA HARDY Start: 08-25-2017 VITAL SIGNS SHELIA BAILEY Start: 08-25-2017 INITIATE OXYGEN THER APY PROTOCOL SHELIA HARDY Start: 08-10-2017 DISCHARGE PATIENT SHELIA JIMÉNEZEAN Start: 08-10-2017 INCENTIVE SPIROMETRY RT SHELIA HARDY Start: 08-10-2017 INCENTIVE SPIROMETRY RT SHELIA HARDY Start: 08-10-2017 INCENTIVE SPIROMETRY RT SHELIA HARDY Start: 08-10-2017 Basic metabolic pane l calcium total SHELIA HARDY Start: 08-10-2017 Blood count complete automated SHELIA HARDY Start: 08-10-2017 INCENTIVE SPIROMETRY RT SHELIA HARDY Start: 08-10-2017 INITIATE OXYGEN THER APY PROTOCOL SHELIA HARDY Start: 08-10-2017 INCENTIVE SPIROMETRY RT SHELIA HARDY Start: 08-10-2017 INCENTIVE SPIROMETRY RT SHELIA HARDY Start: 08-10-2017 INCENTIVE SPIROMETRY RT SHELIA HARDY Start: 08-10-2017 INCENTIVE SPIROMETRY RT SHELIA HARDY Start: 08-10-2017 INCENTIVE SPIROMETRY RT SHELIA HARDY Start: 08-09-2017 MEASURE POST VOID RESIDUAL SHELIA HARDY Start: 08-09-2017 INCENTIVE SPIROMETRY RT SHELIA HARDY Start: 08-09-2017 INCENTIVE SPIROMETRY RT SHELIA HARDY Start: 08-09-2017 PATIENT STATUS (FROM ED OR OR/PROCEDURAL) SHELIA HARDY Start: 08-09-2017 INCENTIVE SPIROMETRY RT SHELIA HARDY Start: 08-09-2017 DIET GENERAL SHELIA BAILEY Start: 08-09-2017 TRANSFER PATIENT SHELIA JIMÉNEZEAN Start: 08-09-2017 INCENTIVE SPIROMETRY RT SHELIA HARDY Start: 08-09-2017 INCENTIVE SPIROMETRY RT SHELIA HARDY Start: 08-09-2017 Radiologic exam abdo men 1 view SHELIA HARDY Start: 08-09-2017 INCENTIVE SPIROMETRY RT SHELIA HARDY Start: 08-09-2017 INCENTIVE SPIROMETRY RT SHELIA HARDY Start: 08-09-2017 INITIATE OXYGEN THER APY PROTOCOL SHELIA HARDY Start: 08-09-2017 BASIC METABOLIC PANE L W/ REFLEX TO MG FOR LOW K SHELIA HARDY Start: 08-09-2017 Blood count complete automated SHELIA HARDY Start: 08-09-2017 INCENTIVE SPIROMETRY RT SHELIA HARDY Start: 08-09-2017 INCENTIVE SPIROMETRY RT SHELIA HARDY Start: 08-09-2017 INCENTIVE SPIROMETRY RT SHELIA HARDY Start: 08-09-2017 INCENTIVE SPIROMETRY RT HSELIA HARDY Start: 08-09-2017 INCENTIVE SPIROMETRY RT SHELIA HARDY Start: 08-08-2017 INCENTIVE SPIROMETRY RT SHELIA HARDY Start: 08-08-2017 INCENTIVE SPIROMETRY RT SHELIA HARDY Start: 08-08-2017 INCENTIVE SPIROMETRY RT SHELIA HARDY Start: 08-08-2017 INCENTIVE SPIROMETRY RT SHELIA HARDY Start: 08-08-2017 INCENTIVE SPIROMETRY RT SHELIA HARDY Start: 08-08-2017 Culture bacterial quanttative colony count urine SHELIA HARDY Start: 08-08-2017 INCENTIVE SPIROMETRY RT SHELIA HARDY Start: 08-08-2017 PLACE INTERMITTENT PNEUMATIC COMPRESSION DEVICE SHELIA HARDY Start: 08-08-2017 REASON FOR NO CHEMIC AL VTE PROPHYLAXIS SHELIA HARDY Start: 08-08-2017 FULL CODE SHELIA BAILEY Start: 08-08-2017 INCENTIVE SPIROMETRY RT SHELIA HARDY Start: 08-08-2017 INITIATE OXYGEN THER APY PROTOCOL SHELIA HARDY Start: 08-08-2017 INTAKE AND OUTPUT SHELIA HARDY Start: 08-08-2017 NOTIFY PHYSICIAN (SPECIFY) SHELIA HARDY Start: 08-08-2017 VITAL SIGNS SHELIA BAILEY Start: 08-08-2017 Urnls dip stick/tabl et reagent auto microscopy SHELIA HARDY Start: 08-08-2017 IP CONSULT TO UROLOGY Angel HARDY Start: 08-08-2017 BLADDER SCAN SHELIA BAILEY Start: 08-08-2017 Basic metabolic pane l calcium total SHELIA HARDY Start: 08-08-2017 Blood count complete auto&auto difrntl wbc SHELIA HARDY Start: 08-08-2017 INSERT PERIPHERAL IV JA MES HAYLEY Start: 07-18-2014 Transurethral prostatectomy Jahaira SWEET Start: 03-01-2014 Cystoscopy Jahaira KINGSTON Start: 02-28-2014 Urodynamic studies Nurys SWEET Start: 10-15-2013 Transrectal biopsy o f prostate using ultrasound guidance Jahaira SWEET Start: 07-16-2013 Transrectal biopsy o f prostate using ultrasound guidance Jahaira SWEET Start: 06-26-2006 Cystoscopy Jahaira KINGSTON Complete repair of r otator cuff Jahaira SWEET Comment on above: right Decompression of med josiah nerve Jahaira SWEET Comment on above: B/L hernia repair umbilical Nurys SWEET SARS Antigen (LFIA) MD Justo Morgan Work Phone: skin graft on finger 3 Teresita SWEET Comment on above: left hand stone extraction Jahaira SERRANO Plan of Treatment Date Care Activity Detail Author Start: 04-30-2027 PROSTATE CANCER SCREENING DISCUSSION PROSTATE CANCER SCREENING DISCUSSION [facility] Start: 05-11-2023 MR Prostate WO and W contrast IV [facility] Start: 05-11-2023 MR prostate wo/w con MR prostate wo/w con [facility] Start: 10-06-2022 Adrenocorticotropic hormone measurement [facility] Start: 10-06-2022 [facility] Start: 07-09-2022 Duplex scan of lower limb veins US venous duplex LE RT [facility] Start: 04-09-2022 Ferritin [Mass/volume] in Serum or Plasma [facility] Start: 04-09-2022 [facility] Start: 03-28-2022 ADVANCE DIRECTIVE DISCUSSION ADVANCE DIRECTIVE DISCUSSION [facility] Start: 03-28-2022 DEPRESSION ASSESSMENT DEPRESSION ASSESSMENT [facility] Start: 01-13-2022 End: 01-14-2022 [facility] Start: 01-13-2022 [facility] Start: 12-24-2021 [facility] Start: 12-23-2021 [facility] Start: 12-04-2021 End: 12-04-2021 [facility] Start: 12-03-2021 [facility] Start: 12-01-2021 Comprehensive metabolic 2000 panel - Serum or Plasma [facility] Work Phone: Start: 12-01-2021 End: 12-02-2021 [facility] Start: 11-18-2021 Registered Recurring BRITTNEY (acute kidney injury) [facility] Start: 11-12-2021 [facility] Start: 11-12-2021 [facility] Start: 11-11-2021 [facility] Start: 11-05-2021 [facility] Start: 11-05-2021 [facility] Start: 10-22-2021 [facility] Start: 10-21-2021 [facility] Start: 10-09-2021 [facility] Start: 10-01-2021 [facility] Work Phone: Start: 10-01-2021 [facility] Work Phone: Start: 09-30-2021 [facility] Work Phone: Start: 09-26-2021 Introduction of Other Antineoplastic into Peripheral Vein, Percutaneous Approach Introduction of Other Antineoplastic into Peripheral Vein, Percutaneous Approach [facility] Start: 09-26-2021 Hospital admission [facility] Work Phone: Start: 09-26-2021 Referral to oncologist [facility] Work Phone: Start: 09-24-2021 [facility] Work Phone: Start: 2019 PNEUMOCOCCAL: 65+ (1 - PCV) PNEUMOCOCCAL: 65+ (1 - PCV) [facility] Start: 2004 SHINGRIX VACCINE (1 of 2) SHINGRIX VACCINE (1 of 2) [facility] Start: 1999 COLOGUARD (FIT-DNA) COLOGUARD (FIT-DNA) [facility] Start: 1999 Colonoscopy COLONOSCOPY [facility] Start: 1999 COLORECTAL CANCER SCREENING COLORECTAL CANCER SCREENING [facility] Start: [address] COLONOGRAPHY [facility] Start: 1999 DIABETES SCREEN DIABETES SCREEN [facility] Start: 1999 FECAL OCCULT BLOOD FECAL OCCULT BLOOD [facility] Start: 1999 SIGMOIDOSCOPY SIGMOIDOSCOPY [facility] Start: 1989 LIPID SCREEN LIPID SCREEN [facility] Start: 1973 Urine microalbumin profile DTAP,TDAP,TD (1 - Tdap) [facility] Start: 1972 HEPATITIS C SCREENING HEPATITIS C SCREENING [facility] Comprehensive metabo lic 1999 panel - Serum or Plasma [facility] Work Phone: Comprehensive metabo lic 1999 panel - Serum or Plasma [facility] Comprehensive metabo lic 1999 panel - Serum or Plasma [facility] Comprehensive metabo lic 1999 panel - Serum or Plasma [facility] Comprehensive metabo lic 1999 panel - Serum or Plasma [facility] Comprehensive metabo lic 1999 panel - Serum or Plasma [facility] CT Abdomen and Pelvi s W contrast IV [facility] CT Abdomen and Pelvi s W contrast IV [facility] CT Chest W contrast IV [facility] CT Chest W contrast IV [facility] Ferritin [Mass/volum e] in Serum or Plasma [facility] Work Phone: Homocysteine [Moles/ volume] in Serum or Plasma [facility] Lactate dehydrogenas e [Enzymatic activity/volume] in Unspecified specimen [facility] Methylmalonate [Mole s/volume] in Serum or Plasma [facility] Patient Education Liver Biopsy (DC) [facility] Work Phone: Patient referral [facility] Work Phone: [facility] Immunizations Immunization Date Immunization Notes Care Provider Ella miller 07-10-2020 SARS-CoV-2 (COVID-19 ) Ad26 vaccine, recombinant Jahaira SWEET [facility] 06-05-2020 SARS-CoV-2 (COVID-19 ) Ad26 vaccine, recombinant Jahaira SWEET [facility] Payers Date Payer Category Payer Unknown ANTHEM BLUE [facility] AND BLUE [employer] AN[employer]M MED[employer] HMO [id number] 2021-Present [phone] [address] [place] [address] HMO [id number] 2020 Unknown [id number] 2017 Unknown [id number] 1960 Medicare [id number] 1959 Self-pay [id number] 1954 Unknown [id number] [id number] 1954 Unknown [id number] 2.16.840.1.190861.3.579.2.3 56 1954 Unknown [id number] 2.16.840.1.953468.3.579.2.3 56 1954 Unknown [id number] 2.16.840.1.570222.3.579.2.5 93 1954 Unknown [id number] 2.16.840.1.428531.3.579.2.5 93 1954 Unknown [id number] 2.16.840.1.138821.3.579.2.5 1954 Unknown [id number] 2.16.840.1.938359.3.579.2.5 1954 Unknown [id number] 2.16.840.1.481185.3.579.2.7 1954 Unknown [id number] 2.16.840.1.598070.3.579.2.7 1954 Unknown [id number] 2.16.840.1.237116.3.579.2.7 1954 Unknown [id number] 2.16.840.1.758184.3.579.2.7 1954 Unknown [id number] 2.16.840.1.029395.3.579.2.7 1954 Unknown [id number] 2.16.840.1.704078.3.579.2.7 1954 Unknown [id number] 2.16.840.1.161925.3.579.2.7 1954 Unknown [id number] 2.16.840.1.219064.3.579.2.7 1954 Unknown [id number] 2.16.840.1.915588.3.579.2.7 1954 Unknown [id number] 2.16.840.1.138544.3.579.2.7 1954 Unknown [id number] 2.16.840.1.881815.3.579.2.7 1954 Unknown [id number] 2.16.840.1.942684.3.579.2.7 1954 Unknown [id number] 2.16.840.1.976778.3.579.2.7 1954 Unknown [id number] 2.16.840.1.268090.3.579.2.7 18 Unknown [id number] 2.16.840.1.226927.3.579.2.5 31 Unknown [id number] 2.16.840.1.714528.3.579.2.5 31 Unknown [id number] 2.16.840.1.901879.3.579.2.5 31 Worker's Compensation [employer] Ins [facility] [id number] Social History Date Type Detail Facility Unknown if ever smoked [facility] [employer] Other Sex Assigned At [facility] [employer] Other Start: 05-04-2021 End: 06-29-2023 Tobacco smoking status Never smoked tobacco (finding) [facility] Start: 1955 Sex Assigned At Male F [facility] Tobacco smoking consumption unknown [facility] Start: 1955 Sex Assigned At Not on file C [facility] Tobacco smoking status Never [facility] Medical Equipment Procedure Code Equipment Code Equipment Origin al Text Equipment Identifier Dates Insertion of central venous catheter (CVC) with subcutaneous port for chemotherapy Vascular port/catheter ()[id number] FDA Start: 11-05-2021 Goals Date Patient Goal Desired Activity /State Functional Status Date Assessment Result Facility 06-29-2023 Functional Status N/A [facility] 06-27-2023 Functional Status N/A [facility] 06-14-2023 Functional Status N/A [facility] 11-12-2022 Functional Status N/A [facility] 10-12-2022 Functional Status N/A [facility] 05-10-2022 Functional Status N/A [facility] 11-02-2021 Functional Status N/A [facility] 10-01-[facility]21 Functional status [facility] at [facility] Work Phone: Mental Status Date Assessment Result Facility 10-01-2021 Cognitive function Cognitive Sta tus Patient at [facility] Work Phone: Clinical Notes 05-26-2021 to 07-13-2023 Note Date & Type Note Facility 07-13-2023 Note Entered by Jane Mas on July 13, 2023 10:21:54 EDT From: Jane Mas To: [facility] #[id number] Sent: 07/13/2023 10:21:54 EDT Subject: Medication Management Submitted: Complete:venlafaxine (venlafaxine 150 mg oral capsule, extended release) Signed by Jane Mas 07/13/2023 10:21:00 EDT Approved with modifications: venlafaxine (VENLAFAXINE HCL ER 75 MG CAP) take 1 capsule by mouth once daily for 2 weeks then INCREASE to 2 capsules daily Qty: 180 cap(s) Days Supply: 90 Refills: 0 Substitutions Allowed Route To Pharmacy - [facility] #[id number] Signed by Jane Mas Patient matched by Jane Mas on 07/13/2023 10:21:12 EDT From: [facility] #[id number] To: HAYLEY MACHADO, SHELIA Whitaker MD Sent: July 13, 2023 8:56:11 AM CDT Subject: Medication Management Due: July 14, 2023 12:07:00 AM CDT On Hold Pending Signature Drug: venlafaxine (venlafaxine 75 mg oral capsule, extended release), take 1 capsule by mouth once daily for 2 weeks then INCREASE to 2 capsules daily Quantity: 180 cap(s) Days Supply: 90 Refills: 0 Substitutions Allowed Notes from Pharmacy: Dispensed Drug: venlafaxine (venlafaxine 75 mg oral capsule, extended release), take 1 capsule by mouth once daily for 2 weeks then INCREASE to 2 capsules daily Quantity: 180 cap(s) Days Supply: 90 Refills: 0 Substitutions Allowed Notes from Pharmacy: [facility] 06-29-2023 Hospital Discharge instructions Patient Education 06/29/2023 08:49:51 Dietary Guidelines to Help Prevent Kidney Stones Dietary Guidelines to Help Prevent Kidney Stones Kidney stones are deposits of minerals and salts that form inside your kidneys. Your risk of developing kidney stones may be greater depending on your diet, your lifestyle, the medicines you take, and whether you have certain medical conditions. Most people can lower their risks of developing kidney stones by following these dietary guidelines. Your dietitian may give you more specific instructions depending on your overall health and the type of kidney stones you tend to develop. What are tips for following this plan? Reading food labels Choose foods with no salt added or low-salt labels. Limit your salt (sodium) intake to less than 1,500 mg a day. Choose foods with calcium for each meal and snack. Try to eat about 300 mg of calcium at each meal. Foods that contain 200 500 mg of calcium a serving include: ?8 oz (237 mL) of milk, tovtzmu-xhyqqlnvvpyv-wirag milk, and calcium-fortifiedfruit juice. Calcium-fortified means that calcium has been added to these drinks. ?8 oz (237 mL) of kefir, yogurt, and soy yogurt. ?4 oz (114 g) of tofu. ?1 oz (28 g) of cheese. ?1 cup (150 g) of dried figs. ?1 cup (91 g) of cooked broccoli. ?One 3 oz (85 g) can of sardines or mackerel. Most people need 1,000 1,500 mg of calcium a day. Talk to your dietitian about how much calcium is recommended for you. Shopping Buy plenty of fresh fruits and vegetables. Most people do not need to avoid fruits and vegetables, even if these foods contain nutrients that may contribute to kidney stones. When shopping for convenience foods, choose: ?Whole pieces of fruit. ?Pre-made salads with dressing on the side. ?Low-fat fruit and yogurt smoothies. Avoid buying frozen meals or prepared deli foods. These can be high in sodium. Look for foods with live cultures, such as yogurt and kefir. Choose high-fiber grains, such as whole-wheat breads, oat bran, and wheat cereals. Cooking Do not add salt to food when cooking. Place a salt shaker on the table and allow each person to add their own salt to taste. Use vegetable protein, such as beans, textured vegetable protein (TVP), or tofu, instead of meat in pasta, casseroles, and soups. Meal planning Eat less salt, if told by your dietitian. To do this: ?Avoid eating processed or pre-made food. ?Avoid eating fast food. Eat less animal protein, including cheese, meat, poultry, or fish, if told by your dietitian. To do this: ?Limit the number of times you have meat, poultry, fish, or cheese each week. Eat a diet free of meat at least 2 days a week. ?Eat only one serving each day of meat, poultry, fish, or seafood. ?When you prepare animal proteins, cut pieces into small portion sizes. For most meat and fish, one serving is about the size of the palm of your hand. Eat at least five servings of fresh fruits and vegetables each day. To do this: ?Keep fruits and vegetables on hand for snacks. ?Eat one piece of fruit or a handful of berries with breakfast. ?Have a salad and fruit at lunch. ?Have two kinds of vegetables at dinner. You may be told to limit foods that are high in a substance called oxalate. These include: ?Spinach (cooked), rhubarb, beets, sweet potatoes, and Belgian chard. ?Peanuts. ?Potato chips, irish fries, and baked potatoes with skin on. ?Nuts and nut products. ?Chocolate. If you regularly take a diuretic medicine, make sure to eat at least 1 or 2 servings of fruits or vegetables that are high in potassium each day. These include: ?Avocado. ?Banana. ?[place], prune, carrot, or tomato juice. ?Baked potato. ?Cabbage. ?Beans and split peas. Lifestyle Drink enough fluid to keep your urine pale yellow. This is the most important thing you can do. Spread your fluid intake throughout the day. If you drink alcohol: ?Limit how much you have to: ?0 1 drink a day for women who are not . ?0 2 drinks a day for men. ?Know how much alcohol is in your drink. In the [place] one drink equals one 12 oz bottle of beer (355 mL), one 5 oz glass of wine (148 mL), or one 1 oz glass of hard liquor (44 mL). Lose weight if told by your health care provider. Work with your dietitian to find an eating plan and weight loss strategies that work best for you. General information Talk to your health care provider and dietitian about taking daily supplements. Depending on your health and the cause of your kidney stones, you may be told: ?Do not take high-dose supplements of vitamin C (1,000 mg a day or more). ?To take a calcium supplement. ?To take a daily probiotic supplement. ?To take other supplements such as magnesium, fish oil, or vitamin B6. Take wtiw-ejp-befdbzi and prescription medicines only as told by your health care provider. These include supplements. What foods should I limit? Limit your intake of the following foods, or eat them as told by your dietitian. Vegetables Spinach. Rhubarb. Beets. Canned vegetables. Pickles. Olives. Baked potatoes with skin. Grains Wheat bran. Baked goods. Salted crackers. Cereals high in sugar. Meats and other proteins Nuts. Nut butters. Large portions of meat, poultry, or fish. Salted, precooked, or cured meats, such as sausages, meat loaves, and hot dogs. Dairy Cheeses. Beverages Regular soft drinks. Regular vegetable juice. Seasonings and condiments Seasoning blends with salt. Salad dressings. Soy sauce. Ketchup. Barbecue sauce. Other foods Canned soups. Canned pasta sauce. Casseroles. Pizza. Lasagna. Frozen meals. Potato chips. [place] fries. The items listed above may not be a complete list of foods and beverages you should limit. Contact a dietitian for more information. What foods should I avoid? Talk to your dietitian about specific foods you should avoid based on the type of kidney stones you have and your overall health. Fruits Grapefruit. The item listed above may not be a complete list of foods and beverages you should avoid. Contact a dietitian for more information. Summary Kidney stones are deposits of minerals and salts that form inside your kidneys. You can lower your risk of kidney stones by making changes to your diet. The most important thing you can do is drink enough fluid. Drink enough fluid to keep your urine pale yellow. Talk to your dietitian about how much calcium you should have each day, and eat less salt and animal protein as told by your dietitian. This information is not intended to replace advice given to you by your health care provider. Make sure you discuss any questions you have with your health care provider. Document Revised: 06/24/2022 Document Reviewed: 06/24/2022 [employer] Patient Education 2022 Elli. Follow Up Care 06/27/2023 13:17:59 With:MICKI MACHADO, Jahaira Ya, URL Address: [facility] [address] , [place] [address]- When: Unknown [facility] 06-14-2023 Note [id number] [facility] 06-14-2023 Hospital Discharge instructions Patient Education 06/14/2023 11:34:35 EU - Transrectal Ultrasound of the Prostate with US guided biopsy Discharge Instructions (CUSTOM) Transrectal Ultrasound of the Prostate with US guided biopsy Even though there are no visible incisions, multiple prostate biopsies have been taken through the rectum and you need to follow some instructions to minimize the risks of bleeding. You may see some blood in your urine and stool for up to 1 week (and blood in the semen for several months) Diet -You may resume your normal diet, but you may want to avoid alcohol, carbonated drinks, caffeine, and spicy foods, which may increase the irritation from the surgery. -Drink plenty of water to keep the urine clear. Activity -You should limit any physical activity for about 48 hours -No heavy lifting or straining (10 pound limit) -No driving a car and limit long car rides for 2 days -No strenuous exercise -No sexual intercourse until this is discussed with your doctor Bowels -Try to keep your bowel movements soft to minimize straining to have a bowel movement. -You may use a stool softener or over the counter laxative if needed -Difficult bowel movement may lead to straining and bleeding from the prostate Medications -You may resume your home medications unless instructed otherwise -Hold aspirin, ibuprofen, Coumadin (warfarin) and other blood thinners for about two days or until there is no active bleeding unless otherwise instructed -Finish the antibiotic which you have already started Things to watch for which would require an Emergency Room visit or call 911: (this is not a complete list) -Persistent or heavy bleeding or blood clots from the rectum or in the urine -Inability to urinate -Fever over 101.5 degrees Fahrenheit, with or without chills -Severe drug reactions with itching, hives or rash -Tenderness or swelling of the calves, chest pain, or shortness of breath Please call the office to arrange for your post-operative appointment in 1-2 weeks [phone] or [phone] Follow Up Care 05/17/2023 11:47:15 With:Jahaira SWEET Address: [facility] [address], [facility] [place] [address]- [facility] (1) When: Unknown Comments:Keep scheduled appointment [facility] 05-02-2023 Note Entered by Sherman Cordero on May 02, 2023 07:50:56 EST From: Abbi Cordero To: [facility] #[id number] Sent: 05/02/2023 07:50:56 EST Subject: Medication Management Submitted: Complete:atorvastatin (atorvastatin 20 mg oral tablet) Signed by Abbi Cordero 05/02/2023 07:50:00 EST Approved with modifications: atorvastatin (ATORVASTATIN 20 MG TABLET) take 1 tablet by mouth once daily Qty: 90 tab(s) Days Supply: 90 Refills: 3 Substitutions Allowed Route To Pharmacy - [facility] #[id number] Signed by Abbi Cordero Approved with modifications: traZODone (TRAZODONE 150 MG TABLET) take 1 tablet by mouth daily at bedtime Qty: 90 tab(s) Days Supply: 90 Refills: 1 Substitutions Allowed Route To Pharmacy - [facility] #[id number] Signed by Abbi Cordero Patient matched by Abbi Cordero on 05/02/2023 07:50:25 EST From: [facility] #[id number] To: HAYLEY MACHADO, SHELIA Whitaker MD Sent: May 01, 2023 8:55:29 AM 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 Subject: Medication Management Due: May 02, 2023 12:30:59 AM 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 On Hold Pending Signature Drug: atorvastatin (atorvastatin 20 mg oral tablet), 1 tab(s) PO Daily Quantity: 90 tab(s) Days Supply: 90 Refills: 2 Substitutions Allowed Notes from Pharmacy: Dispensed Drug: atorvastatin (atorvastatin 20 mg oral tablet), take 1 tablet by mouth once daily Quantity: 90 tab(s) Days Supply: 90 Refills: 0 Substitutions Allowed Notes from Pharmacy: On Hold Pending Signature Drug: traZODone (traZODone 150 mg oral tablet), 1 tab(s) PO Once a day (at bedtime) Quantity: 90 tab(s) Days Supply: 90 Refills: 2 Substitutions Allowed Notes from Pharmacy: Dispensed Drug: traZODone (traZODone 150 mg oral tablet), take 1 tablet by mouth daily at bedtime Quantity: 90 tab(s) Days Supply: 90 Refills: 0 Substitutions Allowed Notes from Pharmacy: [facility] 03-29-2023 Note Entered by Sherman Cordero on March 29, 2023 09:28:31 EST From: Abbi Cordero To: [facility] #[id number] Sent: 03/29/2023 09:28:31 EST Subject: Medication Management Submitted: Complete:amLODIPine (amLODIPine 5 mg oral tablet) Signed by Abbi Cordero 03/29/2023 09:28:00 EST Approved with modifications: amLODIPine (AMLODIPINE BESYLATE 5 MG TAB) take 1 tablet by mouth once daily Qty: 90 tab(s) Days Supply: 90 Refills: 1 Substitutions Allowed Route To Pharmacy - [facility] #[id number] Signed by Abbi Cordero Patient matched by Abbi Cordero on 03/29/2023 09:28:05 EST From: [facility] #[id number] To: HAYLEY MACHADO, SHELIA Whitaker MD Sent: March 28, 2023 8:55:28 AM 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 Subject: Medication Management Due: March 29, 2023 12:30:25 AM 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 On Hold Pending Signature Drug: amLODIPine (amLODIPine 5 mg oral tablet), take 1 tablet by mouth once daily Quantity: 90 tab(s) Days Supply: 90 Refills: 2 Substitutions Allowed Notes from Pharmacy: Dispensed Drug: amLODIPine (amLODIPine 5 mg oral tablet), take 1 tablet by mouth once daily Quantity: 90 tab(s) Days Supply: 90 Refills: 0 Substitutions Allowed Notes from Pharmacy: [facility] 01-31-2023 Note Entered by Sherman Cordero on January 31, 2023 09:21:09 EST From: Abbi Cordero To: [facility] #[id number] Sent: 01/31/2023 09:21:09 EST Subject: Medication Management Submitted: Complete:topiramate (topiramate 100 mg oral tablet) Signed by Abbi Cordero 01/31/2023 09:21:00 EST Approved with modifications: topiramate (TOPIRAMATE 100 MG TABLET) take 1 tablet by mouth once daily Qty: 90 tab(s) Days Supply: 90 Refills: 2 Substitutions Allowed Route To Pharmacy - [facility] #[id number] Signed by Abbi Cordero Patient matched by Abbi Cordero on 01/31/2023 09:20:44 EST From: [facility] #[id number] To: HAYLEY MACHADO, SHELIA Whitaker MD Sent: January 29, 2023 8:55:50 AM CDT Subject: Medication Management Due: January 30, 2023 12:30:40 AM CDT On Hold Pending Signature Drug: topiramate (topiramate 100 mg oral tablet), 1 tab(s) PO Daily Quantity: 90 tab(s) Days Supply: 90 Refills: 2 Substitutions Allowed Notes from Pharmacy: Dispensed Drug: topiramate (topiramate 100 mg oral tablet), take 1 tablet by mouth once daily Quantity: 90 tab(s) Days Supply: 90 Refills: 0 Substitutions Allowed Notes from Pharmacy: [facility] 01-18-2023 Note Patient Education Ma terials Follows: [facility] 12-20-2022 Note Entered by Sherman Cordero on December 20, 2022 08:12:34 EDT From: Abbi Cordero To: [facility] #[id number] Sent: 12/20/2022 08:12:34 EDT Subject: Medication Management Approved Order:venlafaxine (venlafaxine 75 mg oral capsule, extended release) take 1 capsule by mouth once daily for 2 weeks then INCREASE to 2 capsules daily Qty: 180 cap(s) Days Supply: 90 Refills: 1 Substitutions Allowed Route To Pharmacy - [facility] #[id number] Note from Pharmacy: 30 to 90 day supply Signed by Abbi Cordero Patient matched by Abbi Cordero on 12/20/2022 08:12:02 EDT From: [facility] #[id number] To: HAYLEY MACHADOSHELIA MD Sent: December 17, 2022 10:30:14 AM CDT Subject: Medication Management Due: December 18, 2022 10:30:14 AM CDT Originally Prescribed Drug: Drug: venlafaxine (venlafaxine 75 mg oral capsule, extended release), TAKE 1 CAPSULE BY MOUTH ONCE DAILY FOR 2 WEEKS THEN INCREASE TO 2 CAPSULES DAILY Quantity: 60 cap(s) Days Supply: 90 Refills: 1 Substitutions Allowed Notes from Pharmacy: On Hold Pending Signature Preferred Alternative Drug: venlafaxine (venlafaxine 75 mg oral capsule, extended release), take 1 capsule by mouth once daily for 2 weeks then INCREASE to 2 capsules daily Quantity: 180 cap(s) Days Supply: 90 Refills: 1 Substitutions Allowed Notes from Pharmacy: 30 to 90 day supply [facility] 11-12-2022 Hospital Discharge instructions Follow Up Care 11/12/2022 11:04:40 With:MICKI MACHADO, Jahaira Ya, URL Address: [facility] [address] , [place] [address]- [phone] When: Unknown [facility] 11-12-2022 Hospital Discharge instructions Patient Education 11/12/2022 10:54:24 Prostate Cancer Screening Prostate Cancer Screening Prostate cancer screening is testing that is done to check for the presence of prostate cancer in men. The prostate gland is a walnut-sized gland that is located below the bladder and in front of the rectum in males. The function of the prostate is to add fluid to semen during ejaculation. Prostate cancer is one of the most common types of cancer in men. Who should have prostate cancer screening? Screening recommendations vary based on age and other risk factors, as well as between the professional organizations who make the recommendations. In general, screening is recommended if: You are age 50 to 70 and have an average risk for prostate cancer. You should talk with your health care provider about your need for screening and how often screening should be done. Because most prostate cancers are slow growing and will not cause , screening in this age group is generally reserved for men who have a 10- to 15-year life expectancy. You are younger than age 50, and you have these risk factors: ?Having a father, brother, or uncle who has been diagnosed with prostate cancer. The risk is higher if your family member's cancer occurred at an early age or if you have multiple family members with prostate cancer at an early age. ?Being a male who is Black or is of [place] or sub-Saharan descent. In general, screening is not recommended if: You are younger than age 40. You are between the ages of 40 and 49 and you have no risk factors. You are 70 years of age or older. At this age, the risks that screening can cause are greater than the benefits that it may provide. If you are at high risk for prostate cancer, your health care provider may recommend that you have screenings more often or that you start screening at a younger age. How is screening for prostate cancer done? The recommended prostate cancer screening test is a blood test called the prostate-specific antigen (PSA) test. PSA is a protein that is made in the prostate. As you age, your prostate naturally produces more PSA. Abnormally high PSA levels may be caused by: Prostate cancer. An enlarged prostate that is not caused by cancer (benign prostatic hyperplasia, or BPH). This condition is very common in older men. A prostate gland infection (prostatitis) or urinary tract infection. Certain medicines such as male hormones (like testosterone) or other medicines that raise testosterone levels. A rectal exam may be done as part of prostate cancer screening to help provide information about the size of your prostate gland. When a rectal exam is performed, it should be done after the PSA level is drawn to avoid any effect on the results. Depending on the PSA results, you may need more tests, such as: A physical exam to check the size of your prostate gland, if not done as part of screening. Blood and imaging tests. A procedure to remove tissue samples from your prostate gland for testing (biopsy). This is the only way to know for certain if you have prostate cancer. What are the benefits of prostate cancer screening? Screening can help to identify cancer at an early stage, before symptoms start and when the cancer can be treated more easily. There is a small chance that screening may lower your risk of dying from prostate cancer. The chance is small because prostate cancer is a slow-growing cancer, and most men with prostate cancer from a different cause. What are the risks of prostate cancer screening? The main risk of prostate cancer screening is diagnosing and treating prostate cancer that would never have caused any symptoms or problems. This is called overdiagnosisand overtreatment. PSA screening cannot tell you if your PSA is high due to cancer or a different cause. A prostate biopsy is the only procedure to diagnose prostate cancer. Even the results of a biopsy may not tell you if your cancer needs to be treated. Slow-growing prostate cancer may not need any treatment other than monitoring, so diagnosing and treating it may cause unnecessary stress or other side effects. Questions to ask your health care provider When should I start prostate cancer screening? What is my risk for prostate cancer? How often do I need screening? What type of screening tests do I need? How do I get my test results? What do my results mean? Do I need treatment? Where to find more information The [place] [employer]: www.cancer.org [place] [employer]: www.auanet.org Contact a health care provider if: You have difficulty urinating. You have pain when you urinate or ejaculate. You have blood in your urine or semen. You have pain in your back or in the area of your prostate. Summary Prostate cancer is a common type of cancer in men. The prostate gland is located below the bladder and in front of the rectum. This gland adds fluid to semen during ejaculation. Prostate cancer screening may identify cancer at an early stage, when the cancer can be treated more easily and is less likely to have spread to other areas of the body. The prostate-specific antigen (PSA) test is the recommended screening test for prostate cancer, but it has associated risks. Discuss the risks and benefits of prostate cancer screening with your health care provider. If you are age 70 or older, the risks that screening can cause are greater than the benefits that it may provide. This information is not intended to replace advice given to you by your health care provider. Make sure you discuss any questions you have with your health care provider. Document Revised: 09/07/2021 Document Reviewed: 09/07/2021 Elsevier Patient Education 2022 Elli. Follow Up Care 05/10/2022 11:47:00 With:MICKI MACHADO, Jahaira Ya, URL Address: [address] [place] [address]- When: Unknown [facility] 10-12-2022 Hospital Discharge instructions Patient Education 10/12/2022 09:01:57 Dietary Guidelines to Help Prevent Kidney Stones Dietary Guidelines to Help Prevent Kidney Stones Kidney stones are deposits of minerals and salts that form inside your kidneys. Your risk of developing kidney stones may be greater depending on your diet, your lifestyle, the medicines you take, and whether you have certain medical conditions. Most people can lower their chances of developing kidney stones by following the instructions below. Your dietitian may give you more specific instructions depending on your overall health and the type of kidney stones you tend to develop. What are tips for following this plan? Reading food labels Choose foods with no salt added or low-salt labels. Limit your salt (sodium) intake to less than 1,500 mg a day. Choose foods with calcium for each meal and snack. Try to eat about 300 mg of calcium at each meal. Foods that contain 200 500 mg of calcium a serving include: ?8 oz (237 mL) of milk, ellmyxd-hpapbcmqtuof-lirvk milk, and calcium-fortifiedfruit juice. Calcium-fortified means that calcium has been added to these drinks. ?8 oz (237 mL) of kefir, yogurt, and soy yogurt. ?4 oz (114 g) of tofu. ?1 oz (28 g) of cheese. ?1 cup (150 g) of dried figs. ?1 cup (91 g) of cooked broccoli. ?One 3 oz (85 g) can of sardines or mackerel. Most people need 1,000 1,500 mg of calcium a day. Talk to your dietitian about how much calcium is recommended for you. Shopping Buy plenty of fresh fruits and vegetables. Most people do not need to avoid fruits and vegetables, even if these foods contain nutrients that may contribute to kidney stones. When shopping for convenience foods, choose: ?Whole pieces of fruit. ?Pre-made salads with dressing on the side. ?Low-fat fruit and yogurt smoothies. Avoid buying frozen meals or prepared deli foods. These can be high in sodium. Look for foods with live cultures, such as yogurt and kefir. Choose high-fiber grains, such as whole-wheat breads, oat bran, and wheat cereals. Cooking Do not add salt to food when cooking. Place a salt shaker on the table and allow each person to add his or her own salt to taste. Use vegetable protein, such as beans, textured vegetable protein (TVP), or tofu, instead of meat in pasta, casseroles, and soups. Meal planning Eat less salt, if told by your dietitian. To do this: ?Avoid eating processed or pre-made food. ?Avoid eating fast food. Eat less animal protein, including cheese, meat, poultry, or fish, if told by your dietitian. To do this: ?Limit the number of times you have meat, poultry, fish, or cheese each week. Eat a diet free of meat at least 2 days a week. ?Eat only one serving each day of meat, poultry, fish, or seafood. ?When you prepare animal protein, cut pieces into small portion sizes. For most meat and fish, one serving is about the size of the palm of your hand. Eat at least five servings of fresh fruits and vegetables each day. To do this: ?Keep fruits and vegetables on hand for snacks. ?Eat one piece of fruit or a handful of berries with breakfast. ?Have a salad and fruit at lunch. ?Have two kinds of vegetables at dinner. Limit foods that are high in a substance called oxalate. These include: ?Spinach (cooked), rhubarb, beets, sweet potatoes, and Belgian chard. ?Peanuts. ?Potato chips, irish fries, and baked potatoes with skin on. ?Nuts and nut products. ?Chocolate. If you regularly take a diuretic medicine, make sure to eat at least 1 or 2 servings of fruits or vegetables that are high in potassium each day. These include: ?Avocado. ?Banana. ?[place], prune, carrot, or tomato juice. ?Baked potato. ?Cabbage. ?Beans and split peas. Lifestyle Drink enough fluid to keep your urine pale yellow. This is the most important thing you can do. Spread your fluid intake throughout the day. If you drink alcohol: ?Limit how much you use to: ?0 1 drink a day for women who are not . ?0 2 drinks a day for men. ?Be aware of how much alcohol is in your drink. In the [place] one drink equals one 12 oz bottle of beer (355 mL), one 5 oz glass of wine (148 mL), or one 1 oz glass of hard liquor (44 mL). Lose weight if told by your health care provider. Work with your dietitian to find an eating plan and weight loss strategies that work best for you. General information Talk to your health care provider and dietitian about taking daily supplements. You may be told the following depending on your health and the cause of your kidney stones: ?Not to take supplements with vitamin C. ?To take a calcium supplement. ?To take a daily probiotic supplement. ?To take other supplements such as magnesium, fish oil, or vitamin B6. Take jemy-zlh-nalhntn and prescription medicines only as told by your health care provider. These include supplements. What foods should I limit? Limit your intake of the following foods, or eat them as told by your dietitian. Vegetables Spinach. Rhubarb. Beets. Canned vegetables. Pickles. Olives. Baked potatoes with skin. Grains Wheat bran. Baked goods. Salted crackers. Cereals high in sugar. Meats and other proteins Nuts. Nut butters. Large portions of meat, poultry, or fish. Salted, precooked, or cured meats, such as sausages, meat loaves, and hot dogs. Dairy Cheese. Beverages Regular soft drinks. Regular vegetable juice. Seasonings and condiments Seasoning blends with salt. Salad dressings. Soy sauce. Ketchup. Barbecue sauce. Other foods Canned soups. Canned pasta sauce. Casseroles. Pizza. Lasagna. Frozen meals. Potato chips. [place] fries. The items listed above may not be a complete list of foods and beverages you should limit. Contact a dietitian for more information. What foods should I avoid? Talk to your dietitian about specific foods you should avoid based on the type of kidney stones you have and your overall health. Fruits Grapefruit. The item listed above may not be a complete list of foods and beverages you should avoid. Contact a dietitian for more information. Summary Kidney stones are deposits of minerals and salts that form inside your kidneys. You can lower your risk of kidney stones by making changes to your diet. The most important thing you can do is drink enough fluid. Drink enough fluid to keep your urine pale yellow. Talk to your dietitian about how much calcium you should have each day, and eat less salt and animal protein as told by your dietitian. This information is not intended to replace advice given to you by your health care provider. Make sure you discuss any questions you have with your health care provider. Document Revised: 11/23/2021 Document Reviewed: 11/23/2021 [employer] Patient Education 2022 Elli. Follow Up Care 09/17/2022 14:35:39 With:MICKI MACHADO, Jahaira Ya, URL Address: [facility] [address] [place] [address]- When: Unknown [facility] 10-06-2022 Progress note Note Date/Time October 06, 2022 10:10am [facility] at [address] [address] Hem/Onc Follow Up Note - OP Signed Patient: Zheng Montesinos MR#: [id number] : 1955 Acct:[id number] Age/Sex: 67 / M Type: REG RCR Copies to: MD Shelia Morris (Varsha)MD Juan Carlos MD~ Subjective Date/Time of Service: Date of Service: 10/06/2022 Time of Service: 10:10 Chief Complaint: Patient is here today for a 3 month follow up visit for high grade B-cell lymphoma and go over CT scan and labs HPI: 10/06/2022: Zheng present for 4 month surveillance visit for prior high grade B cell lymphoma. No constitutional symptoms of fever, chills, night sweats, or weight loss. His main concern is that he has persistent fatigue of unclear etiology. Denies chest pain, shortness of breath, cough, dyspnea, recent infections. No new areas of edema. His restaging CT of chest from 10/04/2022 was reviewed showing resolution of prior anterior mediastinal lymph node and trace pleural effusions with interval decrease in the size and numbers of hepatic and splenic lesions. These areas showed no uptake on prior PET/CT in March 2022 following his R-CHOP therapy. In addition Zheng has been followed by Dr. Jahaira Sweet of urology due to nephrolithiasis requiring placement of left ureteral stent and ablation of kidney stones recently. His CT of abdomen and pelvis performed at [facility] 09/05/2022 did not show any new areas of adenopathy but was remarkable for nephrolithiasis without obstructive uropathy and moderateenlargement of the prostate gland. He will continue follow-up with urology. 07/09/2022: Zheng is here for follow-up for his high grade B cell lymphoma. He notes increased swelling in his right LE with some mild pain here and there, as well as redness to the monae. He notes this started a few days ago. He denies fevers, chills, sweats, cough, shortness of breath, chest pain, n/v/d or other new pain. We will send him for an US of the RLE and also refer him to vascular. Will plan next follow-up in [address] c/a/p and labs. 04/09/2022: Zheng his here for followup after completing 6 cycles of R-CHOP for high grade B cell lymphoma. He has made remarks on several occasions about having a gun and wanting to end his life, most recently when he was having restaging PET/CT. We gave him the number for crisis mental health management and herefused admission. Today he notes he has no weapon in his house, declined referral for psychiatry/ER evaluation and contracted for safety that he will notharm himself. Agrees to see primary care to discuss resuming antidepressant therapy--increased grief since of his from Covid. Otherwise denies fever, chills, night sweats, cough, dyspnea, abdominal pain or change in bowel/bladder function. 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 No adenopathy and no uptake within prior liver lesions consistent with CR to R-CHOPtherapy. Continue f/u every 3 months with CBC, CMP, LDH, and exam. Will see NPnext visit. Defer imaging with restaging CT CAP with contrast to 6 months, sooner if new issues arise. High complexity 45 minute visit to review depression/recent suicidal ideation and restaging PET/CT. 01/20/2022 ([facility] 66-year-old white gentleman seen for oncologic surveillance on high-grade B-celllymphoma. He completed 6 cycles of CHOP-R. He said that the last cycle was associated with little more of side effects mostly related to neuropathy secondary to vincristine. However it only lasted for a couple of days then completely subsided. It was reflected in his extremities as well as bowel movements. But again with the dose reduction and expected recovery side effectshave subsided and he is almost back to his usual self except for mild numbness and tingling. He denies B symptoms and actually he did not have any prior to establish diagnosis except some unintentional weight loss. He denies abdominal pain or associated symptoms that suggest bowel obstruction 01/08/2022: Zheng has now completed 5 of 6 cycles R-CHOP--cycle 6 is scheduled 01/13/2022. 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 Labs are stable--no fever, night sweats or abdominal pain. He notes increased numbness in distal fingers and toes--will reduce last dose Vincristinefrom 75% dose to now 50% dose. We reviewed his PET/CT which shows uptake in bones likely associated with therapy effect--we reviewed images/reports of priorPET/CT. Difficult to ascertain whether CR due to therapy effect, but no progression of disease. Will proceed with last cycle and I will have [facility] see fortoxicity check after cycle 6. I will see in Mar 2022 after 3 month PET/CT for response assessment and survivorship visit. Initial inpatient [place]: As you know this is a now 67-year-old male who has a history of hypertension, morbid obesity, meralgia paresthetica, and is followed regularly in urology for elevated PSA but no history of cancer and an ENT for recent frequent productive cough. He reports that his of coronavirus infection in February of last year and over the last 9 months he has personally lost about 60 pounds. He is most troubled by his recurrent cough and was evaluated for worsening dyspnea as well as generalized weakness over the last few weeks. He also reports increased urine frequency but notes that this is longstanding. No nausea, vomiting,diarrhea, constipation, or dysphagia/odynophagia. He had a PE protocol CT in ER that was negative for PE, but found to have bilateral pleural effusions and multiple liver and splenic lesions. He also was found to have multiple hepatic and liver lesions. Normal total bilirubin, and INR but increased AST and ALT. Nohistory of tobacco or alcohol use and no known hepatitis B or C. He has persistent fatigue, but some improvement of calcium (although still 11 range) after hydration and holding HCTZ. Has not yet had bisphosphonate therapy.He is preparing for discharge today, but I informed him of his findings on CT imaging and coordinated biopsy of his liver lesions with Dr. Ventura of radiology at [facility] for later this week. I informed him of normal INR, platelet count, and the fact that she does not take any NSAIDs or aspirin. I will follow-up results of biopsy next week and will also send alpha-fetoprotein, CA 19-9, CEA, and hepatitis B and C screening to determine etiologyof his liver lesions. Subsequent therapy will be based on pathology results. He may require outpatient bisphosphonate therapy if persistent hypercalcemia with fatigue. --Patient presented to the ER on 09/26/2021 with worsening weakness, fatigue, nausea, vomiting, shortness of breath, back pain, and urinary frequency. He wasnoted to be hypertensive, calcium to 15.1 with elevated liver function tests andcreatinine. He received bolus normal saline and calcitonin by inpatient physicians. I met with him today to discuss his final pathology. We are preparing to initiate chemotherapy based on results within the next week. He may need a consult for general surgery infusion port as an outpatient. 09/30/2021: Patient was evaluated at bedside this morning, eating normally and notes that his constipation has improved control. Fatigue is significantly improved. No nausea, vomiting, or diarrhea. We reviewed his chemotherapy consent below for Rituxan with [facility] and he signed consent today. His baseline ECHO noted an EF 65-70%. We will plan to get a port placed in the outpatient setting prior to cycle 2. Plan is to give rasburicase 6 mg IV prior to Rituxan followed by the cyclophosphamide, doxorubicin, and vincristine. He started prednisone on Tuesday and may receive last 100 mg dose today. He does note that he has had relative hypoglycemia with blood glucose in the 70s despite high-dose prednisone each day. If the patient is stable overnight he can be discharged home with follow-up in 1 week at [facility] for toxicity visit with me next Tuesday. Today we reviewed chemotherapy counseling for Rituximab, cyclophosphamide, doxorubicin, vincristine, and prednisone. Goal of therapy is curative--[id number]% complete response, 40% cure with 40% relapse. Common toxicities were reviewed to include infusion reactions, allergic reactions myelosuppression, fatigue, nausea, vomiting, constipation, diarrhea, mouth sores, and alopecia. Other toxicities may include pneumonitis, cardiotoxicity, secondary malignancy neurologic, hepatic and renal toxicities. The patient signed informed consent and will receive inpatient chemo today with 1 week follow-up toxicity visit. 10/09/2021: Patient presents after discharge on 10/01/2021 for his newly diagnosed high grade B cell lymphoma. He was initiated on R-CHOP inpatient on 09/30/2021 andtolerated this fairly well. His main complaint is some weakness and slight tremor in his hands. Otherwise, he notes he gets a bit short of breath with walking long distances or doing activity, but not at rest. He denies fever, chills, sweats, fatigue, n/v/d, constipation, chest pain or other complaints today. Labs are reviewed and ok, low wbc and hgb as expected with chemotherapy. His alk phos and LDH are improved, and his ALT/AST have normalized. He states hefeels pretty good overall. He is getting a bone marrow biopsy with Dr. Mcbride as well today, and is scheduled for PET scan next week as there was miscommunication on his appointment this morning. Per Dr. Mcbride, we will plan for dose reduction of his vincristine with his next cycle d/t the arm/hand weakness, which will be on 10/21/2021. We will plan for follow-up with Dr. Mcbride in 3 weeks with labs per treatment plan. 10/28/2021: hZeng is here for cycle 2, day 8 R-CHOP therapy. He will receive this cycle as an outpatient and had 25% dose reduction of vincristine due to numbness in his arm and hand. He noted that he had generalized weakness on days3 through 5 after therapy which is now improved. He also noted that he had a hot sensation but he did not take his temperature. He had no other signs or symptoms of infection such as cough, dyspnea, pharyngitis, or new GI symptoms. He notes that he feels better today. He did not have laboratories prior to thisvisit but labs today were reviewed showing normal white blood cell count with neutrophils 4500, hemoglobin 12.4, platelet count 177,000, normal electrolytes with normal calcium 8.8. Normal liver function tests. PET/CT scheduling was delayed until about 2 weeks after his inpatient R-CHOP. There was still residual activity in his right hepatic lobe with SUV 4.8, left hepatic lobe with SUV 7.8, uptake in the spleen with SUV 3.7. There is nonspecific uptake in the right mandible which is not associated with any lesions or pain on exam. His bone marrow biopsy was reviewed from 10/09/2021 showing mildly hypercellular trilineage hematopoiesis (60%) with no lymphoproliferative disorder and normal iron stores. 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 He will proceed with the same dose next cycle and we will coordinate follow-up echocardiogram in early December. Follow-up with nurse practitioner in 3 weeks for toxicity check and with me in 6 weeks. 11/18/2021: Zheng presents for follow-up after receiving cycle 3 day 1 R-CHOP last week. He continues with fatigue, denies fever, chills, sweats, n/v, diarrhea or constipation. He notes he gets really hot in the sun, which we discussed the importance of sunscreen and covering up with long sleeves and a hat when he can. He also notes taste changes and feels like his voice can get a little raspy here and there. In looking at his mouth, it appears he has some thrush starting, so we will give him nystatin swish and swallow. Otherwise he denies new complaints since last visit. His labs are stable, slightly elevated wbc and anc- he did get neulasta after therapy last week. He will return for follow-up in [address] Mcbride. 12/09/2021: Zheng is here for cycle 4 week 2 R-CHOP--tolerating well with few toxicities. Mild fatigue but wants to return to work next week. Notes metallictaste and white coating over tongue despite Nystatin swish and swallow. Occasional numbness of fingertips and toes that does not persist. No abnormalities on exam. Labs are stable--I will coordinate followup PET prior tocycle 5 week 2 followup in 3 weeks. We will plan 6 total cycles, then survivorship if Deauville 0-1 on f/u PET. Low complexity followup 25 minutes. - Summary of Therapies Summary of Therapies: Inpatient R-CHOP 09/30/2021 full dose R-CHOP (category 1) Days 1, 22, and 43: Rituximab 375mg/m2 IV 7 days prior to beginning CHOP regimen Day 1: Cyclophosphamide 750mg/m2 IV, doxorubicin 50mg/m2 IV bolus, and vincristine 1.4mg/m2 IV bolus (max dose 2mg) Days 3, 24, and 45: Prednisone 100mg PO 5 days. Repeat each cycle every 3 weeks for 3 cycles. Radiotherapy begins 3 weeks after last cycle of R-CHOP. Cycle 2 was given as an outpatient 10/21/2021 (25% dose reduction of vincristine for left arm paresthesias) continue for 6 cycles. Cycle 6 (last cycle 01/10/2022) at 50% dose reduction of vincristine for paresthesias of fingers and toes as per HPI. ROS Details: All systems reviewed & no additional complaints except as documented Subjective/ROS - Narrative: CONSTITUTIONAL: Positive for recent worsening fatigue over the last month as perHPI. No weight loss, fever, chills, weakness or fatigue. + morbidly obese. HEENT: Eyes: No visual loss, blurred vision, double vision or yellow sclerae. Ears, Nose, Throat: No hearing loss, epistaxis. SKIN: No rash or itching. CARDIOVASCULAR: No chest pain, chest pressure or chest discomfort. No palpitations or edema. RESPIRATORY: No shortness of breath, cough or hemoptysis. GASTROINTESTINAL: No dysphagia, nausea, vomiting or diarrhea. No abdominal pain,melena, hematochezia. GENITOURINARY: No dysuria, urinary frequency or urgency. NEUROLOGICAL: No headache, dizziness, syncope, improvement of prior numbness or tingling in the extremities. MUSCULOSKELETAL: No muscle, back pain, joint pain or stiffness. HEMATOLOGIC: No bleeding or bruising. LYMPHATICS: No enlarged nodes. PSYCHIATRIC: Positive depression with recent suicidal ideation--none today and previously declined referral to ER or mental health referral. Agrees to addresswith primary care. No current antidepressant medication. ENDOCRINOLOGIC: No reports of sweating, cold or heat intolerance. No polyuria orpolydipsia. ALLERGIES: No history of asthma, hives, eczema or rhinitis. PMFSH - History Attestation statement: The following information was validated with the patient. Source: Old Records Reviewed - Medical History Medical History: Medical History (Last Reviewed 10/06/22 @ 13:30 by Abbi Mcbride MD) Anxiety Carpal tunnel syndrome on both sides Depression Erectile dysfunction Hypertension Meralgia paresthetica Morbid obesity - Surgical History Surgical History: Surgical History (Last Reviewed 10/06/22 @ 13:30 by Abbi Mcbride MD) H/O hernia repair H/O lithotripsy H/O vasectomy History of colonoscopy History of repair of rotator cuff History of skin graft History of tonsillectomy and adenoidectomy History of transurethral resection of prostate - Family History Family History: Family History (Last Reviewed 10/06/22 @ 13:30 by Abbi Mcbride MD) Mother Diabetes - Social History Smoking Status: Never smoker Substance Use Type: None Home Medications & Allergies Allergies No Known Allergies Allergy (Verified 10/06/22 10:00) Home Medications topiramate 100 mg capsule,extended release 24 hr 100 mg PO DAILY 09/24/21 [History Confirmed 10/06/22] doxazosin 8 mg tablet 8 mg PO DAILY 09/26/21 [History Confirmed 10/06/22] amlodipine 5 mg tablet 5 mg PO DAILY 10/28/21 [History Confirmed 10/06/22] testosterone 1 % (25 mg/2.5 gram) transdermal gel packet (AndroGel) 1 packet transdermal DAILY 10/28/21 [History Confirmed 10/06/22] trazodone 100 mg tablet 100 mg PO QHS 10/28/21 [History Confirmed 10/06/22] atorvastatin 20 mg tablet 20 mg PO DAILY 10/06/22 [History Confirmed 10/06/22] folic acid 1 mg tablet 3 mg PO DAILY #90 tabs 10/06/22 [Rx] Objective - Height/Weight Height/Weight: Height 5 ft 8 in Weight 134.263 kg BSA for Today's Weight 2.61 - Vital Signs Vital Signs: 10/06/22 10:03 Temperature 97.8 F Pulse Rate [Right Brachial] 56 L Respiratory Rate 16 Blood Pressure [Right Arm] 115/74 02 Sat by Pulse Oximetry 98 Oxygen Delivery Method Room Air - Pain Left Flank Pain Intensity: 2 Results - Labs Labs: Diagram of Most Recent CBC and CMP 10/04/22 10:27 10/04/22 10:27 Labs - Last 7 Days 10/04/22 10:27: Corrected WBC 3.1 L, Uncorrected WBC Count 3.1 L, RBC 4.65, Hgb 13.4, Hct 38.7 L, MCV 83.1 L, MCH 28.7, MCHC 34.6, RDW 14.4, Plt Count 161, MPV 7.4, Neut % (Auto) 59.6, Lymph % (Auto) 22.5, Murray % (Auto) 8.6, Eos % (Auto) 8.2, Baso % (Auto) 1.1, Nucleat RBC Rel Count 0.1, Neut # (Auto) 1.9, Lymph # (Auto) 0.7 L, Murray # (Auto) 0.3, Eos # (Auto) 0.3, Baso # (Auto) 0.0 10/04/22 10:27: PHA Creatinine Clear 71.11, Sodium 141, Potassium 4.3, Chloride 113 H, Carbon Dioxide 24.0, Anion Gap 8.3, BUN 20, Creatinine 1.34 H, Est GFR (CKD-EPI) 57.702, Glucose 97, Calcium 9.1, Total Bilirubin 0.6, AST 16, ALT 18, Alkaline Phosphatase 69, Lactate Dehydrogenase 145, Total Protein 5.8 L, Albumin3.9, Globulin 1.9, Albumin/Globulin Ratio 2.1 10/06/2022: Due to his persistent fatigue we negrito methylmalonic acid, homocystine, and ACTH TSH normal 2.56, free T4 normal 0.72, fasting total cortisol 3.3 (normal range a.m. values 6-24) - Impressions Date of Service: 10/04/22 CT/CT chest w con: surveillance CT Chest with contrast TECHNIQUE: Axial imaging with 2-D reconstruction. 90 cc of [id number] CT exam was performed using one or more the following dose reduction techniques: Automated exposure control, adjustment of the MA and/or Kv according to patient size, or use of the iterative reconstruction technique. History: Restage B-cell lymphoma. COMPARISON: 09/19/2021 THYROID: Unremarkable TRACHEA AND BRONCHI: Patent ESOPHAGUS: Unremarkable. HEART: Within normal limits PERICARDIAL EFFUSION: None CORONARY ARTERY CALCIFICATION: None MEDIASTINUM: No adenopathy. No pneumoperitoneum. No mediastinal hematoma. Anterior mediastinal lymph node no longer seen. PULMONARY EARLE: No hilar mass or adenopathy is seen. THORACIC AORTA Unremarkable LUNG NODULE small left lung apex calcified granuloma redemonstrated. LUNGS: Lungs are clear PLEURAL EFFUSION: Trace pleural effusion seen bilaterally. Minor compressive atelectasis. PNEUMOTHORAX: No pneumothorax seen. CHEST WALL: No abnormality AXILLA:Unremarkable BONY STRUCTURES Intact UPPER ABDOMEN: Diminished hepatic lobe lesions identified. Diminished splenic lesions identified. Right [id number] present. CT/CT chest w con IMPRESSION: Anterior mediastinal lymph node no longer present. Trace pleural effusions redemonstrated. Interval decrease of size and number of hepatic and splenic lesions. Periportal region not imaged. Impression dictated by: Logan Ventura M.D.10/04/2022 3:31 PM [facility] CT scan abdomen pelvis without contrast 09/05/2022 Impression: Scattered hepatic hypodensities measuring up to 2 cm, nonspecific. Consider multiphase CT or MRI to evaluate enhancement characteristics. 2 focal hypodensities left posterior renal cortex, indeterminate. Consider pre and postcontrast CT scan for further characterization. No obstructive uropathy Moderate enlargement of the prostate gland measuring 6.4 cm in diameter Moderate colonic diverticulosis. [facility] 07/31/2022: MRI prostate with and without IV contrast Impression: Stable 0.4 cm lesion in the right mid/apex posterior medial peripheral zone. Although the lesion meets PI-RADS 4 criteria, its location near the surgical capsule favors an ectopic BPH nodule. No new lesions suspicious for clinically significant prostate cancer No pelvic adenopathy or suspicious pelvic osseous lesions. Assessment and Plan - TNM Staging Staging: Stage IVB extranodal diffuse large B-cell lymphoma with involvement of the liverand spleen, negative bone marrow biopsy (1) High grade B-cell lymphoma This is a now 67-year-old male who was admitted to [facility] September 19- for marked worsening fatigue with cough and dyspnea. CT PE protocol did notshow any evidence of pulmonary embolism but he did have multiple liver lesions as well as splenic lesions. He has had some intermittent abdominal pain and constipation but no localizing symptoms. He denies use of regular alcohol or priorhepatitis. I coordinated outpatient biopsy with [facility] interventional radiology which was performed 09/24/2021. Pathology reviewed today reveals malignant cells present, consistent with aggressive B-cell lymphoma. Tumor cells are strongly positive for CD45 and CD20, negative for CD30, AE1/AE3, CAM 5.2, CD56, and synaptic ficin. Ki-67 proliferation indexis high labeling 70 to 80% of tumor cells. During his hospital stay at [facility], his hypercalcemia, likely of malignancy, was treated by holding HCTZ and hydration. Calcium level increased to over 13 with evidence of acute kidney injury. I ordered Pamidronate 90 mg IV and sent baseline hepatitis B and C testing which returned nonreactive. 09/29/2021: His baseline ECHO shows EF 65-70%, LDH is 3462, uric acid is WNL at 6.2. Will plan for rasburicase still given his tumor burden and concern for tumor lysis with initiation of R-CHOP tomorrow 09/30/2021 inpatient. He will be scheduled for a port to be placed in the outpatient setting prior to cycle 2, aswell as a PET/CT. He would like to have these done at [facility], and also would like all of his outpatient treatment and follow-up to continue to be here at [facility] as well. 09/30/2021: Reviewed informed consent for Rituxan plus CHOP chemotherapy to be given as an inpatient today. Rasburicase ordered for tumor lysis syndrome prophylaxis due to bulky disease and recent renal injury which places him at increased risk. He likely can be discharged home tomorrow although I will repeat his tumor lysis labs with LDH and uric acid in the morning. Next follow-up in 1 week for toxicity visit. We will likely coordinate outpatient bone marrow biopsy and PET/CT to complete his work-up. 10/28/2021: Patient is here for cycle 2-week 2 rituximab plus CHOP chemotherapy toxicity visit. He reported a hot sensation but did not take his temperature and his symptoms of fatigue and warmth improved after the fifth day. No evidence of neutropenia or significant cytopenias today. He had prior 25% dose reduction of vincristine for numbness in his hand which has improved. -- Bone marrow biopsy from 10/09/2021 was reviewed showing no evidence of lymphoma involvement, mildly hypercellular with normal iron stores. Hypercellularity is likely due to recovery from chemotherapy given as an inpatient a week before next --Baseline PET/CT was deferred to 10/14/2021 due to his hospitalization. He continues to have uptake in both lobes of the liver and the spleen consistent with extranodal involvement by staging. We will continue his current doses of R-CHOP for his next cycle in 2 weeks and he will see nurse practitioner for toxicity visit at that time. I will see him with his fourth cycle toxicity visit. 11/18/2021: He presents after cycle 3 R-CHOP. He has mild thrush on exam and willbe prescribed nystatin swish and swallow. We reviewed with him today the importance of sunscreen and protecting himself when out in the heat, and he voiced understanding. He continues to do well enough on dose reduced therapy, and will continue every 3 weeks. 12/09/2021: Here for toxicity visit cycle 4, week 3 R-CHOP. Vincristine was reduced 25% for cycle 2 due to neuropathy--no recurrent symptoms. No other toxicities other than persistent white plaque over tongue despite oral Nystatin swish and swallow. PET/CT ordered for prior to cycle 5 for restaging. I supported his return to work if he feels ready due to chemotherapy well tolerated. Next f/u 3 weeks to review restaging PET/CT. 01/08/2022: Now cycle 5 week 2 R-CHOP. Last cycle scheduled next week. Reducing vincristine dose to 50% due to numbness in fingers/toes. Toxicity check with [facility] cycle 6 week 2. Defer next f/u with me until Mar 2022 with 3 month restaging PET/CT and labs. Will evaluate for survivorship visit and surveillance recommendations that visit. 01/20/2022: Patient completed planned 6 cycles of CHOP-R. He had some expected side effects specially with the last cycle but nothing unusual and they have subsided. Plan is to return to office in 3 months or so in March with PET/CT and labs including LDH anticipating hopefully CR which is probably present on the most recent PET/CT despite some equivocation 04/09/2022: He completed 6th/last cycle of R-CHOP at 50% dose reduction of Vincristine last 2 cycles due to worsening neuropathy. These symptoms have improved and restaging PET/CT reviewed today shows no evidence of residual lymphoma. Neuropathy symptoms improving. Addressed depression and recent suicidal ideation symptoms but he declines ER or mental health referral and contract for safety--denies weapon in his home. Will f/u with his primary care Dr. Hayley gallegos antidepressant therapy. Labs stable. Next f/u with [facility] in 3 months with CBC, CMP, LDH and exam. Defer next restaging imaging with CT CAP with contrast to 6 months, sooner if evidence of recurrence. High complexity 45 minute f/u visit. 07/09/2022: He has some increased swelling in the RLE with warmth. Redness to theshin area. Stat US was negative for DVT. We will refer him to vascular. Labs arereviewed and stable overall with some increase in his creatinine. This will be monitored with repeat labs at follow-up. We will plan for follow-up in 3 months with repeat cbc, cmp, ldh and CT c/a/p. He is in agreement with this plan and has no questions. 10/06/2022: Reports increasing fatigue over the last month. Recently underwent ablation of nephrolithiasis as well as stent placement by Dr. Sweet of urology. CT of abdomen and pelvis at [facility] did not show any new areas of adenopathy. There is also no new adenopathy in the chest on most recent chest CT 10/04/2022. There is been some regression of prior anterior mediastinal lymphnode as well as the number of hepatic and splenic lesions, and prior areas of liver and spleen involvement appeared stable from PET/CT in March 2022 that did not show any evidence of FDG avidity. We addressed his fatigue with TSH andfree T4 which returned normal but a.m. cortisol was only 3 and ACTH is pending. He had prior folic acid deficiency and we are sending methylmalonic acid and homocystine as well as increasing his serum folate to 3 mg daily. Due to his persistent fatigue and prior steroid use I am referring him to endocrinology to evaluate for adrenal insufficiency. Otherwise we will defer his next follow-up to 4 months with CBC, CMP, LDH, and may follow-up with nurse practitioner at that time. This is a moderate complexity 35-minute follow-up for multiple comorbidities and new fatigue as well as review of recent imaging. (2) Fatigue Qualifiers: Fatigue type: chronic, unspecified Qualified Code(s): R53.82 - Chronic fatigue, unspecified Zheng notes increasing fatigue over the last month. Has underlying depression but we did send his thyroid functions which returned normal, B12 and homocystinewhich are pending but patient had prior folate deficiency therefore we will increase his folic acid to 3 tablets daily. He also has low a.m. cortisol levelof 3.3 pending ACTH. I am sending him to endocrinology for further evaluation due to prior steroids with his chemotherapy. We will reevaluate his symptoms athis follow-up in 4 months. (3) Folic acid deficiency As noted above we are increasing his supplemental folate to 3 mg daily due to his persistent fatigue. Methylmalonic acid and homocystine are pending. (4) Depression, major, recurrent Qualifiers: Active/Remission status: currently active Major depression episode severity: moderate Qualified Code(s): F33.1 - Major depressive disorder, recurrent, moderate Depressed mood with recent suicidal ideation--contracted for safety. Declined ED or psychiatry referral. Contracted for safety and agrees to f/u with primarycare. Symptoms have worsened since recent of his . 07/09/2022: Symptoms stable, patient declines suicidal ideation since last episode. 09/06/2022: Patient declines psychiatry referral, however we noted that his increased fatigue could be also related to his depression. Reevaluate after endocrinology evaluation. (5) Peripheral neuropathy due to chemotherapy Already subsiding specially with dose reduction of vincristine. Expected to resolve completely in shorter time (6) Hypercalcemia of malignancy Admission to [facility] with work-up then transferred to [facility]. Normal vitamin D levels, PTH intact was low at 5 (likely due to tumor related hypercalcemia). Given Pamidronate and aggressive hydration 09/29/2021: calcium improved to 10.8 today s/p zolendronic acid, not repeated on 76. We will repeat prior to likely discharge tomorrow 10/01. 01/08/2022: calcium WNL since discharge. Will continue to monitor with labs Resolved after initiation of therapy - Chemo Plan Chemo Plan (Dose, Rate, Freq): Chemo Plan (Dose, Rate, Freq): R-CHOP (category 1) Days 1: Rituximab 375mg/m2 IV day 1 CHOP regimen Day 1: Cyclophosphamide 750mg/m2 IV, doxorubicin 50mg/m2 IV bolus, and vincristine 1.5 mg IV bolus (max dose 2mg) Days 1: Prednisone 100mg PO 5 days. Repeat each cycle every 3 weeks for 6 cycles. Vincristine dose reduced 25% at cycle 2-4 Vincristine dose reduced 50% cycle 5-6 only He has completed chemotherapy and is in surveillance only Number of Cycles: 6 Goal of Treatment: Curative - Time with Patient Time Spent with Patient (Follow Up Visit): 45 minutes or more - High complexity for review of symptoms 3 months after chemotherapy, restaging PET/CT, depressionafter his 's Coordination of Care & Counseling Time: Greater than 50% of time spent with patient was for coordination of care (as documented) and [id number] counseling of patient and/or family. Dictated By: Abbi Mcbride MD DD/ [id number] Signed By: <Electronically signed by MD Abbi Mcbride> 10/06/22 1712 [facility] Work Phone: [phone]) [phone] NoteHNO ID: [id number] Author: RT Raphael(R) Service: Radiology Author Type: Technologist Type: Progress Notes Filed: 07/31/2022 3:12 PM Note Text: Radiology Service Progress Note PATIENT NAME: Zheng Montesinos DATE OF SERVICE: July 31, 2022 TIME: 3:12 PM PATIENT IDENTITY VERIFICATION COMPLETED USING TWO (2) IDENTIFIERS: Name and Date of confirmed by patient verbally and Name and Date of confirmed by identification band. FALL SCREENING: Has the patient had 2 falls in the last year or 1 fall with injury or currently using an Ambulatory Assistive Device (Walker, Cane, Wheelchair, Crutches, etc.)? No PATIENT GENDER DATA: Male PATIENT RELEVANT IMPLANT DATA REVIEWED: Yes RADIOLOGY DEPARTMENT: MR; Exam(s) Completed: Body: Prostate PERIPHERAL IV DATA: Site assessment: Clean,Dry and Intact, Site disposition Discontinued SIGNED BY: RT Raphael(R) July 31, 2022 3:12 [facility]05-06-2023 NoteHNO ID: [id number] Author: Juan Carlos Mcclure RN Service: Radiology Author Type: Registered Nurse Type: Progress Notes Filed: 07/31/2022 2:34 PM Note Text: Radiology Service Progress Note DATE OF SERVICE: July 31, 2022 TIME: 2:27 PM PATIENT WEIGHT: 297 LBS PATIENT IDENTITY VERIFICATION COMPLETED USING TWO (2) STANDARD IDENTIFIERS: Name and Date of confirmed by patient verbally and Name and Date of confirmed by identification band. FALL SCREENING: Has the patient had 2 falls in the last year or 1 fall with injury or currently using an Ambulatory Assistive Device (Walker, Cane, Wheelchair, Crutches, etc.)? No PATIENT GENDER DATA: Male ALLERGIES: Reviewed and unchanged CONTRAST ALLERGY: No EXAM: MRI - CONTRAST TYPE: GROUP II IV SITE: Ambulatory: A peripheral IV was started in the Left antecubital site with a Angio cath: 22 gauge. and A Saline lock was inserted per protocol IV SITE APPEARANCE: Clean,Dry and Intact SIGNATURE: Juan Carlos Mcclure RN PATIENT NAME: Zheng Montesinos DATE: July 31, 2022 TIME: 2:27 [facility]05-06-2023 History of Present illness Narrative* Juan Carlos Mcclure RN - 07/31/2022 2:20 PM EDT Radiology Service Progress Note DATE OF SERVICE: July 31, 2022 TIME: 2:27 PM PATIENT WEIGHT: 297 LBS PATIENT IDENTITY VERIFICATION COMPLETED USING TWO (2) STANDARD IDENTIFIERS: Name and Date of confirmed by patient verbally and Name and Date of confirmed by identification band. FALL SCREENING: Has the patient had 2 falls in the last year or 1 fall with injury or currently using an Ambulatory Assistive Device (Walker, Cane, Wheelchair, Crutches, etc.)? No PATIENT GENDER DATA: Male ALLERGIES: Reviewed and unchanged CONTRAST ALLERGY: No EXAM: MRI - CONTRAST TYPE: GROUP II IV SITE: Ambulatory: A peripheral IV was started in the Left antecubital site with a Angio cath: 22gauge. and A Saline lock was inserted per protocol IV SITE APPEARANCE: Clean,Dry and Intact SIGNATURE: Juan Carlos Mcclure RN PATIENT NAME: Zheng Montesinos DATE: July 31, 2022 TIME: 2:27 PM * RT Raphael(R) - 07/31/2022 2:20 PM EDT Radiology Service Progress Note PATIENT NAME: Zheng Montesinos DATE OF SERVICE: July 31, 2022 TIME: 3:12 PM PATIENT IDENTITY VERIFICATION COMPLETED USING TWO (2) IDENTIFIERS: Name and Date of confirmedby patient verbally and Name and Date of confirmed by identification band. FALL SCREENING: Has the patient had 2 falls in the last year or 1 fall with injury or currently using an Ambulatory Assistive Device (Walker, Cane, Wheelchair, Crutches, etc.)? No PATIENT GENDER DATA: Male PATIENT RELEVANT IMPLANT DATA REVIEWED: Yes RADIOLOGY DEPARTMENT: MR; Exam(s) Completed: Body: Prostate PERIPHERAL IV DATA: Site assessment: Clean,Dry and Intact, Site disposition Discontinued SIGNED BY: Maximo Carrera RT(R) July 31, 2022 3:12 PM documented in [facility] Progress note Author Jane Neenasukumar [facility] July 13, 2022 9:50pm Note Date/Time July 09, 2022 2:2 9pm [facility] [place] [address] Hem/Onc Follow Up Note - OP Signed Patient: Zheng Montesinos MR#: [id number] : 1955 Acct:[id number] Age/Sex: 67 / M Type: REG RCR Copies to: MD Juan Carlos Hendricks MD~ Subjective Date/Time of Service: Date of Service: 07/09/2022 Time of Service: 14:29 Chief Complaint: Patient is here today for a 3 month follow up and go over labs HPI: 07/09/2022: Zheng is here for follow-up for his high grade B cell lymphoma. He notes increased swelling in his right LE with some mild pain here and there, as well as redness to the monae. He notes this started a few days ago. He denies fevers, chills, sweats, cough, shortness of breath, chest pain, n/v/d or other new pain. We will send him for an US of the RLE and also refer him to vascular. Will plan next follow- up in [address] c/a/p and labs. 04/09/2022: Zheng his here for followup after completing 6 cycles of R-CHOP for high grade B cell lymphoma. He has made remarks on several occasions about having a gun and wanting to end his life, most recently when he was having restaging PET/CT. We gave him the number for crisis mental health management and he refused admission. Today he notes he has no weapon in his house, declined referral for psychiatry/ER evaluation and contracted for safety that he will notharm himself. Agrees to see primary care to discuss resuming antidepressant therapy--increased grief since of his from Covid. Otherwise denies fever, chills, night sweats, cough, dyspnea, abdominal pain or change in bowel/bladder function. 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 No adenopathy and no uptake within prior liver lesions consistent with CR to R-CHOPtherapy. Continue f/u every 3 months with CBC, CMP, LDH, and exam. Will see NPnext visit. Defer imaging with restaging CT CAP with contrast to 6 months, sooner if new issues arise. High complexity 45 minute visit to review depression/recent suicidal ideation and restaging PET/CT. 01/20/2022 (Dr. Cand[facility] physician): 66-year-old white gentleman seen for oncologic surveillance on high-grade B-celllymphoma. He completed 6 cycles of CHOP-R. He said that the last cycle was associated with little more of side effects mostly related to neuropathy secondary to vincristine. However it only lasted for a couple of days then completely subsided. It was reflected in his extremities as well as bowel movements. But again with the dose reduction and expected recovery side effectshave subsided and he is almost back to his usual self except for mild numbness and tingling. He denies B symptoms and actually he did not have any prior to establish diagnosis except some unintentional weight loss. He denies abdominal pain or associated symptoms that suggest bowel obstruction 01/08/2022: Zheng has now completed 5 of 6 cycles R-CHOP--cycle 6 is scheduled 01/13/2022. 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 Labs are stable--no fever, night sweats or abdominal pain. He notes increased numbness in distal fingers and toes--will reduce last dose Vincristinefrom 75% dose to now 50% dose. We reviewed his PET/CT which shows uptake in bones likely associated with therapy effect--we reviewed images/reports of priorPET/CT. Difficult to ascertain whether CR due to therapy effect, but no progression of disease. Will proceed with last cycle and I will have [facility] see fortoxicity check after cycle 6. I will see in Mar 2022 after 3 month PET/CT for response assessment and survivorship visit. Initial inpatient [place]: As you know this is a 66-year-old male who has a history of hypertension, morbidobesity, meralgia paresthetica, and is followed regularly in urology for elevated PSA but no history of cancer and an ENT for recent frequent productive cough. He reports that his of coronavirus infection in February of last year and over the last 9 months he has personally lost about 60 pounds. He is most troubled by his recurrent cough and was evaluated for worsening dyspnea as well as generalized weakness over the last few weeks. He also reports increased urine frequency but notes that this is longstanding. No nausea, vomiting, diarrhea, constipation, or dysphagia/odynophagia. He had a PE protocolCT in ER that was negative for PE, but found to have bilateral pleural effusionsand multiple liver and splenic lesions. He also was found to have multiple hepatic and liver lesions. Normal total bilirubin, and INR but increased AST andALT. No history of tobacco or alcohol use and no known hepatitis B or C. He has persistent fatigue, but some improvement of calcium (although still 11 range) after hydration and holding HCTZ. Has not yet had bisphosphonate therapy.He is preparing for discharge today, but I informed him of his findings on CT imaging and coordinated biopsy of his liver lesions with Dr. Ventura of radiology at [facility] for later this week. I informed him of normal INR, platelet count, and the fact that she does not take any NSAIDs or aspirin. I will follow- up results of biopsy next week and will also send alpha-fetoprotein, CA 19-9, CEA, and hepatitis B and C screening to determine etiologyof his liver lesions. Subsequent therapy will be based on pathology results. He may require outpatient bisphosphonate therapy if persistent hypercalcemia with fatigue. --Patient presented to the ER on 09/26/2021 with worsening weakness, fatigue, nausea, vomiting, shortness of breath, back pain, and urinary frequency. He wasnoted to be hypertensive, calcium to 15.1 with elevated liver function tests andcreatinine. He received bolus normal saline and calcitonin by inpatient physicians. I met with him today to discuss his final pathology. We are preparing to initiate chemotherapy based on results within the next week. He may need a consult for general surgery infusion port as an outpatient. 09/30/2021: Patient was evaluated at bedside this morning, eating normally and notes that his constipation has improved control. Fatigue is significantly improved. No nausea, vomiting, or diarrhea. We reviewed his chemotherapy consent below for Rituxan with CHOP and he signed consent today. His baseline ECHO noted an EF 65-70%. We will plan to get a port placed in the outpatient setting prior to cycle 2. Plan is to give rasburicase 6 mg IV prior to Rituxan followed by the cyclophosphamide, doxorubicin, and vincristine. He started prednisone on Tuesday and may receive last 100 mg dose today. He does note that he has had relative hypoglycemia with blood glucose in the 70s despite high-dose prednisone each day. If the patient is stable overnight he can be discharged home with follow-up in 1 week at [facility] for toxicity visit with me next Tuesday. Today we reviewed chemotherapy counseling for Rituximab, cyclophosphamide, doxorubicin, vincristine, and prednisone. Goal of therapy is curative--typically 80% complete response, 40% cure with 40% relapse. Common toxicities were reviewed to include infusion reactions, allergic reactions myelosuppression, fatigue, nausea, vomiting, constipation, diarrhea, mouth sores, and alopecia. Other toxicities may include pneumonitis, cardiotoxicity, secondary malignancy neurologic, hepatic and renal toxicities. The patient signed informed consent and will receive inpatient chemo today with 1 week follow-up toxicity visit. 10/09/2021: Patient presents after discharge on 10/01/2021 for his newly diagnosed high grade B cell lymphoma. He was initiated on R-CHOP inpatient on 09/30/2021 andtolerated this fairly well. His main complaint is some weakness and slight tremor in his hands. Otherwise, he notes he gets a bit short of breath with walking long distances or doing activity, but not at rest. He denies fever, chills, sweats, fatigue, n/v/d, constipation, chest pain or other complaints today. Labs are reviewed and ok, low wbc and hgb as expected with chemotherapy. His alk phos and LDH are improved, and his ALT/AST have normalized. He states hefeels pretty good overall. He is getting a bone marrow biopsy with Dr. Mcbride as well today, and is scheduled for PET scan next week as there was miscommunication on his appointment this morning. Per Dr. Mcbride, we will plan for dose reduction of his vincristine with his next cycle d/t the arm/hand weakness, which will be on 10/21/2021. We will plan for follow-up with Dr. Mcbride in 3weeks with labs per treatment plan. 10/28/2021: Zheng is here for cycle 2, day 8 R-CHOP therapy. He will receive this cycle as an outpatient and had 25% dose reduction of vincristine due to numbness in his arm and hand. He noted that he had generalized weakness on days3 through 5 after therapy which is now improved. He also noted that he had a hot sensation but he did not take his temperature. He had no other signs or symptoms of infection such as cough, dyspnea, pharyngitis, or new GI symptoms. He notes that he feels better today. He did not have laboratories prior to thisvisit but labs today were reviewed showing normal white blood cell count with neutrophils 4500, hemoglobin 12.4, platelet count 177,000, normal electrolytes with normal calcium 8.8. Normal liver function tests. PET/CT scheduling was delayed until about 2 weeks after his inpatient R-CHOP. There was still residual activity in his right hepatic lobe with SUV 4.8, left hepatic lobe with SUV 7.8, uptake in the spleen with SUV 3.7. There is nonspecific uptake in the right mandible which is not associated with any lesions or pain on exam. His bone marrow biopsy was reviewed from 10/09/2021 showing mildly hypercellular trilineage hematopoiesis (60%) with no lymphoproliferative disorder and normal iron stores. 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 He will proceed with the same dose next cycle and we will coordinate follow-up echocardiogram in early December. Follow-up with nurse practitioner in 3 weeks for toxicity check and with me in 6 weeks. 11/18/2021: Zheng presents for follow-up after receiving cycle 3 day 1 R-CHOP last week. He continues with fatigue, denies fever, chills, sweats, n/v, diarrhea or constipation. He notes he gets really hot in the sun, which we discussed the importance of sunscreen and covering up with long sleeves and a hat when he can. He also notes taste changes and feels like his voice can get a little raspy here and there. In looking at his mouth, it appears he has some thrush starting, so we will give him nystatin swish and swallow. Otherwise he denies new complaints since last visit. His labs are stable, slightly elevated wbc and anc- he did get neulasta after therapy last week. He will return for follow-up in [address] Mcbride. 12/09/2021: Zheng is here for cycle 4 week 2 R-CHOP--tolerating well with few toxicities. Mild fatigue but wants to return to work next week. Notes metallictaste and white coating over tongue despite Nystatin swish and swallow. Occasional numbness of fingertips and toes that does not persist. No abnormalities on exam. Labs are stable--I will coordinate followup PET prior tocycle 5 week 2 followup in 3 weeks. We will plan 6 total cycles, then survivorship if Deauville 0-1 on f/u PET. Low complexity followup 25 minutes. - Summary of Therapies Summary of Therapies: Inpatient R-CHOP 09/30/2021 full dose R-CHOP (category 1) Days 1, 22, and 43: Rituximab 375mg/m2 IV 7 days prior to beginning CHOP regimen Day 1: Cyclophosphamide 750mg/m2 IV, doxorubicin 50mg/m2 IV bolus, and vincristine 1.4mg/m2 IV bolus (max dose 2mg) Days 3, 24, and 45: Prednisone 100mg PO 5 days. Repeat each cycle every 3 weeks for 3 cycles. Radiotherapy begins 3 weeks after last cycle of R-CHOP. Cycle 2 was given as an outpatient 10/21/2021 (25% dose reduction of vincristine for left arm paresthesias) continue for 6 cycles. Cycle 6 (last cycle 01/10/2022) at 50% dose reduction of vincristine for paresthesias of fingers and toes as per HPI. ROS Details: All systems reviewed & no additional complaints except as documented PMFSH - Medical History Medical History: Medical History (Last Reviewed 04/10/22 @ 14:35 by Abbi Mcbride MD) Anxiety Carpal tunnel syndrome on both sides Depression Erectile dysfunction Hypertension Meralgia paresthetica Morbid obesity - Surgical History Surgical History: Surgical History (Last Reviewed 04/10/22 @ 14:35 by Abbi Mcbride MD) H/O hernia repair H/O lithotripsy H/O vasectomy History of colonoscopy History of repair of rotator cuff History of skin graft History of tonsillectomy and adenoidectomy History of transurethral resection of prostate - Family History Family History: Family History (Last Reviewed 04/10/22 @ 14:35 by Abbi Mcbride MD) Mother Diabetes - Social History Smoking Status: Never smoker Substance Use Type: None Home Medications & Allergies Allergies No Known Allergies Allergy (Verified 07/09/22 13:04) Home Medications topiramate 100 mg capsule,extended release 24 hr 100 mg PO DAILY 09/24/21 [History Confirmed 07/09/22] doxazosin 8 mg tablet 8 mg PO DAILY 09/26/21 [History Confirmed 07/09/22] potassium chloride 25 mEq oral packet 25 meq PO DAILY 10/09/21 [History Confirmed 07/09/22] amlodipine 5 mg tablet 5 mg PO DAILY 10/28/21 [History Confirmed 07/09/22] testosterone 1 % (25 mg/2.5 gram) transdermal gel packet (AndroGel) 1 packet transdermal DAILY 10/28/21 [History Confirmed 07/09/22] trazodone 100 mg tablet 100 mg PO QHS 10/28/21 [History Confirmed 07/09/22] folic acid 1 mg tablet 1 mg PO DAILY #30 tabs 04/16/22 [Rx Confirmed 07/09/22] cephalexin 500 mg tablet 500 mg PO QID 5 days #20 tabs 07/09/22 [Rx] Objective - Height/Weight Height/Weight: Height 5 ft 8 in Weight 135.624 kg BSA for Today's Weight 2.61 - Vital Signs Vital Signs: 07/09/22 13:07 Temperature 97.8 F Pulse Rate [Right Brachial] 78 Respiratory Rate 16 Blood Pressure [Right Arm] 127/76 02 Sat by Pulse Oximetry 98 Oxygen Delivery Method Room Air - Pain Left Flank Pain Intensity: 2 Physical Exam Narrative: GENERAL APPEARANCE: Well developed, well nourished--morbidly obese, in no acute distress. HEENT: The sclerae were anicteric and conjunctivae were pink and moist. EOMI, PERRLA. The oral mucosa is moist and clear. NECK: Supple and symmetric. There was no thyroid enlargement, and no tenderness,or masses were felt. CHEST: Normal contour without any kyphoscoliosis. LUNGS: Normal breath sounds on auscultation without rales, rhonchi, or crackles. CARDIOVASCULAR: S1 and S2, regular rate and rhythm, no murmurs, gallops, rubs. ABDOMEN: Soft, nontender, bowel sounds normal. No hepatosplenomegaly. No mass palpated. LYMPH NODES: No lymphadenopathy was appreciated in the neck, axillae or groin. MUSCULOSKELETAL: Gait was normal. There was no tenderness or effusions noted. Muscle strength and tone were normal. EXTREMITIES: No cyanosis, clubbing. RLE with swelling and warmth to the calf area and monae area is red. No ulcerations noted NEUROLOGIC: Alert and oriented x 3. Normal affect. Gait was normal. Sensation totouch was normal. Results - Labs Labs: Diagram of Most Recent CBC and CMP 07/08/22 13:50 07/08/22 13:50 Labs - Last 7 Days 07/08/22 13:50: PHA Creatinine Clear 72.94, Sodium 136, Potassium 3.8, Chloride 108 H, Carbon Dioxide 22.8, Anion Gap 9.0, BUN 20, Creatinine 1.36 H, Est GFR (CKD- EPI) 56.685, Glucose 97, Calcium 8.3 L, Total Bilirubin 1.2 H, AST 14, ALT 18, Alkaline Phosphatase 62, Lactate Dehydrogenase 159, Total Protein 5.9 L, Albumin 3.8, Globulin 2.1, Albumin/Globulin Ratio 1.8 07/08/22 13:50: Corrected WBC 4.5, Uncorrected WBC Count 4.5, RBC 4.55, Hgb 12.8L, Hct 36.8 L, MCV 81.0 L, MCH 28.3, MCHC 34.9, RDW 14.9 H, Plt Count 116 L, MPV7.5, Neut % (Auto) 83.1, Lymph % (Auto) 7.7, Murray % (Auto) 8.0, Eos % (Auto) 0.9, Baso % (Auto) 0.3, Nucleat RBC Rel Count 0.0, Neut # (Auto) 3.8, Lymph # (Auto) 0.4 L, Murray # (Auto) 0.4, Eos # (Auto) 0.0, Baso # (Auto) 0.0 Assessment and Plan - TNM Staging Staging: Stage IVB extranodal diffuse large B-cell lymphoma with involvement of the liverand spleen, negative bone marrow biopsy (1) High grade B-cell lymphoma This is a 66-year-old male who was admitted to [facility] September 19-2021 for marked worsening fatigue with cough and dyspnea. CT PE protocol did notshow any evidence of pulmonary embolism but he did have multiple liver lesions as well as splenic lesions. He has had some intermittent abdominal pain and constipation but no localizing symptoms. He denies use of regular alcohol or prior hepatitis. I coordinated outpatient biopsy with [facility] interventional radiology which was performed 09/24/2021. Pathology reviewed today reveals malignant cells present, consistent with aggressive B-cell lymphoma. Tumor cells are strongly positive for CD45 and CD20,negative for CD30, AE1/AE3, CAM 5.2, CD56, and synaptic ficin. Ki-67 proliferation index is high labeling 70 to 80% of tumor cells. During his hospital stay at [facility], his hypercalcemia, likely of malignancy, was treated by holding HCTZ and hydration. Calcium level increased to over 13 with evidence of acute kidney injury. I ordered Pamidronate 90 mg IV and sent baseline hepatitis B and C testing which returned nonreactive. 09/29/2021: His baseline ECHO shows EF 65-70%, LDH is 3462, uric acid is WNL at 6.2. Will plan for rasburicase still given his tumor burden and concern for tumor lysis with initiation of R-CHOP tomorrow 09/30/2021 inpatient. He will be scheduled for a port to be placed in the outpatient setting prior to cycle 2, aswell as a PET/CT. He would like to have these done at [facility], and also would like all of his outpatient treatment and follow-up to continue to be here at [facility] as well. 09/30/2021: Reviewed informed consent for Rituxan plus CHOP chemotherapy to be given as an inpatient today. Rasburicase ordered for tumor lysis syndrome prophylaxis due to bulky disease and recent renal injury which places him at increased risk. He likely can be discharged home tomorrow although I will repeat his tumor lysis labs with LDH and uric acid in the morning. Next follow-up in 1 week for toxicity visit. We will likely coordinate outpatient bone marrow biopsy and PET/CT to complete his work- up. 10/28/2021: Patient is here for cycle 2-week 2 rituximab plus CHOP chemotherapy toxicity visit. He reported a hot sensation but did not take his temperature and his symptoms of fatigue and warmth improved after the fifth day. No evidence of neutropenia or significant cytopenias today. He had prior 25% dose reduction of vincristine for numbness in his hand which has improved. -- Bone marrow biopsy from 10/09/2021 was reviewed showing no evidence of lymphoma involvement, mildly hypercellular with normal iron stores. Hypercellularity is likely due to recovery from chemotherapy given as an inpatient a week before next --Baseline PET/CT was deferred to 10/14/2021 due to his hospitalization. He continues to have uptake in both lobes of the liver and the spleen consistent with extranodal involvement by staging. We will continue his current doses of R-CHOP for his next cycle in 2 weeks and he will see nurse practitioner for toxicity visit at that time. I will see him with his fourth cycle toxicity visit. 11/18/2021: He presents after cycle 3 R-CHOP. He has mild thrush on exam and willbe prescribed nystatin swish and swallow. We reviewed with him today the importance of sunscreen and protecting himself when out in the heat, and he voiced understanding. He continues to do well enough on dose reduced therapy, and will continue every 3 weeks. 12/09/2021: Here for toxicity visit cycle 4, week 3 R-CHOP. Vincristine was reduced 25% for cycle 2 due to neuropathy--no recurrent symptoms. No other toxicities other than persistent white plaque over tongue despite oral Nystatin swish and swallow. PET/CT ordered for prior to cycle 5 for restaging. I supported his return to work if he feels ready due to chemotherapy well tolerated. Next f/u 3 weeks to review restaging PET/CT. 01/08/2022: Now cycle 5 week 2 R-CHOP. Last cycle scheduled next week. Reducing vincristine dose to 50% due to numbness in fingers/toes. Toxicity check with [facility] cycle 6 week 2. Defer next f/u with me until Mar 2022 with 3 month restaging PET/CT and labs. Will evaluate for survivorship visit and surveillance recommendations that visit. 01/20/2022: Patient completed planned 6 cycles of CHOP-R. He had some expected side effects specially with the last cycle but nothing unusual and they have subsided. Plan is to return to office in 3 months or so in March with PET/CT and labs including LDH anticipating hopefully CR which is probably present on the most recent PET/CT despite some equivocation 04/09/2022: He completed 6th/last cycle of R-CHOP at 50% dose reduction of Vincristine last 2 cycles due to worsening neuropathy. These symptoms have improved and restaging PET/CT reviewed today shows no evidence of residual lymphoma. Neuropathy symptoms improving. Addressed depression and recent suicidal ideation symptoms but he declines ER or mental health referral and contract for safety--denies weapon in his home. Will f/u with his primary care Dr. Hardy to resume antidepressant therapy. Labs stable. Next f/u with [facility] in 3 months with CBC, CMP, LDH and exam. Defer next restaging imaging with CT CAP with contrast to 6 months, sooner if evidence of recurrence. High complexity 45minute f/u visit. 07/09/2022: He has some increased swelling in the RLE with warmth. Redness to theshin area. Stat US was negative for DVT. We will refer him to vascular. Labs arereviewed and stable overall with some increase in his creatinine. This will be monitored with repeat labs at follow-up. We will plan for follow-up in 3 months with repeat cbc, cmp, ldh and CT c/a/p. He is in agreement with this plan and has no questions. (2) Depression, major, recurrent Qualifiers: Active/Remission status: currently active Major depression episode severity: moderate Qualified Code(s): F33.1 - Major depressive disorder, recurrent, moderate Depressed mood with recent suicidal ideation--contracted for safety. Declined ED or psychiatry referral. Contracted for safety and agrees to f/u with primarycare. Symptoms have worsened since recent of his . 07/09/2022: Symptoms stable, patient declines suicidal ideation since last episode. (3) Peripheral neuropathy due to chemotherapy Already subsiding specially with dose reduction of vincristine. Expected to resolve completely in shorter time (4) Hypercalcemia of malignancy - Chemo Plan Chemo Plan (Dose, Rate, Freq): Chemo Plan (Dose, Rate, Freq): R-CHOP (category 1) Days 1: Rituximab 375mg/m2 IV day 1 CHOP regimen Day 1: Cyclophosphamide 750mg/m2 IV, doxorubicin 50mg/m2 IV bolus, and vincristine 1.5 mg IV bolus (max dose 2mg) Days 1: Prednisone 100mg PO 5 days. Repeat each cycle every 3 weeks for 6 cycles. Vincristine dose reduced 25% at cycle 2-4 Vincristine dose reduced 50% cycle 5-6 only He has completed chemotherapy and is in surveillance only Number of Cycles: 6 Goal of Treatment: Curative - Time with Patient Time Spent with Patient (Follow Up Visit): 45 minutes or more - High complexity for review of symptoms 3 months after chemotherapy, restaging PET/CT, depressionafter his 's Coordination of Care & Counseling Time: Greater than 50% of time spent with patient was for coordination of care (as documented) and [id number] counseling of patient and/or family. Dictated By: Jane Duron APRN DD/ [id number] Signed By: <Electronically signed by RUSTY Duron> 07/13/22 [address] [facility] Work Phone: [phone] Hospital Discharge instructions Patient Education 05/10/2022 08:12:23 Dietary Guidelines to Help Prevent Kidney Stones Dietary Guidelines to Help Prevent Kidney Stones Kidney stones are deposits of minerals and salts that form inside your kidneys. Your risk of developing kidney stones may be greater depending on your diet, your lifestyle, the medicines you take, and whether you have certain medical conditions. Most people can reduce their chances of developing kidney stones by following the instructions below. Depending on your overall health and the type of kidney stones you tend to develop, your dietitian may give you more specific instructions. What are tips for following this plan? Reading food labels Choose foods with no salt added or low-salt labels. Limit your sodium intake to less than 1500 mg per day. Choose foods with calcium for each meal and snack. Try to eat about 300 mg of calcium at each meal.Foods that contain 200 500 mg of calcium per serving include: ?8 oz (237 ml) of milk, fortified nondairy milk, and fortified fruit juice. ?8 oz (237 ml) of kefir, yogurt, and soy yogurt. ?4 oz (118 ml) of tofu. ?1 oz of cheese. ?1 cup (300 g) of dried figs. ?1 cup (91 g) of cooked broccoli. ?1 3 oz can of sardines or mackerel. Most people need 1000 to 1500 mg of calcium each day. Talk to your dietitian about how much calciumis recommended for you. Shopping Buy plenty of fresh fruits and vegetables. Most people do not need to avoid fruits and vegetables, even if they contain nutrients that may contribute to kidney stones. When shopping for convenience foods, choose: ?Whole pieces of fruit. ?Premade salads with dressing on the side. ?Low-fat fruit and yogurt smoothies. Avoid buying frozen meals or prepared deli foods. Look for foods with live cultures, such as yogurt and kefir. Cooking Do not add salt to food when cooking. Place a salt shaker on the table and allow each person to addhis or her own salt to taste. Use vegetable protein, such as beans, textured vegetable protein (TVP), or tofu instead of meat in pasta, casseroles, and soups. Meal planning Eat less salt, if told by your dietitian. To do this: ?Avoid eating processed or premade food. ?Avoid eating fast food. Eat less animal protein, including cheese, meat, poultry, or fish, if told by your dietitian. To dothis: ?Limit the number of times you have meat, poultry, fish, or cheese each week. Eat a diet free of meat at least 2 days a week. ?Eat only one serving each day of meat, poultry, fish, or seafood. ?When you prepare animal protein, cut pieces into small portion sizes. For most meat and fish, one serving is about the size of one deck of cards. Eat at least 5 servings of fresh fruits and vegetables each day. To do this: ?Keep fruits and vegetables on hand for snacks. ?Eat 1 piece of fruit or a handful of berries with breakfast. ?Have a salad and fruit at lunch. ?Have two kinds of vegetables at dinner. Limit foods that are high in a substance called oxalate. These include: ?Spinach. ?Rhubarb. ?Beets. ?Potato chips and irish fries. ?Nuts. If you regularly take a diuretic medicine, make sure to eat at least 1 2 fruits or vegetables high in potassium each day. These include: ?Avocado. ?Banana. ?[place], prune, carrot, or tomato juice. ?Baked potato. ?Cabbage. ?Beans and split peas. General instructions Drink enough fluid to keep your urine clear or pale yellow. This is the most important thing you can do. Talk to your health care provider and dietitian about taking daily supplements. Depending on your health and the cause of your kidney stones, you may be advised: ?Not to take supplements with vitamin C. ?To take a calcium supplement. ?To take a daily probiotic supplement. ?To take other supplements such as magnesium, fish oil, or vitamin B6. Take all medicines and supplements as told by your health care provider. Limit alcohol intake to no more than 1 drink a day for non women and 2 drinks a day for men. One drink equals 12 oz of beer, 5 oz of wine, or 1 oz of hard liquor. Lose weight if told by your health care provider. Work with your dietitian to find strategies and an eating plan that works best for you. What foods are not recommended? Limit your intake of the following foods, or as told by your dietitian. Talk to your dietitian about specific foods you should avoid based on the type of kidney stones and your overall health. Grains Breads. Bagels. Rolls. Baked goods. Salted crackers. Cereal. Pasta. Vegetables Spinach. Rhubarb. Beets. Canned vegetables. Pickles. Olives. Meats and other protein foods Nuts. Nut butters. Large portions of meat, poultry, or fish. Salted or cured meats. Deli meats. Hotdogs. Sausages. Dairy Cheese. Beverages Regular soft drinks. Regular vegetable juice. Seasonings and other foods Seasoning blends with salt. Salad dressings. Canned soups. Soy sauce. Ketchup. Barbecue sauce. Canned pasta sauce. Casseroles. Pizza. Lasagna. Frozen meals. Potato chips. [place] fries. Summary You can reduce your risk of kidney stones by making changes to your diet. The most important thing you can do is drink enough fluid. You should drink enough fluid to keep your urine clear or pale yellow. Ask your health care provider or dietitian how much protein from animal sources you should eat eachday, and also how much salt and calcium you should have each day. This information is not intended to replace advice given to you by your health care provider. Make sure you discuss any questions you have with your health care provider. Document Released: 07/09/2011 Document Revised: 07/04/2019 Document Reviewed: 02/22/2017 [employer] Patient Education 2019 Elli. Follow Up Care 11/02/2021 12:04:04 With:MICKI MACHADO, Jahaira Ya, LIVAN Address: [facility] [address] [place] [address]- When: Unknown [facility] Kat 01-14-2023 Progress note Author Abbi Mcbride [facility] April 10, 2022 2:51pm Note Date/Time April 09, 2022 1 1:19am [facility] at [address] [address] Hem/Onc Follow Up Note - OP Signed Patient: Zheng Montesinos MR#: [id number] : 1955 Acct:[id number] Age/Sex: 66 / M Type: REG RCR Copies to: MD Juan Carlos Harris MD (Sandy)~ Subjective Date/Time of Service: Date of Service: 04/09/2022 Time of Service: 11:19 Chief Complaint: Patient is here today for follow up visit and go over pet scan and labs HPI: 04/09/2022: Zheng his here for followup after completing 6 cycles of R-CHOP for high grade B cell lymphoma. He has made remarks on several occasions about having a gun and wanting to end his life, most recently when he was having restaging PET/CT. We gave him the number for crisis mental health management and he refused admission. Today he notes he has no weapon in his house, declined referral for psychiatry/ER evaluation and contracted for safety that hewill not harm himself. Agrees to see primary care to discuss resuming antidepressant therapy--increased grief since of his from Covid. Otherwise denies fever, chills, night sweats, cough, dyspnea, abdominal pain or change in bowel/bladder function. 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 No adenopathy and no uptake within prior liver lesions consistent with CR to R-CHOP therapy. Continue f/u every 3 months with CBC, CMP, LDH, and exam. Will see [facility] next visit. Defer imaging with restaging CT CAP with contrast to 6 months, sooner if new issues arise. High complexity 45 minute visit to review depression/recent suicidal ideation and restaging PET/CT. 01/20/2022 (Dr. Candelaria [facility] physician): 66-year-old white gentleman seen for oncologic surveillance on high-grade B-celllymphoma. He completed 6 cycles of CHOP-R. He said that the last cycle was associated with little more of side effects mostly related to neuropathy secondary to vincristine. However it only lasted for a couple of days then completely subsided. It was reflected in his extremities as well as bowel movements. But again with the dose reduction and expected recovery side effects have subsided and he is almost back to his usual self except for mild numbness and tingling. He denies B symptoms and actually he did not have any prior to establish diagnosis except some unintentional weight loss. He denies abdominal pain or associated symptoms that suggest bowel obstruction 01/08/2022: Zheng has now completed 5 of 6 cycles R-CHOP--cycle 6 is scheduled 01/13/2022. 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 Labs are stable--no fever, night sweats or abdominal pain. He notes increased numbness in distal fingers and toes--will reduce last dose Vincristinefrom 75% dose to now 50% dose. We reviewed his PET/CT which shows uptake in bones likely associated with therapy effect--we reviewed images/reports of priorPET/CT. Difficult to ascertain whether CR due to therapy effect, but no progression of disease. Will proceed with last cycle and I will have [facility] see fortoxicity check after cycle 6. I will see in Mar 2022 after 3 month PET/CT for response assessment and survivorship visit. Initial inpatient [place]: As you know this is a 66-year-old male who has a history of hypertension, morbidobesity, meralgia paresthetica, and is followed regularly in urology for elevated PSA but no history of cancer and an ENT for recent frequent productive cough. He reports that his of coronavirus infection in February of last year and over the last 9 months he has personally lost about 60 pounds. He is most troubled by his recurrent cough and was evaluated for worsening dyspnea as well as generalized weakness over the last few weeks. He also reports increased urine frequency but notes that this is longstanding. No nausea, vomiting, diarrhea, constipation, or dysphagia/odynophagia. He had a PE protocol CT in ER that was negative for PE, but found to have bilateral pleural effusions and multiple liver and splenic lesions. He also was found to have multiple hepatic and liver lesions. Normal total bilirubin, and INR but increased AST and ALT. Nohistory of tobacco or alcohol use and no known hepatitis B or C. He has persistent fatigue, but some improvement of calcium (although still 11 range) after hydration and holding HCTZ. Has not yet had bisphosphonate therapy.He is preparing for discharge today, but I informed him of his findings on CT imaging and coordinated biopsy of his liver lesions with Dr. Ventura of radiology at [facility] for later this week. I informed him of normal INR, platelet count, and the fact that she does not take any NSAIDs or aspirin. I will follow- up results of biopsy next week and will also send alpha-fetoprotein, CA 19-9, CEA, and hepatitis B and C screening to determine etiologyof his liver lesions. Subsequent therapy will be based on pathology results. He may require outpatient bisphosphonate therapy if persistent hypercalcemia with fatigue. --Patient presented to the ER on 09/26/2021 with worsening weakness, fatigue, nausea, vomiting, shortness of breath, back pain, and urinary frequency. He wasnoted to be hypertensive, calcium to 15.1 with elevated liver function tests andcreatinine. He received bolus normal saline and calcitonin by inpatient physicians. I met with him today to discuss his final pathology. We are preparing to initiate chemotherapy based on results within the next week. He may need a consult for general surgery infusion port as an outpatient. 09/30/2021: Patient was evaluated at bedside this morning, eating normally and notes that his constipation has improved control. Fatigue is significantly improved. No nausea, vomiting, or diarrhea. We reviewed his chemotherapy consent below for Rituxan with CHOP and he signed consent today. His baseline ECHO noted an EF 65-70%. We will plan to get a port placed in the outpatient setting prior to cycle 2. Plan is to give rasburicase 6 mg IV prior to Rituxan followed by the cyclophosphamide, doxorubicin, and vincristine. He started prednisone onSaturday and may receive last 100 mg dose today. He does note that he has had relative hypoglycemia with blood glucose in the 70s despite high-dose prednisone each day. If the patient is stable overnight he can be discharged home with follow-up in 1 week at [facility] for toxicity visit withme next Tuesday. Today we reviewed chemotherapy counseling for Rituximab, cyclophosphamide, doxorubicin, vincristine, and prednisone. Goal of therapy is curative--typically 80% complete response, 40% cure with 40% relapse. Common toxicities were reviewed to include infusion reactions, allergic reactions myelosuppression, fatigue, nausea, vomiting, constipation, diarrhea, mouth sores, and alopecia. Other toxicities may include pneumonitis, cardiotoxicity, secondary malignancy neurologic, hepatic and renal toxicities. The patient signed informed consent and will receive inpatient chemo today with 1 week follow-up toxicity visit. 10/09/2021: Patient presents after discharge on 10/01/2021 for his newly diagnosed high grade B cell lymphoma. He was initiated on R-CHOP inpatient on 09/30/2021 andtolerated this fairly well. His main complaint is some weakness and slight tremor in his hands. Otherwise, he notes he gets a bit short of breath with walking long distances or doing activity, but not at rest. He denies fever, chills, sweats, fatigue, n/v/d, constipation, chest pain or other complaints today. Labs are reviewed and ok, low wbc and hgb as expected with chemotherapy. His alk phos and LDH are improved, and his ALT/AST have normalized. He states hefeels pretty good overall. He is getting a bone marrow biopsy with Dr. Mcbride as well today, and is scheduled for PET scan next week as there was miscommunication on his appointment this morning. Per Dr. Mcbride, we will plan for dose reduction of his vincristine with his next cycle d/t the arm/hand weakness, which will be on 10/21/2021. We will plan for follow-up with Dr. Mcbride in 3 weeks with labs per treatment plan. 10/28/2021: Zheng is here for cycle 2, day 8 R-CHOP therapy. He will receive this cycle as an outpatient and had 25% dose reduction of vincristine due to numbness in his arm and hand. He noted that he had generalized weakness on days3 through 5 after therapy which is now improved. He also noted that he had a hot sensation but he did not take his temperature. He had no other signs or symptoms of infection such as cough, dyspnea, pharyngitis, or new GI symptoms. He notes that he feels better today. He did not have laboratories prior to thisvisit but labs today were reviewed showing normal white blood cell count with neutrophils 4500, hemoglobin 12.4, platelet count 177,000, normal electrolytes with normal calcium 8.8. Normal liver function tests. PET/CT scheduling was delayed until about 2 weeks after his inpatient R-CHOP. There was still residual activity in his right hepatic lobe with SUV 4.8, left hepatic lobe with SUV 7.8, uptake in the spleen with SUV 3.7. There is nonspecific uptake in the right mandible which is not associated with any lesions or pain on exam. His bone marrow biopsy was reviewed from 10/09/2021 showing mildly hypercellular trilineage hematopoiesis (60%) with no lymphoproliferative disorder and normal iron stores. 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 He will proceed with the same dose next cycle and we will coordinate follow-up echocardiogram in early December. Follow-up with nurse practitioner in 3 weeks for toxicity check and with me in 6 weeks. 11/18/2021: Zheng presents for follow-up after receiving cycle 3 day 1 R-CHOP last week. He continues with fatigue, denies fever, chills, sweats, n/v, diarrhea or constipation. He notes he gets really hot in the sun, which we discussed the importance of sunscreen and covering up with long sleeves and a hat when he can. He also notes taste changes and feels like his voice can get a little raspy here and there. In looking at his mouth, it appears he has some thrush starting, so we will give him nystatin swish and swallow. Otherwise he denies new complaints since last visit. His labs are stable, slightly elevated wbc and anc- he did get neulasta after therapy last week. He will return for follow-up in [address] Mcbride. 12/09/2021: Zheng is here for cycle 4 week 2 R-CHOP--tolerating well with few toxicities. Mild fatigue but wants to return to work next week. Notes metallictaste and white coating over tongue despite Nystatin swish and swallow. Occasional numbness of fingertips and toes that does not persist. No abnormalities on exam. Labs are stable--I will coordinate followup PET prior tocycle 5 week 2 followup in 3 weeks. We will plan 6 total cycles, then survivorship if Deauville 0-1 on f/u PET. Low complexity followup 25 minutes. - Summary of Therapies Summary of Therapies: Inpatient R-CHOP 09/30/2021 full dose R-CHOP (category 1) Days 1, 22, and 43: Rituximab 375mg/m2 IV 7 days prior to beginning CHOP regimen Day 1: Cyclophosphamide 750mg/m2 IV, doxorubicin 50mg/m2 IV bolus, and vincristine 1.4mg/m2 IV bolus (max dose 2mg) Days 3, 24, and 45: Prednisone 100mg PO 5 days. Repeat each cycle every 3 weeks for 3 cycles. Radiotherapy begins 3 weeks after last cycle of R-CHOP. Cycle 2 was given as an outpatient 10/21/2021 (25% dose reduction of vincristine for left arm paresthesias) continue for 6 cycles. Cycle 6 (last cycle 01/10/2022) at 50% dose reduction of vincristine for paresthesias of fingers and toes as per HPI. ROS Details: All systems reviewed & no additional complaints except as documented Subjective/ROS - Narrative: CONSTITUTIONAL: No weight loss, fever, chills, weakness or fatigue. + morbidly obese. HEENT: Eyes: No visual loss, blurred vision, double vision or yellow sclerae. Ears, Nose, Throat: No hearing loss, epistaxis. SKIN: No rash or itching. CARDIOVASCULAR: No chest pain, chest pressure or chest discomfort. No palpitations or edema. RESPIRATORY: No shortness of breath, cough or hemoptysis. GASTROINTESTINAL: No dysphagia, nausea, vomiting or diarrhea. No abdominal pain,melena, hematochezia. GENITOURINARY: No dysuria, urinary frequency or urgency. NEUROLOGICAL: No headache, dizziness, syncope, improvement of prior numbness or tingling in the extremities. MUSCULOSKELETAL: No muscle, back pain, joint pain or stiffness. HEMATOLOGIC: No bleeding or bruising. LYMPHATICS: No enlarged nodes. PSYCHIATRIC: Positive depression with recent suicidal ideation--none today and declined referral to ER or mental health referral. Agrees to address with primary care. ENDOCRINOLOGIC: No reports of sweating, cold or heat intolerance. No polyuria orpolydipsia. ALLERGIES: No history of asthma, hives, eczema or rhinitis. PMFSH - History Attestation statement: The following information was validated with the patient. Source: Old Records Reviewed - Medical History Medical History: Medical History (Last Reviewed 04/10/22 @ 14:35 by Abbi Mcbride MD) Anxiety Carpal tunnel syndrome on both sides Depression Erectile dysfunction Hypertension Meralgia paresthetica Morbid obesity - Surgical History Surgical History: Surgical History (Last Reviewed 04/10/22 @ 14:35 by Abbi Mcbride MD) H/O hernia repair H/O lithotripsy H/O vasectomy History of colonoscopy History of repair of rotator cuff History of skin graft History of tonsillectomy and adenoidectomy History of transurethral resection of prostate - Family History Family History: Family History (Last Reviewed 04/10/22 @ 14:35 by Abbi Mcbride MD) Mother Diabetes - Social History Smoking Status: Never smoker Substance Use Type: None Home Medications & Allergies Allergies No Known Allergies Allergy (Verified 04/09/22 11:08) Home Medications topiramate 100 mg capsule,extended release 24 hr 100 mg PO DAILY 09/24/21 [History Confirmed 04/09/22] doxazosin 8 mg tablet 8 mg PO DAILY 09/26/21 [History Confirmed 04/09/22] potassium chloride 25 mEq oral packet 25 meq PO DAILY 10/09/21 [History Confirmed 04/09/22] venlafaxine 150 mg tablet,extended release 24 hr 150 mg PO DAILY 10/09/21 [History Confirmed 04/09/22] amlodipine 5 mg tablet 5 mg PO DAILY 10/28/21 [History Confirmed 04/09/22] testosterone 1 % (25 mg/2.5 gram) transdermal gel packet (AndroGel) 1 packet transdermal DAILY 10/28/21 [History Confirmed 04/09/22] trazodone 100 mg tablet 100 mg PO QHS 10/28/21 [History Confirmed 04/09/22] prednisone 20 mg tablet 100 mg PO DAILY #25 tabs 11/05/21 [Rx Confirmed 04/09/22] Objective - Height/Weight Height/Weight: Height 5 ft 8 in Weight 145.4 kg BSA for Today's Weight 2.61 - Vital Signs Vital Signs: 04/09/22 11:09 Temperature 97.8 F Pulse Rate [Right Brachial] 98 H Respiratory Rate 16 Blood Pressure [Right Arm] 141/65 H 02 Sat by Pulse Oximetry 98 Oxygen Delivery Method Room Air - Pain Left Flank Pain Intensity: 2 Physical Exam Narrative: GENERAL APPEARANCE: Well developed, well nourished--morbidly obese, in no acute distress. SKIN: Inspection of the skin reveals no rashes, ulcerations or petechiae. HEENT: The sclerae were anicteric and conjunctivae were pink and moist. EOMI, PERRLA. The oral mucosa is moist and clear. NECK: Supple and symmetric. There was no thyroid enlargement, and no tenderness,or masses were felt. CHEST: Normal contour without any kyphoscoliosis. LUNGS: Normal breath sounds on auscultation without rales, rhonchi, or crackles. CARDIOVASCULAR: S1 and S2, regular rate and rhythm, no murmurs, gallops, rubs. ABDOMEN: Soft, nontender, bowel sounds normal. No hepatosplenomegaly. No mass palpated. LYMPH NODES: No lymphadenopathy was appreciated in the neck, axillae or groin. MUSCULOSKELETAL: Gait was normal. There was no tenderness or effusions noted. Muscle strength and tone were normal. EXTREMITIES: No cyanosis, clubbing or edema. NEUROLOGIC: Alert and oriented x 3. Normal affect. Gait was normal. Sensation totouch was normal. - ECOG Performance Status ECOG Score: 1 Results - Labs Labs: Diagram of Most Recent CBC and CMP 04/07/22 10:35 04/07/22 10:35 Labs - Last 7 Days 04/07/22 10:36: POC Glucose 99 04/07/22 10:35: PHA Creatinine Clear 83.92, Sodium 135 L, Potassium 4.6, Chloride 108, Carbon Dioxide 19.7 L, Anion Gap 11.9, BUN 15, Creatinine 1.19, Est GFR ( Amer) > 60, Est GFR (Non-Af Amer) > 60, Glucose 97, Calcium 8.9, Total Bilirubin 1.1, AST 23, ALT 23, Alkaline Phosphatase 69, Lactate Dehydrogenase 241 H, Total Protein 5.8 L, Albumin 3.7, Globulin 2.1, Albumin/Globulin Ratio 1.8 04/07/22 10:35: Corrected WBC 2.6 L, Uncorrected WBC Count 2.6 L, RBC 4.95, Hgb 13.7, Hct 40.9, MCV 82.5 L, MCH 27.8, MCHC 33.6, RDW 13.8, Plt Count 178, MPV 7.2, Neut % (Auto) 59.3, Lymph % (Auto) 25.5, Murray % (Auto) 8.7, Eos % (Auto) 5.3, Baso % (Auto) 1.2, Nucleat RBC Rel Count 0.2, Neut # (Auto) 1.5 L, Lymph # (Auto) 0.7 L, Murray # (Auto) 0.2, Eos # (Auto) 0.1, Baso # (Auto) 0.0, ESR 5 - Impressions PET/CT FUSION IMAGING CLINICAL INFORMATION: B-cell lymphoma COMPARISON : PET/CT 01/01/2022 TECHNIQUE: Noncontrasted CT scan from the base of the skull to the upper thigh followed by PET imaging. Multiplanar PET/CT fusion images. Blood Glucose : 98 mg/dL The F-18 FDG 10.27mCi. FINDINGS: Neck: No abnormal activity Chest:No abnormal activity Abdomen/pelvis: No FDG avid lymph nodes are seen within the abdomen or pelvis. Hypodense hepatic lesions are once again demonstrated involving the liver on theconcurrent CT without definitive abnormal uptake. Soft tissue/bones: No abnormal uptake is identified. CT findings: Right-sided port is in place. Trace bilateral pleural effusions. No pneumothorax. No free air or free fluid. Prostatomegaly. Colonic diverticulosis. PET/PET tumor subq tx strat sb-mt IMPRESSION: No FDG avid lymph nodes are identified within the neck, chest, abdomen or pelvis. Hypodense hepatic lesions are identified without abnormal activity. Findings are grossly similar to the prior study. If complete evaluation is needed, liverCT or MRI is recommended. Trace bilateral pleural effusions. Impression dictated by: David Padilla Jr., D.OMisael04/07/2022 1:43 PM Assessment and Plan - TNM Staging Staging: Stage IVB extranodal diffuse large B-cell lymphoma with involvement of the liverand spleen, negative bone marrow biopsy (1) High grade B-cell lymphoma This is a 66-year-old male who was admitted to [facility] September 19-2021 for marked worsening fatigue with cough and dyspnea. CT PE protocol did notshow any evidence of pulmonary embolism but he did have multiple liver lesions as well as splenic lesions. He has had some intermittent abdominal pain and constipation but no localizing symptoms. He denies use of regular alcohol or prior hepatitis. I coordinated outpatient biopsy with [facility] interventional radiology which was performed 09/24/2021. Pathology reviewed today reveals malignant cells present, consistent with aggressive B-cell lymphoma. Tumor cells are strongly positive for CD45 and CD20, negative for CD30, AE1/AE3, CAM 5.2, CD56, and synaptic ficin. Ki-67 proliferation index is high labeling 70 to 80% of tumor cells. During his hospital stay at [facility], his hypercalcemia, likely of malignancy, was treated by holding HCTZ and hydration. Calcium level increased to over 13 with evidence of acute kidney injury. I ordered Pamidronate 90 mg IV and sent baseline hepatitis B and C testing which returned nonreactive. 09/29/2021: His baseline ECHO shows EF 65-70%, LDH is 3462, uric acid is WNL at 6.2. Will plan for rasburicase still given his tumor burden and concern for tumor lysis with initiation of R-CHOP tomorrow 09/30/2021 inpatient. He will be scheduled for a port to be placed in the outpatient setting prior to cycle 2, aswell as a PET/CT. He would like to have these done at [facility], and also would like all of his outpatient treatment and follow-up to continue to be here at [facility] as well. 09/30/2021: Reviewed informed consent for Rituxan plus CHOP chemotherapy to be given as an inpatient today. Rasburicase ordered for tumor lysis syndrome prophylaxis due to bulky disease and recent renal injury which places him at increased risk. He likely can be discharged home tomorrow although I will repeat his tumor lysis labs with LDH and uric acid in the morning. Next follow-up in 1 week for toxicity visit. We will likely coordinate outpatient bone marrow biopsy and PET/CT to complete his work- up. 10/28/2021: Patient is here for cycle 2-week 2 rituximab plus CHOP chemotherapy toxicity visit. He reported a hot sensation but did not take his temperature and his symptoms of fatigue and warmth improved after the fifth day. No evidence of neutropenia or significant cytopenias today. He had prior 25% dose reduction of vincristine for numbness in his hand which has improved. -- Bone marrow biopsy from 10/09/2021 was reviewed showing no evidence of lymphoma involvement, mildly hypercellular with normal iron stores. Hypercellularity is likely due to recovery from chemotherapy given as an inpatient a week before next --Baseline PET/CT was deferred to 10/14/2021 due to his hospitalization. He continues to have uptake in both lobes of the liver and the spleen consistent with extranodal involvement by staging. We will continue his current doses of R-CHOP for his next cycle in 2 weeks and he will see nurse practitioner for toxicity visit at that time. I will see him with his fourth cycle toxicity visit. 11/18/2021: He presents after cycle 3 R-CHOP. He has mild thrush on exam and willbe prescribed nystatin swish and swallow. We reviewed with him today the importance of sunscreen and protecting himself when out in the heat, and he voiced understanding. He continues to do well enough on dose reduced therapy, and will continue every 3 weeks. 12/09/2021: Here for toxicity visit cycle 4, week 3 R-CHOP. Vincristine was reduced 25% for cycle 2 due to neuropathy--no recurrent symptoms. No other toxicities other than persistent white plaque over tongue despite oral Nystatin swish and swallow. PET/CT ordered for prior to cycle 5 for restaging. I supported his return to work if he feels ready due to chemotherapy well tolerated. Next f/u 3 weeks to review restaging PET/CT. 01/08/2022: Now cycle 5 week 2 R-CHOP. Last cycle scheduled next week. Reducing vincristine dose to 50% due to numbness in fingers/toes. Toxicity check with [facility] cycle 6 week 2. Defer next f/u with me until Mar 2022 with 3 month restaging PET/CT and labs. Will evaluate for survivorship visit and surveillance recommendations that visit. 01/20/2022: Patient completed planned 6 cycles of CHOP-R. He had some expected side effects specially with the last cycle but nothing unusual and they have subsided. Plan is to return to office in 3 months or so in March with PET/CT and labs including LDH anticipating hopefully CR which is probably present on the most recent PET/CT despite some equivocation 04/09/2022: He completed 6th/last cycle of R-CHOP at 50% dose reduction of Vincristine last 2 cycles due to worsening neuropathy. These symptoms have improved and restaging PET/CT reviewed today shows no evidence of residual lymphoma. Neuropathy symptoms improving. Addressed depression and recent suicidal ideation symptoms but he declines ER or mental health referral and contract for safety--denies weapon in his home. Will f/u with his primary care Dr. Hardy to resume antidepressant therapy. Labs stable. Next f/u with [facility] in 3 months with CBC, CMP, LDH and exam. Defer next restaging imaging with CT CAP with contrast to 6 months, sooner if evidence of recurrence. High complexity 45minute f/u visit. (2) Depression, major, recurrent Qualifiers: Active/Remission status: currently active Major depression episode severity: moderate Qualified Code(s): F33.1 - Major depressive disorder, recurrent, moderate Depressed mood with recent suicidal ideation--contracted for safety. Declined ED or psychiatry referral. Contracted for safety and agrees to f/u with primarycare. Symptoms have worsened since recent of his . (3) Peripheral neuropathy due to chemotherapy Already subsiding specially with dose reduction of vincristine. Expected to resolve completely in shorter time (4) Hypercalcemia of malignancy Admission to [facility] with work-up then transferred to [facility]. Normal vitamin D levels, PTH intact was low at 5 (likely due to tumor related hypercalcemia). Given Pamidronate and aggressive hydration 09/29/2021: calcium improved to 10.8 today s/p zolendronic acid, not repeated on 76. We will repeat prior to likely discharge tomorrow 10/01. 01/08/2022: calcium WNL since discharge. Will continue to monitor with labs Resolved after initiation of therapy - Chemo Plan Chemo Plan (Dose, Rate, Freq): Chemo Plan (Dose, Rate, Freq): R-CHOP (category 1) Days 1: Rituximab 375mg/m2 IV day 1 CHOP regimen Day 1: Cyclophosphamide 750mg/m2 IV, doxorubicin 50mg/m2 IV bolus, and vincristine 1.5 mg IV bolus (max dose 2mg) Days 1: Prednisone 100mg PO 5 days. Repeat each cycle every 3 weeks for 6 cycles. Vincristine dose reduced 25% at cycle 2-4 Vincristine dose reduced 50% cycle 5-6 only Number of Cycles: 6 Goal of Treatment: Curative - Time with Patient Time Spent with Patient (Follow Up Visit): 45 minutes or more - High complexity for review of symptoms 3 months after chemotherapy, restaging PET/CT, depressionafter his 's Coordination of Care & Counseling Time: Greater than 50% of time spent with patient was for coordination of care (as documented) and [id number] counseling of patient and/or family. Dictated By: Abbi Mcbride MD DD/ [id number] Signed By: <Electronically signed by MD Abbi Mcbride> 04/10/22 [id number] [facility] Work Phone: [phone] 210-435310-26-2022 Progress note Author Lillie Troncosoramakrishna [facility] January 20, 2022 10:00am Note Date/Time January 20, 2022 9 :56am [facility] [place] [id number] Hem/Onc Follow Up Note - OP Signed Patient: Zheng Montesinos MR#: [id number] : 1955 Acct:[id number] Age/Sex: 66 / M Type: REG RCR Copies to: Juan Carlos Morgan MD~ Subjective Date/Time of Service: Date of Service: 01/20/2022 Time of Service: 09:54 Chief Complaint: Patient is here for a 2 week follow up with labs today for review. He had C6D1 RCHOP 01/13/22. States that yesterday was the first good daysince he had treatment last week. HPI: 66-year-old white gentleman seen for oncologic surveillance on high-grade B-celllymphoma. He completed 6 cycles of CHOP-R. He said that the last cycle was associated with little more of side effects mostly related to neuropathy secondary to vincristine. However it only lasted for a couple of days then completely subsided. It was reflected in his extremities as well as bowel movements. But again with the dose reduction and expected recovery side effectshave subsided and he is almost back to his usual self except for mild numbness and tingling. He denies B symptoms and actually he did not have any prior to establish diagnosis except some unintentional weight loss. He denies abdominal pain or associated symptoms that suggest bowel obstruction ROS Details: All systems reviewed & no additional complaints except as documented Subjective/ROS - Narrative: CONSTITUTIONAL: No weight loss, fever, chills, weakness or fatigue. HEENT: Eyes: No visual loss, blurred vision, double vision or yellow sclerae. Ears, Nose, Throat: No hearing loss, epistaxis. SKIN: No rash or itching. CARDIOVASCULAR: No chest pain, chest pressure or chest discomfort. No palpitations or edema. RESPIRATORY: No shortness of breath, cough or hemoptysis. GASTROINTESTINAL: No dysphagia, nausea, vomiting or diarrhea. No abdominal pain,melena, hematochezia. GENITOURINARY: No dysuria, urinary frequency or urgency. NEUROLOGICAL: No headache, dizziness, syncope, numbness or tingling in the extremities. MUSCULOSKELETAL: No muscle, back pain, joint pain or stiffness. HEMATOLOGIC: No bleeding or bruising. LYMPHATICS: No enlarged nodes. PSYCHIATRIC: No history of depression or anxiety. ENDOCRINOLOGIC: No reports of sweating, cold or heat intolerance. No polyuria orpolydipsia. ALLERGIES: No history of asthma, hives, eczema or rhinitis. [facility] - Medical History Medical History: Medical History (Last Reviewed 01/08/22 @ 14:30 by Abbi Mcbride MD) Anxiety Carpal tunnel syndrome on both sides Depression Erectile dysfunction Hypertension Meralgia paresthetica Morbid obesity - Surgical History Surgical History: Surgical History (Last Reviewed 01/08/22 @ 14:30 by Abbi Mcbride MD) H/O hernia repair H/O lithotripsy H/O vasectomy History of colonoscopy History of repair of rotator cuff History of skin graft History of tonsillectomy and adenoidectomy History of transurethral resection of prostate - Family History Family History: Family History (Last Reviewed 01/08/22 @ 14:30 by Abbi Mcbride MD) Mother Diabetes - Social History Smoking Status: Never smoker Substance Use Type: None Home Medications & Allergies Allergies No Known Allergies Allergy (Verified 01/08/22 10:39) Home Medications topiramate 100 mg capsule,extended release 24 hr 100 mg PO DAILY 09/24/21 [History Confirmed 01/20/22] doxazosin 8 mg tablet 8 mg PO DAILY 09/26/21 [History Confirmed 01/20/22] potassium chloride 25 mEq oral packet 25 meq PO DAILY 10/09/21 [History Confirmed 01/20/22] venlafaxine 150 mg tablet,extended release 24 hr 150 mg PO DAILY 10/09/21 [History Confirmed 01/20/22] amlodipine 5 mg tablet 5 mg PO DAILY 10/28/21 [History Confirmed 01/20/22] testosterone 1 % (25 mg/2.5 gram) transdermal gel packet (AndroGel) 1 packet transdermal DAILY 10/28/21 [History Confirmed 01/20/22] trazodone 100 mg tablet 100 mg PO QHS 10/28/21 [History Confirmed 01/20/22] prednisone 20 mg tablet 100 mg PO DAILY #25 tabs 11/05/21 [Rx Confirmed 01/20/22] Objective - Height/Weight Height/Weight: Height 5 ft 8 in Weight 143.653 kg BSA for Today's Weight 2.61 - Vital Signs Vital Signs: 01/20/22 09:24 Pulse Rate [Right Brachial] 77 Respiratory Rate 20 Blood Pressure [Right Arm] 166/73 H 02 Sat by Pulse Oximetry 97 Oxygen Delivery Method Room Air - Pain Left Flank Pain Intensity: 2 Physical Exam Narrative: GENERAL APPEARANCE: Well developed, well nourished, in no acute distress. SKIN: Inspection of the skin reveals no rashes, ulcerations or petechiae. HEENT: The sclerae were anicteric and conjunctivae were pink and moist. EOMI, PERRLA. The oral mucosa is moist and clear. NECK: Supple and symmetric. There was no thyroid enlargement, and no tenderness,or masses were felt. CHEST: Normal contour without any kyphoscoliosis. LUNGS: Normal breath sounds on auscultation without rales, rhonchi, or crackles. CARDIOVASCULAR: S1 and S2, regular rate and rhythm, no murmurs, gallops, rubs. ABDOMEN: Soft, nontender, bowel sounds normal. No hepatosplenomegaly. No mass palpated. LYMPH NODES: No lymphadenopathy was appreciated in the neck, axillae or groin. MUSCULOSKELETAL: Gait was normal. There was no tenderness or effusions noted. Muscle strength and tone were normal. EXTREMITIES: No cyanosis, clubbing or edema. NEUROLOGIC: Alert and oriented x 3. Normal affect. Gait was normal. Sensation totouch was normal. - ECOG Performance Status ECOG Score: 0 Results - Labs Labs: Diagram of Most Recent CBC and CMP 01/20/22 08:45 01/20/22 08:45 Labs - Last 7 Days 01/20/22 08:45: PHA Creatinine Clear 94.47, Sodium 137, Potassium 4.4, Chloride 107, Carbon Dioxide 23.0, Anion Gap 11.4, BUN 17, Creatinine 1.05, Est GFR ( Amer) > 60, Est GFR (Non-Af Amer) > 60, Glucose 144 H, Calcium 8.7, Total Bilirubin 0.6, AST 15, ALT 18, Alkaline Phosphatase 110 H, Total Protein 5.5 L, Albumin 3.3, Globulin 2.2, Albumin/Globulin Ratio 1.5 01/20/22 08:45: Corrected WBC 6.9, Uncorrected WBC Count 6.9, RBC 4.07, Hgb 12.3L, Hct 36.1 L, MCV 88.7, MCH 30.1, MCHC 34.0, RDW 16.2 H, Plt Count 207, MPV 7.0, Neut % (Auto) 89.6, Lymph % (Auto) 6.2, Murray % (Auto) 3.3, Eos % (Auto) 0.5, Baso % (Auto) 0.4, Neut # (Auto) 6.2, Lymph # (Auto) 0.4 L, Murray # (Auto) 0.2, Eos # (Auto) 0.0, Baso # (Auto) 0.0, Nucleated RBC % (auto) 0.1, Platelet Estimate Normal, Plt Morphology Comment Normal, RBC Morphology N/A, Poikilocytosis Slight, Anisocytosis Slight, Tear Drop Cells Slight, Ovalocytes Slight Assessment and Plan (1) High grade B-cell lymphoma Patient completed planned 6 cycles of CHOP-R. He had some expected side effectsspecially with the last cycle but nothing unusual and they have subsided. Plan is to return to office in 3 months or so in March with PET/CT and labs including LDH anticipating hopefully CR which is probably present on the most recent PET/CT despite some equivocation (2) Peripheral neuropathy due to chemotherapy Already subsiding specially with dose reduction of vincristine. Expected to resolve completely in shorter time (3) Oral candidiasis Completely resolved (4) Hypercalcemia of malignancy Completely resolved (5) Encounter for chemotherapy management - Chemo Plan Number of Cycles: 6 Goal of Treatment: Curative - Time with Patient Time Spent with Patient (Follow Up Visit): 35 minutes - Moderate complexity chemotherapy toxicity follow-up, review followup PET/CT for restaging, dose reduction vincristine for neuropathy Coordination of Care & Counseling Time: Greater than 50% of time spent with patient was for coordination of care (as documented) and [id number] counseling of patient and/or family. Dictated By: Lillie Candelaria MD DD/ [id number] Signed By: <Electronically signed by Lillie Candelaria MD> 01/20/22 [address] [facility] Work Phone: [phone] 645-183710-14-2022 Progress note Author Abbi Mcbride [facility] January 08, 2022 2:45pm Note Date/Time January 08, 2022 1 2:40pm [facility] [place] [address] Hem/Onc Follow Up Note - OP Signed Patient: Zheng Montesinos MR#: [id number] : 1955 Acct:[id number] Age/Sex: 66 / M Type: REG RCR Copies to: Shelia Hardy (Varsha)MD Juan Carlos MD~ Subjective Date/Time of Service: Date of Service: 01/08/2022 Time of Service: 10:30 Chief Complaint: Patient is here today for a 1 month follow up visit for High Grade B-Cell Lymphoma. He is here to review scans and labs HPI: 01/08/2022: Zheng has now completed 5 of 6 cycles R-CHOP--cycle 6 is scheduled 01/13/2022. 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 Labs are stable--no fever, night sweats or abdominal pain. He notes increased numbness in distal fingers and toes--will reduce last dose Vincristinefrom 75% dose to now 50% dose. We reviewed his PET/CT which shows uptake in bones likely associated with therapy effect--we reviewed images/reports of priorPET/CT. Difficult to ascertain whether CR due to therapy effect, but no progression of disease. Will proceed with last cycle and I will have PIN STICKER see fortoxicity check after cycle 6. I will see in Mar 2022 after 3 month PET/CT for response assessment and survivorship visit. 12/09/2021: Zheng is here for cycle 4 week 2 R-CHOP--tolerating well with few toxicities. Mild fatigue but wants to return to work next week. Notes metallictaste and white coating over tongue despite Nystatin swish and swallow. Occasional numbness of fingertips and toes that does not persist. No abnormalities on exam. Labs are stable--I will coordinate followup PET prior tocycle 5 week 2 followup in 3 weeks. We will plan 6 total cycles, then survivorship if Deauville 0-1 on f/u PET. Low complexity followup 25 minutes. 11/18/2021: Zheng presents for follow-up after receiving cycle 3 day 1 R-CHOP last week. He continues with fatigue, denies fever, chills, sweats, n/v, diarrhea or constipation. He notes he gets really hot in the sun, which we discussed the importance of sunscreen and covering up with long sleeves and a hat when he can. He also notes taste changes and feels like his voice can get a little raspy here and there. In looking at his mouth, it appears he has some thrush starting, so we will give him nystatin swish and swallow. Otherwise he denies new complaints since last visit. His labs are stable, slightly elevated wbc and anc- he did get neulasta after therapy last week. He will return for follow-up in [address] Mcbride. 10/28/2021: Zheng is here for cycle 2, day 8 R-CHOP therapy. He will receive this cycle as an outpatient and had 25% dose reduction of vincristine due to numbness in his arm and hand. He noted that he had generalized weakness on days 3through 5 after therapy which is now improved. He also noted that he had a hotsensation but he did not take his temperature. He had no other signs or symptoms of infection such as cough, dyspnea, pharyngitis, or new GI symptoms. He notes that he feels better today. He did not have laboratories prior to thisvisit but labs today were reviewed showing normal white blood cell count with neutrophils 4500, hemoglobin 12.4, platelet count 177,000, normal electrolytes with normal calcium 8.8. Normal liver function tests. PET/CT scheduling was delayed until about 2 weeks after his inpatient R-CHOP. There was still residual activity in his right hepatic lobe with SUV 4.8, left hepatic lobe with SUV 7.8, uptake in the spleen with SUV 3.7. There is nonspecific uptake in the right mandible which is not associated with any lesions or pain on exam. His bone marrow biopsy was reviewed from 10/09/2021 showing mildly hypercellular trilineage hematopoiesis (60%) with no lymphoproliferative disorder and normal iron stores. 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 He will proceed with the same dose next cycle and we will coordinate follow-up echocardiogram in early December. Follow-up with nurse practitioner in 3 weeks for toxicity check and with me in 6 weeks. 10/09/2021: Patient presents after discharge on 10/01/2021 for his newly diagnosed high grade B cell lymphoma. He was initiated on R-CHOP inpatient on 09/30/2021 andtolerated this fairly well. His main complaint is some weakness and slight tremor in his hands. Otherwise, he notes he gets a bit short of breath with walking long distances or doing activity, but not at rest. He denies fever, chills, sweats, fatigue, n/v/d, constipation, chest pain or other complaints today. Labs are reviewed and ok, low wbc and hgb as expected with chemotherapy. His alk phos and LDH are improved, and his ALT/AST have normalized. He states hefeels pretty good overall. He is getting a bone marrow biopsy with Dr. Mcbride as well today, and is scheduled for PET scan next week as there was miscommunication on his appointment this morning. Per Dr. Mcbride, we will plan for dose reduction of his vincristine with his next cycle d/t the arm/hand weakness, which will be on 10/21/2021. We will plan for follow-up with Dr. Mcbride in 3 weeks with labs per treatment plan. Initial inpatient [place]: As you know this is a 66-year-old male who has a history of hypertension, morbidobesity, meralgia paresthetica, and is followed regularly in urology for elevated PSA but no history of cancer and an ENT for recent frequent productive cough. He reports that his of coronavirus infection in February of last year and over the last 9 months he has personally lost about 60 pounds. He is most troubled by his recurrent cough and was evaluated for worsening dyspnea as well as generalized weakness over the last few weeks. He also reports increased urine frequency but notes that this is longstanding. No nausea, vomiting, diarrhea, constipation, or dysphagia/odynophagia. He had a PE protocolCT in ER that was negative for PE, but found to have bilateral pleural effusionsand multiple liver and splenic lesions. He also was found to have multiple hepatic and liver lesions. Normal total bilirubin, and INR but increased AST andALT. No history of tobacco or alcohol use and no known hepatitis B or C. He has persistent fatigue, but some improvement of calcium (although still 11 range) after hydration and holding HCTZ. Has not yet had bisphosphonate therapy.He is preparing for discharge today, but I informed him of his findings on CT imaging and coordinated biopsy of his liver lesions with Dr. Ventura of radiology at [facility] for later this week. I informed him of normal INR, platelet count, and the fact that she does not take any NSAIDs or aspirin. I will follow- up results of biopsy next week and will also send alpha-fetoprotein, CA 19-9, CEA, and hepatitis B and C screening to determine etiologyof his liver lesions. Subsequent therapy will be based on pathology results. He may require outpatient bisphosphonate therapy if persistent hypercalcemia with fatigue. --Patient presented to the ER on 09/26/2021 with worsening weakness, fatigue, nausea, vomiting, shortness of breath, back pain, and urinary frequency. He wasnoted to be hypertensive, calcium to 15.1 with elevated liver function tests andcreatinine. He received bolus normal saline and calcitonin by inpatient physicians. I met with him today to discuss his final pathology. We are preparing to initiate chemotherapy based on results within the next week. He may need a consult for general surgery infusion port as an outpatient. 09/29/2021: Patient is seen at bedside this morning, resting comfortably. He denies new complaints and states his only issue is pain to his right monae, just below the knee. This is mild currently, but can be significant at times. Otherwise no n/v/d, worsened dyspnea, or other complaints. We discussed again his lymphoma diagnosis and the plan for treatment with R-CHOP to start tomorrow 09/30/2021. His baseline ECHO noted an EF 65-70%. We will plan to get a port placed in the outpatient setting prior to cycle 2. He had no questions and was in agreement with this plan. 09/30/2021: Patient was evaluated at bedside this morning, eating normally and notes that his constipation has improved control. Fatigue is significantly improved. No nausea, vomiting, or diarrhea. We reviewed his chemotherapy consent below for Rituxan with CHOP and he signed consent today. Plan is to give rasburicase 6 mg IV prior to Rituxan followed by the cyclophosphamide, doxorubicin, and vincristine. He started prednisone on Tuesday and may receivelast 100 mg dose today. He does note that he has had relative hypoglycemia withblood glucose in the 70s despite high-dose prednisone each day. If the patient is stable overnight he can be discharged home with follow-up in 1 week at [facility] for toxicity visit with me next Tuesday. Today we reviewed chemotherapy counseling for Rituximab, cyclophosphamide, doxorubicin, vincristine, and prednisone. Goal of therapy is curative--typically 80% complete response, 40% cure with 40% relapse. Common toxicities were reviewed to include infusion reactions, allergic reactions myelosuppression, fatigue, nausea, vomiting, constipation, diarrhea, mouth sores, and alopecia. Other toxicities may include pneumonitis, cardiotoxicity, secondary malignancy neurologic, hepatic and renal toxicities. The patient signed informed consent and will receive inpatient chemo today with 1 week follow-uptoxicity visit. - Summary of Therapies Summary of Therapies: Inpatient R-CHOP 09/30/2021 full dose R-CHOP (category 1) Days 1, 22, and 43: Rituximab 375mg/m2 IV 7 days prior to beginning CHOP regimen Day 1: Cyclophosphamide 750mg/m2 IV, doxorubicin 50mg/m2 IV bolus, and vincristine 1.4mg/m2 IV bolus (max dose 2mg) Days 3, 24, and 45: Prednisone 100mg PO 5 days. Repeat each cycle every 3 weeks for 3 cycles. Radiotherapy begins 3 weeks after last cycle of R-CHOP. Cycle 2 was given as an outpatient 10/21/2021 (25% dose reduction of vincristine for left arm paresthesias) continue for 6 cycles. Cycle 6 will have now 50% dose reduction of vincristine for paresthesias of fingers and toes as per HPI. ROS Details: All systems reviewed & no additional complaints except as documented Subjective/ROS - Narrative: Noted fatigue, numbness/clumsiness of fingers with first cycle of R-CHOP inpatient, dose reduced Vincristine 25% for cycle 2 onward with improvement of prior symptoms R-CHOP (category 1) Days 1, 22, and 43: Rituximab 375mg/m2 IV 7 days prior to beginning CHOP regimen Day 1: Cyclophosphamide 750mg/m2 IV, doxorubicin 50mg/m2 IV bolus, and vincristine 1.4mg/m2 IV bolus (max dose 2mg) Days 3, 24, and 45: Prednisone 100mg PO 5 days. Repeat each cycle every 3 weeks for 3 cycles. Radiotherapy begins 3 weeks after last cycle of R-CHOP. Constitutional: No fever or chills. Stable weight. Eyes: No visual changes or eye pain. Ear, Nose and throat: No congestion, sore throat, sinusitis or ear pain. Cardiovascular: No palpitations, edema, syncope or claudication. Respiratory: No cough or shortness of breath. Gastrointestinal: No abdominal pain, hematemesis, melena, nausea, vomiting, diarrhea, or reflux disease. Genitourinary: No dysuria, urgency, or burning with urination. Musculoskeletal: No muscle or joint pain. No current cervical, thoracic or lumbar pain or immobility. Skin: No rash, pruritus, ulcerations. Neurologic: No headache, vertigo, weakness. No syncope described. 01/08/2022: worsening neuropathy (numbness or tingling) fingers and toes (grade 2 intermittent)--now 50% dose reduction Vincristine for last cycle next week. Endocrine: No polyuria, polydipsia, heat or cold intolerance. No history of thyroid disease. Psychiatric: No hallucinations, new stressors, or change in sleep patterns. Hematologic: No abnormal bleeding or bruising. No lymphadenopathy noted. Immunologic: No history of frequent infections or delayed wound healing. [facility] - History Attestation statement: The following information was validated with the patient. Source: Old Records Reviewed - Medical History Medical History: Medical History (Last Reviewed 01/08/22 @ 14:30 by Abbi Mcbride MD) Anxiety Carpal tunnel syndrome on both sides Depression Erectile dysfunction Hypertension Meralgia paresthetica Morbid obesity - Surgical History Surgical History: Surgical History (Last Reviewed 01/08/22 @ 14:30 by Abbi Mcbride MD) H/O hernia repair H/O lithotripsy H/O vasectomy History of colonoscopy History of repair of rotator cuff History of skin graft History of tonsillectomy and adenoidectomy History of transurethral resection of prostate - Family History Family History: Family History (Last Reviewed 01/08/22 @ 14:30 by Abbi Mcbride MD) Mother Diabetes - Social History Smoking Status: Never smoker Substance Use Type: None Home Medications & Allergies Allergies No Known Allergies Allergy (Verified 01/08/22 10:39) Home Medications topiramate 100 mg capsule,extended release 24 hr 100 mg PO DAILY 09/24/21 [History Confirmed 01/08/22] doxazosin 8 mg tablet 8 mg PO DAILY 09/26/21 [History Confirmed 01/08/22] potassium chloride 25 mEq oral packet 25 meq PO DAILY 10/09/21 [History Confirmed 01/08/22] venlafaxine 150 mg tablet,extended release 24 hr 150 mg PO DAILY 10/09/21 [History Confirmed 01/08/22] amlodipine 5 mg tablet 5 mg PO DAILY 10/28/21 [History Confirmed 01/08/22] testosterone 1 % (25 mg/2.5 gram) transdermal gel packet (AndroGel) 1 packet transdermal DAILY 10/28/21 [History Confirmed 01/08/22] trazodone 100 mg tablet 100 mg PO QHS 10/28/21 [History Confirmed 01/08/22] prednisone 20 mg tablet 100 mg PO DAILY #25 tabs 11/05/21 [Rx Confirmed 01/08/22] Objective - Height/Weight Height/Weight: Height 5 ft 8 in Weight 142.882 kg BSA for Today's Weight 2.61 - Vital Signs Vital Signs: 01/08/22 10:40 Temperature 97.5 F L Pulse Rate [Right Brachial] 83 Respiratory Rate 16 Blood Pressure [Right Arm] 134/71 02 Sat by Pulse Oximetry 93 L Oxygen Delivery Method Room Air - Pain Left Flank Pain Intensity: 4 Physical Exam Narrative: General appearance: Well-developed well-nourished--moderate obesity, no acute distress Eye exam: Bilateral extraocular movements are intact, PERRLA, normal inspection bilaterally ENT: Hearing grossly normal. He has some white patches over his tongue, no erythema or swelling. No aphthous ulcerations. Neck exam: Full range of motion, no lymphadenopathy, no thyromegaly, nontender, normal inspection, supple Respiratory: Chest nontender, lung sounds clear bilaterally, normal breath sounds, no respiratory distress, no accessory muscle use Cardiac: RRR, no murmur, no rub, pulses present and symmetric. no edema Gastrointestinal: + palpable liver edge and spleen tip (improved from initial exam), no pulsatile mass, no abdominal tenderness, normal bowel sounds, soft Back exam: No CVA tenderness, no vertebral tenderness Extremities: No clubbing, no cyanosis, no edema, no evidence of injury, nontender, normal inspection, normal range of motion. Improvement of prior bilateral hand tremor. Neurologic/psychiatric: Alert, cranial nerves II through XII normal, no obvious motor or sensory deficits, normal mood and affect Integumentary: Normal color, warm/dry, no rashes - ECOG Performance Status ECOG Score: 1 Results - Labs Labs: Diagram of Most Recent CBC and CMP 12/22/21 15:00 12/22/21 15:00 - Impressions PET/CT WITH FUSION CLINICAL DATA: Restaging of large B-cell lymphoma. COMPARISON: PET/CT 10/14/2021 CLINICAL DATA: Following intravenous administration of 11.0 mCi of FDG, SPECT imaging in 3 planes was performed from the level the orbits through the groin. Patient's blood glucose level at the time of injection was 101 mg/dL. Spiral unenhanced CT was also performed for anatomic localization. The PET and CT images were fused. This CT exam was performed using one or more following dose reduction techniques: Automated exposure control, adjustment of the mA and/or kVaccording to patient size, or use of iterative reconstruction technique. NECK: No enlarged or hypermetabolic lymph nodes are identified. There is patchyincreased bone uptake that was not evident on the prior. There are no obvious associated bone lesions and correlation is recommended with therapy as to possible etiology. CHEST: No enlarged or hypermetabolic mediastinal, hilar or axillary lymph nodesare visualized. There are calcified left hilar granulomas. There is a calcified left upper lobe granuloma. There is no other pulmonary nodularity or hypermetabolism. There is a trace amount of pleural fluid. There is some vertebral increased FDG uptake. ABDOMEN/PELVIS: There are multiple hypodense hepatic lesions which do not have associated increased FDG uptake. These have have decreased in size since the previous exam. There are some additional tiny foci of increased FDG uptake within the liver on the current exam that may be new though have no corresponding finding on the CT images. The spleen is slightly less heterogeneous and shows no focal increased FDG uptake. No adrenal abnormalities are seen. No hypermetabolic adenopathy is visualized at the abdomen or pelvis. There is relatively diffuse increased bone uptake. Degenerative changes are present at the spine and SI joints. Physiologic activity is visualized at the urinary tract and bowel. Patient has a left renal cyst and nephrolithiasis. There is prior supraumbilical ventral hernia repair. Mild diverticular disease is seen. The prostate is enlarged. PET/PET tumor subq tx strat sb-mt IMPRESSION: DECREASING SIZE AND RESOLUTION OF HYPERMETABOLISM ASSOCIATED WITH HYPODENSE HEPATIC LESIONS SEEN PREVIOUSLY. INDETERMINANT TINY FOCI OF POSSIBLE DEVELOPING INCREASED UPTAKE WITHIN THE LIVER, WITHOUT DEFINITE CORRESPONDING CT ABNORMALITIES. NO DEVELOPING HYPERMETABOLIC ADENOPATHY. RELATIVELY DIFFUSE BONE UPTAKE. CORRELATION IS RECOMMENDED WITH PATIENT'S CURRENT THERAPY. 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 CT PE protocol did not show anyevidence of pulmonary embolism but he did have multiple liver lesions as well assplenic lesions. He has had some intermittent abdominal pain and constipation but no localizing symptoms. He denies use of regular alcohol or prior hepatitis. I coordinated outpatient biopsy with [facility] interventional radiology which was performed 09/24/2021. Pathology reviewed today reveals malignant cells present, consistent with aggressive B-cell lymphoma. Tumor cells are strongly positive for CD45 and CD20, negative for CD30, AE1/AE3, CAM 5.2, CD56, and synaptic ficin. Ki-67 proliferation index is high labeling 70 to 80% of tumor cells. We are awaiting the results of CD10, CD43, Bcl-2, BCL6, and cyclin D1 for further classification. Additional testing through [employer] will also be pending. Flow cytometry with FISH analysis for high-grade/large B-cell lymphomahave also been ordered through [employer] and pending results. During his hospital stay at [facility], his hypercalcemia, likely of malignancy, was treated by holding HCTZ and hydration. Due to improvement after these measures we were going to coordinate alendronate therapy if calcium increases. Currently his calcium level has returned to over 13 with evidence of acute kidney injury. I have ordered Pamidronate 90 mg IV over 3 hours today. He has had baseline hepatitis B and C testing which are nonreactive so that he may proceed with a Rituxan based regimen for CD20 positive high-grade lymphoma. I am coordinating echocardiogram and sending uric acid and LDH for possible tumor lysis. He is currently on allopurinol but I would likely add rasburicase if he has elevated uric acid. It is reasonable to start him on prednisone 100 mg daily over the next 5 days and we will determine on Tuesday based on his flow cytometry whether he should proceed with a regimen such as R- CHOP, or R-EPOCH, or another regimen based on his final diagnosis (more aggressive regimen if triple hit or Burkitt's lymphoma). I also ordered a stat echocardiogram. We will coordinate outpatient PET/CT, but this can be deferred until after startinghis initial chemotherapy. I met with the patient at the bedside to explain the work-up with him and advised continued hospitalization until stabilization of his calcium levels and renal function. We will likely defer initial chemotherapy to Tuesday or Tuesday pending final diagnostic work-up. This is a high complexity 60-minutevisit for [id number] discussion and review of pathology. 09/29/2021: He remains stable and is without new/major complaints. His baseline ECHO shows EF 65-70%, LDH is 3462, uric acid is WNL at 6.2. Will plan for rasburicase still given his tumor burden and concern for tumor lysis with initiation of R- CHOP tomorrow 09/30/2021 inpatient. He will be scheduled for a port to be placed in the outpatient setting prior to cycle 2, as well as a PET/CT. He would like to have these done at [facility], and also would like all of his outpatient treatment and follow-up to continue to be here at [facility]. 09/30/2021: Reviewed informed consent for Rituxan plus CHOP chemotherapy to be given as an inpatient today. Rasburicase ordered for tumor lysis syndrome prophylaxis due to bulky disease and recent renal injury which places him at increased risk. He likely can be discharged home tomorrow although I will repeat his tumor lysis labs with LDH and uric acid in the morning. Next follow-up in 1 week for toxicity visit. We will likely coordinate outpatient bone marrow biopsy and PET/CT to complete his work- up. 10/28/2021: Patient is here for cycle 2-week 2 rituximab plus CHOP chemotherapy toxicity visit. He reported a hot sensation but did not take his temperature and his symptoms of fatigue and warmth improved after the fifth day. He did nothave labs prior to his visit but he has no evidence of neutropenia or significant cytopenias today. He had prior 25% dose reduction of vincristine for numbness in his hand which has improved. -- Bone marrow biopsy from 10/09/2021 was reviewed showing no evidence of lymphoma involvement, mildly hypercellular with normal iron stores. Hypercellularity is likely due to recovery from chemotherapy given as an inpatient a week before next --Baseline PET/CT was deferred to 10/14/2021 due to his hospitalization. He continues to have uptake in both lobes of the liver and the spleen consistent with extranodal involvement by staging. We will continue his current doses of R-CHOP for his next cycle in 2 weeks and he will see nurse practitioner for toxicity visit at that time. I will see him with his fourth cycle toxicity visit. High complexity visit over 45 minutes toxicity review, exam, review bone marrow biopsy, review of baseline PET/CT. 11/18/2021: He presents after cycle 3 R-CHOP. He has mild thrush on exam and willbe prescribed nystatin swish and swallow. We reviewed with him today the importance of sunscreen and protecting himself when out in the heat, and he voiced understanding. He continues to do well enough on dose reduced therapy, and will continue every 3 weeks. He will see Dr. Mcbride for toxicity check after his next cycle with labs. He is in agreement with this plan and has no questions. 12/09/2021: Here for toxicity visit cycle 4, week 3 R-CHOP. Vincristine was reduced 25% for cycle 2 due to neuropathy--no recurrent symptoms. No other toxicities other than persistent white plaque over tongue despite oral Nystatin swish and swallow. PET/CT ordered for prior to cycle 5 for restaging. I supported his return to work if he feels ready due to chemotherapy well tolerated. Next f/u 3 weeks to review restaging PET/CT. Low complexity 25 minute f/u with labs. 01/08/2022: Now cycle 5 week 2 R-CHOP. Last cycle scheduled next week. Reducing vincristine dose to 50% due to numbness in fingers/toes. Toxicity check with [facility] cycle 6 week 2. Defer next f/u with me until Mar 2022 with 3 month restaging PET/CT and labs. Will evaluate for survivorship visit and surveillance recommendations that visit. Moderate complexity 35 minute visit toreview restaging PET/CT, Vincristine dose reduction for new neuropathy. (2) Peripheral neuropathy due to chemotherapy Noted numbness and weakness of arm after first cycle, completely resolved but cycle 2-day 8 and we will continue dose reduced vincristine with R-CHOP therapy. 12/09/2021: no recurrence in symptoms 01/08/2022: now neuropathy symptoms in fingers/toes--dose reduction vincristinenow 50% for last cycle of R-CHOP scheduled next week. (3) Oral candidiasis Refractory to oral Nystatin swish and swallow--treated with one week Diflucan 100mg po daily. Symptoms improved. (4) Hypercalcemia of malignancy Recent admission to [facility] with work-up , then transferred to [facility]. Normal vitamin D levels, PTH intact was low at 5 (likely due to tumor related hypercalcemia). Given Pamidronate and aggressive hydration 09/29/2021: calcium improved to 10.8 today s/p zolendronic acid, not repeated on 76. We will repeat prior to likely discharge tomorrow 10/01. 01/08/2022: calcium WNL since discharge. Will continue to monitor with labs Resolved after initiation of therapy (5) Encounter for chemotherapy management Inpatient note: I discussed preliminary pathology with Dr. Farias yesterday by phone. We are still waiting final pathology but most consistent with diffuse large B-cell lymphoma. Since he has had renal injury and hypercalcemia we will proceed with Rituxan plus CHOP today and may revise his chemotherapy based on final pathology which we will review in clinic next week. In addition he shouldhave baseline bone marrow aspiration and biopsy and PET/CT which we can coordinate next week. Rituxan plus CHOP day 1 to be initiated today with dosing noted below. 10/09/2021: He has completed C1D1 R-CHOP inpatient on 09/30/2021. He tolerated thisvery well without evidence of TLS or infusion reactions. He was discharged 10/01/2021. Cycle 2 scheduled 10/21/2021 with dose reduction of his vincristine d/t arm and hand weakness. 10/28/2021 toxicity visit with resolution of his arm and hand weakness symptoms since vincristine dose reduction. Cycle 3 given 11/11/21 at same reduced dose, tolerated well Cycle 4 12/02/2021--treated oral thrush (refractory to oral Nystatin) Cycle 5 12/23/2021--neuropathy hands and feet grade 2 Plan last cycle 6 01/13/2022: R-CHOP with now 50% dose Vincristine due to neuropathy. - Chemo Plan Chemo Plan (Dose, Rate, Freq): Chemo Plan (Dose, Rate, Freq): R-CHOP (category 1) Days 1: Rituximab 375mg/m2 IV day 1 CHOP regimen Day 1: Cyclophosphamide 750mg/m2 IV, doxorubicin 50mg/m2 IV bolus, and vincristine 1.5 mg IV bolus (max dose 2mg) Days 1: Prednisone 100mg PO 5 days. Repeat each cycle every 3 weeks for 6 cycles. Vincristine dose reduced 25% at cycle 2-5 Vincristine dose reduced 50% cycle 6 only Number of Cycles: 6 Goal of Treatment: Curative - Time with Patient Time Spent with Patient (Follow Up Visit): 35 minutes - Moderate complexity chemotherapy toxicity follow-up, review followup PET/CT for restaging, dose reduction vincristine for neuropathy Coordination of Care & Counseling Time: Greater than 50% of time spent with patient was for coordination of care (as documented) and [id number] counseling of patient and/or family. Dictated By: Abbi Mcbride MD DD/ [id number] Signed By: <Electronically signed by MD Abbi Mcbride> 01/08/22 1445 [facility] Work Phone: [phone] Progress note Author Abbi Mcbride [facility] December 09, 2021 9:28pm Note Date/Time December 09, 2021 1:57pm [facility] at [address] [address] Hem/Onc Follow Up Note - OP Signed Patient: Zheng Montesinos MR#: [id number] : 1955 Acct:[id number] Age/Sex: 66 / M Type: REG RCR Copies to: MD Juan Carlos Harris MD (Sandy)~ Subjective Date/Time of Service: Date of Service: 12/09/2021 Time of Service: 13:56 Chief Complaint: Patient is here today for for 3 week follow up visit and go over labs HPI: 12/09/2021: Zheng is here for cycle 4 week 2 R-CHOP--tolerating well with few toxicities. Mild fatigue but wants to return to work next week. Notes metallictaste and white coating over tongue despite Nystatin swish and swallow. Occasional numbness of fingertips and toes that does not persist. No abnormalities on exam. Labs are stable--I will coordinate followup PET prior to cycle 5 week 2 followup in 3 weeks. We will plan 6 total cycles, then survivorship if Deauville 0-1 on f/u PET. Low complexity followup 25 minutes. 11/18/2021: Zheng presents for follow-up after receiving cycle 3 day 1 R-CHOP last week. He continues with fatigue, denies fever, chills, sweats, n/v, diarrhea or constipation. He notes he gets really hot in the sun, which we discussed the importance of sunscreen and covering up with long sleeves and a hat when he can. He also notes taste changes and feels like his voice can get a little raspy here and there. In looking at his mouth, it appears he has some thrush starting, so we will give him nystatin swish and swallow. Otherwise he denies new complaints since last visit. His labs are stable, slightly elevated wbc and anc- he did get neulasta after therapy last week. He will return for follow-up in [address] Mcbride. 10/28/2021: Zheng is here for cycle 2, day 8 R-CHOP therapy. He will receive this cycle as an outpatient and had 25% dose reduction of vincristine due to numbness in his arm and hand. He noted that he had generalized weakness on days3 through 5 after therapy which is now improved. He also noted that he had a hot sensation but he did not take his temperature. He had no other signs or symptoms of infection such as cough, dyspnea, pharyngitis, or new GI symptoms. He notes that he feels better today. He did not have laboratories prior to thisvisit but labs today were reviewed showing normal white blood cell count with neutrophils 4500, hemoglobin 12.4, platelet count 177,000, normal electrolytes with normal calcium 8.8. Normal liver function tests. PET/CT scheduling was delayed until about 2 weeks after his inpatient R-CHOP. There was still residual activity in his right hepatic lobe with SUV 4.8, left hepatic lobe with SUV 7.8, uptake in the spleen with SUV 3.7. There is nonspecific uptake in the right mandible which is not associated with any lesions or pain on exam. His bone marrow biopsy was reviewed from 10/09/2021 showing mildly hypercellular trilineage hematopoiesis (60%) with no lymphoproliferative disorder and normal iron stores. 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 He will proceed with the same dose next cycle and we will coordinate follow-up echocardiogram in early December. Follow-up with nurse practitioner in 3 weeks for toxicity check and with me in 6 weeks. 10/09/2021: Patient presents after discharge on 10/01/2021 for his newly diagnosed high grade B cell lymphoma. He was initiated on R-CHOP inpatient on 09/30/2021 andtolerated this fairly well. His main complaint is some weakness and slight tremor in his hands. Otherwise, he notes he gets a bit short of breath with walking long distances or doing activity, but not at rest. He denies fever, chills, sweats, fatigue, n/v/d, constipation, chest pain or other complaints today. Labs are reviewed and ok, low wbc and hgb as expected with chemotherapy. His alk phos and LDH are improved, and his ALT/AST have normalized. He states hefeels pretty good overall. He is getting a bone marrow biopsy with Dr. Mcbride as well today, and is scheduled for PET scan next week as there was miscommunication on his appointment this morning. Per Dr. Mcbride, we will plan for dose reduction of his vincristine with his next cycle d/t the arm/hand weakness, which will be on 10/21/2021. We will plan for follow-up with Dr. Mcbride in 3 weeks with labs per treatment plan. Initial inpatient [place]: As you know this is a 66-year-old male who has a history of hypertension, morbidobesity, meralgia paresthetica, and is followed regularly in urology for elevated PSA but no history of cancer and an ENT for recent frequent productive cough. He reports that his of coronavirus infection in February of last year and over the last 9 months he has personally lost about 60 pounds. He is most troubled by his recurrent cough and was evaluated for worsening dyspnea as well as generalized weakness over the last few weeks. He also reports increased urine frequency but notes that this is longstanding. No nausea, vomiting, diarrhea, constipation, or dysphagia/odynophagia. He had a PE protocolCT in ER that was negative for PE, but found to have bilateral pleural effusionsand multiple liver and splenic lesions. He also was found to have multiple hepatic and liver lesions. Normal total bilirubin, and INR but increased AST andALT. No history of tobacco or alcohol use and no known hepatitis B or C. He has persistent fatigue, but some improvement of calcium (although still 11 range) after hydration and holding HCTZ. Has not yet had bisphosphonate therapy.He is preparing for discharge today, but I informed him of his findings on CT imaging and coordinated biopsy of his liver lesions with Dr. Ventura of radiology at [facility] for later this week. I informed him of normal INR, platelet count, and the fact that she does not take any NSAIDs or aspirin. I will follow- up results of biopsy next week and will also send alpha-fetoprotein, CA 19-9, CEA, and hepatitis B and C screening to determine etiologyof his liver lesions. Subsequent therapy will be based on pathology results. He may require outpatient bisphosphonate therapy if persistent hypercalcemia with fatigue. --Patient presented to the ER on 09/26/2021 with worsening weakness, fatigue, nausea, vomiting, shortness of breath, back pain, and urinary frequency. He wasnoted to be hypertensive, calcium to 15.1 with elevated liver function tests andcreatinine. He received bolus normal saline and calcitonin by inpatient physicians. I met with him today to discuss his final pathology. We are preparing to initiate chemotherapy based on results within the next week. He may need a consult for general surgery infusion port as an outpatient. 09/29/2021: Patient is seen at bedside this morning, resting comfortably. He denies new complaints and states his only issue is pain to his right monae, just below the knee. This is mild currently, but can be significant at times. Otherwise no n/v/d, worsened dyspnea, or other complaints. We discussed again his lymphoma diagnosis and the plan for treatment with R-CHOP to start tomorrow 09/30/2021. His baseline ECHO noted an EF 65-70%. We will plan to get a port placed in the outpatient setting prior to cycle 2. He had no questions and was in agreement with this plan. 09/30/2021: Patient was evaluated at bedside this morning, eating normally and notes that his constipation has improved control. Fatigue is significantly improved. No nausea, vomiting, or diarrhea. We reviewed his chemotherapy consent below for Rituxan with CHOP and he signed consent today. Plan is to give rasburicase 6 mg IV prior to Rituxan followed by the cyclophosphamide, doxorubicin, and vincristine. He started prednisone on Tuesday and may receivelast 100 mg dose today. He does note that he has had relative hypoglycemia withblood glucose in the 70s despite high-dose prednisone each day. If the patient is stable overnight he can be discharged home with follow-up in 1 week at [facility] for toxicity visit with me next Tuesday. Today we reviewed chemotherapy counseling for Rituximab, cyclophosphamide, doxorubicin, vincristine, and prednisone. Goal of therapy is curative--typically 80% complete response, 40% cure with 40% relapse. Common toxicities were reviewed to include infusion reactions, allergic reactions myelosuppression, fatigue, nausea, vomiting, constipation, diarrhea, mouth sores, and alopecia. Other toxicities may include pneumonitis, cardiotoxicity, secondary malignancy neurologic, hepatic and renal toxicities. The patient signed informed consent and will receive inpatient chemo today with 1 week follow-up toxicity visit. - Summary of Therapies Summary of Therapies: Inpatient R-CHOP 09/30/2021 full dose R-CHOP (category 1) Days 1, 22, and 43: Rituximab 375mg/m2 IV 7 days prior to beginning CHOP regimen Day 1: Cyclophosphamide 750mg/m2 IV, doxorubicin 50mg/m2 IV bolus, and vincristine 1.4mg/m2 IV bolus (max dose 2mg) Days 3, 24, and 45: Prednisone 100mg PO 5 days. Repeat each cycle every 3 weeks for 3 cycles. Radiotherapy begins 3 weeks after last cycle of R-CHOP. Cycle 2 was given as an outpatient 10/21/2021 (25% dose reduction of vincristine for left arm paresthesias) continue for 6 cycles. ROS Details: All systems reviewed & no additional complaints except as documented Subjective/ROS - Narrative: Noted fatigue, numbness/clumsiness of fingers with first cycle of R-CHOP inpatient, dose reduced Vincristine 25% for cycle 2 onward with improvement of prior symptoms R-CHOP (category 1) Days 1, 22, and 43: Rituximab 375mg/m2 IV 7 days prior to beginning CHOP regimen Day 1: Cyclophosphamide 750mg/m2 IV, doxorubicin 50mg/m2 IV bolus, and vincristine 1.4mg/m2 IV bolus (max dose 2mg) Days 3, 24, and 45: Prednisone 100mg PO 5 days. Repeat each cycle every 3 weeks for 3 cycles. Radiotherapy begins 3 weeks after last cycle of R-CHOP. PMFSH - History Attestation statement: The following information was validated with the patient. Source: Old Records Reviewed - Medical History Medical History: Medical History (Last Reviewed 12/09/21 @ 21:15 by Abbi Mcbride MD) Anxiety Carpal tunnel syndrome on both sides Depression Erectile dysfunction Hypertension Meralgia paresthetica Morbid obesity - Surgical History Surgical History: Surgical History (Last Reviewed 12/09/21 @ 21:15 by Abbi Mcbride MD) H/O hernia repair H/O lithotripsy H/O vasectomy History of colonoscopy History of repair of rotator cuff History of skin graft History of tonsillectomy and adenoidectomy History of transurethral resection of prostate - Family History Family History: Family History (Last Reviewed 12/09/21 @ 21:15 by Abbi Mcbride MD) Mother Diabetes - Social History Smoking Status: Never smoker Substance Use Type: None Home Medications & Allergies Allergies No Known Allergies Allergy (Verified 12/09/21 13:50) Home Medications topiramate 100 mg capsule,extended release 24 hr 100 mg PO DAILY 09/24/21 [History Confirmed 12/09/21] doxazosin 8 mg tablet 8 mg PO DAILY 09/26/21 [History Confirmed 12/09/21] allopurinol 300 mg tablet 300 mg PO DAILY #0 tabs 10/01/21 [Rx Confirmed 12/09/21] potassium chloride 25 mEq oral packet 25 meq PO DAILY 10/09/21 [History Confirmed 12/09/21] venlafaxine 150 mg tablet,extended release 24 hr 150 mg PO DAILY 10/09/21 [History Confirmed 12/09/21] amlodipine 5 mg tablet 5 mg PO DAILY 10/28/21 [History Confirmed 12/09/21] melatonin 10 mg tablet 10 mg PO HS PRN Insomnia 10/28/21 [History Confirmed 12/09/21] testosterone 1 % (25 mg/2.5 gram) transdermal gel packet (AndroGel) 1 packet transdermal DAILY 10/28/21 [History Confirmed 12/09/21] trazodone 100 mg tablet 100 mg PO QHS 10/28/21 [History Confirmed 12/09/21] prednisone 20 mg tablet 100 mg PO DAILY #25 tabs 11/05/21 [Rx Confirmed 12/09/21] Magic Mouthwash 1 - 2 tsp PO TID PRN mouth sores 11/18/21 [History Confirmed 12/09/21] nystatin 100,000 unit/mL oral suspension 4 - 6 ml PO DAILY #480 mL 12/02/21 [Rx Confirmed 12/09/21] fluconazole 100 mg tablet (Diflucan) 100 mg PO DAILY #7 tabs 12/09/21 [Rx] Objective - Height/Weight Height/Weight: Height 5 ft 8 in Weight 139.253 kg BSA for Today's Weight 2.59 - Vital Signs Vital Signs: 12/09/21 13:52 Temperature 97.9 F Pulse Rate [Right Brachial] 79 Respiratory Rate 16 Blood Pressure [Right Arm] 160/75 H 02 Sat by Pulse Oximetry 98 Oxygen Delivery Method Room Air - Pain Left Flank Pain Intensity: 4 Physical Exam Narrative: General appearance: Well-developed well-nourished--moderate obesity, no acute distress Eye exam: Bilateral extraocular movements are intact, PERRLA, normal inspection bilaterally ENT: Hearing grossly normal. He has some white patches over his tongue, no erythema or swelling. No aphthous ulcerations. Neck exam: Full range of motion, no lymphadenopathy, no thyromegaly, nontender, normal inspection, supple Respiratory: Chest nontender, lung sounds clear bilaterally, normal breath sounds, no respiratory distress, no accessory muscle use Cardiac: RRR, no murmur, no rub, pulses present and symmetric. no edema Gastrointestinal: + palpable liver edge and spleen tip (improved from initial exam), no pulsatile mass, no abdominal tenderness, normal bowel sounds, soft Back exam: No CVA tenderness, no vertebral tenderness Extremities: No clubbing, no cyanosis, no edema, no evidence of injury, nontender, normal inspection, normal range of motion. Improvement of prior bilateral hand tremor. Neurologic/psychiatric: Alert, cranial nerves II through XII normal, no obvious motor or sensory deficits, normal mood and affect Integumentary: Normal color, warm/dry, no rashes - ECOG Performance Status ECOG Score: 1 Results - Labs Labs: Diagram of Most Recent CBC and CMP 12/08/21 13:15 12/08/21 13:15 Labs - Last 7 Days 12/08/21 13:15: PHA Creatinine Clear 98.18, Sodium 138, Potassium 3.8, Chloride 106, Carbon Dioxide 24.0, Anion Gap 11.8, BUN 17, Creatinine 1.00, Est GFR ( Amer) > 60, Est GFR (Non-Af Amer) > 60, Glucose 118 H, Calcium 8.9, Total Bilirubin 0.7, AST 15, ALT 20, Alkaline Phosphatase 127 H, Total Protein 5.5 L, Albumin 3.1 L, Globulin 2.4, Albumin/Globulin Ratio 1.3 12/08/21 13:15: Corrected WBC 12.9 H, Uncorrected WBC Count 12.9 H, RBC 4.23, Hgb 12.2 L, Hct 37.0 L, MCV 87.3, MCH 28.9, MCHC 33.1, RDW 17.2 H, Plt Count 191, MPV 7.0, Neut % (Auto) 92.3, Lymph % (Auto) 4.7, Murray % (Auto) 2.2, Eos % (Auto) 0.6, Baso % (Auto) 0.2, Neut # (Auto) 11.9 H, Lymph # (Auto) 0.6 L, Murray # (Auto) 0.3, Eos # (Auto) 0.1, Baso # (Auto) 0.0, Nucleated RBC % (auto) 0.1, Dohle Bodies Slight, Platelet Estimate Normal, Plt Morphology Comment Normal, RBC Morphology N/A, Anisocytosis Slight - Impressions Restaging PET/CT ordered for cycle 5 as per HPI for restaging (first PET was before cycle 2) Assessment and Plan - TNM Staging Staging: 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 CT PE protocol did not show anyevidence of pulmonary embolism but he did have multiple liver lesions as well assplenic lesions. He has had some intermittent abdominal pain and constipation but no localizing symptoms. He denies use of regular alcohol or prior hepatitis. I coordinated outpatient biopsy with [facility] interventional radiology which was performed 09/24/2021. Pathology reviewed today reveals malignant cells present, consistent with aggressive B-cell lymphoma. Tumor cells are strongly positive for CD45 and CD20, negative for CD30, AE1/AE3, CAM 5.2, CD56, and synaptic ficin. Ki-67 proliferation index is high labeling 70 to 80% of tumor cells. We are awaiting the results of CD10, CD43, Bcl-2, BCL6, and cyclin D1 for further classification. Additional testing through [employer] will also be pending. Flow cytometry with FISH analysis for high-grade/large B-cell lymphomahave also been ordered through [employer] and pending results. During his hospital stay at [facility], his hypercalcemia, likely of malignancy, was treated by holding HCTZ and hydration. Due to improvement after these measures we were going to coordinate alendronate therapy if calcium increases. Currently his calcium level has returned to over 13 with evidence of acute kidney injury. I have ordered Pamidronate 90 mg IV over 3 hours today. He has had baseline hepatitis B and C testing which are nonreactive so that he may proceed with a Rituxan based regimen for CD20 positive high-grade lymphoma. I am coordinating echocardiogram and sending uric acid and LDH for possible tumor lysis. He is currently on allopurinol but I would likely add rasburicase if he has elevated uric acid. It is reasonable to start him on prednisone 100 mg daily over the next 5 days and we will determine on Tuesday based on his flow cytometry whether he should proceed with a regimen such as R- CHOP, or R-EPOCH, or another regimen based on his final diagnosis (more aggressive regimen if triple hit or Burkitt's lymphoma). I also ordered a stat echocardiogram. We will coordinate outpatient PET/CT, but this can be deferred until after startinghis initial chemotherapy. I met with the patient at the bedside to explain the work-up with him and advised continued hospitalization until stabilization of his calcium levels and renal function. We will likely defer initial chemotherapy to Tuesday or Tuesday pending final diagnostic work-up. This is a high complexity 60-minutevisit for [id number] discussion and review of pathology. 09/29/2021: He remains stable and is without new/major complaints. His baseline ECHO shows EF 65-70%, LDH is 3462, uric acid is WNL at 6.2. Will plan for rasburicase still given his tumor burden and concern for tumor lysis with initiation of R- CHOP tomorrow 09/30/2021 inpatient. He will be scheduled for a port to be placed in the outpatient setting prior to cycle 2, as well as a PET/CT. He would like to have these done at [facility], and also would like all of his outpatient treatment and follow-up to continue to be here at [facility]. 09/30/2021: Reviewed informed consent for Rituxan plus CHOP chemotherapy to be given as an inpatient today. Rasburicase ordered for tumor lysis syndrome prophylaxis due to bulky disease and recent renal injury which places him at increased risk. He likely can be discharged home tomorrow although I will repeat his tumor lysis labs with LDH and uric acid in the morning. Next follow-up in 1 week for toxicity visit. We will likely coordinate outpatient bone marrow biopsy and PET/CT to complete his work- up. 10/28/2021: Patient is here for cycle 2-week 2 rituximab plus CHOP chemotherapy toxicity visit. He reported a hot sensation but did not take his temperature and his symptoms of fatigue and warmth improved after the fifth day. He did nothave labs prior to his visit but he has no evidence of neutropenia or significant cytopenias today. He had prior 25% dose reduction of vincristine for numbness in his hand which has improved. -- Bone marrow biopsy from 10/09/2021 was reviewed showing no evidence of lymphoma involvement, mildly hypercellular with normal iron stores. Hypercellularity is likely due to recovery from chemotherapy given as an inpatient a week before next --Baseline PET/CT was deferred to 10/14/2021 due to his hospitalization. He continues to have uptake in both lobes of the liver and the spleen consistent with extranodal involvement by staging. We will continue his current doses of R-CHOP for his next cycle in 2 weeks and he will see nurse practitioner for toxicity visit at that time. I will see him with his fourth cycle toxicity visit. High complexity visit over 45 minutes toxicity review, exam, review bone marrow biopsy, review of baseline PET/CT. 11/18/2021: He presents after cycle 3 R-CHOP. He has mild thrush on exam and willbe prescribed nystatin swish and swallow. We reviewed with him today the importance of sunscreen and protecting himself when out in the heat, and he voiced understanding. He continues to do well enough on dose reduced therapy, and will continue every 3 weeks. He will see Dr. Mcbride for toxicity check after his next cycle with labs. He is in agreement with this plan and has no questions. 12/09/2021: Here for toxicity visit cycle 4, week 4 R-CHOP. Vincristine was reduced 25% for cycle 2 due to neuropathy--no recurrent symptoms. No other toxicities other than persistent white plaque over tongue despite oral Nystatin swish and swallow. PET/CT ordered for prior to cycle 5 for restaging. I supported his return to work if he feels ready due to chemotherapy well tolerated. Next f/u 3 weeks to review restaging PET/CT. Low complexity 25 minute f/u with labs. (2) Oral candidiasis Refractory to oral Nystatin swish and swallow--will treat with one week [id number] po daily. I will reassess his exam and symptoms of altered taste at next folllowup in 3 weeks. (3) Peripheral neuropathy due to chemotherapy Noted numbness and weakness of arm after first cycle, completely resolved but cycle 2-day 8 and we will continue dose reduced vincristine with R-CHOP therapy. 12/09/2021: no recurrence in symptoms (4) Hypercalcemia of malignancy Recent admission to [facility] with work-up , then transferred to [facility]. Normal vitamin D levels, PTH intact was low at 5 (likely due to tumor related hypercalcemia). Given Pamidronate and aggressive hydration 09/29/2021: calcium improved to 10.8 today s/p zolendronic acid, not repeated on 76. We will repeat prior to likely discharge tomorrow 10/01. 12/09/2021: calcium WNL since discharge. Will continue to monitor with labs Resolved after initiation of therapy (5) Encounter for chemotherapy management Inpatient note: I discussed preliminary pathology with Dr. Farias yesterday by phone. We are still waiting final pathology but most consistent with diffuse large B-cell lymphoma. Since he has had renal injury and hypercalcemia we will proceed with Rituxan plus CHOP today and may revise his chemotherapy based on final pathology which we will review in clinic next week. In addition he shouldhave baseline bone marrow aspiration and biopsy and PET/CT which we can coordinate next week. Rituxan plus CHOP day 1 to be initiated today with dosing noted below. 10/09/2021: He has completed C1D1 R-CHOP inpatient on 09/30/2021. He tolerated thisvery well without evidence of TLS or infusion reactions. He was discharged 10/01/2021. Cycle 2 scheduled 10/21/2021 with dose reduction of his vincristine d/t arm and hand weakness. 10/28/2021 toxicity visit with resolution of his arm and hand weakness symptoms since vincristine dose reduction. Cycle 3 given 11/11/21 at same reduced dose, tolerated well Cycle 4 12/02/2021--treated oral thrush (refractory to oral Nystatin) - Chemo Plan Chemo Plan (Dose, Rate, Freq): Chemo Plan (Dose, Rate, Freq): R-CHOP (category 1) Days 1: Rituximab 375mg/m2 IV day 1 CHOP regimen Day 1: Cyclophosphamide 750mg/m2 IV, doxorubicin 50mg/m2 IV bolus, and vincristine 1.5 mg IV bolus (max dose 2mg) Days 1: Prednisone 100mg PO 5 days. Repeat each cycle every 3 weeks for 6 cycles. Vincristine dose reduced 25% at cycle 2 and for future cycles Number of Cycles: 6 Goal of Treatment: Curative - Time with Patient Time Spent with Patient (Follow Up Visit): 25 minutes - Low complexity chemotherapy toxicity follow-up, order followup PET/CT for restaging Coordination of Care & Counseling Time: Greater than 50% of time spent with patient was for coordination of care (as documented) and [id number] counseling of patient and/or family. Dictated By: Abbi Mcbride MD DD/ [id number] Signed By: <Electronically signed by MD Abbi Mcbride> 12/09/21 2020 [facility] Work Phone: [phone] Progress note Author Jane Duron [facility] November 18, 2021 4:10pm Note Date/Time November 18, 2021 4: 03pm [facility] at [address] [address] Hem/Onc Follow Up Note - OP Signed Patient: Zheng Montesinos MR#: [id number] : 1955 Acct:[id number] Age/Sex: 66 / M Type: REG RCR Copies to: MD Juan Carlos Hendricks MD~ Subjective Date/Time of Service: Date of Service: 11/18/2021 Time of Service: 15:52 Chief Complaint: Patient is here today for 3 week follow up visit for high gradelymphoma and toxicity check HPI: 11/18/2021: Zheng presents for follow-up after receiving cycle 3 day 1 R-CHOP last week. He continues with fatigue, denies fever, chills, sweats, n/v, diarrhea or constipation. He notes he gets really hot in the sun, which we discussed the importance of sunscreen and covering up with long sleeves and a hat when he can. He also notes taste changes and feels like his voice can get a little raspy here and there. In looking at his mouth, it appears he has some thrush starting, so we will give him nystatin swish and swallow. Otherwise he denies new complaints since last visit. His labs are stable, slightly elevated wbc and anc- he did get neulasta after therapy last week. He will return for follow-up in [address] Mcbride. 10/28/2021: Zheng is here for cycle 2, day 8 R-CHOP therapy. He will receive this cycle as an outpatient and had 25% dose reduction of vincristine due to numbness in his arm and hand. He noted that he had generalized weakness on days3 through 5 after therapy which is now improved. He also noted that he had a hot sensation but he did not take his temperature. He had no other signs or symptoms of infection such as cough, dyspnea, pharyngitis, or new GI symptoms. He notes that he feels better today. He did not have laboratories prior to thisvisit but labs today were reviewed showing normal white blood cell count with neutrophils 4500, hemoglobin 12.4, platelet count 177,000, normal electrolytes with normal calcium 8.8. Normal liver function tests. PET/CT scheduling was delayed until about 2 weeks after his inpatient R-CHOP. There was still residual activity in his right hepatic lobe with SUV 4.8, left hepatic lobe with SUV 7.8, uptake in the spleen with SUV 3.7. There is nonspecific uptake in the right mandible which is not associated with any lesions or pain on exam. His bone marrow biopsy was reviewed from 10/09/2021 showing mildly hypercellular trilineage hematopoiesis (60%) with no lymphoproliferative disorder and normal iron stores. 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 He will proceed with the same dose next cycle and we will coordinate follow-up echocardiogram in early December. Follow-up with nurse practitioner in 3 weeks for toxicity check and with me in 6 weeks. 10/09/2021: Patient presents after discharge on 10/01/2021 for his newly diagnosed high grade B cell lymphoma. He was initiated on R-CHOP inpatient on 09/30/2021 andtolerated this fairly well. His main complaint is some weakness and slight tremor in his hands. Otherwise, he notes he gets a bit short of breath with walking long distances or doing activity, but not at rest. He denies fever, chills, sweats, fatigue, n/v/d, constipation, chest pain or other complaints today. Labs are reviewed and ok, low wbc and hgb as expected with chemotherapy. His alk phos and LDH are improved, and his ALT/AST have normalized. He states hefeels pretty good overall. He is getting a bone marrow biopsy with Dr. Mcbride as well today, and is scheduled for PET scan next week as there was miscommunication on his appointment this morning. Per Dr. Mcbride, we will plan for dose reduction of his vincristine with his next cycle d/t the arm/hand weakness, which will be on 10/21/2021. We will plan for follow-up with Dr. Mcbride in 3 weeks with labs per treatment plan. Initial inpatient [place]: As you know this is a 66-year-old male who has a history of hypertension, morbidobesity, meralgia paresthetica, and is followed regularly in urology for elevated PSA but no history of cancer and an ENT for recent frequent productive cough. He reports that his of coronavirus infection in February of last year and over the last 9 months he has personally lost about 60 pounds. He is most troubled by his recurrent cough and was evaluated for worsening dyspnea as well as generalized weakness over the last few weeks. He also reports increased urine frequency but notes that this is longstanding. No nausea, vomiting, diarrhea, constipation, or dysphagia/odynophagia. He had a PE protocolCT in ER that was negative for PE, but found to have bilateral pleural effusionsand multiple liver and splenic lesions. He also was found to have multiple hepatic and liver lesions. Normal total bilirubin, and INR but increased AST andALT. No history of tobacco or alcohol use and no known hepatitis B or C. He has persistent fatigue, but some improvement of calcium (although still 11 range) after hydration and holding HCTZ. Has not yet had bisphosphonate therapy.He is preparing for discharge today, but I informed him of his findings on CT imaging and coordinated biopsy of his liver lesions with Dr. Ventura of radiology at [facility] for later this week. I informed him of normal INR, platelet count, and the fact that she does not take any NSAIDs or aspirin. I will follow- up results of biopsy next week and will also send alpha-fetoprotein, CA 19-9, CEA, and hepatitis B and C screening to determine etiologyof his liver lesions. Subsequent therapy will be based on pathology results. He may require outpatient bisphosphonate therapy if persistent hypercalcemia with fatigue. --Patient presented to the ER on 09/26/2021 with worsening weakness, fatigue, nausea, vomiting, shortness of breath, back pain, and urinary frequency. He wasnoted to be hypertensive, calcium to 15.1 with elevated liver function tests andcreatinine. He received bolus normal saline and calcitonin by inpatient physicians. I met with him today to discuss his final pathology. We are preparing to initiate chemotherapy based on results within the next week. He may need a consult for general surgery infusion port as an outpatient. 09/29/2021: Patient is seen at bedside this morning, resting comfortably. He denies new complaints and states his only issue is pain to his right monae, just below the knee. This is mild currently, but can be significant at times. Otherwise no n/v/d, worsened dyspnea, or other complaints. We discussed again his lymphoma diagnosis and the plan for treatment with R-CHOP to start tomorrow 09/30/2021. His baseline ECHO noted an EF 65-70%. We will plan to get a port placed in the outpatient setting prior to cycle 2. He had no questions and was in agreement with this plan. 09/30/2021: Patient was evaluated at bedside this morning, eating normally and notes that his constipation has improved control. Fatigue is significantly improved. No nausea, vomiting, or diarrhea. We reviewed his chemotherapy consent below for Rituxan with CHOP and he signed consent today. Plan is to give rasburicase 6 mg IV prior to Rituxan followed by the cyclophosphamide, doxorubicin, and vincristine. He started prednisone on Tuesday and may receivelast 100 mg dose today. He does note that he has had relative hypoglycemia withblood glucose in the 70s despite high-dose prednisone each day. If the patient is stable overnight he can be discharged home with follow-up in 1 week at [facility] for toxicity visit with me next Tuesday. Today we reviewed chemotherapy counseling for Rituximab, cyclophosphamide, doxorubicin, vincristine, and prednisone. Goal of therapy is curative--typically 80% complete response, 40% cure with 40% relapse. Common toxicities were reviewed to include infusion reactions, allergic reactions myelosuppression, fatigue, nausea, vomiting, constipation, diarrhea, mouth sores, and alopecia. Other toxicities may include pneumonitis, cardiotoxicity, secondary malignancy neurologic, hepatic and renal toxicities. The patient signed informed consent and will receive inpatient chemo today with 1 week follow-up toxicity visit. - Summary of Therapies Summary of Therapies: Inpatient R-CHOP 09/30/2021 full dose R-CHOP (category 1) Days 1, 22, and 43: Rituximab 375mg/m2 IV 7 days prior to beginning CHOP regimen Day 1: Cyclophosphamide 750mg/m2 IV, doxorubicin 50mg/m2 IV bolus, and vincristine 1.4mg/m2 IV bolus (max dose 2mg) Days 3, 24, and 45: Prednisone 100mg PO 5 days. Repeat each cycle every 3 weeks for 3 cycles. Radiotherapy begins 3 weeks after last cycle of R-CHOP. Cycle 2 was given as an outpatient 10/21/2021 (25% dose reduction of vincristine for left arm paresthesias) continue for 6 cycles. ROS Details: All systems reviewed & no additional complaints except as documented PMF - Medical History Medical History: Medical History (Last Reviewed 11/05/21 @ 11:57 by Ivania Clark RN) Anxiety Carpal tunnel syndrome on both sides Depression Erectile dysfunction Hypertension Meralgia paresthetica Morbid obesity - Surgical History Surgical History: Surgical History (Last Reviewed 11/05/21 @ 11:57 by Ivania Clark RN) H/O hernia repair H/O lithotripsy H/O vasectomy History of colonoscopy History of repair of rotator cuff History of skin graft History of tonsillectomy and adenoidectomy History of transurethral resection of prostate - Family History Family History: Family History (Last Reviewed 11/05/21 @ 11:57 by Ivania Clark RN) Mother Diabetes - Social History Smoking Status: Never smoker Substance Use Type: None Home Medications & Allergies Allergies No Known Allergies Allergy (Verified 11/18/21 15:00) Home Medications topiramate 100 mg capsule,extended release 24 hr 100 mg PO DAILY 09/24/21 [History Confirmed 11/18/21] doxazosin 8 mg tablet 8 mg PO DAILY 09/26/21 [History Confirmed 11/18/21] allopurinol 300 mg tablet 300 mg PO DAILY #0 tabs 10/01/21 [Rx Confirmed 11/18/21] potassium chloride 25 mEq oral packet 25 meq PO DAILY 10/09/21 [History Confirmed 11/18/21] venlafaxine 150 mg tablet,extended release 24 hr 150 mg PO DAILY 10/09/21 [History Confirmed 11/18/21] amlodipine 5 mg tablet 5 mg PO DAILY 10/28/21 [History Confirmed 11/18/21] melatonin 10 mg tablet 10 mg PO HS PRN Insomnia 10/28/21 [History Confirmed 11/18/21] testosterone (AndroGel) 1 packet transdermal DAILY 10/28/21 [History Confirmed 11/18/21] trazodone 100 mg tablet 100 mg PO QHS 10/28/21 [History Confirmed 11/18/21] prednisone 20 mg tablet 100 mg PO DAILY #25 tabs 11/05/21 [Rx Confirmed 11/18/21] Magic Mouthwash 1 - 2 tsp PO TID PRN mouth sores 11/18/21 [History] nystatin 100,000 unit/mL oral suspension 4 - 6 ml PO DAILY #480 mL 11/18/21 [Rx] Objective - Height/Weight Height/Weight: Height 5 ft 8 in Weight 136.531 kg BSA for Today's Weight 2.58 - Vital Signs Vital Signs: 11/18/21 15:02 Temperature 97.9 F Pulse Rate [Right Brachial] 96 H Respiratory Rate 16 Blood Pressure [Right Arm] 117/71 02 Sat by Pulse Oximetry 96 Oxygen Delivery Method Room Air - Pain Left Flank Pain Intensity: 4 Physical Exam Narrative: General appearance: Well-developed well-nourished--moderate obesity, no acute distress Eye exam: Bilateral extraocular movements are intact, PERRLA, normal inspection bilaterally ENT: Hearing grossly normal. He has some which patches to the back of his tongue, no erythema or swelling. Some white patches to the corners of his mouth as well. No lesions noted on exam. Neck exam: Full range of motion, no lymphadenopathy, no thyromegaly, nontender, normal inspection, supple Respiratory: Chest nontender, lung sounds clear bilaterally, normal breath sounds, no respiratory distress, no accessory muscle use Cardiac: RRR, no murmur, no rub, pulses present and symmetric. no edema Gastrointestinal: no organomegaly, no pulsatile mass, no splenomegaly on exam, normal bowel sounds, soft Back exam: No CVA tenderness, no vertebral tenderness Extremities: No clubbing, no cyanosis, no edema, no evidence of injury, nontender, normal inspection, normal range of motion. Improvement of prior bilateral hand tremor. Neurologic/psychiatric: Alert, cranial nerves II through XII normal, no obvious motor or sensory deficits, normal mood and affect Integumentary: Normal color, warm/dry, no rashes Results - Labs Labs: Diagram of Most Recent CBC and CMP 11/17/21 14:08 11/17/21 14:08 Labs - Last 7 Days 11/17/21 14:08: PHA Creatinine Clear 97.04, Sodium 139, Potassium 3.6, Chloride 108, Carbon Dioxide 25.6, BUN 14, Creatinine 1.01, Est GFR ( Amer) > 60, Est GFR (Non-Af Amer) > 60, Glucose 112 H, Calcium 8.6, Total Bilirubin 0.6, AST16, ALT 18, Alkaline Phosphatase 121 H, Total Protein 5.3 L, Albumin 3.3, Globulin 2.0, Albumin/Globulin Ratio 1.7 11/17/21 14:08: Corrected WBC 11.0 H, Uncorrected WBC Count 11.0, RBC 4.16, Hgb 11.8 L, Hct 35.6 L, MCV 85.6, MCH 28.3, MCHC 33.1, RDW 17.1 H, Plt Count 245, MPV 6.8, Neut % (Auto) 88.1, Lymph % (Auto) 7.2, Murray % (Auto) 3.2, Eos % (Auto)0.9, Baso % (Auto) 0.6, Neut # (Auto) 9.7 H, Lymph # (Auto) 0.8 L, Murray # (Auto)0.4, Eos # (Auto) 0.1, Baso # (Auto) 0.1, Nucleated RBC % (auto) 0.1, Platelet Estimate Normal, Large Platelets Moderate, Plt Morphology Comment N/A, RBC Morphology N/A, Poikilocytosis Slight, Anisocytosis Slight Assessment and Plan - TNM Staging Staging: 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 CT PE protocol did not show anyevidence of pulmonary embolism but he did have multiple liver lesions as well assplenic lesions. He has had some intermittent abdominal pain and constipation but no localizing symptoms. He denies use of regular alcohol or prior hepatitis. I coordinated outpatient biopsy with [facility] interventional radiology which was performed 09/24/2021. Pathology reviewed today reveals malignant cells present, consistent with aggressive B-cell lymphoma. Tumor cells are strongly positive for CD45 and CD20, negative for CD30, AE1/AE3,CAM 5.2, CD56, and synaptic ficin. Ki-67 proliferation index is high labeling 70 to 80% of tumor cells. We are awaiting the results of CD10, CD43, Bcl-2, BCL6, and cyclin D1 for further classification. Additional testing through [employer] will also be pending. Flow cytometry with FISH analysis for high-grade/large B-cell lymphomahave also been ordered through [facility] and pending results. During his hospital stay at [facility], his hypercalcemia, likely of malignancy, was treated by holding HCTZ and hydration. Due to improvement after these measures we were going to coordinate alendronate therapy if calcium increases. Currently his calcium level has returned to over 13 with evidence of acute kidney injury. I have ordered Pamidronate 90 mg IV over 3 hours today. He has had baseline hepatitis B and C testing which are nonreactive so that he may proceed with a Rituxan based regimen for CD20 positive high-grade lymphoma. I am coordinating echocardiogram and sending uric acid and LDH for possible tumor lysis. He is currently on allopurinol but I would likely add rasburicase if he has elevated uric acid. It is reasonable to start him on prednisone 100 mg daily over the next 5 days and we will determine on Tuesday based on his flow cytometry whether he should proceed with a regimen such as R- CHOP, or R-EPOCH, oranother regimen based on his final diagnosis (more aggressive regimen if triple hit or Burkitt's lymphoma). I also ordered a stat echocardiogram. We will coordinate outpatient PET/CT, but this can be deferred until after starting his initial chemotherapy. I met with the patient at the bedside to explain the work-up with him and advised continued hospitalization until stabilization of his calcium levels and renal function. We will likely defer initial chemotherapy to Tuesday or Tuesday pending final diagnostic work-up. This is a high complexity 60-minutevisit for [id number] discussion and review of pathology. 09/29/2021: He remains stable and is without new/major complaints. His baseline ECHO shows EF 65-70%, LDH is 3462, uric acid is WNL at 6.2. Will plan for rasburicase still given his tumor burden and concern for tumor lysis with initiation of R- CHOP tomorrow 09/30/2021 inpatient. He will be scheduled for a port to be placed in the outpatient setting prior to cycle 2, as well as a PET/CT. He would like to have these done at [facility], and also would like all of his outpatient treatment and follow-up to continue to be here at [facility] as well. 09/30/2021: Reviewed informed consent for Rituxan plus CHOP chemotherapy to be given as an inpatient today. Rasburicase ordered for tumor lysis syndrome prophylaxis due to bulky disease and recent renal injury which places him at increased risk. He likely can be discharged home tomorrow although I will repeat his tumor lysis labs with LDH and uric acid in the morning. Next follow-up in 1 week for toxicity visit. We will likely coordinate outpatient bone marrow biopsy and PET/CT to complete his work- up. 10/28/2021: Patient is here for cycle 2-week 2 rituximab plus CHOP chemotherapy toxicity visit. He reported a hot sensation but did not take his temperature and his symptoms of fatigue and warmth improved after the fifth day. He did nothave labs prior to his visit but he has no evidence of neutropenia or significant cytopenias today. He had prior 25% dose reduction of vincristine for numbness in his hand which has improved. -- Bone marrow biopsy from 10/09/2021 was reviewed showing no evidence of lymphoma involvement, mildly hypercellular with normal iron stores. Hypercellularity is likely due to recovery from chemotherapy given as an inpatient a week before next --Baseline PET/CT was deferred to 10/14/2021 due to his hospitalization. He continues to have uptake in both lobes of the liver and the spleen consistent with extranodal involvement by staging. We will continue his current doses of R-CHOP for his next cycle in 2 weeks and he will see nurse practitioner for toxicity visit at that time. I will see him with his fourth cycle toxicity visit. High complexity visit over 45 minutes toxicity review, exam, review bone marrow biopsy, review of baseline PET/CT. 11/18/2021: He presents after cycle 3 R-CHOP. He has mild thrush on exam and willbe prescribed nystatin swish and swallow. We reviewed with him today the importance of sunscreen and protecting himself when out in the heat, and he voiced understanding. He continues to do well enough on dose reduced therapy, and will continue every 3 weeks. He will see Dr. Mcbride for toxicity check after his next cycle with labs. He is in agreement with this plan and has no questions. (2) Peripheral neuropathy due to chemotherapy Noted numbness and weakness of arm after first cycle, completely resolved but cycle 2-day 8 and we will continue dose reduced vincristine with R-CHOP therapy. 11/18/2021: no recurrence in symptoms (3) Hypercalcemia of malignancy Recent admission to [facility] with work-up , then transferred to [facility]. Normal vitamin D levels, PTH intact was low at 5 (likely due to tumor related hypercalcemia). Given Pamidronate and aggressive hydration 09/29/2021: calcium improved to 10.8 today s/p zolendronic acid, not repeated on 76. We will repeat prior to likely discharge tomorrow 10/01. 10/28/2021: calcium WNL since discharge. Will continue to monitor with labs Resolved after initiation of therapy (4) Encounter for chemotherapy management Inpatient note: I discussed preliminary pathology with Dr. Farias yesterday by phone. We are still waiting final pathology but most consistent with diffuse large B-cell lymphoma. Since he has had renal injury and hypercalcemia we will proceed with Rituxan plus CHOP today and may revise his chemotherapy based on final pathology which we will review in clinic next week. In addition he shouldhave baseline bone marrow aspiration and biopsy and PET/CT which we can coordinate next week. Rituxan plus CHOP day 1 to be initiated today with dosing noted below. 10/09/2021: He has completed C1D1 R-CHOP inpatient on 09/30/2021. He tolerated thisvery well without evidence of TLS or infusion reactions. He was discharged 10/01/2021. Cycle 2 scheduled 10/21/2021 with dose reduction of his vincristine d/t arm and hand weakness. 10/28/2021 toxicity visit with resolution of his arm and hand weakness symptoms since vincristine dose reduction. Cycle 3 given 11/11/21 at same reduced dose, tolerated well - Chemo Plan Chemo Plan (Dose, Rate, Freq): Chemo Plan (Dose, Rate, Freq): R-CHOP (category 1) Days 1: Rituximab 375mg/m2 IV day 1 CHOP regimen Day 1: Cyclophosphamide 750mg/m2 IV, doxorubicin 50mg/m2 IV bolus, and vincristine 1.5 mg IV bolus (max dose 2mg) Days 1: Prednisone 100mg PO 5 days. Repeat each cycle every 3 weeks for 6 cycles. Vincristine dose reduced 25% at cycle 2 and for future cycles - Time with Patient Time Spent with Patient (Follow Up Visit): 45 minutes or more - High complexity chemotherapy toxicity follow-up, review bone marrow biopsy, review PET/CT images/reports Coordination of Care & Counseling Time: Greater than 50% of time spent with patient was for coordination of care (as documented) and [id number] counseling of patient and/or family. Dictated By: Jane Duron APRN DD/ [id number] Signed By: <Electronically signed by RUSTY Duron> 11/18/21 1610 [facility] Work Phone: [phone] Hospital Discharge instructions Patient Education 11/02/2021 11:52:49 Prostate Cancer Screening Prostate Cancer Screening The prostate is a walnut-sized gland that is located below the bladder and in front of the rectum in males. The function of the prostate (prostate gland) is to add fluid to semen during ejaculation. Prostate cancer is the second most common type of cancer in men. A screening test for cancer is a test that is done before cancer symptoms start. Screening can helpto identify cancer at an early stage, when the cancer can be treated more easily. The recommended prostate cancer screening test is a blood test called the prostate-specific antigen (PSA) test. PSA is a protein that is made in the prostate. As you age, your prostate naturally produces more PSA. Abnormally high PSA levels may be caused by: Prostate cancer. An enlarged prostate that is not caused by cancer (benign prostatic hyperplasia, BPH). This condition is very common in older men. A prostate gland infection (prostatitis). Medicines to assist with hair growth, such as finasteride. Depending on the PSA results, you may need more tests, such as: A physical exam to check the size of your prostate gland. Blood and imaging tests. A procedure to remove tissue samples from your prostate gland for testing (biopsy). Who should have screening? Screening recommendations vary based on age. If you are younger than age 40, screening is not recommended. If you are age 40 54 and you have no risk factors, screening is not recommended. If you are younger than age 55, ask your health care provider if you need screening if you have oneof these risk factors: ?Being of -[place] descent. ?Having a family history of prostate cancer. If you are age 55 69, talk with your health care provider about your need for screening and how often screening should be done. If you are older than age 70, screening is not recommended. This is because the risks that screening can cause are greater than the benefits that it may provide (risks outweigh the benefits). If you are at high risk for prostate cancer, your health care provider may recommend that you have screenings more often or start screening at a younger age. You may be at high risk if you: Are older than age 55. Are -Lithuanian. Have a father, brother, or uncle who has been diagnosed with prostate cancer. The risk may be higher if your family member's cancer occurred at an early age. What are the benefits of screening? There is a small chance that screening may lower your risk of dying from prostate cancer. The chance is small because prostate cancer is typically a slow-growing cancer, and most men with prostate cancer from a different cause. What are the risks of screening? The main risk of prostate cancer screening is diagnosing and treating prostate cancer that would never have caused any symptoms or problems (overdiagnosis and overtreatment). PSA screening cannot tell you if your PSA is high due to cancer or a different cause. A prostate biopsy is the only procedure to diagnose prostate cancer. Even the results of a biopsy may not tell you if your cancer needs rajni treated. Slow-growing prostate cancer may not need any treatment other than monitoring, so diagnosing and treating it may cause unnecessary stress or other side effects. A prostate biopsy may also cause: Infection or fever. A false negative. This is a result that shows that you do not have prostate cancer when you actually do have prostate cancer. Questions to ask your health care provider When should I start prostate cancer screening? What is my risk for prostate cancer? How often do I need screening? What type of screening tests do I need? How do I get my test results? What do my results mean? Do I need treatment? Contact a health care provider if: You have difficulty urinating. You have pain when you urinate or ejaculate. You have blood in your urine or semen. You have pain in your back or in the area of your prostate. You have trouble getting or maintaining an erection (erectile dysfunction, ED). Summary Prostate cancer is a common type of cancer in men. The prostate (prostate gland) is located below the bladder and in front of the rectum. This gland adds fluid to semen during ejaculation. Prostate cancer screening may identify cancer at an early stage, when the cancer can be treated more easily. The prostate-specific antigen (PSA) test is the recommended screening test for prostate cancer. Discuss the risks and benefits of prostate cancer screening with your health care provider. If you are age 70 or older, screening is likely to lead to more risks than benefits (risks outweigh the benefits). This information is not intended to replace advice given to you by your health care provider. Make sure you discuss any questions you have with your health care provider. Document Released: 12/23/2017 Document Revised: 02/24/2018 Document Reviewed: 12/23/2017 [employer] Patient Education 2020 Elli. Follow Up Care 05/04/2021 11:38:16 With:MICKI MACHADO, Jahaira Ya, URL Address: [facility] [address], [place] [address] [phone] When:Within 6 Month(s) Comments:w/ PSA and testosterone [facility] 08-03-2022 Progress note Author Abbi Mcbride [facility] October 28, 2021 1:07pm Note Date/Time October 28, 2021 9:2 9am [facility] at [address] [address] Hem/Onc Follow Up Note - OP Signed Patient: Zheng Montesinos MR#: [id number] : 1955 Acct:[id number] Age/Sex: 66 / M Type: REG RCR Copies to: Shelia Villela)MD Juan Carlos MD~ Subjective Date/Time of Service: Date of Service: 10/28/2021 Time of Service: 09:28 Chief Complaint: Patient is here today for a 3 week follow up visit and go over pet scan and go over bone marrow biopsy results HPI: 10/28/2021: Zheng is here for cycle 2, day 8 R-CHOP therapy. He will receive this cycle as an outpatient and had 25% dose reduction of vincristine due to numbness in his arm and hand. He noted that he had generalized weakness on days3 through 5 after therapy which is now improved. He also noted that he had a hot sensation but he did not take his temperature. He had no other signs or symptoms of infection such as cough, dyspnea, pharyngitis, or new GI symptoms. He notes that he feels better today. He did not have laboratories prior to thisvisit but labs today were reviewed showing normal white blood cell count with neutrophils 4500, hemoglobin 12.4, platelet count 177,000, normal electrolytes with normal calcium 8.8. Normal liver function tests. PET/CT scheduling was delayed until about 2 weeks after his inpatient R-CHOP. There was still residual activity in his right hepatic lobe with SUV 4.8, left hepatic lobe with SUV 7.8, uptake in the spleen with SUV 3.7. There is nonspecific uptake in the right mandible which is not associated with any lesions or pain on exam. His bone marrow biopsy was reviewed from 10/09/2021 showing mildly hypercellular trilineage hematopoiesis (60%) with no lymphoproliferative disorder and normal iron stores. 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 He will proceed with the same dose next cycle and we will coordinate follow-up echocardiogram in early December. Follow-up with nurse practitioner in 3 weeks for toxicity check and with me in 6 weeks. 10/09/2021: Patient presents after discharge on 10/01/2021 for his newly diagnosed high grade B cell lymphoma. He was initiated on R-CHOP inpatient on 09/30/2021 andtolerated this fairly well. His main complaint is some weakness and slight tremor in his hands. Otherwise, he notes he gets a bit short of breath with walking long distances or doing activity, but not at rest. He denies fever, chills, sweats, fatigue, n/v/d, constipation, chest pain or other complaints today. Labs are reviewed and ok, low wbc and hgb as expected with chemotherapy. His alk phos and LDH are improved, and his ALT/AST have normalized. He states hefeels pretty good overall. He is getting a bone marrow biopsy with Dr. Mcbride as well today, and is scheduled for PET scan next week as there was miscommunication on his appointment this morning. Per Dr. Mcbride, we will plan for dose reduction of his vincristine with his next cycle d/t the arm/hand weakness, which will be on 10/21/2021. We will plan for follow-up with Dr. Mcbride in 3 weeks with labs per treatment plan. Initial inpatient [place]: As you know this is a 66-year-old male who has a history of hypertension, morbidobesity, meralgia paresthetica, and is followed regularly in urology for elevated PSA but no history of cancer and an ENT for recent frequent productive cough. He reports that his of coronavirus infection in February of last year and over the last 9 months he has personally lost about 60 pounds. He is most troubled by his recurrent cough and was evaluated for worsening dyspnea as well as generalized weakness over the last few weeks. He also reports increased urine frequency but notes that this is longstanding. No nausea, vomiting, diarrhea, constipation, or dysphagia/odynophagia. He had a PE protocolCT in ER that was negative for PE, but found to have bilateral pleural effusionsand multiple liver and splenic lesions. He also was found to have multiple hepatic and liver lesions. Normal total bilirubin, and INR but increased AST andALT. No history of tobacco or alcohol use and no known hepatitis B or C. He has persistent fatigue, but some improvement of calcium (although still 11 range) after hydration and holding HCTZ. Has not yet had bisphosphonate therapy.He is preparing for discharge today, but I informed him of his findings on CT imaging and coordinated biopsy of his liver lesions with Dr. Ventura of radiology at [facility] for later this week. I informed him of normal INR, platelet count, and the fact that she does not take any NSAIDs or aspirin. I will follow- up results of biopsy next week and will also send alpha-fetoprotein, CA 19-9, CEA, and hepatitis B and C screening to determine etiologyof his liver lesions. Subsequent therapy will be based on pathology results. He may require outpatient bisphosphonate therapy if persistent hypercalcemia with fatigue. --Patient presented to the ER on 09/26/2021 with worsening weakness, fatigue, nausea, vomiting, shortness of breath, back pain, and urinary frequency. He wasnoted to be hypertensive, calcium to 15.1 with elevated liver function tests andcreatinine. He received bolus normal saline and calcitonin by inpatient physicians. I met with him today to discuss his final pathology. We are preparing to initiate chemotherapy based on results within the next week. He may need a consult for general surgery infusion port as an outpatient. 09/29/2021: Patient is seen at bedside this morning, resting comfortably. He denies new complaints and states his only issue is pain to his right monae, just below the knee. This is mild currently, but can be significant at times. Otherwise no n/v/d, worsened dyspnea, or other complaints. We discussed again his lymphoma diagnosis and the plan for treatment with R-CHOP to start tomorrow 09/30/2021. His baseline ECHO noted an EF 65-70%. We will plan to get a port placed in the outpatient setting prior to cycle 2. He had no questions and was in agreement with this plan. 09/30/2021: Patient was evaluated at bedside this morning, eating normally and notes that his constipation has improved control. Fatigue is significantly improved. No nausea, vomiting, or diarrhea. We reviewed his chemotherapy consent below for Rituxan with CHOP and he signed consent today. Plan is to give rasburicase 6 mg IV prior to Rituxan followed by the cyclophosphamide, doxorubicin, and vincristine. He started prednisone on Tuesday and may receivelast 100 mg dose today. He does note that he has had relative hypoglycemia withblood glucose in the 70s despite high-dose prednisone each day. If the patient is stable overnight he can be discharged home with follow-up in 1 week at [facility] for toxicity visit with me next Tuesday. Today we reviewed chemotherapy counseling for Rituximab, cyclophosphamide, doxorubicin, vincristine, and prednisone. Goal of therapy is curative--typically 80% complete response, 40% cure with 40% relapse. Common toxicities were reviewed to include infusion reactions, allergic reactions myelosuppression, fatigue, nausea, vomiting, constipation, diarrhea, mouth sores, and alopecia. Other toxicities may include pneumonitis, cardiotoxicity, secondary malignancy neurologic, hepatic and renal toxicities. The patient signed informed consent and will receive inpatient chemo today with 1 week follow-up toxicity visit. - Summary of Therapies Summary of Therapies: Inpatient R-CHOP 09/30/2021 full dose R-CHOP (category 1) Days 1, 22, and 43: Rituximab 375mg/m2 IV 7 days prior to beginning CHOP regimen Day 1: Cyclophosphamide 750mg/m2 IV, doxorubicin 50mg/m2 IV bolus, and vincristine 1.4mg/m2 IV bolus (max dose 2mg) Days 3, 24, and 45: Prednisone 100mg PO 5 days. Repeat each cycle every 3 weeks for 3 cycles. Radiotherapy begins 3 weeks after last cycle of R-CHOP. Cycle 2 was given as an outpatient 10/21/2021 (25% dose reduction of vincristine for left arm paresthesias) continue for 6 cycles. ROS Details: All systems reviewed & no additional complaints except as documented Subjective/ROS - Narrative: Noted fatigue, numbness/clumsiness of fingers with first cycle of R-CHOP inpatient, dose reduced Vincristine 25% for cycle 2 onward with improvement of prior symptoms R-CHOP (category 1) Days 1, 22, and 43: Rituximab 375mg/m2 IV 7 days prior to beginning CHOP regimen Day 1: Cyclophosphamide 750mg/m2 IV, doxorubicin 50mg/m2 IV bolus, and vincristine 1.4mg/m2 IV bolus (max dose 2mg) Days 3, 24, and 45: Prednisone 100mg PO 5 days. Repeat each cycle every 3 weeks for 3 cycles. Radiotherapy begins 3 weeks after last cycle of R-CHOP. PMFSH - History Attestation statement: The following information was validated with the patient. Source: Old Records Reviewed - Medical History Medical History: Medical History (Last Reviewed 10/28/21 @ 12:53 by Abbi Mcbride MD) Anxiety Carpal tunnel syndrome on both sides Depression Erectile dysfunction Hypertension Meralgia paresthetica Morbid obesity - Surgical History Surgical History: Surgical History (Last Reviewed 10/28/21 @ 12:53 by Abbi Mcbride MD) H/O hernia repair H/O lithotripsy H/O vasectomy History of colonoscopy History of repair of rotator cuff History of skin graft History of tonsillectomy and adenoidectomy History of transurethral resection of prostate - Family History Family History: Family History (Last Reviewed 10/28/21 @ 12:53 by Abbi Mcbride MD) Mother Diabetes - Social History Smoking Status: Never smoker Substance Use Type: None Home Medications & Allergies Allergies No Known Allergies Allergy (Verified 10/28/21 09:22) Home Medications topiramate 100 mg capsule,extended release 24 hr 100 mg PO DAILY 09/24/21 [History Confirmed 10/28/21] doxazosin 8 mg tablet 8 mg PO DAILY 09/26/21 [History Confirmed 10/28/21] allopurinol 300 mg tablet 300 mg PO DAILY #0 tabs 10/01/21 [Rx Confirmed 10/28/21] potassium chloride 25 mEq oral packet 25 meq PO DAILY 10/09/21 [History Confirmed 10/28/21] prednisone 20 mg tablet 100 mg PO DAILY #5 tabs 10/09/21 [Rx Confirmed 10/28/21] venlafaxine 150 mg tablet,extended release 24 hr 150 mg PO DAILY 10/09/21 [History Confirmed 10/28/21] amlodipine 5 mg tablet 5 mg PO DAILY 10/28/21 [History Confirmed 10/28/21] hydrochlorothiazide 12.5 mg tablet 12.5 mg PO DAILY 10/28/21 [History Confirmed 10/28/21] melatonin 10 mg tablet 10 mg PO HS PRN Insomnia 10/28/21 [History Confirmed 10/28/21] testosterone (AndroGel) 1 packet transdermal DAILY 10/28/21 [History Confirmed 10/28/21] trazodone 100 mg tablet 100 mg PO QHS 10/28/21 [History Confirmed 10/28/21] Objective - Height/Weight Height/Weight: Height 5 ft 8 in Weight 133.81 kg BSA for Today's Weight 2.53 - Vital Signs Vital Signs: 10/28/21 09:22 Temperature 97.2 F L Pulse Rate [Right Brachial] 79 Respiratory Rate 16 Blood Pressure [Right Arm] 150/70 H 02 Sat by Pulse Oximetry 94 L Oxygen Delivery Method Room Air - Pain Left Flank Pain Intensity: 4 Physical Exam Narrative: General appearance: Well-developed well-nourished--moderate obesity, no acute distress Eye exam: Bilateral extraocular movements are intact, PERRLA, normal inspection bilaterally ENT: Hearing grossly normal, Normal HEENT inspection, normal pharynx Neck exam: Full range of motion, no lymphadenopathy, no thyromegaly, nontender, normal inspection, supple Respiratory: Chest nontender, lung sounds clear bilaterally, normal breath sounds, no respiratory distress, no accessory muscle use Cardiac: RRR, no murmur, no rub, pulses present and symmetric. no edema Gastrointestinal: no organomegaly, no pulsatile mass, no splenomegaly on exam, normal bowel sounds, soft Back exam: No CVA tenderness, no vertebral tenderness Extremities: No clubbing, no cyanosis, no edema, no evidence of injury, nontender, normal inspection, normal range of motion. Improvement of prior bilateral hand tremor. Neurologic/psychiatric: Alert, cranial nerves II through XII normal, no obvious motor or sensory deficits, normal mood and affect Integumentary: Normal color, warm/dry, no rashes - ECOG Performance Status ECOG Score: 1 Results - Labs Labs: Diagram of Most Recent CBC and CMP 10/21/21 08:29 10/21/21 08:29 Labs - Last 7 Days 10/21/21 08:29: PHA Creatinine Clear 84.54, Sodium 140, Potassium 4.4, Chloride 108, Carbon Dioxide 24.5, BUN 16, Creatinine 1.13, Est GFR ( Amer) > 60, Est GFR (Non-Af Amer) > 60, Glucose 146 H, Calcium 8.5, Total Bilirubin 0.5, AST17, ALT 23, Alkaline Phosphatase 91, Total Protein 5.3 L, Albumin 3.2, Globulin 2.1, Albumin/Globulin Ratio 1.5 10/21/21 08:29: Corrected WBC 3.3 L, Uncorrected WBC Count 3.3 L, RBC 4.62, Hgb 13.1, Hct 39.6, MCV 85.7, MCH 28.3, MCHC 33.1, RDW 16.4 H, Plt Count 254, MPV 6.7, Neut % (Auto) N/A, Lymph % (Auto) N/A, Murray % (Auto) N/A, Eos % (Auto) N/A,Baso % (Auto) N/A, Neut # (Auto) N/A, Lymph # (Auto) N/A, Murray # (Auto) N/A, Eos# (Auto) N/A, Baso # (Auto) N/A, Nucleated RBC % (auto) 0.2, Band Neutrophils % 5, Lymphocytes % 13 L, Monocytes % 6, Metamyelocytes % 3 H, Myelocytes % 3 H, Segmented Neutrophils 67, Reactive Lymphocytes 3, Platelet Estimate Normal, Plt Morphology Comment Normal, RBC Morphology Normal - Impressions PET tumor init tx strat sb-mt 10/14/2021 11:17 AM SIGNS AND SYMPTOMS: Staging for new B cell lymphoma PROTOCOL: PET images were obtained at contiguous radiotracer administration. Low-dose CT was obtained. Skull base to mid thigh. After attenuation correction of PET imaging, fused PET CT images were generated and reconstructed in axial, sagittal, and coronal plane. COMPARISON: None. RADIOPHARMACEUTICAL: 13.7 mCi of intravenous fluorine 18 FDG. Blood glucose: 78 mg/dL FINDINGS: There is a focus of heterogeneous increased radiotracer accumulation within the right hepatic lobe anteriorly with a maximum SUV of 4.8. There is also heterogeneous radiotracer accumulation bilaterally without accompanying hypoattenuating structure. There is a maximum SUV of 3.0. In the anterior left hepatic lobe there is a focus of heterogeneous radiotracer accumulation with a maximum of 7.8. There is subtle increased radiotracer accumulation in the posterior aspect of the spleen with a maximum SUV of 3.7. Small bilateral pleural effusions are noted. There is a calcified granuloma in the left lung apex. Calcified granulomas are also noted in the hilum on the left. There is increased radiotracer accumulation within the region of the mandible onthe right along the area of prior tooth extraction which may be infectious or inflammatory. There is a maximum SUV of 7.5. PET/PET tumor init tx strat sb-mt IMPRESSION: There is a focus of heterogeneous increased radiotracer accumulation within the right hepatic lobe anteriorly with a maximum SUV of 4.8. There is also heterogeneous radiotracer accumulation bilaterally without accompanying hypoattenuating structure. There is a maximum SUV of 3.0. In the anterior left hepatic lobe there is a focus of heterogeneous radiotracer accumulation with a maximum of 7.8. There is subtle increased radiotracer accumulation in the posterior aspect of the spleen with a maximum SUV of 3.7. No pathologic adenopathy. 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 CT PE protocol did not show anyevidence of pulmonary embolism but he did have multiple liver lesions as well assplenic lesions. He has had some intermittent abdominal pain and constipation but no localizing symptoms. He denies use of regular alcohol or prior hepatitis. I coordinated outpatient biopsy with [facility] interventional radiology which was performed 09/24/2021. Pathology reviewed today reveals malignant cells present, consistent with aggressive B-cell lymphoma. Tumor cells are strongly positive for CD45 and CD20, negative for CD30, AE1/AE3, CAM 5.2, CD56, and synaptic ficin. Ki-67 proliferation index is high labeling 70 to 80% of tumor cells. We are awaiting the results of CD10, CD43, Bcl-2, BCL6, and cyclin D1 for further classification. Additional testing through [employer] will also be pending. Flow cytometry with FISH analysis for high-grade/large B-cell lymphomahave also been ordered through [employer] and pending results. During his hospital stay at [facility], his hypercalcemia, likely of malignancy, was treated by holding HCTZ and hydration. Due to improvement after these measures we were going to coordinate alendronate therapy if calcium increases. Currently his calcium level has returned to over 13 with evidence of acute kidney injury. I have ordered Pamidronate 90 mg IV over 3 hours today. He has had baseline hepatitis B and C testing which are nonreactive so that he may proceed with a Rituxan based regimen for CD20 positive high-grade lymphoma. I am coordinating echocardiogram and sending uric acid and LDH for possible tumor lysis. He is currently on allopurinol but I would likely add rasburicase if he has elevated uric acid. It is reasonable to start him on prednisone 100 mg daily over the next 5 days and we will determine on Tuesday based on his flow cytometry whether he should proceed with a regimen such as R- CHOP, or R-EPOCH, or another regimen based on his final diagnosis (more aggressive regimen if triple hit or Burkitt's lymphoma). I also ordered a stat echocardiogram. We will coordinate outpatient PET/CT, but this can be deferred until after startinghis initial chemotherapy. I met with the patient at the bedside to explain the work-up with him and advised continued hospitalization until stabilization of his calcium levels and renal function. We will likely defer initial chemotherapy to Tuesday or Tuesday pending final diagnostic work-up. This is a high complexity 60-minutevisit for swhg-ae-akka discussion and review of pathology. 09/29/2021: He remains stable and is without new/major complaints. His baseline ECHO shows EF 65-70%, LDH is 3462, uric acid is WNL at 6.2. Will plan for rasburicase still given his tumor burden and concern for tumor lysis with initiation of R- CHOP tomorrow 09/30/2021 inpatient. He will be scheduled for a port rajni placed in the outpatient setting prior to cycle 2, as well as a PET/CT. He would like to have these done at [facility], and also would like all of his outpatient treatment and follow-up to continue to be here at [facility] as well. 09/30/2021: Reviewed informed consent for Rituxan plus CHOP chemotherapy to be given as an inpatient today. Rasburicase ordered for tumor lysis syndrome prophylaxis due to bulky disease and recent renal injury which places him at increased risk. He likely can be discharged home tomorrow although I will repeat his tumor lysis labs with LDH and uric acid in the morning. Next follow-up in 1 week for toxicity visit. We will likely coordinate outpatient bone marrow biopsy and PET/CT to complete his work- up. 10/28/2021: Patient is here for cycle 2-week 2 rituximab plus CHOP chemotherapy toxicity visit. He reported a hot sensation but did not take his temperature and his symptoms of fatigue and warmth improved after the fifth day. He did nothave labs prior to his visit but he has no evidence of neutropenia or significant cytopenias today. He had prior 25% dose reduction of vincristine for numbness in his hand which has improved. -- Bone marrow biopsy from 10/09/2021 was reviewed showing no evidence of lymphoma involvement, mildly hypercellular with normal iron stores. Hypercellularity is likely due to recovery from chemotherapy given as an inpatient a week before next --Baseline PET/CT was deferred to 10/14/2021 due to his hospitalization. He continues to have uptake in both lobes of the liver and the spleen consistent with extranodal involvement by staging. We will continue his current doses of R-CHOP for his next cycle in 2 weeks and he will see nurse practitioner for toxicity visit at that time. I will see him with his fourth cycle toxicity visit. High complexity visit over 45 minutes toxicity review, exam, review bone marrow biopsy, review of baseline PET/CT. (2) Peripheral neuropathy due to chemotherapy Noted numbness and weakness of arm after first cycle, completely resolved but cycle 2-day 8 and we will continue dose reduced vincristine with R-CHOP therapy. (3) Hypercalcemia of malignancy Recent admission to [facility] with work-up , then transferred to [facility]. Normal vitamin D levels, PTH intact was low at 5 (likely due to tumor related hypercalcemia). Given Pamidronate and aggressive hydration 09/29/2021: calcium improved to 10.8 today s/p zolendronic acid, not repeated on 76. We will repeat prior to likely discharge tomorrow 10/01. 10/28/2021: calcium WNL since discharge. Will continue to monitor with labs (4) Encounter for chemotherapy management Inpatient note: I discussed preliminary pathology with Dr. Farias yesterday by phone. We are still waiting final pathology but most consistent with diffuse large B-cell lymphoma. Since he has had renal injury and hypercalcemia we will proceed with Rituxan plus CHOP today and may revise his chemotherapy based on final pathology which we will review in clinic next week. In addition he shouldhave baseline bone marrow aspiration and biopsy and PET/CT which we can coordinate next week. Rituxan plus CHOP day 1 to be initiated today with dosing noted below. 10/09/2021: He has completed C1D1 R-CHOP inpatient on 09/30/2021. He tolerated thisvery well without evidence of TLS or infusion reactions. He was discharged 10/01/2021. Cycle 2 scheduled 10/21/2021 with dose reduction of his vincristine d/t arm and hand weakness. 10/28/2021 toxicity visit with resolution of his arm and hand weakness symptoms since vincristine dose reduction. - Chemo Plan Chemo Plan (Dose, Rate, Freq): Chemo Plan (Dose, Rate, Freq): R-CHOP (category 1) Days 1: Rituximab 375mg/m2 IV day 1 CHOP regimen Day 1: Cyclophosphamide 750mg/m2 IV, doxorubicin 50mg/m2 IV bolus, and vincristine 1.5 mg IV bolus (max dose 2mg) Days 1: Prednisone 100mg PO 5 days. Repeat each cycle every 3 weeks for 6 cycles. - Time with Patient Time Spent with Patient (Follow Up Visit): 45 minutes or more - High complexity chemotherapy toxicity follow-up, review bone marrow biopsy, review PET/CT images/reports Coordination of Care & Counseling Time: Greater than 50% of time spent with patient was for coordination of care (as documented) and [id number] counseling of patient and/or family. Dictated By: Abbi Mcbride MD DD/ [id number] Signed By: <Electronically signed by MD Abbi Mcbride> 10/28/21 [address] [facility] Work Phone: [phone] Progress note Author Abbi Mcbride [facility] October 09, 2021 4:15pm Note Date/Time October 09, 2021 12:0 3pm [facility] at [address] [address] Hem/Onc Follow Up Note - OP Signed Patient: Zheng Montesinos MR#: [id number] : 1955 Acct:[id number] Age/Sex: 66 / M Type: REG RCR Copies to: MD Juan Carlos Harris MD (Sandy)~ Subjective Date/Time of Service: Date of Service: 10/09/2021 Time of Service: 12:02 Chief Complaint: Patient is here for a follow up. He will also have a bone marrow biopsy. Patient states that he is cold more often than usual. He also reports shortness of breath. HPI: 10/09/2021: Patient presents after discharge on 10/01/2021 for his newly diagnosed high grade B cell lymphoma. He was initiated on R-CHOP inpatient on 09/30/2021 andtolerated this fairly well. His main complaint is some weakness and slight tremor in his hands. Otherwise, he notes he gets a bit short of breath with walking long distances or doing activity, but not at rest. He denies fever, chills, sweats, fatigue, n/v/d, constipation, chest pain or other complaints today. Labs are reviewed and ok, low wbc and hgb as expected with chemotherapy. His alk phos and LDH are improved, and his ALT/AST have normalized. He states hefeels pretty good overall. He is getting a bone marrow biopsy with Dr. Mcbride as well today, and is scheduled for PET scan next week as there was miscommunication on his appointment this morning. Per Dr. Mcbride, we will plan for dose reduction of his vincristine with his next cycle d/t the arm/hand weakness, which will be on 10/21/2021. We will plan for follow-up with Dr. Mcbride in 3 weeks with labs per treatment plan. Initial inpatient [place]: As you know this is a 66-year-old male who has a history of hypertension, morbidobesity, meralgia paresthetica, and is followed regularly in urology for elevated PSA but no history of cancer and an ENT for recent frequent productive cough. He reports that his of coronavirus infection in February of last year and over the last 9 months he has personally lost about 60 pounds. He is most troubled by his recurrent cough and was evaluated for worsening dyspnea as well as generalized weakness over the last few weeks. He also reports increased urine frequency but notes that this is longstanding. No nausea, vomiting, diarrhea, constipation, or dysphagia/odynophagia. He had a PE protocolCT in ER that was negative for PE, but found to have bilateral pleural effusionsand multiple liver and splenic lesions. He also was found to have multiple hepatic and liver lesions. Normal total bilirubin, and INR but increased AST andALT. No history of tobacco or alcohol use and no known hepatitis B or C. He has persistent fatigue, but some improvement of calcium (although still 11 range) after hydration and holding HCTZ. Has not yet had bisphosphonate therapy.He is preparing for discharge today, but I informed him of his findings on CT imaging and coordinated biopsy of his liver lesions with Dr. Ventura of radiology at [facility] for later this week. I informed him of normal INR, platelet count, and the fact that she does not take any NSAIDs or aspirin. I will follow- up results of biopsy next week and will also send alpha-fetoprotein, CA 19-9, CEA, and hepatitis B and C screening to determine etiologyof his liver lesions. Subsequent therapy will be based on pathology results. He may require outpatient bisphosphonate therapy if persistent hypercalcemia with fatigue. --Patient presented to the ER on 09/26/2021 with worsening weakness, fatigue, nausea, vomiting, shortness of breath, back pain, and urinary frequency. He wasnoted to be hypertensive, calcium to 15.1 with elevated liver function tests andcreatinine. He received bolus normal saline and calcitonin by inpatient physicians. I met with him today to discuss his final pathology. We are preparing to initiate chemotherapy based on results within the next week. He may need a consult for general surgery infusion port as an outpatient. 09/29/2021: Patient is seen at bedside this morning, resting comfortably. He denies new complaints and states his only issue is pain to his right monae, just below the knee. This is mild currently, but can be significant at times. Otherwise no n/v/d, worsened dyspnea, or other complaints. We discussed again his lymphoma diagnosis and the plan for treatment with R-CHOP to start tomorrow 09/30/2021. His baseline ECHO noted an EF 65-70%. We will plan to get a port placed in the outpatient setting prior to cycle 2. He had no questions and was in agreement with this plan. 09/30/2021: Patient was evaluated at bedside this morning, eating normally and notes that his constipation has improved control. Fatigue is significantly improved. No nausea, vomiting, or diarrhea. We reviewed his chemotherapy consent below for Rituxan with CHOP and he signed consent today. Plan is to give rasburicase 6 mg IV prior to Rituxan followed by the cyclophosphamide, doxorubicin, and vincristine. He started prednisone on Tuesday and may receivelast 100 mg dose today. He does note that he has had relative hypoglycemia withblood glucose in the 70s despite high-dose prednisone each day. If the patient is stable overnight he can be discharged home with follow-up in 1 week at [facility] for toxicity visit with me next Tuesday. Today we reviewed chemotherapy counseling for Rituximab, cyclophosphamide, doxorubicin, vincristine, and prednisone. Goal of therapy is curative--typically 80% complete response, 40% cure with 40% relapse. Common toxicities were reviewed to include infusion reactions, allergic reactions myelosuppression, fatigue, nausea, vomiting, constipation, diarrhea, mouth sores, and alopecia. Other toxicities may include pneumonitis, cardiotoxicity, secondary malignancy neurologic, hepatic and renal toxicities. The patient signed informed consent and will receive inpatient chemo today with 1 week follow-up toxicity visit. - Summary of Therapies Summary of Therapies: Inpatient R-CHOP 09/30/2021 full dose--plan 6 cycles ROS Details: All systems reviewed & no additional complaints except as documented Subjective/ROS - Narrative: Notes fatigue, numbness/clumsiness of fingers since chemo one week ago, dose reducing Vincristine 25% [facility] - History Attestation statement: The following information was validated with the patient. Source: Old Records Reviewed - Medical History Medical History: Medical History (Last Reviewed 10/09/21 @ 16:11 by Abbi Mcbride MD) Anxiety Carpal tunnel syndrome on both sides Depression Erectile dysfunction Hypertension Meralgia paresthetica Morbid obesity - Surgical History Surgical History: Surgical History (Last Reviewed 10/09/21 @ 16:11 by Abbi Mcbride MD) H/O hernia repair H/O lithotripsy H/O vasectomy History of colonoscopy History of repair of rotator cuff History of skin graft History of tonsillectomy and adenoidectomy History of transurethral resection of prostate - Family History Family History: Family History (Last Reviewed 10/09/21 @ 16:11 by Abbi Mcbride MD) Mother Diabetes - Social History Smoking Status: Never smoker Substance Use Type: None Home Medications & Allergies Allergies No Known Allergies Allergy (Verified 10/09/21 11:08) Home Medications amlodipine 5 mg tablet 5 mg PO DAILY 09/24/21 [History Confirmed 10/09/21] atorvastatin 20 mg tablet 20 mg PO DAILY 09/24/21 [History Confirmed 09/26/21] melatonin 10 mg tablet 10 mg PO HS PRN 09/24/21 [History Confirmed 09/26/21] topiramate 100 mg capsule,extended release 24 hr 100 mg PO DAILY 09/24/21 [History Confirmed 10/09/21] doxazosin 8 mg tablet 8 mg PO DAILY 09/26/21 [History Confirmed 10/09/21] omeprazole 40 mg capsule,delayed release 40 mg PO QHS 09/26/21 [History Confirmed 09/26/21] promethazine 25 mg tablet 25 mg PO Q6H PRN 09/26/21 [History Confirmed 09/26/21] trazodone 100 mg tablet 100 mg PO QHS 09/26/21 [History Confirmed 09/26/21] prednisone 20 mg tablet 100 mg PO DAILY #5 tab 09/30/21 [Rx] allopurinol 300 mg tablet 300 mg PO DAILY #0 tab 10/01/21 [Rx Confirmed 10/09/21] potassium chloride 25 mEq oral packet 25 meq PO DAILY 10/09/21 [History Confirmed 10/09/21] prednisone 20 mg tablet 100 mg PO DAILY #5 tab 10/09/21 [Rx] testosterone 20.25 mg/1.25 gram (1.62 %) transdermal gel pump 4 pump TOPICAL Q48H 10/09/21 [History Confirmed 10/09/21] venlafaxine 150 mg tablet,extended release 24 hr 150 mg PO DAILY 10/09/21 [History Confirmed 10/09/21] Objective - Height/Weight Height/Weight: Height 5 ft 8 in Weight 132.948 kg - Vital Signs Vital Signs: 10/09/21 11:08 Temperature 98.5 F Pulse Rate [Right Brachial] 81 Respiratory Rate 18 Blood Pressure [Right Arm] 124/76 02 Sat by Pulse Oximetry 97 - Pain Left Flank Pain Intensity: 4 Physical Exam Narrative: General appearance: Well-developed well-nourished--moderate obesity, no acute distress Eye exam: Bilateral extraocular movements are intact, PERRLA, normal inspection bilaterally ENT: Hearing grossly normal, Normal HEENT inspection, normal pharynx Neck exam: Full range of motion, no lymphadenopathy, no thyromegaly, nontender, normal inspection, supple Respiratory: Chest nontender, lung sounds clear bilaterally, normal breath sounds, no respiratory distress, no accessory muscle use Cardiac: RRR, no murmur, no rub, pulses present and symmetric. no edema Gastrointestinal: no organomegaly, no pulsatile mass, no splenomegaly on exam, normal bowel sounds, soft Back exam: No CVA tenderness, no vertebral tenderness Extremities: No clubbing, no cyanosis, no edema, no evidence of injury, nontender, normal inspection, normal range of motion. Minimal tremor bilaterally Neurologic/psychiatric: Alert, cranial nerves II through XII normal, no obvious motor or sensory deficits, normal mood and affect Integumentary: Normal color, warm/dry, no rashes - ECOG Performance Status ECOG Score: 1 Results - Labs Labs: Diagram of Most Recent CBC and CMP 10/09/21 10:50 10/09/21 10:50 Labs - Last 7 Days 10/09/21 10:50: PHA Creatinine Clear 82.35, Sodium 136, Potassium 4.1, Chloride 106, Carbon Dioxide 25.0, BUN 14, Creatinine 1.16, Est GFR ( Amer) > 60, Est GFR (Non-Af Amer) > 60, Glucose 95, Uric Acid 3.9, Calcium 8.8, Phosphorus 3.0, Total Bilirubin 0.8, AST 19, ALT 35, Alkaline Phosphatase 128 H, Lactate Dehydrogenase 547 H, Total Protein 5.0 L, Albumin 2.8 L, Globulin 2.2, Albumin/Globulin Ratio 1.3 10/09/21 10:50: Corrected WBC 2.8 L, Uncorrected WBC Count 2.8 L, RBC 4.42, Hgb 12.6 L, Hct 37.6 L, MCV 85.1, MCH 28.4, MCHC 33.4, RDW 15.2 H, Plt Count 221, MPV 6.9, Neut % (Auto) 85.9, Lymph % (Auto) 9.2, Murray % (Auto) 2.8, Eos % (Auto)1.0, Baso % (Auto) 1.1, Neut # (Auto) 2.4, Lymph # (Auto) 0.3 L, Murray # (Auto) 0.1, Eos # (Auto) 0.0, Baso # (Auto) 0.0, Nucleated RBC % (auto) 0.0 - Impressions PET/CT pending (patient did not schedule)--scheduled for next week Assessment and Plan (1) High grade B-cell lymphoma This is a 66-year-old male who was admitted to [facility] September 19- for marked worsening fatigue with cough and dyspnea. CT PE protocol did not show anyevidence of pulmonary embolism but he did have multiple liver lesions as well assplenic lesions. He has had some intermittent abdominal pain and constipation but no localizing symptoms. He denies use of regular alcohol or prior hepatitis. I coordinated outpatient biopsy with [facility] interventional radiology which was performed 09/24/2021. Pathology reviewed today reveals malignant cells present, consistent with aggressive B-cell lymphoma. Tumor cells are strongly positive for CD45 and CD20, negative for CD30, AE1/AE3, CAM 5.2, CD56, and synaptic ficin. Ki-67 proliferation index is high labeling 70 to 80% of tumor cells. We are awaiting the results of CD10, CD43, Bcl-2, BCL6, and cyclin D1 for further classification. Additional testing through [employer] will also be pending. Flow cytometry with FISH analysis for high-grade/large B-cell lymphomahave also been ordered through [employer] and pending results. During his hospital stay at [facility], his hypercalcemia, likely of malignancy, was treated by holding HCTZ and hydration. Due to improvement after these measures we were going to coordinate alendronate therapy if calcium increases. Currently his calcium level has returned to over 13 with evidence of acute kidney injury. I have ordered Pamidronate 90 mg IV over 3 hours today. He has had baseline hepatitis B and C testing which are nonreactive so that he may proceed with a Rituxan based regimen for CD20 positive high-grade lymphoma. I am coordinating echocardiogram and sending uric acid and LDH for possible tumor lysis. He is currently on allopurinol but I would likely add rasburicase if he has elevated uric acid. It is reasonable to start him on prednisone 100 mg daily over the next 5 days and we will determine on Tuesday based on his flow cytometry whether he should proceed with a regimen such as R- CHOP, or R-EPOCH, or another regimen based on his final diagnosis (more aggressive regimen if triple hit or Burkitt's lymphoma). I also ordered a stat echocardiogram. We will coordinate outpatient PET/CT, but this can be deferred until after startinghis initial chemotherapy. I met with the patient at the bedside to explain the work-up with him and advised continued hospitalization until stabilization of his calcium levels and renal function. We will likely defer initial chemotherapy to Tuesday or Tuesday pending final diagnostic work-up. This is a high complexity 60-minute visitfor [id number] discussion and review of pathology. 09/29/2021: He remains stable and is without new/major complaints. His baseline ECHO shows EF 65-70%, LDH is 3462, uric acid is WNL at 6.2. Will plan for rasburicase still given his tumor burden and concern for tumor lysis with initiation of R- CHOP tomorrow 09/30/2021 inpatient. He will be scheduled for a port to be placed in the outpatient setting prior to cycle 2, as well as a PET/CT. He would like to have these done at [facility], and also would like all of his outpatient treatment and follow-up to continue to be here at [facility]. 09/30/2021: Reviewed informed consent for Rituxan plus CHOP chemotherapy to be given as an inpatient today. Rasburicase ordered for tumor lysis syndrome prophylaxis due to bulky disease and recent renal injury which places him at increased risk. He likely can be discharged home tomorrow although I will repeat his tumor lysis labs with LDH and uric acid in the morning. Next follow-up in 1 week for toxicity visit. We will likely coordinate outpatient bone marrow biopsy and PET/CT to complete his work- up. High complexity visit over 45minutes [id number] discussion and review of chemotherapy plan and follow-up. (2) Hypercalcemia of malignancy Recent admission to [facility] with work-up , then transferred to [facility]. Normal vitamin D levels, PTH intact was low at 5 (likely due to tumor related hypercalcemia). Given Pamidronate and aggressive hydration 09/29/2021: calcium improved to 10.8 today s/p zolendronic acid, not repeated on 76. We will repeat prior to likely discharge tomorrow 10/01. 10/09/2021: calcium WNL since discharge. Will continue to monitor with labs (3) Encounter for chemotherapy management Inpatient note: I discussed preliminary pathology with Dr. Farias yesterday by phone. We are still waiting final pathology but most consistent with diffuse large B-cell lymphoma. Since he has had renal injury and hypercalcemia we will proceed with Rituxan plus CHOP today and may revise his chemotherapy based on final pathology which we will review in clinic next week. In addition he shouldhave baseline bone marrow aspiration and biopsy and PET/CT which we can coordinate next week. Rituxan plus CHOP day 1 to be initiated today with dosing noted below. 10/09/2021: He has completed C1D1 R-CHOP inpatient on 09/30/2021. He tolerated thisvery well without evidence of TLS or infusion reactions. He was discharged 10/01/2021. Cycle 2 planned for 10/21/2021 with dose reduction of his vincristine d/t arm andhand weakness (4) BRITTNEY (acute kidney injury) Creatinine at [facility] peaked to 1.33 and was 1.14 at hospital discharge. His calcium at hospital discharge was 11.6. He did not receive bisphosphonate that admission and we recommended giving Pamidronate 90 mg daily as needed above. Weare also checking LDH and uric acid for spontaneous tumor lysis and we will add rasburicase 6 mg IV x1 today if evidence of spontaneous tumor lysis syndrome. 09/29/2021: Creatinine down to 1.2 with improved calcium at 10.8 as well. He has elevated LDH but normal uric acid. We will plan for rasburicase today with initiation of R-CHOP. 10/09/2021: Creatinine now WNL at 1.16 and calcium WNL as well at 8.8. LDH improved significantly from 3672 on 10/01/2021 to 547 today - Chemo Plan Chemo Plan (Dose, Rate, Freq): Chemo Plan (Dose, Rate, Freq): R-CHOP (category 1) Days 1: Rituximab 375mg/m2 IV day 1 CHOP regimen Day 1: Cyclophosphamide 750mg/m2 IV, doxorubicin 50mg/m2 IV bolus, and vincristine 1. 8 4mg/m2 IV bolus (max dose 2mg) Days 1: Prednisone 100mg PO 5 days. Repeat each cycle every 3 weeks for 6 cycles. - Time with Patient Coordination of Care & Counseling Time: Greater than 50% of time spent with patient was for coordination of care (as documented) and [id number] counseling of patient and/or family. Attestation Statement - Physician Attestation I personally interviewed and examined patient and agree with assessment by ETHAN Duron above. Please see narrative after bone marrow aspiration biopsy performed same day as to treatment plan. Dictated By: Jane Duron APRN DD/ 1202 Signed By: <Electronically signed by RUSTY Duron> 10/09/21 1452 <Electronically signed by MD Abbi Mcbride> 10/09/21 [address] [facility] Work Phone: [phone] 367-443507-15-2022 [facility] Evaluation note* Encounter Date Diagnosis Assessment Notes Treatment Notes Treatment Clinical Notes May, Pain in right knee (ICD-10 - M25.561) May, Primary osteoarthritis of both knees (ICD-10 - M17.0) Xrays were reviewed with patient in detail. The patient is suffering from degenerative arthritis involving the knee. We discussed the conservative treatment options which can be beneficial in relieving pain, including gentle non-impact motion exercise and non-steroidal anti-inflammatory medication. We discussed the use of occasional cortisone injections that can provide pain relief as well as hyaluronan lubricant injection. We offered to order physical therapy, and a cortisone injection patient declined today. May, Pain in left knee (ICD-10 - M25.562) [facility] [facility] Other Evaluation + Plan note Future Appointments Appointment Date:05/10/2022 10:15:00 AM Scheduled Provider:Jahaira SWEET MD Location:[facility] Appointment Type:URO Office Visit Diagnostic Tests Pending * PSA Total 11/02/21 * Testosterone Level Total 11/02/21 [facility] evaluation + Plan note Future Appointments Appointment Date:11/12/2022 09:30:00 AM Scheduled Provider:Jahaira SWEET MD Location:[facility] Appointment Type:URO Office Visit Diagnostic Tests Pending * PSA Total 05/10/22 * Testosterone Level Total 05/10/22 [facility] evaluation + Plan note Future Appointments Appointment Date:11/12/2022 09:30:00 AM Scheduled Provider:Jahaira SWEET MD Location:[facility] Appointment Type:URO Office Visit Diagnostic Tests Pending * Testosterone Level Total 10/12/22 * PSA Free & Total 10/12/22 [facility] Evaluation + Plan note Future Appointments Appointment Date:05/16/2023 10:15:00 AM Scheduled Provider:Jahaira SWEET MD Location:[facility] Appointment Type:URO Office Visit Diagnostic Tests Pending * PSA Total 04/11/23 * Testosterone Level Total 04/11/23 [facility] evaluation + Plan note Future Appointments Appointment Date:06/27/2023 11:30:00 AM Scheduled Provider:Jahaira SWEET MD Location:[facility] Appointment Type:URO Office Visit Diagnostic Tests Pending * [facility]state [facility]) [facility]ments Appointment Date:06/29/2023 08:00:00 AM Scheduled Provider:Jahaira SWEET MD Location:[facility] Appointment Type:URO Office Visit [facility] evaluation + Plan note Future Appointments Appointment Date:10/07/2023 09:30:00 AM Scheduled Provider:Jahaira SWEET MD Location:[facility] Appointment Type:URO Office Visit Diagnostic Tests Pending * Testosterone Level Total 06/29/23 * Electrolyte Panel 06/29/23 * Hepatic Function Panel 06/29/23 [facility] Evaluation note* Diagnosis Onset Date Resolution Status Hypercalcemia acute BRITTNEY (acute kidney injury) ch ronic Encounter for chemotherapy management chronic Encounter for coordination of complex care chronic High grade B-cell lymphoma c hronic Hypercalcemia of malignancy resolved BRITTNEY (acute kidney injury) ch ronic Encounter for chemotherapy management chronic High grade B-cell lymphoma c hronic 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 Hypercalcemia of malignancy resolved [facility] Work Phone: Evaluation note* Diagnosis Onset Date Resolution Status BRITTNEY (acute kidney injury) ch ronic Encounter for chemotherapy management chronic High grade B-cell lymphoma c hronic Oral candidiasis chronic 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 Hypercalcemia of malignancy resolved [facility] Work Phone: Evaluation note* Diagnosis Onset Date Resolution Status BRITTNEY (acute kidney injury) ch ronic Encounter for chemotherapy management chronic High grade B-cell lymphoma c hronic 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 Hypercalcemia of malignancy resolved Oral candidiasis resolved [facility] Work Phone: Evaluation note* Diagnosis Onset Date Resolution Status BRITTNEY (acute kidney injury) ch ronic Depression, major, recurrent chronic Encounter for chemotherapy management chronic High grade B-cell lymphoma c hronic 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 Hypercalcemia of malignancy resolved Oral candidiasis resolved [facility] Work Phone: Evaluation note* Diagnosis Onset Date Resolution Status Fatigue acute BRITTNEY (acute kidney injury) ch ronic Depression, major, recurrent chronic Encounter for chemotherapy management chronic Folic acid deficiency chroni c High grade B-cell lymphoma c hronic 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 Hypercalcemia of malignancy resolved Oral candidiasis resolved [facility] Work Phone: History general Narrative - Reported* Type Description Date Medical History HTN Surgical History rotator cuff 2009 Surgical History carpal tunnel 2004 Surgical History hernia 2011 Hospitalization History see above [employer] Other Hospital course Narrative No data available for this section [facility] progress note No data available for this section [facility] progrizc note Author Jane Duron [facility] November 18, 2021 4:10pm Note Date/Time November 18, 2021 4: 03pm [facility] at [address] [address] Hem/Onc Follow Up Note - OP Signed Patient: Zheng Montesinos MR#: [id number] : 1955 Acct:[id number] Age/Sex: 66 / M Type: REG RCR Copies to: MD Juan Carlos Hendricks MD~ Subjective Date/Time of Service: Date of Service: 11/18/2021 Time of Service: 15:52 Chief Complaint: Patient is here today for 3 week follow up visit for high gradelymphoma and toxicity check HPI: 11/18/2021: Zheng presents for follow-up after receiving cycle 3 day 1 R-CHOP last week. He continues with fatigue, denies fever, chills, sweats, n/v, diarrhea or constipation. He notes he gets really hot in the sun, which we discussed the importance of sunscreen and covering up with long sleeves and a hat when he can. He also notes taste changes and feels like his voice can get a little raspy here and there. In looking at his mouth, it appears he has some thrush starting, so we will give him nystatin swish and swallow. Otherwise he denies new complaints since last visit. His labs are stable, slightly elevated wbc and anc- he did get neulasta after therapy last week. He will return for follow-up in [address] Mcbride. 10/28/2021: Zheng is here for cycle 2, day 8 R-CHOP therapy. He will receive this cycle as an outpatient and had 25% dose reduction of vincristine due to numbness in his arm and hand. He noted that he had generalized weakness on days3 through 5 after therapy which is now improved. He also noted that he had a hot sensation but he did not take his temperature. He had no other signs or symptoms of infection such as cough, dyspnea, pharyngitis, or new GI symptoms. He notes that he feels better today. He did not have laboratories prior to thisvisit but labs today were reviewed showing normal white blood cell count with neutrophils 4500, hemoglobin 12.4, platelet count 177,000, normal electrolytes with normal calcium 8.8. Normal liver function tests. PET/CT scheduling was delayed until about 2 weeks after his inpatient R-CHOP. There was still residual activity in his right hepatic lobe with SUV 4.8, left hepatic lobe with SUV 7.8, uptake in the spleen with SUV 3.7. There is nonspecific uptake in the right mandible which is not associated with any lesions or pain on exam. His bone marrow biopsy was reviewed from 10/09/2021 showing mildly hypercellular trilineage hematopoiesis (60%) with no lymphoproliferative disorder and normal iron stores. 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 He will proceed with the same dose next cycle and we will coordinate follow-up echocardiogram in early December. Follow-up with nurse practitioner in 3 weeks for toxicity check and with me in 6 weeks. 10/09/2021: Patient presents after discharge on 10/01/2021 for his newly diagnosed high grade B cell lymphoma. He was initiated on R-CHOP inpatient on 09/30/2021 andtolerated this fairly well. His main complaint is some weakness and slight tremor in his hands. Otherwise, he notes he gets a bit short of breath with walking long distances or doing activity, but not at rest. He denies fever, chills, sweats, fatigue, n/v/d, constipation, chest pain or other complaints today. Labs are reviewed and ok, low wbc and hgb as expected with chemotherapy. His alk phos and LDH are improved, and his ALT/AST have normalized. He states hefeels pretty good overall. He is getting a bone marrow biopsy with Dr. Mcbride as well today, and is scheduled for PET scan next week as there was miscommunication on his appointment this morning. Per Dr. Mcbride, we will plan for dose reduction of his vincristine with his next cycle d/t the arm/hand weakness, which will be on 10/21/2021. We will plan for follow-up with Dr. Mcbride in 3 weeks with labs per treatment plan. Initial inpatient [place]: As you know this is a 66-year-old male who has a history of hypertension, morbidobesity, meralgia paresthetica, and is followed regularly in urology for elevated PSA but no history of cancer and an ENT for recent frequent productive cough. He reports that his of coronavirus infection in February of last year and over the last 9 months he has personally lost about 60 pounds. He is most troubled by his recurrent cough and was evaluated for worsening dyspnea as well as generalized weakness over the last few weeks. He also reports increased urine frequency but notes that this is longstanding. No nausea, vomiting, diarrhea, constipation, or dysphagia/odynophagia. He had a PE protocolCT in ER that was negative for PE, but found to have bilateral pleural effusionsand multiple liver and splenic lesions. He also was found to have multiple hepatic and liver lesions. Normal total bilirubin, and INR but increased AST andALT. No history of tobacco or alcohol use and no known hepatitis B or C. He has persistent fatigue, but some improvement of calcium (although still 11 range) after hydration and holding HCTZ. Has not yet had bisphosphonate therapy.He is preparing for discharge today, but I informed him of his findings on CT imaging and coordinated biopsy of his liver lesions with Dr. Ventura of radiology at [facility] for later this week. I informed him of normal INR, platelet count, and the fact that she does not take any NSAIDs or aspirin. I will follow- up results of biopsy next week and will also send alpha-fetoprotein, CA 19-9, CEA, and hepatitis B and C screening to determine etiologyof his liver lesions. Subsequent therapy will be based on pathology results. He may require outpatient bisphosphonate therapy if persistent hypercalcemia with fatigue. --Patient presented to the ER on 09/26/2021 with worsening weakness, fatigue, nausea, vomiting, shortness of breath, back pain, and urinary frequency. He wasnoted to be hypertensive, calcium to 15.1 with elevated liver function tests andcreatinine. He received bolus normal saline and calcitonin by inpatient physicians. I met with him today to discuss his final pathology. We are preparing to initiate chemotherapy based on results within the next week. He may need a consult for general surgery infusion port as an outpatient. 09/29/2021: Patient is seen at bedside this morning, resting comfortably. He denies new complaints and states his only issue is pain to his right monae, just below the knee. This is mild currently, but can be significant at times. Otherwise no n/v/d, worsened dyspnea, or other complaints. We discussed again his lymphoma diagnosis and the plan for treatment with R-CHOP to start tomorrow 09/30/2021. His baseline ECHO noted an EF 65-70%. We will plan to get a port placed in the outpatient setting prior to cycle 2. He had no questions and was in agreement with this plan. 09/30/2021: Patient was evaluated at bedside this morning, eating normally and notes that his constipation has improved control. Fatigue is significantly improved. No nausea, vomiting, or diarrhea. We reviewed his chemotherapy consent below for Rituxan with CHOP and he signed consent today. Plan is to give rasburicase 6 mg IV prior to Rituxan followed by the cyclophosphamide, doxorubicin, and vincristine. He started prednisone on Tuesday and may receivelast 100 mg dose today. He does note that he has had relative hypoglycemia withblood glucose in the 70s despite high-dose prednisone each day. If the patient is stable overnight he can be discharged home with follow-up in 1 week at [facility] for toxicity visit with me next Tuesday. Today we reviewed chemotherapy counseling for Rituximab, cyclophosphamide, doxorubicin, vincristine, and prednisone. Goal of therapy is curative--typically 80% complete response, 40% cure with 40% relapse. Common toxicities were reviewed to include infusion reactions, allergic reactions myelosuppression, fatigue, nausea, vomiting, constipation, diarrhea, mouth sores, and alopecia. Other toxicities may include pneumonitis, cardiotoxicity, secondary malignancy neurologic, hepatic and renal toxicities. The patient signed informed consent and will receive inpatient chemo today with 1 week follow-up toxicity visit. - Summary of Therapies Summary of Therapies: Inpatient R-CHOP 09/30/2021 full dose R-CHOP (category 1) Days 1, 22, and 43: Rituximab 375mg/m2 IV 7 days prior to beginning CHOP regimen Day 1: Cyclophosphamide 750mg/m2 IV, doxorubicin 50mg/m2 IV bolus, and vincristine 1.4mg/m2 IV bolus (max dose 2mg) Days 3, 24, and 45: Prednisone 100mg PO 5 days. Repeat each cycle every 3 weeks for 3 cycles. Radiotherapy begins 3 weeks after last cycle of R-CHOP. Cycle 2 was given as an outpatient 10/21/2021 (25% dose reduction of vincristine for left arm paresthesias) continue for 6 cycles. ROS Details: All systems reviewed & no additional complaints except as documented PMF - Medical History Medical History: Medical History (Last Reviewed 11/05/21 @ 11:57 by Ivania Clark RN) Anxiety Carpal tunnel syndrome on both sides Depression Erectile dysfunction Hypertension Meralgia paresthetica Morbid obesity - Surgical History Surgical History: Surgical History (Last Reviewed 11/05/21 @ 11:57 by Ivania Clark RN) H/O hernia repair H/O lithotripsy H/O vasectomy History of colonoscopy History of repair of rotator cuff History of skin graft History of tonsillectomy and adenoidectomy History of transurethral resection of prostate - Family History Family History: Family History (Last Reviewed 11/05/21 @ 11:57 by Ivania Clrak RN) Mother Diabetes - Social History Smoking Status: Never smoker Substance Use Type: None Home Medications & Allergies Allergies No Known Allergies Allergy (Verified 11/18/21 15:00) Home Medications topiramate 100 mg capsule,extended release 24 hr 100 mg PO DAILY 09/24/21 [History Confirmed 11/18/21] doxazosin 8 mg tablet 8 mg PO DAILY 09/26/21 [History Confirmed 11/18/21] allopurinol 300 mg tablet 300 mg PO DAILY #0 tabs 10/01/21 [Rx Confirmed 11/18/21] potassium chloride 25 mEq oral packet 25 meq PO DAILY 10/09/21 [History Confirmed 11/18/21] venlafaxine 150 mg tablet,extended release 24 hr 150 mg PO DAILY 10/09/21 [History Confirmed 11/18/21] amlodipine 5 mg tablet 5 mg PO DAILY 10/28/21 [History Confirmed 11/18/21] melatonin 10 mg tablet 10 mg PO HS PRN Insomnia 10/28/21 [History Confirmed 11/18/21] testosterone (AndroGel) 1 packet transdermal DAILY 10/28/21 [History Confirmed 11/18/21] trazodone 100 mg tablet 100 mg PO QHS 10/28/21 [History Confirmed 11/18/21] prednisone 20 mg tablet 100 mg PO DAILY #25 tabs 11/05/21 [Rx Confirmed 11/18/21] Magic Mouthwash 1 - 2 tsp PO TID PRN mouth sores 11/18/21 [History] nystatin 100,000 unit/mL oral suspension 4 - 6 ml PO DAILY #480 mL 11/18/21 [Rx] Objective - Height/Weight Height/Weight: Height 5 ft 8 in Weight 136.531 kg BSA for Today's Weight 2.58 - Vital Signs Vital Signs: 11/18/21 15:02 Temperature 97.9 F Pulse Rate [Right Brachial] 96 H Respiratory Rate 16 Blood Pressure [Right Arm] 117/71 02 Sat by Pulse Oximetry 96 Oxygen Delivery Method Room Air - Pain Left Flank Pain Intensity: 4 Physical Exam Narrative: General appearance: Well-developed well-nourished--moderate obesity, no acute distress Eye exam: Bilateral extraocular movements are intact, PERRLA, normal inspection bilaterally ENT: Hearing grossly normal. He has some which patches to the back of his tongue, no erythema or swelling. Some white patches to the corners of his mouth as well. No lesions noted on exam. Neck exam: Full range of motion, no lymphadenopathy, no thyromegaly, nontender, normal inspection, supple Respiratory: Chest nontender, lung sounds clear bilaterally, normal breath sounds, no respiratory distress, no accessory muscle use Cardiac: RRR, no murmur, no rub, pulses present and symmetric. no edema Gastrointestinal: no organomegaly, no pulsatile mass, no splenomegaly on exam, normal bowel sounds, soft Back exam: No CVA tenderness, no vertebral tenderness Extremities: No clubbing, no cyanosis, no edema, no evidence of injury, nontender, normal inspection, normal range of motion. Improvement of prior bilateral hand tremor. Neurologic/psychiatric: Alert, cranial nerves II through XII normal, no obvious motor or sensory deficits, normal mood and affect Integumentary: Normal color, warm/dry, no rashes Results - Labs Labs: Diagram of Most Recent CBC and CMP 11/17/21 14:08 11/17/21 14:08 Labs - Last 7 Days 11/17/21 14:08: PHA Creatinine Clear 97.04, Sodium 139, Potassium 3.6, Chloride 108, Carbon Dioxide 25.6, BUN 14, Creatinine 1.01, Est GFR ( Amer) > 60, Est GFR (Non-Af Amer) > 60, Glucose 112 H, Calcium 8.6, Total Bilirubin 0.6, AST16, ALT 18, Alkaline Phosphatase 121 H, Total Protein 5.3 L, Albumin 3.3, Globulin 2.0, Albumin/Globulin Ratio 1.7 11/17/21 14:08: Corrected WBC 11.0 H, Uncorrected WBC Count 11.0, RBC 4.16, Hgb 11.8 L, Hct 35.6 L, MCV 85.6, MCH 28.3, MCHC 33.1, RDW 17.1 H, Plt Count 245, MPV 6.8, Neut % (Auto) 88.1, Lymph % (Auto) 7.2, Murray % (Auto) 3.2, Eos % (Auto)0.9, Baso % (Auto) 0.6, Neut # (Auto) 9.7 H, Lymph # (Auto) 0.8 L, Murray # (Auto)0.4, Eos # (Auto) 0.1, Baso # (Auto) 0.1, Nucleated RBC % (auto) 0.1, Platelet Estimate Normal, Large Platelets Moderate, Plt Morphology Comment N/A, RBC Morphology N/A, Poikilocytosis Slight, Anisocytosis Slight Assessment and Plan - TNM Staging Staging: 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 CT PE protocol did not show anyevidence of pulmonary embolism but he did have multiple liver lesions as well assplenic lesions. He has had some intermittent abdominal pain and constipation but no localizing symptoms. He denies use of regular alcohol or prior hepatitis. I coordinated outpatient biopsy with [facility] interventional radiology which was performed 09/24/2021. Pathology reviewed today reveals malignant cells present, consistent with aggressive B-cell lymphoma. Tumor cells are strongly positive for CD45 and CD20, negative for CD30, AE1/AE3,CAM 5.2, CD56, and synaptic ficin. Ki-67 proliferation index is high labeling 70 to 80% of tumor cells. We are awaiting the results of CD10, CD43, Bcl-2, BCL6, and cyclin D1 for further classification. Additional testing through [employer] will also be pending. Flow cytometry with FISH analysis for high-grade/large B-cell lymphomahave also been ordered through [employer] and pending results. During his hospital stay at [facility], his hypercalcemia, likely of malignancy, was treated by holding HCTZ and hydration. Due to improvement after these measures we were going to coordinate alendronate therapy if calcium increases. Currently his calcium level has returned to over 13 with evidence of acute kidney injury. I have ordered Pamidronate 90 mg IV over 3 hours today. He has had baseline hepatitis B and C testing which are nonreactive so that he may proceed with a Rituxan based regimen for CD20 positive high-grade lymphoma. I am coordinating echocardiogram and sending uric acid and LDH for possible tumor lysis. He is currently on allopurinol but I would likely add rasburicase if he has elevated uric acid. It is reasonable to start him on prednisone 100 mg daily over the next 5 days and we will determine on Tuesday based on his flow cytometry whether he should proceed with a regimen such as R- CHOP, or R-EPOCH, oranother regimen based on his final diagnosis (more aggressive regimen if triple hit or Burkitt's lymphoma). I also ordered a stat echocardiogram. We will coordinate outpatient PET/CT, but this can be deferred until after starting his initial chemotherapy. I met with the patient at the bedside to explain the work-up with him and advised continued hospitalization until stabilization of his calcium levels and renal function. We will likely defer initial chemotherapy to Tuesday or Tuesday pending final diagnostic work-up. This is a high complexity 60-minutevisit for [id number] discussion and review of pathology. 09/29/2021: He remains stable and is without new/major complaints. His baseline ECHO shows EF 65-70%, LDH is 3462, uric acid is WNL at 6.2. Will plan for rasburicase still given his tumor burden and concern for tumor lysis with initiation of R- CHOP tomorrow 09/30/2021 inpatient. He will be scheduled for a port to be placed in the outpatient setting prior to cycle 2, as well as a PET/CT. He would like to have these done at [facility], and also would like all of his outpatient treatment and follow-up to continue to be here at [facility] as well. 09/30/2021: Reviewed informed consent for Rituxan plus CHOP chemotherapy to be given as an inpatient today. Rasburicase ordered for tumor lysis syndrome prophylaxis due to bulky disease and recent renal injury which places him at increased risk. He likely can be discharged home tomorrow although I will repeat his tumor lysis labs with LDH and uric acid in the morning. Next follow-up in 1 week for toxicity visit. We will likely coordinate outpatient bone marrow biopsy and PET/CT to complete his work- up. 10/28/2021: Patient is here for cycle 2-week 2 rituximab plus CHOP chemotherapy toxicity visit. He reported a hot sensation but did not take his temperature and his symptoms of fatigue and warmth improved after the fifth day. He did nothave labs prior to his visit but he has no evidence of neutropenia or significant cytopenias today. He had prior 25% dose reduction of vincristine for numbness in his hand which has improved. -- Bone marrow biopsy from 10/09/2021 was reviewed showing no evidence of lymphoma involvement, mildly hypercellular with normal iron stores. Hypercellularity is likely due to recovery from chemotherapy given as an inpatient a week before next --Baseline PET/CT was deferred to 10/14/2021 due to his hospitalization. He continues to have uptake in both lobes of the liver and the spleen consistent with extranodal involvement by staging. We will continue his current doses of R-CHOP for his next cycle in 2 weeks and he will see nurse practitioner for toxicity visit at that time. I will see him with his fourth cycle toxicity visit. High complexity visit over 45 minutes toxicity review, exam, review bone marrow biopsy, review of baseline PET/CT. 11/18/2021: He presents after cycle 3 R-CHOP. He has mild thrush on exam and willbe prescribed nystatin swish and swallow. We reviewed with him today the importance of sunscreen and protecting himself when out in the heat, and he voiced understanding. He continues to do well enough on dose reduced therapy, and will continue every 3 weeks. He will see Dr. Mcbride for toxicity check after his next cycle with labs. He is in agreement with this plan and has no questions. (2) Peripheral neuropathy due to chemotherapy Noted numbness and weakness of arm after first cycle, completely resolved but cycle 2-day 8 and we will continue dose reduced vincristine with R-CHOP therapy. 11/18/2021: no recurrence in symptoms (3) Hypercalcemia of malignancy Recent admission to [facility] with work-up , then transferred to [facility]. Normal vitamin D levels, PTH intact was low at 5 (likely due to tumor related hypercalcemia). Given Pamidronate and aggressive hydration 09/29/2021: calcium improved to 10.8 today s/p zolendronic acid, not repeated on 76. We will repeat prior to likely discharge tomorrow 10/01. 10/28/2021: calcium WNL since discharge. Will continue to monitor with labs Resolved after initiation of therapy (4) Encounter for chemotherapy management Inpatient note: I discussed preliminary pathology with Dr. Farias yesterday by phone. We are still waiting final pathology but most consistent with diffuse large B-cell lymphoma. Since he has had renal injury and hypercalcemia we will proceed with Rituxan plus CHOP today and may revise his chemotherapy based on final pathology which we will review in clinic next week. In addition he shouldhave baseline bone marrow aspiration and biopsy and PET/CT which we can coordinate next week. Rituxan plus CHOP day 1 to be initiated today with dosing noted below. 10/09/2021: He has completed C1D1 R-CHOP inpatient on 09/30/2021. He tolerated thisvery well without evidence of TLS or infusion reactions. He was discharged 10/01/2021. Cycle 2 scheduled 10/21/2021 with dose reduction of his vincristine d/t arm and hand weakness. 10/28/2021 toxicity visit with resolution of his arm and hand weakness symptoms since vincristine dose reduction. Cycle 3 given 11/11/21 at same reduced dose, tolerated well - Chemo Plan Chemo Plan (Dose, Rate, Freq): Chemo Plan (Dose, Rate, Freq): R-CHOP (category 1) Days 1: Rituximab 375mg/m2 IV day 1 CHOP regimen Day 1: Cyclophosphamide 750mg/m2 IV, doxorubicin 50mg/m2 IV bolus, and vincristine 1.5 mg IV bolus (max dose 2mg) Days 1: Prednisone 100mg PO 5 days. Repeat each cycle every 3 weeks for 6 cycles. Vincristine dose reduced 25% at cycle 2 and for future cycles - Time with Patient Time Spent with Patient (Follow Up Visit): 45 minutes or more - High complexity chemotherapy toxicity follow-up, review bone marrow biopsy, review PET/CT images/reports Coordination of Care & Counseling Time: Greater than 50% of time spent with patient was for coordination of care (as documented) and [id number]-[id number] counseling of patient and/or family. Dictated By: Jane Duron APRN DD/ [id number] Signed By: <Electronically signed by RUSTY Duron> 11/18/21 1610 [facility] Work Phone: Progress note Author Abbi Mcbride [facility] October 06, 2022 4:44pm Note Date/Time October 06, 2022 10:[address] [place] [address] [facility] Center at [address] [address] Hem/Onc Follow Up Note - OP Signed Patient: Zheng Montesinos MR#: [id number] : 1955 Acct:[id number] Age/Sex: 67 / M Type: REG RCR Copies to: MD Shelia Morris ([place]), MD Juan Carlos Morgan MD~ Subjective Date/Time of Service: Date of Service: 10/06/2022 Time of Service: 10:10 Chief Complaint: Patient is here today for a 3 month follow up visit for high grade B-cell lymphoma and go over CT scan and labs HPI: 10/06/2022: Zheng present for 4 month surveillance visit for prior high grade B cell lymphoma. No constitutional symptoms of fever, chills, night sweats, or weight loss. His main concern is that he has persistent fatigue of unclear etiology. Denies chest pain, shortness of breath, cough, dyspnea, recent infections. No new areas of edema. His restaging CT of chest from 10/04/2022 was reviewed showing resolution of prior anterior mediastinal lymph node and trace pleural effusions with interval decrease in the size and numbers of hepatic and splenic lesions. These areas showed no uptake on prior PET/CT in March 2022 following his R-CHOP therapy. In addition Zheng has been followed by Dr. Jahaira Sweet of urology due to nephrolithiasis requiring placement of left ureteral stent and ablation of kidney stones recently. His CT of abdomen and pelvis performed at [facility] 09/05/2022 did not show any new areas of adenopathy but was remarkable for nephrolithiasis without obstructive uropathy and moderateenlargement of the prostate gland. He will continue follow-up with urology. 07/09/2022: Zheng is here for follow-up for his high grade B cell lymphoma. He notes increased swelling in his right LE with some mild pain here and there, as well as redness to the monae. He notes this started a few days ago. He denies fevers, chills, sweats, cough, shortness of breath, chest pain, n/v/d or other new pain. We will send him for an US of the RLE and also refer him to vascular. Will plan next follow- up in [address] c/a/p and labs. 04/09/2022: Zheng his here for followup after completing 6 cycles of R-CHOP for high grade B cell lymphoma. He has made remarks on several occasions about having a gun and wanting to end his life, most recently when he was having restaging PET/CT. We gave him the number for crisis mental health management and herefused admission. Today he notes he has no weapon in his house, declined referral for psychiatry/ER evaluation and contracted for safety that he will notharm himself. Agrees to see primary care to discuss resuming antidepressant therapy--increased grief since of his from Covid. Otherwise denies fever, chills, night sweats, cough, dyspnea, abdominal pain or change in bowel/bladder function. 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 No adenopathy and no uptake within prior liver lesions consistent with CR to R-CHOPtherapy. Continue f/u every 3 months with CBC, CMP, LDH, and exam. Will see NPnext visit. Defer imaging with restaging CT CAP with contrast to 6 months, sooner if new issues arise. High complexity 45 minute visit to review depression/recent suicidal ideation and restaging PET/CT. 01/20/2022 (Dr. Candelaria [facility] physician): 66-year-old white gentleman seen for oncologic surveillance on high-grade B-celllymphoma. He completed 6 cycles of CHOP-R. He said that the last cycle was associated with little more of side effects mostly related to neuropathy secondary to vincristine. However it only lasted for a couple of days then completely subsided. It was reflected in his extremities as well as bowel movements. But again with the dose reduction and expected recovery side effectshave subsided and he is almost back to his usual self except for mild numbness and tingling. He denies B symptoms and actually he did not have any prior to establish diagnosis except some unintentional weight loss. He denies abdominal pain or associated symptoms that suggest bowel obstruction 01/08/2022: Zheng has now completed 5 of 6 cycles R-CHOP--cycle 6 is scheduled 01/13/2022. 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 Labs are stable--no fever, night sweats or abdominal pain. He notes increased numbness in distal fingers and toes--will reduce last dose Vincristinefrom 75% dose to now 50% dose. We reviewed his PET/CT which shows uptake in bones likely associated with therapy effect--we reviewed images/reports of priorPET/CT. Difficult to ascertain whether CR due to therapy effect, but no progression of disease. Will proceed with last cycle and I will have PIN [facility]ICKER see fortoxicity check after cycle 6. I will see in Mar 2022 after 3 month PET/CT for response assessment and survivorship visit. Initial inpatient [place]: As you know this is a now 67-year-old male who has a history of hypertension, morbid obesity, meralgia paresthetica, and is followed regularly in urology for elevated PSA but no history of cancer and an ENT for recent frequent productive cough. He reports that his of coronavirus infection in February of last year and over the last 9 months he has personally lost about 60 pounds. He is most troubled by his recurrent cough and was evaluated for worsening dyspnea as well as generalized weakness over the last few weeks. He also reports increased urine frequency but notes that this is longstanding. No nausea, vomiting,diarrhea, constipation, or dysphagia/odynophagia. He had a PE protocol CT in ER that was negative for PE, but found to have bilateral pleural effusions and multiple liver and splenic lesions. He also was found to have multiple hepatic and liver lesions. Normal total bilirubin, and INR but increased AST and ALT. Nohistory of tobacco or alcohol use and no known hepatitis B or C. He has persistent fatigue, but some improvement of calcium (although still 11 range) after hydration and holding HCTZ. Has not yet had bisphosphonate therapy.He is preparing for discharge today, but I informed him of his findings on CT imaging and coordinated biopsy of his liver lesions with Dr. Ventura of radiology at [facility] for later this week. I informed him of normal INR, platelet count, and the fact that she does not take any NSAIDs or aspirin. I will follow- up results of biopsy next week and will also send alpha-fetoprotein, CA 19-9, CEA, and hepatitis B and C screening to determine etiologyof his liver lesions. Subsequent therapy will be based on pathology results. He may require outpatient bisphosphonate therapy if persistent hypercalcemia with fatigue. --Patient presented to the ER on 09/26/2021 with worsening weakness, fatigue, nausea, vomiting, shortness of breath, back pain, and urinary frequency. He wasnoted to be hypertensive, calcium to 15.1 with elevated liver function tests andcreatinine. He received bolus normal saline and calcitonin by inpatient physicians. I met with him today to discuss his final pathology. We are preparing to initiate chemotherapy based on results within the next week. He may need a consult for general surgery infusion port as an outpatient. 09/30/2021: Patient was evaluated at bedside this morning, eating normally and notes that his constipation has improved control. Fatigue is significantly improved. No nausea, vomiting, or diarrhea. We reviewed his chemotherapy consent below for Rituxan with [facility] and he signed consent today. His baseline ECHO noted an EF 65-70%. We will plan to get a port placed in the outpatient setting prior to cycle 2. Plan is to give rasburicase 6 mg IV prior to Rituxan followed by the cyclophosphamide, doxorubicin, and vincristine. He started prednisone on Tuesday and may receive last 100 mg dose today. He does note that he has had relative hypoglycemia with blood glucose in the 70s despite high-dose prednisone each day. If the patient is stable overnight he can be discharged home with follow-up in 1 week at [facility] for toxicity visit with me next Tuesday. Today we reviewed chemotherapy counseling for Rituximab, cyclophosphamide, doxorubicin, vincristine, and prednisone. Goal of therapy is curative--% complete response, 40% cure with 40% relapse. Common toxicities were reviewed to include infusion reactions, allergic reactions myelosuppression, fatigue, nausea, vomiting, constipation, diarrhea, mouth sores, and alopecia. Other toxicities may include pneumonitis, cardiotoxicity, secondary malignancy neurologic, hepatic and renal toxicities. The patient signed informed consent and will receive inpatient chemo today with 1 week follow-up toxicity visit. 10/09/2021: Patient presents after discharge on 10/01/2021 for his newly diagnosed high grade B cell lymphoma. He was initiated on R-CHOP inpatient on 09/30/2021 andtolerated this fairly well. His main complaint is some weakness and slight tremor in his hands. Otherwise, he notes he gets a bit short of breath with walking long distances or doing activity, but not at rest. He denies fever, chills, sweats, fatigue, n/v/d, constipation, chest pain or other complaints today. Labs are reviewed and ok, low wbc and hgb as expected with chemotherapy. His alk phos and LDH are improved, and his ALT/AST have normalized. He states hefeels pretty good overall. He is getting a bone marrow biopsy with Dr. Mcbride as well today, and is scheduled for PET scan next week as there was miscommunication on his appointment this morning. Per Dr. Mcbride, we will plan for dose reduction of his vincristine with his next cycle d/t the arm/hand weakness, which will be on 10/21/2021. We will plan for follow-up with Dr. Mcbride in 3 weeks with labs per treatment plan. 10/28/2021: Zheng is here for cycle 2, day 8 R-CHOP therapy. He will receive this cycle as an outpatient and had 25% dose reduction of vincristine due to numbness in his arm and hand. He noted that he had generalized weakness on days3 through 5 after therapy which is now improved. He also noted that he had a hot sensation but he did not take his temperature. He had no other signs or symptoms of infection such as cough, dyspnea, pharyngitis, or new GI symptoms. He notes that he feels better today. He did not have laboratories prior to thisvisit but labs today were reviewed showing normal white blood cell count with neutrophils 4500, hemoglobin 12.4, platelet count 177,000, normal electrolytes with normal calcium 8.8. Normal liver function tests. PET/CT scheduling was delayed until about 2 weeks after his inpatient R-CHOP. There was still residual activity in his right hepatic lobe with SUV 4.8, left hepatic lobe with SUV 7.8, uptake in the spleen with SUV 3.7. There is nonspecific uptake in the right mandible which is not associated with any lesions or pain on exam. His bone marrow biopsy was reviewed from 10/09/2021 showing mildly hypercellular trilineage hematopoiesis (60%) with no lymphoproliferative disorder and normal iron stores. 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 He will proceed with the same dose next cycle and we will coordinate follow-up echocardiogram in early December. Follow-up with nurse practitioner in 3 weeks for toxicity check and with me in 6 weeks. 11/18/2021: Zheng presents for follow-up after receiving cycle 3 day 1 R-CHOP last week. He continues with fatigue, denies fever, chills, sweats, n/v, diarrhea or constipation. He notes he gets really hot in the sun, which we discussed the importance of sunscreen and covering up with long sleeves and a hat when he can. He also notes taste changes and feels like his voice can get a little raspy here and there. In looking at his mouth, it appears he has some thrush starting, so we will give him nystatin swish and swallow. Otherwise he denies new complaints since last visit. His labs are stable, slightly elevated wbc and anc- he did get neulasta after therapy last week. He will return for follow-up in [address] Mcbride. 12/09/2021: Zheng is here for cycle 4 week 2 R-CHOP--tolerating well with few toxicities. Mild fatigue but wants to return to work next week. Notes metallictaste and white coating over tongue despite Nystatin swish and swallow. Occasional numbness of fingertips and toes that does not persist. No abnormalities on exam. Labs are stable--I will coordinate followup PET prior tocycle 5 week 2 followup in 3 weeks. We will plan 6 total cycles, then survivorship if De[place]ville 0-1 on f/u PET. Low complexity followup 25 minutes. - Summary of Therapies Summary of Therapies: Inpatient R-CHOP 09/30/2021 full dose R-CHOP (category 1) Days 1, 22, and 43: Rituximab 375mg/m2 IV 7 days prior to beginning CHOP regimen Day 1: Cyclophosphamide 750mg/m2 IV, doxorubicin 50mg/m2 IV bolus, and vincristine 1.4mg/m2 IV bolus (max dose 2mg) Days 3, 24, and 45: Prednisone 100mg PO 5 days. Repeat each cycle every 3 weeks for 3 cycles. Radiotherapy begins 3 weeks after last cycle of R-CHOP. Cycle 2 was given as an outpatient 10/21/2021 (25% dose reduction of vincristine for left arm paresthesias) continue for 6 cycles. Cycle 6 (last cycle 01/10/2022) at 50% dose reduction of vincristine for paresthesias of fingers and toes as per HPI. ROS Details: All systems reviewed & no additional complaints except as documented Subjective/ROS - Narrative: CONSTITUTIONAL: Positive for recent worsening fatigue over the last month as perHPI. No weight loss, fever, chills, weakness or fatigue. + morbidly obese. HEENT: Eyes: No visual loss, blurred vision, double vision or yellow sclerae. Ears, Nose, Throat: No hearing loss, epistaxis. SKIN: No rash or itching. CARDIOVASCULAR: No chest pain, chest pressure or chest discomfort. No palpitations or edema. RESPIRATORY: No shortness of breath, cough or hemoptysis. GASTROINTESTINAL: No dysphagia, nausea, vomiting or diarrhea. No abdominal pain,melena, hematochezia. GENITOURINARY: No dysuria, urinary frequency or urgency. NEUROLOGICAL: No headache, dizziness, syncope, improvement of prior numbness or tingling in the extremities. MUSCULOSKELETAL: No muscle, back pain, joint pain or stiffness. HEMATOLOGIC: No bleeding or bruising. LYMPHATICS: No enlarged nodes. PSYCHIATRIC: Positive depression with recent suicidal ideation--none today and previously declined referral to ER or mental health referral. Agrees to addresswith primary care. No current antidepressant medication. ENDOCRINOLOGIC: No reports of sweating, cold or heat intolerance. No polyuria orpolydipsia. ALLERGIES: No history of asthma, hives, eczema or rhinitis. PMFSH - History Attestation statement: The following information was validated with the patient. Source: Old Records Reviewed - Medical History Medical History: Medical History (Last Reviewed 10/06/22 @ 13:30 by Abbi Mcbride MD) Anxiety Carpal tunnel syndrome on both sides Depression Erectile dysfunction Hypertension Meralgia paresthetica Morbid obesity - Surgical History Surgical History: Surgical History (Last Reviewed 10/06/22 @ 13:30 by Abbi Mcbride MD) H/O hernia repair H/O lithotripsy H/O vasectomy History of colonoscopy History of repair of rotator cuff History of skin graft History of tonsillectomy and adenoidectomy History of transurethral resection of prostate - Family History Family History: Family History (Last Reviewed 10/06/22 @ 13:30 by Abbi Mcbride MD) Mother Diabetes - Social History Smoking Status: Never smoker Substance Use Type: None Home Medications & Allergies Allergies No Known Allergies Allergy (Verified 10/06/22 10:00) Home Medications topiramate 100 mg capsule,extended release 24 hr 100 mg PO DAILY 09/24/21 [History Confirmed 10/06/22] doxazosin 8 mg tablet 8 mg PO DAILY 09/26/21 [History Confirmed 10/06/22] amlodipine 5 mg tablet 5 mg PO DAILY 10/28/21 [History Confirmed 10/06/22] testosterone 1 % (25 mg/2.5 gram) transdermal gel packet (AndroGel) 1 packet transdermal DAILY 10/28/21 [History Confirmed 10/06/22] trazodone 100 mg tablet 100 mg PO QHS 10/28/21 [History Confirmed 10/06/22] atorvastatin 20 mg tablet 20 mg PO DAILY 10/06/22 [History Confirmed 10/06/22] folic acid 1 mg tablet 3 mg PO DAILY #90 tabs 10/06/22 [Rx] Objective - Height/Weight Height/Weight: Height 5 ft 8 in Weight 134.263 kg BSA for Today's Weight 2.61 - Vital Signs Vital Signs: 10/06/22 10:03 Temperature 97.8 F Pulse Rate [Right Brachial] 56 L Respiratory Rate 16 Blood Pressure [Right Arm] 115/74 02 Sat by Pulse Oximetry 98 Oxygen Delivery Method Room Air - Pain Left Flank Pain Intensity: 2 Results - Labs Labs: Diagram of Most Recent CBC and CMP 10/04/22 10:27 10/04/22 10:27 Labs - Last 7 Days 10/04/22 10:27: Corrected WBC 3.1 L, Uncorrected WBC Count 3.1 L, RBC 4.65, Hgb 13.4, Hct 38.7 L, MCV 83.1 L, MCH 28.7, MCHC 34.6, RDW 14.4, Plt Count 161, MPV 7.4, Neut % (Auto) 59.6, Lymph % (Auto) 22.5, Murray % (Auto) 8.6, Eos % (Auto) 8.2, Baso % (Auto) 1.1, Nucleat RBC Rel Count 0.1, Neut # (Auto) 1.9, Lymph # (Auto) 0.7 L, Murray # (Auto) 0.3, Eos # (Auto) 0.3, Baso # (Auto) 0.0 10/04/22 10:27: PHA Creatinine Clear 71.11, Sodium 141, Potassium 4.3, Chloride 113 H, Carbon Dioxide 24.0, Anion Gap 8.3, BUN 20, Creatinine 1.34 H, Est GFR (CKD- EPI) 57.702, Glucose 97, Calcium 9.1, Total Bilirubin 0.6, AST 16, ALT 18, Alkaline Phosphatase 69, Lactate Dehydrogenase 145, Total Protein 5.8 L, Albumin3.9, Globulin 1.9, Albumin/Globulin Ratio 2.1 10/06/2022: Due to his persistent fatigue we negrito methylmalonic acid, homocystine, and ACTH TSH normal 2.56, free T4 normal 0.72, fasting total cortisol 3.3 (normal range a.m. values 6-24) - Impressions Date of Service: 10/04/22 CT/CT chest w con: surveillance CT Chest with contrast TECHNIQUE: Axial imaging with 2-D reconstruction. 90 cc of [id number] CT exam was performed using one or more the following dose reduction techniques: Automated exposure control, adjustment of the MA and/or Kv according to patient size, or use of the iterative reconstruction technique. History: Restage B-cell lymphoma. COMPARISON: 09/19/2021 THYROID: Unremarkable TRACHEA AND BRONCHI: Patent ESOPHAGUS: Unremarkable. HEART: Within normal limits PERICARDIAL EFFUSION: None CORONARY ARTERY CALCIFICATION: None MEDIASTINUM: No adenopathy. No pneumoperitoneum. No mediastinal hematoma. Anterior mediastinal lymph node no longer seen. PULMONARY EARLE: No hilar mass or adenopathy is seen. THORACIC AORTA Unremarkable LUNG NODULE small left lung apex calcified granuloma redemonstrated. LUNGS: Lungs are clear PLEURAL EFFUSION: Trace pleural effusion seen bilaterally. Minor compressive atelectasis. PNEUMOTHORAX: No pneumothorax seen. CHEST WALL: No abnormality AXILLA:Unremarkable BONY STRUCTURES Intact UPPER ABDOMEN: Diminished hepatic lobe lesions identified. Diminished splenic lesions identified. Right Wdvfwh-d-Opim present. CT/CT chest w con IMPRESSION: Anterior mediastinal lymph node no longer present. Trace pleural effusions redemonstrated. Interval decrease of size and number of hepatic and splenic lesions. Periportal region not imaged. Impression dictated by: Logan Ventura M.D.10/04/2022 3:31 PM [facility] CT scan abdomen pelvis without contrast 09/05/2022 Impression: Scattered hepatic hypodensities measuring up to 2 cm, nonspecific. Consider multiphase CT or MRI to evaluate enhancement characteristics. 2 focal hypodensities left posterior renal cortex, indeterminate. Consider pre and postcontrast CT scan for further characterization. No obstructive uropathy Moderate enlargement of the prostate gland measuring 6.4 cm in diameter Moderate colonic diverticulosis. [facility] 07/31/2022: MRI prostate with and without IV contrast Impression: Stable 0.4 cm lesion in the right mid/apex posterior medial peripheral zone. Although the lesion meets PI-RADS 4 criteria, its location near the surgical capsule favors an ectopic BPH nodule. No new lesions suspicious for clinically significant prostate cancer No pelvic adenopathy or suspicious pelvic osseous lesions. Assessment and Plan - TNM Staging Staging: Stage IVB extranodal diffuse large B-cell lymphoma with involvement of the liverand spleen, negative bone marrow biopsy (1) High grade B-cell lymphoma This is a now 67-year-old male who was admitted to [facility] September 19- for marked worsening fatigue with cough and dyspnea. CT PE protocol did notshow any evidence of pulmonary embolism but he did have multiple liver lesions as well as splenic lesions. He has had some intermittent abdominal pain and constipation but no localizing symptoms. He denies use of regular alcohol or priorhepatitis. I coordinated outpatient biopsy with [facility] interventional radiology which was performed 09/24/2021. Pathology reviewed today reveals malignant cells present, consistent with aggressive B-cell lymphoma. Tumor cells are strongly positive for CD45 and CD20, negative for CD30, AE1/AE3, CAM 5.2, CD56, and synaptic ficin. Ki-67 proliferation indexis high labeling 70 to 80% of tumor cells. During his hospital stay at [facility], his hypercalcemia, likely of malignancy, was treated by holding HCTZ and hydration. Calcium level increased to over 13 with evidence of acute kidney injury. I ordered Pamidronate 90 mg IV and sent baseline hepatitis B and C testing which returned nonreactive. 09/29/2021: His baseline ECHO shows EF 65-70%, LDH is 3462, uric acid is WNL at 6.2. Will plan for rasburicase still given his tumor burden and concern for tumor lysis with initiation of R-CHOP tomorrow 09/30/2021 inpatient. He will be scheduled for a port to be placed in the outpatient setting prior to cycle 2, aswell as a PET/CT. He would like to have these done at [facility], and also would like all of his outpatient treatment and follow-up to continue to be here at [facility] as well. 09/30/2021: Reviewed informed consent for Rituxan plus CHOP chemotherapy to be given as an inpatient today. Rasburicase ordered for tumor lysis syndrome prophylaxis due to bulky disease and recent renal injury which places him at increased risk. He likely can be discharged home tomorrow although I will repeat his tumor lysis labs with LDH and uric acid in the morning. Next follow-up in 1 week for toxicity visit. We will likely coordinate outpatient bone marrow biopsy and PET/CT to complete his work- up. 10/28/2021: Patient is here for cycle 2-week 2 rituximab plus CHOP chemotherapy toxicity visit. He reported a hot sensation but did not take his temperature and his symptoms of fatigue and warmth improved after the fifth day. No evidence of neutropenia or significant cytopenias today. He had prior 25% dose reduction of vincristine for numbness in his hand which has improved. -- Bone marrow biopsy from 10/09/2021 was reviewed showing no evidence of lymphoma involvement, mildly hypercellular with normal iron stores. Hypercellularity is likely due to recovery from chemotherapy given as an inpatient a week before next --Baseline PET/CT was deferred to 10/14/2021 due to his hospitalization. He continues to have uptake in both lobes of the liver and the spleen consistent with extranodal involvement by staging. We will continue his current doses of R-CHOP for his next cycle in 2 weeks and he will see nurse practitioner for toxicity visit at that time. I will see him with his fourth cycle toxicity visit. 11/18/2021: He presents after cycle 3 R-CHOP. He has mild thrush on exam and willbe prescribed nystatin swish and swallow. We reviewed with him today the importance of sunscreen and protecting himself when out in the heat, and he voiced understanding. He continues to do well enough on dose reduced therapy, and will continue every 3 weeks. 12/09/2021: Here for toxicity visit cycle 4, week 3 R-CHOP. Vincristine was reduced 25% for cycle 2 due to neuropathy--no recurrent symptoms. No other toxicities other than persistent white plaque over tongue despite oral Nystatin swish and swallow. PET/CT ordered for prior to cycle 5 for restaging. I supported his return to work if he feels ready due to chemotherapy well tolerated. Next f/u 3 weeks to review restaging PET/CT. 01/08/2022: Now cycle 5 week 2 R-CHOP. Last cycle scheduled next week. Reducing vincristine dose to 50% due to numbness in fingers/toes. Toxicity check with [facility] cycle 6 week 2. Defer next f/u with me until Mar 2022 with 3 month restaging PET/CT and labs. Will evaluate for survivorship visit and surveillance recommendations that visit. 01/20/2022: Patient completed planned 6 cycles of CHOP-R. He had some expected side effects specially with the last cycle but nothing unusual and they have subsided. Plan is to return to office in 3 months or so in March with PET/CT and labs including LDH anticipating hopefully CR which is probably present on the most recent PET/CT despite some equivocation 04/09/2022: He completed 6th/last cycle of R-CHOP at 50% dose reduction of Vincristine last 2 cycles due to worsening neuropathy. These symptoms have improved and restaging PET/CT reviewed today shows no evidence of residual lymphoma. Neuropathy symptoms improving. Addressed depression and recent suicidal ideation symptoms but he declines ER or mental health referral and contract for safety--denies weapon in his home. Will f/u with his primary care Dr. Hayley gallegos antidepressant therapy. Labs stable. Next f/u with [facility] in 3 months with CBC, CMP, LDH and exam. Defer next restaging imaging with CT CAP with contrast to 6 months, sooner if evidence of recurrence. High complexity 45 minute f/u visit. 07/09/2022: He has some increased swelling in the RLE with warmth. Redness to theshin area. Stat US was negative for DVT. We will refer him to vascular. Labs arereviewed and stable overall with some increase in his creatinine. This will be monitored with repeat labs at follow-up. We will plan for follow-up in 3 months with repeat cbc, cmp, ldh and CT c/a/p. He is in agreement with this plan and has no questions. 10/06/2022: Reports increasing fatigue over the last month. Recently underwent ablation of nephrolithiasis as well as stent placement by Dr. Sweet of urology. CT of abdomen and pelvis at [facility] did not show any new areas of adenopathy. There is also no new adenopathy in the chest on most recent chest CT 10/04/2022. There is been some regression of prior anterior mediastinal lymphnode as well as the number of hepatic and splenic lesions, and prior areas of liver and spleen involvement appeared stable from PET/CT in March 2022 that did not show any evidence of FDG avidity. We addressed his fatigue with TSH andfree T4 which returned normal but a.m. cortisol was only 3 and ACTH is pending. He had prior folic acid deficiency and we are sending methylmalonic acid and homocystine as well as increasing his serum folate to 3 mg daily. Due to his persistent fatigue and prior steroid use I am referring him to endocrinology to evaluate for adrenal insufficiency. Otherwise we will defer his next follow-up to 4 months with CBC, CMP, LDH, and may follow-up with nurse practitioner at that time. This is a moderate complexity 35-minute follow-up for multiple comorbidities and new fatigue as well as review of recent imaging. (2) Fatigue Qualifiers: Fatigue type: chronic, unspecified Qualified Code(s): R53.82 - Chronic fatigue, unspecified Zheng notes increasing fatigue over the last month. Has underlying depression but we did send his thyroid functions which returned normal, B12 and homocystinewhich are pending but patient had prior folate deficiency therefore we will increase his folic acid to 3 tablets daily. He also has low a.m. cortisol levelof 3.3 pending ACTH. I am sending him to endocrinology for further evaluation due to prior steroids with his chemotherapy. We will reevaluate his symptoms athis follow-up in 4 months. (3) Folic acid deficiency As noted above we are increasing his supplemental folate to 3 mg daily due to his persistent fatigue. Methylmalonic acid and homocystine are pending. (4) Depression, major, recurrent Qualifiers: Active/Remission status: currently active Major depression episode severity: moderate Qualified Code(s): F33.1 - Major depressive disorder, recurrent, moderate Depressed mood with recent suicidal ideation--contracted for safety. Declined ED or psychiatry referral. Contracted for safety and agrees to f/u with primarycare. Symptoms have worsened since recent of his . 07/09/2022: Symptoms stable, patient declines suicidal ideation since last episode. 09/06/2022: Patient declines psychiatry referral, however we noted that his increased fatigue could be also related to his depression. Reevaluate after endocrinology evaluation. (5) Peripheral neuropathy due to chemotherapy Already subsiding specially with dose reduction of vincristine. Expected to resolve completely in shorter time (6) Hypercalcemia of malignancy Admission to [facility] with work-up then transferred to [facility]. Normal vitamin D levels, PTH intact was low at 5 (likely due to tumor related hypercalcemia). Given Pamidronate and aggressive hydration 09/29/2021: calcium improved to 10.8 today s/p zolendronic acid, not repeated on 76. We will repeat prior to likely discharge tomorrow 10/01. 01/08/2022: calcium WNL since discharge. Will continue to monitor with labs Resolved after initiation of therapy - Chemo Plan Chemo Plan (Dose, Rate, Freq): Chemo Plan (Dose, Rate, Freq): R-CHOP (category 1) Days 1: Rituximab 375mg/m2 IV day 1 CHOP regimen Day 1: Cyclophosphamide 750mg/m2 IV, doxorubicin 50mg/m2 IV bolus, and vincristine 1.5 mg IV bolus (max dose 2mg) Days 1: Prednisone 100mg PO 5 days. Repeat each cycle every 3 weeks for 6 cycles. Vincristine dose reduced 25% at cycle 2-4 Vincristine dose reduced 50% cycle 5-6 only He has completed chemotherapy and is in surveillance only Number of Cycles: 6 Goal of Treatment: Curative - Time with Patient Time Spent with Patient (Follow Up Visit): 45 minutes or more - High complexity for review of symptoms 3 months after chemotherapy, restaging PET/CT, depressionafter his 's Coordination of Care & Counseling Time: Greater than 50% of time spent with patient was for coordination of care (as documented) and [id number] counseling of patient and/or family. Dictated By: Abbi Mcbride MD DD/ [id number] Signed By: <Electronically signed by MD Abbi Mcbride> 10/06/22 1644 [facility] Work Phone: Summary Purpose Family History No Family History Records Found Relationship Condition Age at Onset Recorded Date/T maricarmen Not Specified Diabetes mellitus Unknown Relationship Condition Age at Onset Recorded Date/T maricarmen Not Specified Diabetes mellitus Unknown father Unknown Unknown Advance Directives No Advanced Directives Records Found Advance Directive Response Recorded Date/ Time Advance Directives No May 28 9:26am Advance Directive Response Recorded Date/ Time Advance Directives No May 28 8:26am Chief Complaint and Reason for Visit Chief Complaint liver mass SOB, L Lower back pain, vomiting B-cell lymphoma B-cell lymphoma B Cell Lymphoma Reason for Visit Hypercalcemia BRITTNEY (acute kidney injury) Encounter for chemotherapy management Encounter for coordination of complex care High grade B-cell lymphoma Hypercalcemia of malignancy BRITTNEY (acute kidney injury) Encounter for chemotherapy management 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 Chief Complaint B-cell lymphoma B-cell lymphoma B Cell Lymphoma Reason for Visit BRITTNEY (acute kidney in jury) Encounter for chemotherapy management High grade B-cell lymphoma Oral candidiasis Peripheral neuropathy due to chemotherapy Hypercalcemia of malignancy Chief Complaint B-cell lymphoma B-cell lymphoma B Cell Lymphoma Reason for Visit BRITTNEY (acute kidney in jury) Encounter for chemotherapy management 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 Oral candidiasis Chief Complaint B Cell Lymphoma Reason for Visit BRITTNEY (acute kidney in jury) Encounter for chemotherapy management 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 Oral candidiasis Chief Complaint B Cell Lymphoma Reason for Visit BRITTNEY (acute kidney in jury) Depression, major, recurrent Encounter for chemotherapy management 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 Oral candidiasis Chief Complaint B Cell Lymphoma r53.83,r89.1 Reason for Visit Fatigue BRITTNEY (acute kidney injury) Depression, major, recurrent Encounter for chemotherapy management Folic acid deficiency 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 Oral candidiasis Chief Complaint r53.83,r89.1 B Cell Lymphoma Reason for Visit Fatigue BRITTNEY (acute kidney injury) Depression, major, recurrent Encounter for chemotherapy management Folic acid deficiency 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 Oral candidiasis Chief Complaint B Cell Lymphoma elevated psa Reason for Visit Fatigue BRITTNEY (acute kidney injury) Depression, major, recurrent Encounter for chemotherapy management Folic acid deficiency 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 Oral candidiasis Additional Source Comments (unrecognized sect ion and content) No Status Records FoundNo Status Records FoundNo Status Records FoundNo Status Records FoundNo Status Records FoundNo Status Records FoundNo Status Records Found INFORMATION SOURCE (unrecogn ized section and content) DATE CREATED AUTHOR 09/14/2017 [facility] DATE CREATED AUTHOR AUTHOR'S ORGANIZ ATION 01/04/2022 [facility] DATE CREATED AUTHOR AUTHOR'S ORGANIZ ATION 05/02/2022 [facility] DATE CREATED AUTHOR AUTHOR'S ORGANIZ ATION 08/02/2022 [facility] DATE CREATED AUTHOR AUTHOR'S ORGANIZ ATION 07/09/2023 [facility] DATE CREATED AUTHOR AUTHOR'S ORGANIZ ATION 07/14/2023 [facility] DATE CREATED AUTHOR AUTHOR'S ORGANIZ ATION 07/19/2023 [facility] REASON FOR VISIT (unrecogniz ed section and content) Reason Comments Radiology MRI Specialty Diagnoses / Procedures Referred By Kaushal espinal Referred To Contact Radiology / RADIO MRI MAIN Q Diagnoses Elevated prostate specific antigen (PSA) MRI PROSTATE W/WO CONTRAST order in scanned doc Procedures MRI PELVIS W/O & W/CONTRAST MATERIAL MRI WWO PROSTATE 440 Jahaira Sweet MD [address] [place] [address] Radio Mri Main [address] [address] Referral ID Status Reason Start Date Expiration Date Visits Re quested Visits Authorized [id number] Closed 06/19/2022 09/17/2022 1 1 Care Team (unrecognized sect ion and content) Team Status: Active Member Role Status Dates Juan Carlos Morgan MD Primary Care Provider Active Team Status: Active Member Role Status Racquel Morgan MD Primary Care Provider Active Jnae Duron APRN Attending Provider Acti ve Team Status: Inactive Member Role Status Dates Juan Carlos Morgan MD Primary Care Provider Active Fam Duncan DO Attending Provider Active Team Status: Inactive Member Role Status Racquel Morgan MD Primary Care Provider Active Abbi Mcbride MD Attending Provider Active Team Status: Inactive Member Role Status Dates Juan Carlos Morgan MD Primary Care Provider Active Julien Wilkerson DO Emergency Provider Active Basim Zavala MD Admit Provider Active Abbi Mcbride MD Other Provider Active Jeffery Arthur MD Attending Provider Active Team Status: Inactive Member Role Status Racquel Morgan MD Primary Care Provider Active Hunter Forrest MD Attending Provider Active Team Status: Active Member Role Status Racquel Morgan MD Primary Care Provider Active Start: April 27, 2023 Jane Duron APRN Attending Provider Acti ve Start: April 27, 2023 Team Status: Inactive Member Role Status Racquel Morgan MD Primary Care Provider Active Start: May 11, 2023 End: May 11, 2023 Jahaira Sweet MD Attending Provider Active St art: May 11, 2023 End: May 11, 2023 Goals (unrecognized section and content) Goals may be documented in a n alternate section Source Comments (unrecognize d section and content) In the event this informatio n is protected by the Federal Confidentiality of Alcohol and Drug Abuse Patient Records regulations: The Federal rules restrict any use of the information to criminally investigate or prosecute any alcohol or drug abuse patient.[facility] FOR RECORDS PERTAINING TO PATIENTS WHO ARE OR HAVE BEEN ENROLLED IN A CHEMICAL DEPENDENCY/SUBSTANCEABUSE PROGRAM, SOME INFORMATION MAY BE OMITTED. This clinical summary was aggregated from multiple sources. Caution should be exercised in using it in the provision of clinical care. This summary normalizes information from multiple sources, and as a consequence, information in this document may materially change the coding, format and clinical context of patient data. In addition, data may be omitted in some cases. CLINICAL DECISIONS SHOULD BE BASED ON THE PRIMARY CLINICAL RECORDS. [facility] [employer] [facility]. provides no warranty or guarantee of the accuracy or completeness of information in this document.
[2023-07-20 16:50] LABS: Alanine Aminotransferase 31 U/L (16-63); Albumin Level 3.4 g/dL (3.4-5.0); Alkaline Phosphatase 112 U/L (46-116); Anion Gap 13.2; Aspartate Amino Transferase 15 U/L (15-37); Bilirubin Direct 0.1 mg/dL (0.0-0.2); Bilirubin Total 0.6 mg/dL (0.2-1.0); Carbon Dioxide 26.7 mmol/L (21.0-32.0); Chloride 105 mmol/L (98-107); Globulin 3.3 g/dL; Potassium 3.9 mmol/L (3.5-5.1); Sodium 141 mmol/L (136-145); Total Protein 6.7 g/dL (6.4-8.2)
[2023-07-22 04:12] LABS: Testosterone 283 ng/dL (264-916)
== END 2023-07-20 15:43 | disposition home or self-care (01) ==
LOC: LAB 15:44
PROVIDERS: Visit Provider Urology
DX: R82.994 Hypercalciuria (principal); R82.998 Other abnormal findings in urine; N20.0 Calculus of kidney; R97.20 Elevated prostate specific antigen [PSA]; E29.1 Testicular hypofunction; N40.1 Benign prostatic hyperplasia with lower urinary tract symptoms; N52.9 Male erectile dysfunction, unspecified; N28.1 Cyst of kidney, acquired; R82.991 Hypocitraturia
CPT/HCPCS: 36415; 74018; 80051; 80076; 84403

== ENCOUNTER 2023-10-03 13:28 | Outpatient (OUT) | payer MEDICARE, SELFPAY ==
--- NOTE | 2023-10-03 13:59 | XR_ITS ---
The [address] [address] Patient Name: CARMINA MASON MRN: [id number] date: 1955 Sex: M Assigned Patient Location: LAB Current Patient Location: Accession/Order Number: [id number] Exam Date: 10/03/2023 14:14 Report Date: 10/04/2023 08:10 At the request of: JAHAIRA WSEET Procedure: XR abdomen 1V EXAMINATION: XR abdomen 1V HISTORY: Kidney Stone COMPARISON: No relevant comparison available. FINDINGS: KIDNEY/URETER - RIGHT: No visible renal or ureteral calcifications. KIDNEY/URETER - LEFT: No visible renal or ureteral calcifications. PELVIS: No visible ureteral calcifications. Any visible calcifications favor phleboliths. BOWEL: No abnormal dilation or deviation. BONES: Mild to moderate degenerative changes of the spine. Bilateral hip osteoarthritis OTHER: Negative. No abnormal gaseous collections. XR/XR abdomen 1V IMPRESSION: No definite urinary tract calculi Electronically authenticated by: VENKATESH CHAPMAN Date: 10/04/2023 08:10
[2023-10-03 14:43] LABS: Alanine Aminotransferase 27 U/L (16-63); Albumin Globulin Ratio 1.1; Albumin Level 3.4 g/dL (3.4-5.0); Alkaline Phosphatase 104 U/L (46-116); Anion Gap 9.9; Aspartate Amino Transferase 17 U/L (15-37); Bilirubin Direct 0.1 mg/dL (0.0-0.2); Bilirubin Total 0.5 mg/dL (0.2-1.0); Carbon Dioxide 27.9 mmol/L (21.0-32.0); Chloride 107 mmol/L (98-107); Globulin 3.1 g/dL; Potassium 3.8 mmol/L (3.5-5.1); Sodium 141 mmol/L (136-145); Total Protein 6.5 g/dL (6.4-8.2)
[2023-10-04 04:07] LABS: Testosterone 249 ng/dL (264-916)
== END 2023-10-03 13:29 | disposition home or self-care (01) ==
LOC: LAB 13:32
PROVIDERS: Visit Provider Urology
DX: N20.0 Calculus of kidney (principal); R82.994 Hypercalciuria; R82.998 Other abnormal findings in urine; R97.20 Elevated prostate specific antigen [PSA]; E29.1 Testicular hypofunction; N40.1 Benign prostatic hyperplasia with lower urinary tract symptoms; N52.9 Male erectile dysfunction, unspecified; N28.1 Cyst of kidney, acquired; R82.991 Hypocitraturia
CPT/HCPCS: 36415; 74018; 80051; 80076; 84403

== ENCOUNTER 2024-04-26 13:06 | Outpatient (OUT) | payer MEDICARE, SELFPAY ==
[2024-04-26 14:26] LABS: Prostate Specific Antigen Dx 26.96 ng/mL (<=4.00)
[2024-04-27 04:07] LABS: Testosterone 449 ng/dL (264-916)
== END 2024-04-26 13:07 | disposition home or self-care (01) ==
LOC: LAB 13:08
PROVIDERS: Visit Provider Urology
DX: E29.1 Testicular hypofunction (principal); R97.20 Elevated prostate specific antigen [PSA]
CPT/HCPCS: 36415; 84153; 84403